=== PATIENT | female | born 1965 | race African-American/Black ===

== ENCOUNTER 2022-11-11 12:56 | Outpatient (AMB) | payer OTHER, SELFPAY ==
--- NOTE | 2022-11-11 13:03 | A.OFFPC_ITS ---
Vital Signs 11/11/22 13:09 Height 5 ft 2 in Weight 139 lb 6 oz BMI 25.5 BP 112/72 Blood Pressure Location Rt brachial Position Sitting Pulse 68 Pulse Source Pulse Oximeter Pulse Oximetry (%) 99 Oxygen Delivery Method Room Air Intake Visit Reasons: npv- requesting phy Allergies No Known Allergies Allergy (Verified 11/11/22 13:09) Medication List - Last Reconciled 11/11/22 by Jeremy Camara MD No Known Home Meds Tobacco use date assessed: 11/11/22 Dental Screening Dental Screen Date: 11/11/22 Did you have a dental visit in the last 12 months?: Yes Did you have a dental problem in the last 6 months where you did not have access to dental care?: No Was dental information given to patient?: No HPI npv- requesting phy HPI Details Patient is a 57-year-old female came in today establish care and initial physical exam. She is taking no medications Due for mammogram patient have breast implants Also is in need of new OBGYN Colonoscopy was 2 years ago patient will provide us with the report. She was told that next colonoscopy will be in 5 years that will be in 2025 Lab order placed to be done fasting Patient have a small ventral hernia which is not painful and is therefore a while. She is complaining of feeling clogged ears on examination patient's ears are filled with cerumen Ears were irrigated with good result. Follow-up 1 year for physical exam or earlier if needed [facility] Social History Housing: House Patient Tobacco Use Status: Never used Tobacco e-Cigarette/Vaping Use: Never Used service: No Current occupational status: unemployed Cognitive needs: No Hearing needs: No Vision needs: No Questionnaire AUDIT C Alcohol Use Questionnaire (AUDIT-C) 1. How often do you have a drink containing alcohol?: Monthly or less 2. How many drinks containing alcohol do you have on a typical day when you are drinking?: 1 or 2 3. How often do you have six or more drinks on one occasion?: Never Total Score: 1 Score Reviewed/Action Taken: Yes Review of Systems Const Denies chills, Denies fever(s) and Denies headache(s) Eyes Denies blurry vision ENT Denies headache(s), Denies nasal discharge, Denies nasal obstruction, Denies odynophagia and Denies sinus pain Card Denies chest pain at rest and Denies chest pain with activity Resp Denies cough and Denies hemoptysis GI Denies diarrhea, Denies odynophagia, Denies vomiting and Denies hematemesis Reports as per HPI Musc Denies abnormal gait Skin/Breast Reports as per HPI Neuro Denies Neuro-related abnormal movements, Denies Abnormal speech present, Denies abnormal gait, Denies headache(s) and Denies Sensory deficit (Neuro) Psych Denies mood swings and Denies paranoia Endo Reports as per HPI Wale/Lymph Reports as per HPI Aller/Immun Reports as per HPI Physical exam (Primary Care) Vital Signs: Last Vital Signs Pulse 68 11/11/22 13:09 BP 112/72 11/11/22 13:09 Pulse Ox 99 11/11/22 13:09 Oxygen Delivery Method Room Air 11/11/22 13:09 BMI result Body Mass Index 25.5 Tobacco/Smoking Status: Tobacco use Status Tobacco use date assessed 11/11/22 11/11/22 13:11 Patient Tobacco Use Status Never used Tobacco 11/11/22 13:11 e-Cigarette/Vaping Use Never Used 11/11/22 13:11 Const General: cooperative, comfortable and no acute distress Orientation/consciousness: patient oriented x3 HENMT Head: Yes normocephalic and Yes atraumatic Eyes General: appearance normal, both eyes and all related structures Pupils: Equal, round and reactive pupils present EOM: EOMs intact bilaterally Neck Neck: Yes supple and No lymphadenopathy Thyroid: Thyroid normal Lymphatic: no lymphadenopathy noted Chest Breast/axilla palpation: normal palpation of the breasts Resp Effort & Inspection: normal respiratory effort and able to speak in complete sentences Auscultation: clear to auscultation bilaterally Cardio Heart sounds: S1 normal heart sound present and S2 normal heart sound present GI Other: Small ventral hernia above the umbilicus slightly on the left side nontender Palpation (GI): Soft to palpation and nontender Auscultation: normal bowel sounds General: Yes no CVA tenderness Back/Spine/Pelvis Back: no CVA tenderness Skin General skin exam: elasticity normal and turgor normal Neuro General: patient oriented x3 and gait normal Cranial nerves: Yes Equal, round and reactive pupils present Speech: No Abnormal speech present Sensory Exam: No Sensory deficit (Neuro) Coordination: tandem gait normal and Romberg test negative Extrem General: Yes normal exam except as noted and No edema Office Procedures Cerumen Removal From which ear canal was the cerumen removed: bilateral Removal: irrigation Notes: patient tolerated procedure well, no complications and ear canal clear [id number] Irrigation/Lavage Assessment and Plan Assessment & Plan (1) Encounter for general adult medical examination with abnormal findings: Code(s): Z00.01 - Encounter for general adult medical examination with abnormal findings (2) Ventral hernia: Code(s): K43.9 - Ventral hernia without obstruction or gangrene (3) Impacted cerumen, bilateral: Code(s): H61.23 - Impacted cerumen, bilateral (4) Difficulty sleeping: Code(s): G47.9 - Sleep disorder, unspecified (5) History of breast implant: Code(s): Z98.82 - Breast implant status (6) Encounter for routine gynecological examination: Code(s): Z01.419 - Encounter for gynecological examination (general) (routine) without abnormal findings Plan Patient is a 57-year-old female came in today establish care and initial physical exam. She is taking no medications Due for mammogram patient have breast implants Also is in need of new OBGYN Colonoscopy was 2 years ago patient will provide us with the report. She was told that next colonoscopy will be in 5 years that will be in 2025 Lab order placed to be done fasting Patient have a small ventral hernia which is not painful and is therefore a while. She is complaining of feeling clogged ears on examination patient's ears are filled with cerumen Ears were irrigated with good result. Most night have difficulty sleeping at night patient says that she keeps thinking about different things Follow-up 1 year for physical exam or earlier if needed Orders: Orders Comprehensive [place]. Panel Fast Today G47.9 - Sleep disorder, unspecified, H61.23 - Impacted cerumen, bilateral, K43.9 - Ventral hernia without obstruction or gangrene, Z00.01 - Encounter for general adult medical examination with abnormal findings, Z98.82 - Breast implant status Lipid Panel Today G47.9 - Sleep disorder, unspecified, H61.23 - Impacted cerumen, bilateral, K43.9 - Ventral hernia without obstruction or gangrene, Z00.01 - Encounter for general adult medical examination with abnormal findings, Z98.82 - Breast implant status TSH reflex Free T4 Today G47.9 - Sleep disorder, unspecified, H61.23 - Impacted cerumen, bilateral, K43.9 - Ventral hernia without obstruction or gangrene, Z00.01 - Encounter for general adult medical examination with abnormal findings, Z98.82 - Breast implant status Complete Blood Count Auto Diff Today G47.9 - Sleep disorder, unspecified, H61.23 - Impacted cerumen, bilateral, K43.9 - Ventral hernia without obstruction or gangrene, Z00.01 - Encounter for general adult medical examination with abnormal findings, Z98.82 - Breast implant status MM tomosynthesis screen imp BI Today Z12.31 - Encounter for screening mammogram for malignant neoplasm of breast Referrals HEALTH CLINICIAN Referral Z01.419 - Encounter for gynecological examination (general) (routine) without abnormal findings Coding Level of Care Code New Pt Prev Care 40-64y(56056) Diagnoses Encounter for general adult medical examination with abnormal findings Z00.01 Ventral hernia K43.9 Impacted cerumen, bilateral H61.23 Difficulty sleeping G47.9 History of breast implant Z98.82 Encounter for routine gynecological examination Z01.419 CPT Codes Office Procedure - CPT: 61510-Dkl Irrigation/Lavage ([id number])
[2022-11-11 13:09] VITALS: BP 112/72; PULSE 68; O2SAT 99; BMI 25.5
== END 2022-11-11 15:05 | disposition home or self-care (01) ==
PROVIDERS: PCP Internal Medicine; Visit Provider Internal Medicine
DX: Z00.01 Encounter for general adult medical examination with abnormal findings (principal); K43.9 Ventral hernia without obstruction or gangrene; H61.23 Impacted cerumen, bilateral; G47.9 Sleep disorder, unspecified; Z98.82 Breast implant status; Z01.419 Encounter for gynecological examination (general) (routine) without abnormal findings
CPT/HCPCS: 69209; 99386

== ENCOUNTER 2022-11-18 07:11 | Outpatient (REF) | payer OTHER, SELFPAY ==
[2022-11-18 11:30] LABS: MANUAL DIFF FLAG NO
[2022-11-18 11:42] LABS: Basophils Percent Auto 1.1 % (0-2); Eosinophils Absolute Auto 0.1 X10*3/uL (0.0-0.4); Eosinophils Percent Auto 3.8 % (0-4); Hematocrit 41.4 % (37.0-47.0); Hemoglobin 12.9 g/dl (12.0-16.0); Imm Gran Abs Auto 0.01 X10*3/uL (0.00-0.03); Imm Gran Pct Auto 0.3 % (0.0-0.4); Lymphocytes Absolute Auto 1.5 X10*3/uL (1.2-4.9); Lymphocytes Percent Auto 40.7 % (20-40); Mean Corpuscular HGB Conc 31.2 g/dl (31.0-35.0); Mean Corpuscular Hemoglobin 27.3 pg (27.0-33.0); Mean Corpuscular Volume 87.5 fL (80.0-98.0); Mean Platelet Volume 10.8 fL (9.4-12.3); Monocytes Absolute Auto 0.3 X10*3/uL (0.1-1.2); Monocytes Percent Auto 9.3 % (2-11); Neutrophils Absolute Auto 1.6 x10*3/uL (2.0-8.3); Neutrophils Percent Auto 44.8 % (45-73); Platelet Count 273 X10*3/uL (160-400); Red Blood Count 4.73 X10*6/uL (4.20-5.50); Red Cell Distribution Width 13.5 % (11.0-16.0); White Blood Count 3.7 X10*3/uL (4.8-10.8)
[2022-11-18 21:58] LABS: Alanine Aminotransferase 14 U/L (0-31); Albumin Level 3.8 g/dL (3.5-5.0); Alkaline Phosphatase 93 U/L (39-117); Anion Gap 13 (12-20); Aspartate Amino Transferase 21 U/L (5-31); Bilirubin Total 0.3 mg/dL (0.0-1.0); Blood Urea Nitrogen 10 mg/dL (9-16); Calcium 9.6 mg/dL (8.4-10.2); Carbon Dioxide 25 mmol/L (22-29); Chloride 107 mmol/L (96-108); Cholesterol 184 mg/dL; Estimated Glomerular Filt Rate > 60; Glucose Fasting 79 mg/dL (60-99); HDL Cholesterol 69 mg/dL; LDL Cholesterol Calculated 105 mg/dl; Potassium 3.8 mmol/L (3.3-5.1); Sodium 141 mmol/L (135-145); Triglycerides 51 mg/dL
[2022-11-18 22:14] LABS: TSH reflex Free T4 2.77 uIU/mL (0.32-4.0)
== END 2022-11-18 07:12 | disposition home or self-care (01) ==
LOC: HO.HMGCLDS 07:11
PROVIDERS: PCP Internal Medicine; Visit Provider Internal Medicine
DX: Z00.01 Encounter for general adult medical examination with abnormal findings (principal); G47.9 Sleep disorder, unspecified; H61.23 Impacted cerumen, bilateral; K43.9 Ventral hernia without obstruction or gangrene; Z98.82 Breast implant status
CPT/HCPCS: 36415; 80053; 80061; 84443; 85025

== ENCOUNTER 2022-12-17 08:28 | Outpatient (REF) | payer OTHER, SELFPAY | END 2022-12-17 08:29 | disposition home or self-care (01) | LOC: HO.MAMMO 08:28 | PROVIDERS: PCP Internal Medicine; Visit Provider Internal Medicine | DX: Z13.89 Encounter for screening for other disorder (principal) ==

== ENCOUNTER 2022-12-24 10:47 | Outpatient (REF) | payer OTHER, SELFPAY ==
[2022-12-24 13:41] LABS: MANUAL DIFF FLAG NO
[2022-12-24 13:53] LABS: Basophils Percent Auto 0.8 % (0-2); Eosinophils Absolute Auto 0.1 X10*3/uL (0.0-0.4); Eosinophils Percent Auto 2.4 % (0-4); Hematocrit 40.7 % (37.0-47.0); Imm Gran Abs Auto 0.01 X10*3/uL (0.00-0.03); Imm Gran Pct Auto 0.2 % (0.0-0.4); Lymphocytes Absolute Auto 1.9 X10*3/uL (1.2-4.9); Lymphocytes Percent Auto 36.9 % (20-40); Mean Corpuscular HGB Conc 31.9 g/dl (31.0-35.0); Mean Corpuscular Hemoglobin 27.9 pg (27.0-33.0); Mean Corpuscular Volume 87.3 fL (80.0-98.0); Mean Platelet Volume 10.4 fL (9.4-12.3); Monocytes Absolute Auto 0.4 X10*3/uL (0.1-1.2); Monocytes Percent Auto 7.5 % (2-11); Neutrophils Absolute Auto 2.7 x10*3/uL (2.0-8.3); Neutrophils Percent Auto 52.2 % (45-73); Platelet Count 285 X10*3/uL (160-400); Red Blood Count 4.66 X10*6/uL (4.20-5.50); White Blood Count 5.1 X10*3/uL (4.8-10.8)
== END 2022-12-24 10:48 | disposition home or self-care (01) ==
LOC: HO.HMGCLDS 10:47
PROVIDERS: PCP Internal Medicine; Visit Provider Internal Medicine
DX: D70.9 Neutropenia, unspecified (principal)
CPT/HCPCS: 36415; 85025

== ENCOUNTER 2023-02-19 08:19 | Outpatient (REF) | payer OTHER, SELFPAY ==
[2023-02-19 15:15] LABS: CT PCR NOT DETECTED (Not Detect.); NG PCR NOT DETECTED (Not Detect.)
[2023-02-24 20:37] LABS: HPV mRNA E6/E7 rflx Not Detected (Not Detected)
== END 2023-02-19 08:20 | disposition home or self-care (01) ==
LOC: HO.LNP 08:19
PROVIDERS: PCP Internal Medicine; Visit Provider Advanced Practice Midwife
DX: Z01.419 Encounter for gynecological examination (general) (routine) without abnormal findings (principal); Z11.51 Encounter for screening for human papillomavirus (HPV); Z20.2 Contact with and (suspected) exposure to infections with a predominantly sexual mode of transmission
CPT/HCPCS: 0353U; 87624; 88142; 99386

== ENCOUNTER 2023-02-19 08:19 | Outpatient (AMB) | payer OTHER, SELFPAY ==
--- NOTE | 2023-02-19 08:23 | A.OFFVIS_ITS ---
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 She is interested in estrogen therapy to prevent any facial hairs. Patient admits she tries to eat a healthy Vegan diet including Calcium and Vitamin D. She stays active with exercise. Currently not sexually active. Denies vaginal itching and irritation. STD screening offered; she accepts. Denies family hx of breast and ovarian cancer. [place] and pt. reports negative history. Last mammogram 2017 per pt. Mammogram scheduled June 21 2023. UTD on colonoscopy. 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 Sexually active: No Sexual orientation: Straight/Heterosexual Gender identity: Female Cognitive needs: No Hearing needs: No Vision needs: No Female Reproductive History Menstrual Menopause type: natural Total pregnancies: 3 Full term: 2 Number of Living Children: 2 Ab spontaneous: 1 Physical Exam Vital Signs: Last Vital Signs BP 108/64 02/19/23 08:25 BMI result Body Mass Index 23.8 Const General: cooperative, healthy appearing, no acute distress, well developed and alert Orientation/consciousness: patient oriented x3 HEENT Head: Yes normal to inspection Eyes General: appearance normal, both eyes and all related structures Neck Neck: Yes normal visual inspection Thyroid: Thyroid normal Chest Other: breast augmentation scarring Chest palpation & inspection: normal inspection of the chest Breast/axilla inspection: normal inspection of the breasts (no puckering, dimpling, peau de orange, retraction, discharge, masses) Breast/axilla palpation: normal palpation of the breasts Resp Effort & Inspection: normal respiratory effort GI Other: abdominoplasty scarring Inspection: Yes normal to inspection Palpation (GI): Soft to palpation (to palpation) Rectal Exam - Female: deferred Other: pt reports uterus is tipped General: Yes bladder normal to inspection External Female Exam: normal external appearance and normal appearance of the urethra Speculum Exam - Vagina: normal appearance of the vagina, normal palpation and vagina atrophic Speculum Exam - Cervix: normal appearance of the cervix and normal palpation Bimanual exam- vagina & uterus: normal palpation, normal palpation and other (anteverted uterus, mass palpable) Bimanual Exam- Adnexa, other: normal adnexae and no masses Skin General skin exam: no rashes or lesions noted Neuro General: patient oriented x3 Cognition (Neuro): normal cognition Extrem General: Yes normal to inspection Psych Attitude: cooperative Thought process: Normal thought process present Assessment & Plan Assessment & Plan (1) Encounter for well woman exam: Code(s): Z01.419 - Encounter for gynecological examination (general) (routine) without abnormal findings Plan: Discussed: Current recommendations for pap smears per ASCCP guidelines. Breast awareness and periodic self breast exams. Encouraged yearly mammograms. Forward mammogram results from June 2023 to office once results are completed. Maintaining a healthy lifestyle including a well balanced diet including Calcium and Vitamin D and routine exercise. Encouraged to use condoms for STD prevention if become sexually active. Discussed with the patient the benefits and the risks of hormonal replacement therapy. I do not advise starting HRT for facial hair growth deterrent. Other options for removal-plucking, waxing, electrolysis, or laser. Contact office with any PMB. All of her questions and concerns were addressed to the best of my ability. (2) Potential exposure to STD: Code(s): Z20.2 - Contact with and (suspected) exposure to infections with a predominantly sexual mode of transmission Plan: GC/CT panel done today. Await results and treat accordingly. (3) Pelvic mass: Code(s): R19.00 - Intra-abdominal and pelvic swelling, mass and lump, unspecified site (4) Food allergic skin reaction: Code(s): L27.2 - Dermatitis due to ingested food Plan: Consult with specialist regarding allergic reaction. Orders: Orders Pap Smear Today Z01.419 - Encounter for gynecological examination (general) (routine) without abnormal findings CT NG by PCR Today Z01.419 - Encounter for gynecological examination (general) (routine) without abnormal findings US pelvic and transvaginal Today R19.00 - Intra-abdominal and pelvic swelling, mass and lump, unspecified site Coding Level of Care Code New Pt Prev Care 40-64y(99704) Diagnoses Encounter for well woman exam Z01.419 Potential exposure to STD Z20.2 Pelvic mass R19.00 Food allergic skin reaction L27.2
[2023-02-19 08:25] VITALS: BP 108/64; BMI 23.8
== END 2023-02-19 09:00 | disposition home or self-care (01) ==
PROVIDERS: PCP Internal Medicine; Visit Provider Advanced Practice Midwife
DX: Z01.419 Encounter for gynecological examination (general) (routine) without abnormal findings (principal); Z20.2 Contact with and (suspected) exposure to infections with a predominantly sexual mode of transmission; R19.00 Intra-abdominal and pelvic swelling, mass and lump, unspecified site; L27.2 Dermatitis due to ingested food
CPT/HCPCS: 99386

== ENCOUNTER 2023-03-17 10:32 | Outpatient (REF) | payer OTHER, SELFPAY ==
--- NOTE | ~2023-03-17 | US_ITS ---
EXAMINATION: US PELVIS CLINICAL INFORMATION: Intra-abdominal pain and swelling. COMPARISON: None available. TECHNIQUE: Ultrasound of the pelvis is performed using both transabdominal and transvaginal transducers along with Doppler. Transvaginal imaging is performed due to inadequate visualization transabdominally. FINDINGS: UTERUS: The uterus is anteverted and measures 7.9 x 2.5 x 4.3 cm. The double wall endometrial thickness is 2 mm. The uterus is smooth in contour and has normal myometrial echogenicity with the exception of a 4 x 2 x 3 mm area of calcification which could be related to a small fibroid. ADNEXA: Both ovaries are visualized. There is normal color flow to the adnexa. There is no ovarian torsion. There is no pelvic ascites or fluid collection. Right ovary measures 2.1 x 1.0 x 0.8 cm for a volume of 0.8 mL. Left ovary measures 2.2 x 2.0 x 1.1 cm for a volume of 2.5 mL. US/US pelvic and transvaginal IMPRESSION: Small uterine fibroid with calcification.
== END 2023-03-17 10:33 | disposition home or self-care (01) ==
LOC: HO.US 10:32
PROVIDERS: PCP Internal Medicine; Visit Provider Advanced Practice Midwife
DX: R19.00 Intra-abdominal and pelvic swelling, mass and lump, unspecified site (principal)
CPT/HCPCS: 76830; 76856

== ENCOUNTER 2023-06-29 07:39 | Outpatient (AMB) | payer OTHER, SELFPAY ==
--- NOTE | 2023-06-29 07:40 | MHC.OFFVIS ---
Intake Intake Visit Reasons: TV ultra sound Intake Note: cell # [phone] Product Assurance Engineer: Product Assurance Engineer Present Allergies No Known Allergies Allergy (Verified 02/19/23 08:26) Is last menstrual period known: Yes HPI HPI Comments History of Present Illness Details [facility] visit 07:50-07:57. Phone call due to Covid 19 Pandemic. I spent 7 minutes speaking with the patient on the phone plus an additional 5 minutes reviewing the chart and 5 minutes updating the medical record for a total of 17 minutes. Patient presents via phone to discuss: US results, history of ?mass on last exam. No postmenopausal bleeding or pelvic pain. FH of fibroids, uncertain if prior scans elsewhare. 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 Sexual orientation: Straight/Heterosexual Gender identity: Female Cognitive needs: No Hearing needs: No Vision needs: No Review of Systems Const All systems reviewed & are unremarkable except as noted in HPI and below Endo Reports no additional complaints Physical Exam Const General: cooperative, healthy appearing and no acute distress Psych Appearance: well kempt Attitude: cooperative Thought process: Normal thought process present Results Reviewed Results Reviewed: [address] [address] Ultrasound Report Signed Patient: Raven Garzon MR#: [id number] : 1965 Acct:[id number] Age/Sex: 58 / F ADM Date: 03/17/23 Loc: HO.US Attending Dr: Stefania Carrillo CNM Ordering Physician: Stefania Carrillo CNM Date of Service: 03/17/23 Procedure(s): US pelvic and transvaginal Accession Number(s): [id number] cc: Jeremy Camara MD; Stefania Carrillo CNM~ EXAMINATION: US PELVIS CLINICAL INFORMATION: Intra-abdominal pain and swelling. COMPARISON: None available. TECHNIQUE: Ultrasound of the pelvis is performed using both transabdominal and transvaginal transducers along with Doppler. Transvaginal imaging is performed due to inadequate visualization transabdominally. FINDINGS: UTERUS: The uterus is anteverted and measures 7.9 x 2.5 x 4.3 cm. The double wall endometrial thickness is 2 mm. The uterus is smooth in contour and has normal myometrial echogenicity with the exception of a 4 x 2 x 3 mm area of calcification which could be related to a small fibroid. ADNEXA: Both ovaries are visualized. There is normal color flow to the adnexa. There is no ovarian torsion. There is no pelvic ascites or fluid collection. Right ovary measures 2.1 x 1.0 x 0.8 cm for a volume of 0.8 mL. Left ovary measures 2.2 x 2.0 x 1.1 cm for a volume of 2.5 mL. US/US pelvic and transvaginal IMPRESSION: Small uterine fibroid with calcification. Dictated By: Al Best MD Signed By: <Electronically signed by Al Best MD in OV> 03/18/23 1748 DD/ 1130 TD/TT: Cv/Cvn Cv Tsc System Operator: SS Assessment & Plan Assessment & Plan (1) Fibroid: Code(s): D21.9 - Benign neoplasm of connective and other soft tissue, unspecified Plan Discussed: Counseled re: Leiomyoma: common pelvic neoplasm. Differential diagnosis-may include leiomyosarcoma which is a rare uterine sarcoma 3-7/100,000, difficult to distinguish from fibroids on ultrasound from uterine sarcoma's. Unlikely any single test will have a highly positive predictive value. Hysterectomy is not recommended for sole purpose of excluding malignant neoplasm. Report any PMB/AUB. Pelvic pressure, bloating, or pain. Expectant management follow up for stability. Referral to MD if indicated for level of care. This note is constructed using voice recognition software. While every effort has been made to ensure accuracy, group home worker errors may have been included. Orders: Orders US pelvic and transvaginal 02/14/24 D21.9 - Benign neoplasm of connective and other soft tissue, unspecified Telehealth Telehealth Location of provider rendering services: practice address Location of patient: address on file Patient Identification confirmed using: Name, : Yes Telehealth method: video Patient verbally consented to treatment: Yes Patient verbally consented to billing insurance company: Yes Patient informed of any privacy concerns related to visit: Yes Coding Level of Care Code Tele Est Pt Level 3 (09814) Diagnoses Fibroid D21.9
== END 2023-06-29 08:26 | disposition home or self-care (01) ==
LOC: HO.HWS 07:39
PROVIDERS: PCP Internal Medicine; Visit Provider Advanced Practice Midwife
DX: D21.9 Benign neoplasm of connective and other soft tissue, unspecified (principal)
CPT/HCPCS: 99213

== ENCOUNTER → 2023-06-29 07:39 | Outpatient (BNVA) | payer OTHER, SELFPAY | PROVIDERS: PCP Internal Medicine; Visit Provider Advanced Practice Midwife ==

== ENCOUNTER 2023-07-29 08:30 | Outpatient (AMB) | payer OTHER, SELFPAY ==
--- NOTE | 2023-07-29 08:40 | A.OFFPC_ITS ---
Vital Signs 07/29/23 08:41 Height 5 ft 2 in Intake Visit Reasons: Blood Work Req~ Allergies No Known Allergies Allergy (Verified 07/29/23 08:40) Medication List - Last Reconciled 07/29/23 by Jeremy Camara MD No Known Home Meds Tobacco use date assessed: 07/29/23 Dental Screening Dental Screen Date: 07/29/23 Did you have a dental visit in the last 12 months?: Yes Did you have a dental problem in the last 6 months where you did not have access to dental care?: No Was dental information given to patient?: Patient has dentist HPI Blood Work Req~ HPI Details Patient is 58-year-old female this is a telemedicine conference Patient is concerned that she has lost weight since seen last, patient says that she we around 130-114 lb She was last seen in the office October of last year when she way around 130 lb Patient says that she just on not have an appetite. There is no abdominal pain, no nausea or vomiting, there is no chest pain shortness of breath, no fever chills I have ordered labs for the patient We will book in house appointment to go over the labs and to further evaluate. 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 How often do you have a drink containing alcohol?: Monthly or less 2. How many drinks containing alcohol do you have on a typical day when you are drinking?: 1 or 2 3. How often do you have six or more drinks on one occasion?: Never Total Score: 1 Score Reviewed/Action Taken: Yes Review of Systems Const Denies chills and Denies fever(s) ENT Denies epistaxis and Denies nasal discharge Card Denies chest pain Resp Denies chest congestion, Denies cough and Denies hemoptysis GI Denies diarrhea and Denies nausea Skin/Breast Denies rash Neuro Reports no additional complaints Psych Reports no additional complaints Endo Reports no additional complaints Physical exam (Primary Care) Tobacco/Smoking Status: Tobacco use Status Tobacco use date assessed 07/29/23 07/29/23 08:41 Patient Tobacco Use Status Never used Tobacco 07/29/23 08:41 e-Cigarette/Vaping Use Never Used 07/29/23 08:41 Telehealth Telehealth Location of provider rendering services: practice address Location of patient: address on file Patient Identification confirmed using: Name, : Yes Telehealth method: voice only Patient verbally consented to treatment: Yes Patient verbally consented to billing insurance company: Yes Patient informed of any privacy concerns related to visit: Yes Minutes spent on Phone/Video with Pt.: 13 Assessment and Plan Assessment & Plan (1) Lack of appetite: Code(s): R63.0 - Anorexia (2) Weight loss: Code(s): R63.4 - Abnormal weight loss Plan Patient is 58-year-old female this is a telemedicine conference Patient is concerned that she has lost weight since seen last, patient says that she we around 130-114 lb She was last seen in the office October of last year when she way around 130 lb Patient says that she just on not have an appetite. There is no abdominal pain, no nausea or vomiting, there is no chest pain shortness of breath, no fever chills I have ordered labs for the patient We will book in house appointment to go over the labs and to further evaluate. Orders: Orders Complete Blood Count Auto Diff Today R63.0 - Anorexia, R63.4 - Abnormal weight loss Comprehensive [place]. Panel Fast Today R63.0 - Anorexia, R63.4 - Abnormal weight loss TSH reflex Free T4 Today R63.0 - Anorexia, R63.4 - Abnormal weight loss Lipid Panel Today R63.0 - Anorexia, R63.4 - Abnormal weight loss Vitamin D 25-OH (D2 and D3) Today R63.0 - Anorexia, R63.4 - Abnormal weight loss Coding Level of Care Code Tele Est Pt Level 3 (78591) Diagnoses Lack of appetite R63.0 Weight loss R63.4
== END 2023-07-29 15:23 | disposition home or self-care (01) ==
LOC: HO.HMGC 08:30
PROVIDERS: PCP Internal Medicine; Visit Provider Internal Medicine
DX: R63.0 Anorexia (principal); R63.4 Abnormal weight loss
CPT/HCPCS: 99213

== ENCOUNTER 2023-07-30 07:03 | Outpatient (REF) | payer OTHER, SELFPAY ==
[2023-07-30 10:49] LABS: MANUAL DIFF FLAG NO
[2023-07-30 10:50] LABS: Basophils Percent Auto 1.1 % (0-2); Eosinophils Absolute Auto 0.1 X10*3/uL (0.0-0.4); Eosinophils Percent Auto 3.7 % (0-4); Hematocrit 42.2 % (37.0-47.0); Hemoglobin 13.8 g/dl (12.0-16.0); Lymphocytes Absolute Auto 1.8 X10*3/uL (1.2-4.9); Lymphocytes Percent Auto 47.8 % (20-40); Mean Corpuscular HGB Conc 32.7 g/dl (31.0-35.0); Mean Corpuscular Hemoglobin 28.7 pg (27.0-33.0); Mean Corpuscular Volume 87.7 fL (80.0-98.0); Mean Platelet Volume 9.6 fL (9.4-12.3); Monocytes Absolute Auto 0.3 X10*3/uL (0.1-1.2); Monocytes Percent Auto 8.2 % (2-11); Neutrophils Absolute Auto 1.5 x10*3/uL (2.0-8.3); Neutrophils Percent Auto 39.2 % (45-73); Platelet Count 256 X10*3/uL (160-400); Red Blood Count 4.81 X10*6/uL (4.20-5.50); Red Cell Distribution Width 12.5 % (11.0-16.0); White Blood Count 3.8 X10*3/uL (4.8-10.8)
[2023-07-30 11:26] LABS: Alanine Aminotransferase 14 U/L (0-31); Albumin Level 3.9 g/dL (3.5-5.0); Alkaline Phosphatase 104 U/L (39-117); Anion Gap 11 (12-20); Aspartate Amino Transferase 23 U/L (5-31); Bilirubin Total 0.5 mg/dL (0.0-1.0); Blood Urea Nitrogen 14 mg/dL (9-16); Calcium 9.4 mg/dL (8.4-10.2); Carbon Dioxide 28 mmol/L (22-29); Chloride 106 mmol/L (96-108); Cholesterol 186 mg/dL (<200); Estimated Glomerular Filt Rate > 60; Glucose Fasting 77 mg/dL (60-99); HDL Cholesterol 78 mg/dL (>40); LDL Cholesterol Calculated 100 mg/dL (<100); Potassium 3.5 mmol/L (3.3-5.1); Sodium 141 mmol/L (135-145); TSH reflex Free T4 2.29 uIU/mL (0.32-4.0); Total Protein 7.1 g/dL (6.5-8.0); Triglycerides 43 mg/dL (<150)
[2023-08-04 12:18] LABS: Vitamin D 25-OH, D2 <4 ng/mL; Vitamin D 25-OH, D3 37 ng/mL; Vitamin D 25-OH, Total 37 ng/mL (30-100)
== END 2023-07-30 07:04 | disposition home or self-care (01) ==
LOC: HO.HMGCLDS 07:03
PROVIDERS: PCP Internal Medicine; Visit Provider Internal Medicine
DX: R63.0 Anorexia (principal); R63.4 Abnormal weight loss
CPT/HCPCS: 36415; 80053; 80061; 82306; 84443; 85025

== ENCOUNTER 2023-08-05 08:34 | Outpatient (AMB) | payer OTHER, SELFPAY ==
--- OUTSIDE RECORDS SUMMARY | 2023-08-05 08:35 | XMS_ITS | Continuity of Care Document ---
Author Organization [facility] Address [address] [place] [phone]- Care Team Providers Care Hat Mender Name Role Phone Clark LOFTON, Darlene Gifford Primary Care Physician [place] [facility] [place] [facility] [address] [place] [id number]- Attending Physician: Deny Levine Admitting Physician: Deny Levine Referring Physician: Deny Levine Medications Multivitamin Daily, 0 Refills, Maintenance, 09/08/16 16:05:32 Start Date: 09/08/16 Status: Ordered Social History Social History Type Response Smoking Status Never smoker entered on: 09/08/16 Sex
--- OUTSIDE RECORDS SUMMARY | 2023-08-05 08:35 | XMS_ITS | Continuity of Care Document ---
Author Organization [facility] Address [address] [place] [id number]- Care Team Providers Care Record Filing Clerk Name Role Phone Darlene Rodas MD Primary Care Physician [id number] Date(s): 10/10/21 - 05/18/23 [facility] [address] [place] [id number]- Discharge Disposition: A-D/C Home Attending Physician: Rancho Mantilla MD Admitting Physician: Rancho Mantilla MD Referring Physician: Oliverio Rodriguez DO Medications Multivitamin Daily, 0 Refills, Maintenance, 09/08/16 16:05:32 Start Date: 09/08/16 Status: Ordered Social History Social History Type Response Smoking Status Never smoker entered on: 09/08/16 Sex Patient Care team information Care Team Personnel Name: Darlene Rodas MD Position: Reference Physician Member Role: PCP Address: Address: [address] [place] [id number] Care Team Related Persons Name: HOLLY LAWTON Address: home [address] [place] [address] Name: BAL ODONNELL Address: home [address] [place] [address]
--- NOTE | 2023-08-05 09:09 | A.OFFPC_ITS ---
Intake Visit Reasons: Discuss Labs ~ [phone] Allergies No Known Allergies Allergy (Verified 08/05/23 09:09) Medication List - Last Reconciled 08/05/23 by Jeremy Camara MD No Known Home Meds Tobacco use date assessed: 08/05/23 Dental Screening Dental Screen Date: 08/05/23 Did you have a dental visit in the last 12 months?: Yes Did you have a dental problem in the last 6 months where you did not have access to dental care?: No Was dental information given to patient?: Patient has dentist HPI Discuss Labs ~ [phone] HPI Details Patient is 58-year-old female this is a telemedicine conference to discuss her labs Patient have a mild neutropenia, she is very concerned about it, she tells me that her previous primary care was checking her labs every 6 months however she will feel much better if she can discuss it with specialist. Her absolute neutrophil count is 1.5, I have explained the findings in detail to patient, at this time I do not see any reason to be too concerned. However I have placed a referral for her to see a Hematology for consultation. 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 1. Little interest or pleasure in doing things: not at all 2. Feeling down, depressed, or hopeless: not at all 3. Trouble falling or staying asleep, or sleeping too much: not at all 4. Feeling tired or having little energy: not at all 5. Poor appetite or overeating: not at all 6. Feeling bad about yourself - or that you are a failure or have let yourself or your family down: not at all 7. Trouble concentrating on things, such as reading the newspaper or watching television: not at all 8. Moving or speaking so slowly that other people could have noticed. Or the opposite - being so fidgety or restless that you have been moving around a lot more than usual: not at all 9. Thoughts that you would be better off or of hurting yourself in some way: not at all Total score: 0 Depression Screening Interpretation: Negative Depression Screening Done: Yes 76995 - PHQ-9 Billing: Yes Source: Developed by Drs. Drew Cerna, Avis Huitron, Wesley Perry and colleagues, with an educational lee from [employer]. Thrive Questionnaire Date Thrive assessed: 08/05/23 I am a: Patient What is your living situation today?: I have a steady place to live Within the past 12 months, did the food you bought not last and you didn't have the money to get more?: Never true Within the past 12 months, did you worry whether your food would run out before you got money to buy more?: Never true Do you have trouble paying for medicines?: No Do you have trouble getting transportation to medical appointments?: No Do you have trouble paying your heating and electricity bill?: No Do you have trouble taking care of your child, family member or friend?: No Do you have trouble with day-to-day activities such as bathing, preparing meals, shopping, managing finances, etc.?: No Are you currently unemployed and looking for a job?: No Are you interested in more education?: No Please select the resources that you would like help with: None Currently or been in a relationship where the following occur: no concerns reported THRIVE Score: 0 AUDIT C Alcohol Use Questionnaire (AUDIT-C) 1. How often do you have a drink containing alcohol?: Monthly or less 2. How many drinks containing alcohol do you have on a typical day when you are drinking?: 1 or 2 3. How often do you have six or more drinks on one occasion?: Never Total Score: 1 Score Reviewed/Action Taken: Yes ZEE-7 AMB Questionnaire ZEE-7 Date ZEE - 7 assessed: 08/05/23 Feeling nervous, anxious, or on edge: 0 = Not at all Not being able to stop or control worryin = Not at all Worrying too much about different things: 0 = Not at all Trouble relaxin = Not at all Being so restless that it is hard to sit still: 0 = Not at all Becoming easily annoyed or irritable: 0 = Not at all Feeling afraid as if something awful might happen: 0 = Not at all Total ZEE-7 score (0-4 normal; 5-9 mild; 10-14 moderate; 15-21 severe): 0 Source: Developed by Drs. Drew Cerna, Avis Huitron, Wesley Perry and colleagues, with an educational lee from [employer]. ZEE-7 Assessment Billing ZEE-7 Assessment Tool: ZEE-7 Assessment 05581 Review of Systems Const Denies chills and Denies fever(s) ENT Denies epistaxis and Denies nasal discharge Card Denies chest pain Resp Denies chest congestion, Denies cough and Denies hemoptysis GI Denies diarrhea and Denies nausea Skin/Breast Denies rash Neuro Reports no additional complaints Psych Reports no additional complaints Endo Reports no additional complaints Physical exam (Primary Care) Tobacco/Smoking Status: Tobacco use Status Tobacco use date assessed 08/05/23 08/05/23 09:10 Patient Tobacco Use Status Never used Tobacco 08/05/23 09:10 e-Cigarette/Vaping Use Never Used 08/05/23 09:10 PHQ-9: PHQ-9 Score PHQ-9: Total score 0 08/05/23 09:11 Depression Screening Interpretation: Negative Thrive Assessment: Date of Thrive Assessment Date Thrive assessed 08/05/23 08/05/23 09:11 Currently or been in a relationship where the following occur: no concerns reported Telehealth Telehealth Location of provider rendering services: practice address Location of patient: address on file Patient Identification confirmed using: Name, : Yes Telehealth method: voice only Patient verbally consented to treatment: Yes Patient verbally consented to billing insurance company: Yes Patient informed of any privacy concerns related to visit: Yes Minutes spent on Phone/Video with Pt.: 13 Assessment and Plan Assessment & Plan (1) Neutropenia: Code(s): D70.9 - Neutropenia, unspecified Qualifiers: Neutropenia type: other Qualified Code(s): D70.8 - Other neutropenia Plan Patient is 58-year-old female this is a telemedicine conference to discuss her labs Patient have a mild neutropenia, she is very concerned about it, she tells me that her previous primary care was checking her labs every 6 months however she will feel much better if she can discuss it with specialist. Her absolute neutrophil count is 1.5, I have explained the findings in detail to patient, at this time I do not see any reason to be too concerned. However I have placed a referral for her to see a Hematology for consultation. Orders: Referrals Hematology & Oncology Referral D70.9 - Neutropenia, unspecified Coding Level of Care Code Tele Est Pt Level 3 (91580) Diagnoses Other neutropenia D70.8 Neutropenia type: other Additional Codes ZEE-7 Assessment Billing - ZEE-7 Assessment Tool: ZEE-7 Assessment 79455 ([id number])
== END 2023-08-05 16:30 | disposition home or self-care (01) ==
LOC: HO.HMGC 08:34
PROVIDERS: PCP Internal Medicine; Visit Provider Internal Medicine
DX: D70.8 Other neutropenia (principal)
CPT/HCPCS: 99213

== ENCOUNTER → 2023-08-30 10:15 | Outpatient (BNV) | payer OTHER, SELFPAY | PROVIDERS: PCP Internal Medicine; Visit Provider Internal Medicine Medical Oncology | DX: D70.9 Neutropenia, unspecified (principal) | CPT/HCPCS: 99204; 99213 ==

== ENCOUNTER 2023-11-29 07:38 | Outpatient (REF) | payer OTHER, SELFPAY ==
[2023-11-29 07:58] LABS: MANUAL DIFF FLAG NO
[2023-11-29 08:02] LABS: Eosinophils Absolute Auto 0.2 X10*3/uL (0.0-0.4); Eosinophils Percent Auto 4.7 % (0-4); Hematocrit 41.9 % (37.0-47.0); Hemoglobin 13.8 g/dl (12.0-16.0); Imm Gran Abs Auto 0.01 X10*3/uL (0.00-0.03); Imm Gran Pct Auto 0.2 % (0.0-0.4); Lymphocytes Absolute Auto 1.6 X10*3/uL (1.2-4.9); Lymphocytes Percent Auto 39.1 % (20-40); Mean Corpuscular HGB Conc 32.9 g/dl (31.0-35.0); Mean Corpuscular Hemoglobin 29.4 pg (27.0-33.0); Mean Corpuscular Volume 89.3 fL (80.0-98.0); Mean Platelet Volume 9.3 fL (9.4-12.3); Monocytes Absolute Auto 0.3 X10*3/uL (0.1-1.2); Monocytes Percent Auto 8.2 % (2-11); Neutrophils Absolute Auto 1.9 x10*3/uL (2.0-8.3); Neutrophils Percent Auto 46.8 % (45-73); Platelet Count 252 X10*3/uL (160-400); Red Blood Count 4.69 X10*6/uL (4.20-5.50); Red Cell Distribution Width 12.5 % (11.0-16.0)
[2023-11-29 08:14] LABS: Alanine Aminotransferase 47 U/L (0-31); Alkaline Phosphatase 105 U/L (39-117); Anion Gap 11 (12-20); Aspartate Amino Transferase 50 U/L (5-31); Bilirubin Total 0.3 mg/dL (0.0-1.0); Blood Urea Nitrogen 11 mg/dL (9-16); Calcium 9.7 mg/dL (8.4-10.2); Carbon Dioxide 27 mmol/L (22-29); Chloride 109 mmol/L (96-108); Estimated Glomerular Filt Rate > 60; Glucose Random 88 mg/dL (60-115); Lactate Dehydrogenase 182 U/L (122-220); Potassium 4.2 mmol/L (3.3-5.1); Sodium 143 mmol/L (135-145); Total Protein 7.2 g/dL (6.5-8.0)
== END 2023-11-29 07:39 | disposition home or self-care (01) ==
LOC: HO.LAB 07:38
PROVIDERS: PCP Internal Medicine; Visit Provider Internal Medicine Medical Oncology
DX: D70.9 Neutropenia, unspecified (principal)
CPT/HCPCS: 36415; 80053; 83615; 85025

== ENCOUNTER 2024-02-07 10:46 | Outpatient (REF) | payer OTHER, SELFPAY ==
--- NOTE | ~2024-02-07 | US_ITS ---
EXAMINATION: US PELVIS CLINICAL INFORMATION: Benign neoplasm of connective and other soft tissue, unspecified. Follow up for stability, calcifications, fibroid. COMPARISON: Pelvic ultrasound 03/17/2023. TECHNIQUE: Ultrasound of the pelvis is performed using both transabdominal and transvaginal transducers along with Doppler. Transvaginal imaging is performed due to inadequate visualization transabdominally. FINDINGS: Uterus: The uterus is anteverted and measures 7.7 x 2.3 x 4.7 cm. There is a 3 mm calcification seen in the uterus, which is without significant change when compared to the prior study. No definite associated mass is seen. The double wall endometrial thickness is 3 mm. Nabothian cysts are present in the cervix. The uterus is smooth in contour and has normal myometrial echogenicity. No visible fibroid. Adnexa: Both ovaries are visualized. There is normal color flow to the adnexa. There is no ovarian torsion. There is no pelvic ascites or fluid collection. Right ovary measures 2.4 x 0.9 x 1.2 cm for a volume of 1.4 mL. Left ovary measures 1.4 x 0.6 x 0.9 cm for a volume of 0.4 mL. US/US pelvic and transvaginal IMPRESSION: No significant abnormality is seen. A 3 mm calcification is seen in the uterus without significant change when compared to the prior study. Electronically signed by: Al Best MD 04/01/2024 10:46 AM MAUREEN
== END 2024-02-07 10:47 | disposition home or self-care (01) ==
LOC: HO.US 10:46
PROVIDERS: PCP Internal Medicine; Visit Provider Advanced Practice Midwife
DX: D21.9 Benign neoplasm of connective and other soft tissue, unspecified (principal)
CPT/HCPCS: 76830; 76856

== ENCOUNTER 2024-02-08 08:06 | Outpatient (REF) | payer OTHER, SELFPAY ==
[2024-02-08 09:58] LABS: MANUAL DIFF FLAG NO
[2024-02-08 10:08] LABS: Basophils Percent Auto 0.7 % (0-2); Eosinophils Absolute Auto 0.2 X10*3/uL (0.0-0.4); Eosinophils Percent Auto 4.2 % (0-4); Hematocrit 41.6 % (37.0-47.0); Hemoglobin 13.8 g/dl (12.0-16.0); Imm Gran Abs Auto 0.01 X10*3/uL (0.00-0.03); Imm Gran Pct Auto 0.2 % (0.0-0.4); Lymphocytes Absolute Auto 1.7 X10*3/uL (1.2-4.9); Lymphocytes Percent Auto 41.4 % (20-40); Mean Corpuscular HGB Conc 33.2 g/dl (31.0-35.0); Mean Corpuscular Hemoglobin 29.4 pg (27.0-33.0); Mean Corpuscular Volume 88.7 fL (80.0-98.0); Mean Platelet Volume 9.6 fL (9.4-12.3); Monocytes Absolute Auto 0.3 X10*3/uL (0.1-1.2); Monocytes Percent Auto 8.5 % (2-11); Neutrophils Absolute Auto 1.8 x10*3/uL (2.0-8.3); Platelet Count 252 X10*3/uL (160-400); Red Blood Count 4.69 X10*6/uL (4.20-5.50); Red Cell Distribution Width 12.9 % (11.0-16.0)
[2024-02-08 10:30] LABS: Alanine Aminotransferase 20 U/L (0-31); Alkaline Phosphatase 115 U/L (39-117); Anion Gap 11 (12-20); Aspartate Amino Transferase 27 U/L (5-31); Bilirubin Total 0.4 mg/dL (0.0-1.0); Blood Urea Nitrogen 14 mg/dL (9-16); Calcium 9.7 mg/dL (8.4-10.2); Carbon Dioxide 26 mmol/L (22-29); Chloride 109 mmol/L (96-108); Cholesterol 200 mg/dL (<200); Estimated Glomerular Filt Rate > 60; Glucose Random 80 mg/dL (60-115); HDL Cholesterol 83 mg/dL (>40); LDL Cholesterol Calculated 110 mg/dL (<100); Sodium 142 mmol/L (135-145); Total Protein 7.4 g/dL (6.5-8.0); Triglycerides 38 mg/dL (<150)
[2024-02-08 10:47] LABS: HBS Num1 1.26 mIU/mL (0-7.99); ~Hepatitis B Surface Antibody NONREACTIVE (Nonreactive)
[2024-02-11 12:29] LABS: TS Negative Control Passed; TS Panel A 0; TS Panel B 1; TS Positive Control Passed; TSpotTB Negative (Negative)
[2024-02-11 12:32] LABS: Tetanus Antitoxiod Antibody 3.14 IU/mL
== END 2024-02-08 08:07 | disposition home or self-care (01) ==
LOC: HO.HMGCLDS 08:06
PROVIDERS: PCP Internal Medicine; Visit Provider Internal Medicine
DX: D70.8 Other neutropenia (principal); R79.89 Other specified abnormal findings of blood chemistry; R63.0 Anorexia; R63.4 Abnormal weight loss; Z28.39 Other underimmunization status
CPT/HCPCS: 36415; 80053; 80061; 85025; 86481; 86706; 86735; 86762; 86765; 86774; 86787

== ENCOUNTER 2024-02-16 12:56 | Outpatient (AMB) | payer OTHER, SELFPAY ==
[2024-02-16 13:58] VITALS: BP 118/68
--- NOTE | 2024-02-16 13:58 | A.OFFPC_ITS ---
Vital Signs 02/16/24 13:58 Height 5 ft 2 in BP 118/68 Blood Pressure Location Rt brachial Position Sitting BP not taken reason Patient Refused Intake Visit Reasons: Annual PE Allergies No Known Allergies Allergy (Verified 02/16/24 14:00) Medication List - Last Reconciled 02/16/24 by Jeremy Camara MD No Known Home Meds Tobacco use date assessed: 02/16/24 Dental Screening Dental Screen Date: 02/16/24 Did you have a dental visit in the last 12 months?: Yes Did you have a dental problem in the last 6 months where you did not have access to dental care?: No Was dental information given to patient?: Patient has dentist HPI Annual PE HPI Details Patient is 58-year-old female came in today for physical examination Patient says that recently her dog who was 12 years old She is feeling very depressed and having difficulty sleeping at night She is requesting assistance for few weeks so she can get over it Mammogram is up-to-date at [facility] Colonoscopy will be in 2025 OBGYN visit was June this year Labs were done February of 2024 reviewed Patient is having excessive cerumen right ear which was irrigated today with good result She also need a Tdap vaccine to complete her vaccinations Patient is aware that lorazepam to be taken only as needed at night No driving with this medication It is habit-forming and controlled medication refill we will require a visit And also not to share it with anyone., medication slows down reflexes no working with machines PFSH Medical History Food allergic skin reaction Surgical History Hx of abdominoplasty Hx of breast augmentation Family History Father Colon cancer Social History Household Members: None Housing: House Alcohol intake: current Alcohol intake frequency: holidays/special occasions only Patient Tobacco Use Status: Never used Tobacco e-Cigarette/Vaping Use: Never Used service: No Current occupational status: employed 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 Sexual orientation: Straight/Heterosexual Gender identity: Female Cognitive needs: No Hearing needs: No Vision needs: No Questionnaire Thrive Questionnaire Date Thrive assessed: 02/09/24 I am a: Patient What is your living situation today?: I have a steady place to live Within the past 12 months, did the food you bought not last and you didn't have the money to get more?: Never true Within the past 12 months, did you worry whether your food would run out before you got money to buy more?: Never true Do you have trouble paying for medicines?: No Do you have trouble getting transportation to medical appointments?: No Do you have trouble paying your heating and electricity bill?: No Do you have trouble taking care of your child, family member or friend?: No Do you have trouble with day-to-day activities such as bathing, preparing meals, shopping, managing finances, etc.?: No Are you currently unemployed and looking for a job?: No Are you interested in more education?: Yes Currently or been in a relationship where the following occur: No concerns reported THRIVE Score: 0 AUDIT C Alcohol Use Questionnaire (AUDIT-C) 1. How often do you have a drink containing alcohol?: Never 3. How often do you have six or more drinks on one occasion?: Never Total Score: 0 Score Reviewed/Action Taken: Yes ZEE-7 AMB Questionnaire ZEE-7 Date ZEE - 7 assessed: 02/16/24 Feeling nervous, anxious, or on edge: 0 = Not at all Not being able to stop or control worryin = Several days Worrying too much about different things: 0 = Not at all Trouble relaxin = More than half the days Being so restless that it is hard to sit still: 2 = More than half the days Becoming easily annoyed or irritable: 0 = Not at all Feeling afraid as if something awful might happen: 1 = Several days Total ZEE-7 score (0-4 normal; 5-9 mild; 10-14 moderate; 15-21 severe): 6 Source: Developed by Drs. Drew Cerna, Avis Huitron, Wesley Perry and colleagues, with an educational lee from [employer] ZEE-7 Assessment Billing ZEE-7 Assessment Tool: ZEE-7 Assessment 71586 Review of Systems Const Denies chills, Denies fever(s) and Denies headache(s) Eyes Denies blurry vision ENT Denies headache(s), Denies nasal discharge, Denies nasal obstruction, Denies odynophagia and Denies sinus pain Card Denies chest pain at rest and Denies chest pain with activity Resp Denies cough and Denies hemoptysis GI Denies diarrhea, Denies odynophagia, Denies vomiting and Denies hematemesis Reports as per HPI Musc Denies abnormal gait Skin/Breast Reports as per HPI Neuro Denies Neuro-related abnormal movements, Denies Abnormal speech present, Denies abnormal gait, Denies headache(s) and Denies Sensory deficit (Neuro) Psych Denies mood swings and Denies paranoia Endo Reports as per HPI Wale/Lymph Reports as per HPI Aller/Immun Reports as per HPI Physical exam (Primary Care) Vital Signs: Last Vital Signs BP 118/68 02/16/24 13:58 Tobacco/Smoking Status: Tobacco use Status Tobacco use date assessed 02/16/24 02/16/24 14:01 Patient Tobacco Use Status Never used Tobacco 02/16/24 14:01 e-Cigarette/Vaping Use Never Used 02/16/24 14:01 Thrive Assessment: Date of Thrive Assessment Date Thrive assessed 02/09/24 02/16/24 14:01 Currently or been in a relationship where the following occur: No concerns reported Const General: cooperative, comfortable and no acute distress Orientation/consciousness: patient oriented x3 HENMT Head: Yes normocephalic and Yes atraumatic Eyes General: appearance normal, both eyes and all related structures Pupils: Equal, round and reactive pupils present EOM: EOMs intact bilaterally Neck Neck: Yes supple and No lymphadenopathy Thyroid: Thyroid normal Lymphatic: no lymphadenopathy noted Resp Effort & Inspection: normal respiratory effort and able to speak in complete sentences Auscultation: clear to auscultation bilaterally Cardio Heart sounds: S1 normal heart sound present and S2 normal heart sound present GI Palpation (GI): Soft to palpation and nontender Auscultation: normal bowel sounds General: Yes no CVA tenderness Back/Spine/Pelvis Back: no CVA tenderness Skin General skin exam: elasticity normal and turgor normal Neuro General: patient oriented x3 and gait normal Cranial nerves: Yes Equal, round and reactive pupils present Speech: No Abnormal speech present Sensory Exam: No Sensory deficit (Neuro) Coordination: tandem gait normal and Romberg test negative Extrem General: Yes normal exam except as noted and No edema Office Procedures Cerumen Removal From which ear canal was the cerumen removed: right Removal: irrigation Notes: patient tolerated procedure well, no complications and ear canal clear [id number] Irrigation/Lavage Immunizations Boostrix Tdap 2.5 Lf unit-8 mcg-5 Lf/0.5 mL intramuscular syringe Performing Provider: Jeremy Camara MD [place] [facility] [place] [facility] Administered by: August Snyder CMA on 02/16/24 14:36 Dose Route Admin Location Dispensed Lot Number Expiration Date [employer] 0.5 mL IM Right Deltoid 0.5 mL [id number] 03/11/26 [id number] [employer] VIS Given Date VIS Provided VIS Publication Date 02/16/24 Single Vaccine 20 Eligibility Eligibility Date Funding Source Not [facility] Eligible 02/16/24 Private Coding Level of Care Code Est Pt Level 4 (34358) Est Pt Prev Care 40-64y(08982) Diagnoses Encounter for general adult medical examination with abnormal findings Z00.01 Grieving F43.21 Other neutropenia D70.8 Neutropenia type: other Impacted cerumen, right ear H61.21 Difficulty sleeping G47.9 CPT Codes Office Procedure - CPT: 95439-Ntr Irrigation/Lavage ([id number]) Additional Codes ZEE-7 Assessment Billing - ZEE-7 Assessment Tool: ZEE-7 Assessment 85329 ([id number]) Assessment & Plan Assessment & Plan (1) Encounter for general adult medical examination with abnormal findings: Code(s): Z00.01 - Encounter for general adult medical examination with abnormal findings Category: Medical (2) Grieving: Code(s): F43.21 - Adjustment disorder with depressed mood Category: Medical (3) Neutropenia: Code(s): D70.9 - Neutropenia, unspecified Category: Medical Qualifiers: Neutropenia type: other Qualified Code(s): D70.8 - Other neutropenia (4) Impacted cerumen, right ear: Code(s): H61.21 - Impacted cerumen, right ear Category: Medical (5) Difficulty sleeping: Code(s): G47.9 - Sleep disorder, unspecified Category: Medical Plan Patient is 58-year-old female came in today for physical examination Patient says that recently her dog who was 12 years old She is feeling very depressed and having difficulty sleeping at night She is requesting assistance for few weeks so she can get over it Mammogram is up-to-date at [facility] Colonoscopy will be in 2025 OBGYN visit was June this year Labs were done February of 2024 reviewed Patient is having excessive cerumen right ear which was irrigated today with good result She also need a Tdap vaccine to complete her vaccinations Patient is aware that lorazepam to be taken only as needed at night No driving with this medication It is habit-forming and controlled medication refill we will require a visit And also not to share it with anyone., medication slows down reflexes no working with machines Orders: Orders TDaP Immunization Today Z23 - Encounter for immunization Medications: New lorazepam 0.5 mg PO BEDTIME PRN 30 tabs 1RF To sleep
== END 2024-02-16 14:46 | disposition home or self-care (01) ==
PROVIDERS: PCP Internal Medicine; Visit Provider Internal Medicine
DX: Z00.00 Encounter for general adult medical examination without abnormal findings (principal); F43.21 Adjustment disorder with depressed mood; D70.8 Other neutropenia; H61.21 Impacted cerumen, right ear; G47.9 Sleep disorder, unspecified

== ENCOUNTER → 2024-02-16 12:56 | Outpatient (BNVA) | payer SELFPAY | PROVIDERS: PCP Internal Medicine; Visit Provider Internal Medicine | DX: Z00.01 Encounter for general adult medical examination with abnormal findings (principal); F43.21 Adjustment disorder with depressed mood; D70.8 Other neutropenia; H61.21 Impacted cerumen, right ear; G47.9 Sleep disorder, unspecified; Z23 Encounter for immunization | CPT/HCPCS: 69209; 90471; 90715; 96127; 99212; 99396 ==

== ENCOUNTER 2024-05-05 12:37 | Outpatient (AMB) | payer OTHER, SELFPAY ==
[2024-05-05 12:40] VITALS: BP 112/70; PULSE 65; O2SAT 100; BMI 24.5
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
--- OUTSIDE RECORDS SUMMARY | 2024-05-05 14:02 | XMS_ITS | Data Portability ---
Author Organization [place] - [facility] - IP Address [address] [place] [address] Care Team Providers Care Welder 2Nd Shift Name Role Phone NILDA LINDA Primary Care Provider Assessment No assessment recorded. Plan of Treatment Reminders Order Date Submit Date Provider Last Modified By Organization Details Last Modified Time Details Appointments COLON [facility]OL 2024 11:00A M Aziz_proc edures Not available Not available Not available Lab None recorded. Referral None recorded. Procedures None recorded. Surgeries None recorded. Imaging None recorded. Medication Orders None recorded. Patient TargetsNo targets recorded. Patient InstructionsNo instructions recorded. Reason for Referral None Reported. Results Created Date Observation Date Name Description Value Unit Range Abnormal Flag Note LastModifiedBy Organization Detail LastModifiedTime Result Notes None recorded. Problems No Known Problems Medical Equipment None Reported. Allergies No known drug allergies Medications Name Sig Start Date Stop Date Status Note LastModified by Organization Details LastModified Time Golytely 236 gram-22.74 gram-6.74 gram-5.86 gram oral solution Take 4000 mL by oral route. 022 active Not Available Not Available Not Avai lable Gavilyte-C 240 gram-22.72 gram-6.72 gram-5.84 gram oral solution TAKE 4000 ML BY ORAL ROUTE. active Not Available Not Available No t Available Vitals None Recorded Social History None recorded. Functional Status None recorded. Mental Status None recorded. Family History Nothing Reported. Medical History No medical history recorded. Gynecological HistoryNo gynecological history recorded. Obstetrics History GPAL:G 0 P 0 0 0 0 Past Encounters Encounter ID Performer Location Encounter Start Date Encounter Closed Date Diagnosis/Indication Diagnosis SNOMED-CT Code Diagnosis ICD10 Code [id number] [facility] [place] [facility] [address] [place] [address] 02/07/2022 15:07:49 02/07/2022 15:10:05 Family history of cancer of colon 940446937 Z80.0 [id number] Brittani marino [facility] Office [address] [facility] [place] [address] 02/13/2022 09:59:09 02/13/2022 10:02:16 Polyp of colon 89507812 K63.5 [id number] Brittani [facility] Office [address] [facility] [place] [address] 07/30/2022 14:00:48 07/30/2022 14:08:09 Family history of cancer of colon 486269272 Z80.0 Health Concerns Section Related Observation LastModified by Organization Detai ls LastModified Time None Recorded Concern Status LastModified by Organization Details LastModified Time None Recorded Advance Directives Directive None Recorded Payers Encounter Date Sequence Insurance Name Policy Number Policy Mittal Covered Member ID Mittal Member ID Guarantor Name 01/14/2022 1 [facility] NET PLAN (MEDICAID HMO) KRISTY Garzon [id number] Raven Garzon 02/12/2022 1 [facility] NET PLAN (MEDICAID HMO) KRISTY Garzon [id number] Raven Garzon 07/29/2022 1 [facility] HE[facility] NET PLAN (MEDICAID HMO) KRISTY Garzon [id number] Raven Garzon OBGyn Episode No OBEpisode recorded.
== END 2024-05-05 13:02 | disposition home or self-care (01) ==
PROVIDERS: PCP Internal Medicine; Visit Provider Internal Medicine
DX: R10.13 Epigastric pain (principal); M62.08 Separation of muscle (nontraumatic), other site

== ENCOUNTER → 2024-05-05 12:37 | Outpatient (BNVA) | payer OTHER, SELFPAY | PROVIDERS: PCP Internal Medicine; Visit Provider Internal Medicine | DX: R10.13 Epigastric pain (principal); M62.08 Separation of muscle (nontraumatic), other site | CPT/HCPCS: 96127; 99212 ==

== ENCOUNTER 2024-05-11 08:25 | Outpatient (AMB) | payer OTHER, SELFPAY ==
--- OUTSIDE RECORDS SUMMARY | 2024-05-11 08:38 | XMS_ITS | Data Portability ---
Author Organization [place] - [facility] - IP Address [address] [place] [address] Care Team Providers Care Manufacturing Teacher Name Role Phone NILDA LINDA Primary Care [...] Diagnosis/Indication Diagnosis SNOMED-CT Code Diagnosis ICD10 Code Diagnosis Note [id number] [facility] [address] [facility] [place] [address] 02/07/2022 15:07:49 02/07/2022 15:10:05 Family history of cancer of colon 575186361 Z80.0 [id number] Brittani [facility] Office [address] [facility] [address] [facility] [place] [address] 02/13/2022 09:59:09 02/13/2022 10:02:16 Polyp of colon [id number] K63.5 [id number] Brittani Jennieanna marino [facility] Office [address] [facility] [place] [address] 07/30/2022 14:00:48 07/30/2022 14:08:09 Family history of cancer of colon 206500851 Z80.0 Health Concerns Section Related Observation LastModified by Organization Detai ls LastModified Time None Recorded Concern Status LastModified by Organization Details LastModified Time None Recorded Advance Directives Directive None Recorded Payers Encounter Date Sequence Insurance Name Policy Number Policy Mittal Covered Member ID Mittal Member ID Guarantor Name 01/14/2022 1 [facility] (MEDICAID HMO) KRISTY Garzon [id number] Raven Garzon 02/12/2022 1 [facility] KRISTY Garzon [id number] Raven Garzon 07/29/2022 1 [facility] HE[facility] NET PLAN (MEDICAID HMO) KRISTY Garzon [id number] Raven Garzon OBGyn Episode No OBEpisode recorded.
--- NOTE | 2024-05-11 09:16 | MHC.PC.OV ---
Intake Visit Reasons: ?hiatal hernia Allergies No Known Allergies Allergy (Verified 05/11/24 09:17) Medication List - Last Reconciled 05/11/24 by Jeremy Camara MD omeprazole 20 mg PO DAILY Tobacco use date assessed: 05/11/24 Dental Screening Dental Screen Date: 05/11/24 Did you have a dental visit in the last 12 months?: Yes Did you have a dental problem in the last 6 months where you did not have access to dental care?: No Was dental information given to patient?: Patient has dentist HPI ?hiatal hernia HPI Details Patient was seen in house few days ago when she presented with signs of GERD She also have small abdominal hernia upper part of abdomen Patient was shown diagram to states the possible cause of her symptoms One of them was hiatal hernia, and she thought she has it She is feeling better with omeprazole I have ordered barium swallow to further investigate 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 Drew Cerna, Avis Huitron, Wesley Perry and colleagues, with an educational lee from [employer]. Review of Systems Const Denies chills and Denies fever(s) ENT Denies epistaxis and Denies nasal discharge Card Denies chest pain Resp Denies chest congestion, Denies cough and Denies hemoptysis GI Denies diarrhea Skin/Breast Denies rash Neuro Reports no additional complaints Psych Reports no additional complaints Endo Reports no additional complaints Physical exam (Primary Care) Tobacco/Smoking Status: Tobacco use Status Tobacco use date assessed 05/11/24 05/11/24 09:17 Patient Tobacco Use Status Never used Tobacco 05/11/24 09:17 e-Cigarette/Vaping Use Never Used 05/11/24 09:17 Thrive Assessment: Date of Thrive Assessment Date Thrive assessed 05/05/24 05/11/24 09:17 Coding Level of Care Code Tele Est Pt Level 3 (12183) Diagnoses Abdominal discomfort, epigastric R10.13 Assessment & Plan Assessment & Plan (1) Abdominal discomfort, epigastric: Code(s): R10.13 - Epigastric pain Category: Medical Plan Patient was seen in house few days ago when she presented with signs of GERD She also have small abdominal hernia upper part of abdomen Patient was shown diagram to states the possible cause of her symptoms One of them was hiatal hernia, and she thought she has it She is feeling better with omeprazole I have ordered barium swallow to further investigate Orders: Orders [place] barium swallow 05/11/24 R10.13 - Epigastric pain
== END 2024-05-11 11:34 | disposition home or self-care (01) ==
LOC: HO.HMCC 08:25
PROVIDERS: PCP Internal Medicine; Visit Provider Internal Medicine
DX: R10.13 Epigastric pain (principal)

== ENCOUNTER 2024-06-06 08:53 | Outpatient (REF) | payer OTHER, SELFPAY ==
--- NOTE | ~2024-06-06 | FL_ITS ---
EXAMINATION: XR FLUOROSCOPY UPPER GI WITH AIR CLINICAL INFORMATION: Dysphagia. Reflux. Epigastric pain. COMPARISON: None TECHNIQUE: Fluoroscopic air contrast upper GI examination was performed utilizing standard techniques with thin and thick barium and effervescent granules. Numerous spot images were obtained. FINDINGS: Lateral cine images of the oropharynx and hypopharynx demonstrate normal swallow mechanism with normal epiglottic inversion and soft palate elevation. No tracheal penetration, glottic or subglottic aspiration identified. No nasopharyngeal reflux present. Hypopharyngeal structures appear normal without evidence of mass or diverticulum. There is mild cricopharyngeal achalasia present. Dual and single contrast images of the esophagus demonstrate a patulous esophagus with a normal contour. There is a granular appearance of the esophageal mucosa, suggestive of esophagitis. No evidence of stricture, mass, or ulcerations identified. Esophageal peristalsis is moderately disorganized. No evidence of hiatus hernia identified. Significant gastroesophageal reflux is seen up to the thoracic inlet. Dual contrast and single contrast images of the stomach demonstrated a normal contour. The gastric rugal folds have a thickened appearance, suggestive of gastritis. There are multiple foci of contrast pooling in the body, fundus, and antrum of the stomach that likely represent small mucosal ulcerations. No masses are present. There is a delay in transit of the barium column, with only a small amount of contrast observed up to the second segment of the duodenum. FLUOROSCOPY TIME: 5 minutes 44 seconds Number of Spot Images: 9 Number of Cine: 15 DOSE AREA PRODUCT: 1882 uGy-m2 (microgray-meter squared) FL/FL barium swallow IMPRESSION: 1. Mild cricopharyngeal achalasia. 2. Patulous esophagus with moderately disorganized peristalsis consistent with moderate esophageal dysmotility. 3. Granular appearance of the esophageal mucosa, suggestive of esophagitis. 4. Severe gastroesophageal reflux. 5. Thickened appearance of the gastric rugal folds. In addition there are multiple foci of contrast pooling throughout the stomach. These findings are suggestive of erosive gastritis. Recommend correlation with EGD. 6. Delay in gastric emptying, with only a small amount contrast observed in the second segment of the duodenum. No obvious mass is present. Recommend correlation with EGD and gastric emptying study to assess for gastroparesis. This procedure was performed by Harris Coronado PA-C, and supervised by Dr. Infante Electronically signed by: Guillermo Infante MD 06/07/2024 04:00 PM MAUREEN
--- OUTSIDE RECORDS SUMMARY | 2024-06-06 09:04 | XMS_ITS | Encounter Summary ---
Author Organization [facility] Address [address] [place] [address] Care Team Providers Care Satellite Project Site Monitor Name Role Phone Darlene Rodas MD Primary Care Provider [phone] Encounter Details Date Type Department Care Team ([facility] Contact Info) Description 06/11/2020 Orders Only [facility] [address] [facility] [address] [place] [address] Brittany Li, RAIN [address] [place] [address] Social History Tobacco Use Types Packs/Day Years Used Date Smoking Tobacco: Never Smokeless Tobacco: Never Alcohol Use Standard Drinks/Week Comments Yes 0 (1 standard drink = 0.6 oz pur e alcohol) social / weekends AUDIT-C Answer Date Recorded Q1: How often do you have a drink containing alc ohol? 2-4 times a month 06/11/2020 Q2: How many drinks containi ng alcohol do you have on a typical day when you are drinking? Not asked 06/11/2020 Q3: How often do you have si x or more drinks on one occasion? 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 No / Unsure 06/11/2020 7:57 AM EST documented as of this encounter Miscellaneous Notes * Result Encounter Note - Brittany Alcocer NP - 06/11/2020 11:05 AM EST Normal pap smear / negative HPV. Repeat in [address] on recall list. [facility] sent to pt. Problem list updated. * Result Encounter Note - Bree Martin - 06/11/2020 11:05 AM EST On recall documented in this encounter Plan of Treatment Not on file documented as of this encounter Procedures * Due to [facility] law, this organization might not be sharing negative HIV tests. Procedure Name Priority Date/Time Associated Diagnosis Comments THINPREP TIS PAP AND HPV RNA, HR E6/E7, TMA Routine 06/11/2020 11:05 AM EST Abnormal cervical Papanicolaou smear, unspecified abnormal pap finding documented in this encounter Results * Due to [facility] law, this organization might not be sharing negative HIV tests. * THINPREP TIS PAP AND HPV RNA, HR E6/E7, TMA (06/11/2020 11:05 AM EST) Clinical information COLPOSCOPY NEGATIVE 06/2019 [facility] Date last menstrual period POSTMENOPAUSAL [facility] Date of previous PAP smear 04/11/2019 ASCUS / HPV [facility] Date of previous biopsy NONE GIVEN [facility] Specimen source (Cvx/Vag) Endocervix [facility] Statement of Adequacy (Cvx/Vag) Satisfactory for evaluation. Endocervical/tomas sformation zone component present. [facility] Cytology, Pap Smear Negative for intraepithelial lesion or malignancy. [employer] Cytology study comment (Cvx/Vag) This Pap test has been evaluated with computer assisted technology. [facility] Sleep Scientist (Cvx/Vag) SXA, CT(ASCP) CT screening location: [facility] [address] [employer] COMMENT SEE NOTE [employer] Comment: EXPLANATORY NOTE: The Pap is a screening test for cervical cancer. It is not a diagnostic test and is subject to false negative and false positive results. It is most reliable when a satisfactory sample, regularly obtained, is submitted with relevant clinical findings and history, and when the Pap result is evaluated along with historic and current clinical information. HPV MRNA E6/E7 Not Detected Not Detected [employer] Comment: Methodology: Oil Dipper-Mediated Amplification This assay detects E6/E7 viral messenger RNA (mRNA) from 14 high-risk HPV types (16,18,31,33,35,39,45,51,52,56,58,59,66,68). The analytical performance characteristics of this assay have been determined by [employer]. The modifications have not been cleared or approved by the FDA. This assay has been validated pursuant to the CLIA regulations and is used for clinical purposes. For additional information, please refer to http://education.[employer]/WFR137y8 (This link if provided for information/ educational purposes only.) ENDOCERVICAL STRUCTURE / Unknown 06/11/2020 11:05 AM EST 06/12/2020 7:26 AM EST Narrative Resulting Agency Comment [id number] Brittany Li TECHNOLOGY EDUCATION INSTRUCTOR PATHOLOGY-INTERFACED Final Resul t [employer] [address] [place] [address] documented in this encounter Visit Diagnoses Diagnosis Abnormal cervical Papanicolaou smear, unspecified abnormal pap finding documented in this encounter Care Teams Satellite Project Site Monitor Relationship Specialty Start Date End Date Darlene Rodas MD [address] [place] [address] PCP - General 07/16/16 03/18/21 documented as of this encounter
--- OUTSIDE RECORDS SUMMARY | 2024-06-06 09:04 | XMS_ITS | Encounter Summary ---
Author Organization [facility] Address [address] [place] [address] Care Team Providers Care Elevator Installer Apprentice Name Role Phone Darlene Rodas MD Primary Care Provider +1- [phone] Encounter Details Date Type Department Care Team ([facility] st Contact Info) Description 03/16/[address] 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 Procedure Name Priority Date/Time Associated Diagnosis Comments SYPHILIS (FTA) ANTIBODY CASCADING REFLEX TO RPR/TITER (*PREFERRED SCREEN*) Routine 03/16/2020 12:08 PM EST False positive syphilis serology VENIPUNCTURE Routine 03/16/2020 12:08 PM EST Vegan diet documented in this encounter Results * Due to [place] state law, this organization might not be sharing negative HIV tests. * SYPHILIS (FTA) ANTIBODY CASCADING REFLEX TO RPR/TITER (*PREFERRED SCREEN*) (03/16/2020 12:08 PM EST) Treponema pallidum Ab NEGATIVE NEGATIVE [facility] Comment: No antibodies to T. pallidum (the agent causing syphilis) were detected in the specimen. This result, however, does not exclude very recent T. pallidum infection; testing of a second specimen, collected 2-4 weeks after this specimen, is recommended if the index of suspicion for recent infection is high. 03/16/2020 12:0 8 PM EST 03/16/2020 9:39 PM EST Narrative Resulting Agency Comment [id number] us Rachael Camarena MD LABORATORY Final Result Performing Organization Address [facility] Co de Phone Number [facility] [address] [place] [address] * PROTEIN, TOTAL, SERUM (03/16/2020 12:08 PM EST) Protein Total (Serum) 6.6 6.1 - 8.1 g/dL [facility] 03/16/2020 12:0 8 PM EST 03/16/2020 9:39 PM EST Narrative Resulting Agency Comment [id number] us Darlene Rodas MD LAB SAME DAY RESULT Final Result Performing Organization Address [facility] Co de Phone Number [facility] [address] [place] [address] documented in this encounter Visit Diagnoses Diagnosis Vegan diet False positive syphilis serology False positive serological test for syphilis documented in this encounter Care Teams Elevator Installer Apprentice Relationship Specialty Start Date End Date Darlene Rodas MD [address] [place] [address] PCP - General 07/16/16 03/18/21 documented as of this encounter
--- OUTSIDE RECORDS SUMMARY | 2024-06-06 09:04 | XMS_ITS | Data Portability ---
Author Organization MD - [facility] - IP Address [address] [place] [address] Care Team Providers Care Office Manager Receptionist Name Role Phone NILDA LINDA Primary Care [...] SNOMED-CT Code Diagnosis ICD10 Code Diagnosis Note [id number] [facility] Office [address] [facility] [place] [address] 02/07/2022 15:07:49 02/07/2022 15:10:05 Family history of cancer of colon [id number] Z80.0 [id number] [facility] Office [address] [facility] [address] [facility] [place] [address] 02/13/2022 09:59:09 02/13/2022 10:02:16 Polyp of colon [id number] K63.5 [id number] Brittani Jennieanna marino [facility] Office [address] [facility] [place] [address] 07/30/2022 14:00:48 07/30/2022 14:08:09 Family history of cancer of colon [id number] Z80.0 Health Concerns Section Related Observation LastModified by Organization Detai ls LastModified Time None Recorded Concern Status LastModified by Organization Details LastModified Time None Recorded Advance Directives Directive None Recorded Payers Encounter Date Sequence Insurance Name Policy Number Policy Mittal Covered Member ID Mittal Member ID Guarantor Name 01/14/2022 1 [facility]MEDICAID HMO) KRISTY Garzon [id number] Raven Garzon 02/12/2022 1 [facility]MEDICAID HMO) KRISTY Garzon [id number] Raven Garzon 07/29/2022 1 [facility] HEALTH [facility] (MEDICAID HMO) KRISTY Garzon [id number] Raven Garzon OBGyn Episode No OBEpisode recorded.
--- OUTSIDE RECORDS SUMMARY | 2024-06-06 09:04 | XMS_ITS | Encounter Summary ---
Author Organization [facility] Address [address] [place] [address] Care Team Providers Care Video Specialist Name Role Phone Darlene Rodas MD Primary Care Provider +1- [phone] Encounter Details Date Type Department Care Team ([facility] st Contact Info) Description 02/29/[address] [facility] [address] [place] [address] Darlene Rodas MD [address] [place] [address] Social History Tobacco Use Types Packs/Day Years [...] Progress Notes * Darlene Rodas MD - 02/29/2020 4:40 PM EDT Send letter/message Your recent lab work was normal, recommend continue current plan. * Faith Celeste - 02/29/2020 4:40 PM EDT Letter sent documented in this encounter Plan of Treatment Not on file documented as of this encounter Procedures * Due to [place] [email or web address] law, this organization might not be sharing negative HIV tests. Procedure Name Priority Date/Time Associated Diagnosis Comments VENIPUNCTURE Routine 02/29/2020 4:40 PM EDT Concern about STD in female without diagnosis CBC INCLUDES DIFFERENTIAL AND PLATELET COUNT Routine 02/29/2020 4:40 PM EDT Screening for endocrine, metabolic and immunity disorder ALANINE AMINOTRANSFERASE (ALT), SERUM Routine 02/29/2020 4:40 PM EDT Screening for endocrine, metabolic and immunity disorder LIPID PANEL WITH REFLEX TO DIRECT LDL Routine 02/29/2020 4:40 PM EDT Screening for endocrine, metabolic and immunity disorder BASIC METABOLIC PANEL WITH (GFR) Routine 02/29/2020 4:40 PM EDT Screening for endocrine, metabolic and immunity disorder documented in this encounter Results * Due to [place] [email or web address] law, this organization might not be sharing negative HIV tests. * CBC INCLUDES DIFFERENTIAL AND PLATELET COUNT (02/29/2020 4:40 PM EDT) WBC 5.1 3.8 - 10.8 Thousand/u L [facility] RBC 4.12 3.80 - 5.10 Million/uL [facility] Hemoglobin 12.2 11.7 - 15.5 g/dL [facility] Hematocrit 36.7 35.0 - 45.0 % [facility] MCV 89.1 80.0 - 100.0 fL [facility] MCH 29.6 27.0 - 33.0 pg [facility] MCHC 33.2 32.0 - 36.0 g/dL [facility] RDW 12.1 11.0 - 15.0 % [facility] PLT 263 140 - 400 Thousand/u L [facility] MPV 10.3 7.5 - 12.5 fL [facility] Neutrophils # 2453 1500 - 7800 cells/uL [facility] Lymphocytes # 2040 850 - 3900 cells/uL [facility] Monocytes # 393 200 - 950 cells/uL [facility] Eosinophils # 173 15 - 500 cells/uL [facility] Basophils # 41 0 - 200 cells/uL [facility] Neutrophils % 48.1 % [facility] Lymphocytes % 40.0 % [facility] Monocytes % 7.7 % [facility] Eosinophils % 3.4 % [facility] Basophils % 0.8 % [facility] 02/29/2020 4:40 PM EDT 03/01/2020 12:03 AM EDT Narrative Resulting Agency Comment [id number] Darlene Rodas MD LAB SAME DAY RESULT Final Result [facility] [address] [place] [address] * BASIC METABOLIC PANEL WITH (GFR) (02/29/2020 4:40 PM EDT) Glucose 92 65 - 99 mg/dL [facility] Comment:Fasting reference in terval Urea Nitrogen Blood (BUN) 19 7 - 25 mg/dL [facility] Creatinine 0.66 0.50 - 1.05 mg/dL [facility] Comment: For patients >49 years of age, the reference limit for Creatinine is approximately 13% higher for people identified as -Indonesian. EGFR 100 > OR = 60 mL/min/1 .73m2 [facility] GFR () 116 > OR = 60 mL/min/1 .73m2 [facility] BUN/Creatinine Ratio NOT APPLICABLE 6 - 22 (calc) [facility] Sodium 140 135 - 146 mmol/L [facility] Potassium 4.3 3.5 - 5.3 mmol/L [facility] Chloride 105 98 - 110 mmol/L [facility] Carbon dioxide 28 20 - 32 mmol/L [facility] Calcium 9.5 8.6 - 10.4 mg/dL [facility] 02/29/2020 4:40 PM EDT 03/01/2020 12:03 AM EDT Narrative [facility] - 03/01/2020 5:17 AM EDT Please note that this estimated GFR does not include an adjustment for the patient's height or weight, and can therefore, be viewed as reliable only for patients with heights between 60 and 72 . More precise quantification using a 24-hour urine sample or height-based algorithm is recommended for patients outside of this range of height and for those individuals with more precise needs for GFR calculation. Resulting Agency Comment [id number] Darlene Rodas MD LABORATORY Final Resu lt Performing Organization Address [facility] Co de Phone Number [facility] [address] [place] [address] * LIPID PANEL WITH REFLEX TO DIRECT LDL (02/29/2020 4:40 PM EDT) Cholesterol 177 <200 mg/dL [facility] HDL Cholesterol 82 > OR = 50 mg/dL [facility] Triglyceride 55 <150 mg/dL [facility] LDL Cholesterol 81 mg/dL (calc) [facility] Comment: Reference range: <100 Desirable range <100 mg/dL for primary prevention; ?? <70 mg/dL for patients with CHD or diabetic patients with > or = 2 CHD risk factors. LDL-C is now calculated using the Vladimir-Trevor calculation, which is a validated novel method providing better accuracy than the Friedewald equation in the estimation of LDL-C. Vladimir SS et al. PUJA. 2013;310(19): 5046-3775 (http://education.CellEra/faq/VJO155) CHOL/HDL Ratio 2.2 <5.0 (calc) [facility] Cholesterol Non-HDL 95 <130 mg/dL (calc) [facility] Comment: For patients with diabetes plus 1 major ASCVD risk factor, treating to a non-HDL-C goal of <100 mg/dL (LDL-C of <70 mg/dL) is considered a therapeutic option. 02/29/2020 4:40 PM EDT 03/01/2020 12:03 AM EDT Narrative Resulting Agency Comment [id number] Darlene Rodas MD LABORATORY Final Resu lt Performing Organization Address [facility]/ZIP Co de Phone Number [facility] [address] [place] [address] * ALANINE AMINOTRANSFERASE (ALT), SERUM (02/29/2020 4:40 PM EDT) ALT (SGPT) 14 6 - 29 U/L [facility] 02/29/2020 4:40 PM EDT 03/01/2020 12:03 AM EDT Narrative Resulting Agency Comment [id number] us Darlene Rodas MD LAB SAME DAY RESULT Final Result Performing Organization Address [facility] Co de Phone Number [facility] [address] [place] [address] * SYPHILIS (FTA) ANTIBODY CASCADING REFLEX TO RPR/TITER (*PREFERRED SCREEN*) (02/29/2020 4:40 PM EDT) Treponema pallidum Ab NEGATIVE NEGATIVE [facility] Comment: No antibodies to T. pallidum (the agent causing syphilis) were detected in the specimen. This result, however, does not exclude very recent T. pallidum infection; testing of a second specimen, collected 2-4 weeks after this specimen, is recommended if the index of suspicion for recent infection is high. 02/29/2020 4:40 PM EDT 03/01/2020 12:03 AM EDT Narrative Resulting Agency Comment [id number] us Rachael Camarena MD LABORATORY Final Result Performing Organization Address [facility] Co de Phone Number [facility] [address] [place] [address] documented in this encounter Visit Diagnoses Diagnosis Concern about STD in female without diagnosis Person with feared complaint in whom no diagnosis was made Screening for endocrine, metabolic and immunity disorder documented in this encounter Care Teams Video Specialist Relationship Specialty Start Date End Date Darlene Rodas MD [address] [place] [address] PCP - General 07/16/16 03/18/21 documented as of this encounter
--- OUTSIDE RECORDS SUMMARY | 2024-06-06 09:05 | XMS_ITS | Encounter Summary ---
Author Organization [facility] Address [address] [place] [address] Care Team Providers Care Trash Hauler Name Role Phone Darlene Rodas MD Primary Care Provider +1- [phone] Encounter Details Date Type Department Care Team ([facility] st Contact Info) Description 03/18/2018 Orders Only [facility] [address] [place] [address] Opal Stevens NP Social History Tobacco Use Types Packs/Day Years Used Date Smoking Tobacco: Never Alcohol Use Standard Drinks/Week Comments Yes 4 (1 standard drink = 0.6 oz pur e alcohol) Comments No Sex and Gender Information Value Date Recorded Sex Assigned at Not on file Legal Sex Female 11:33 AM EDT Gender Identity Not on file Sexual Orientation Not on file 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 Results communicated to patient via telephone note associated withadditional lab work of same date. documented in this encounter Plan of Treatment Not on file documented as of this encounter Procedures * Due to [place] state law, this organization might not be sharing negative HIV tests. Procedure Name Priority Date/Time Associated Diagnosis Comments ALANINE AMINOTRANSFERASE (ALT), SERUM Routine 03/18/2018 9:22 AM EST Healthy adult on routine physical examination ASPARTATE AMINOTRANSFERASE (AST), SERUM Routine 03/18/2018 9:22 AM EST Healthy adult on routine physical examination FSH Routine 03/18/2018 9:22 AM EST LIPID PANEL WITH REFLEX TO DIRECT LDL Routine 03/18/2018 9:22 AM EST Healthy adult on routine physical examination BASIC METABOLIC PANEL WITH (GFR) Routine 03/18/2018 9:22 AM EST Healthy adult on routine physical examination documented in this encounter Results * Due to [place] state law, this organization might not be sharing negative HIV tests. * (ABNORMAL) FSH (03/18/2018 9:22 AM EST) FSH 136.1(H) mIU/mL [facility] Comment: ?Reference Range ? Follicular Phase ? 2.5-10.2 ? Mid-cycle Peak ? 3.1-17.7 ? Luteal Phase ? 1.5- 9.1 ? Postmenopausal ? 23.0-116.3 ? 03/18/2018 9:22 AM EST 03/18/2018 5:02 PM EST us Opal Stevens DIRECTOR OF EVENT SALES LAB SAME DAY RESULT Final Result [facility] [address] [place] [address] * ASPARTATE AMINOTRANSFERASE (AST), SERUM (03/18/2018 9:22 AM EST) AST (SGOT) 20 10 - 35 U/L [facility] 03/18/2018 9:22 AM EST 03/18/2018 5:02 PM EST Narrative Resulting Agency Comment [id number] us Opal Stevens NP LAB SAME DAY RESULT Final Result Performing Organization Address [facility] Co de Phone Number [facility] [address] [place] [address] * ALANINE AMINOTRANSFERASE (ALT), SERUM (03/18/2018 9:22 AM EST) ALT (SGPT) 12 6 - 29 U/L [facility] 03/18/2018 9:22 AM EST 03/18/2018 5:02 PM EST Narrative Resulting Agency Comment [id number] Opal Stevens DIRECTOR OF EVENT SALES LAB SAME DAY RESULT Final Result Performing Organization Address [facility] de Phone Number [facility] [address] [place] [address] * LIPID PANEL WITH REFLEX TO DIRECT LDL (03/18/2018 9:22 AM EST) Cholesterol 187 <200 mg/dL [facility] HDL Cholesterol 89 >50 mg/dL [facility] Triglyceride 30 <150 mg/dL [facility] LDL Cholesterol 89 mg/dL (calc) [facility] Comment: Reference range: [...] LDL-C. Vladimir SS et al. PUJA. 2013;310(19): 6721-5305 (http://education.TimZon.com/faq/ANB184) CHOL/HDL Ratio 2.1 <5.0 (calc) [facility] Cholesterol Non-HDL 98 <130 mg/dL (calc) [facility] Comment: For patients with diabetes plus 1 major ASCVD risk factor, treating to a non-HDL-C goal of <100 mg/dL (LDL-C of <70 mg/dL) is considered a therapeutic option. 03/18/2018 9:22 AM EST 03/18/2018 5:02 PM EST Narrative Resulting Agency Comment [id number] us Opal Stevens DIRECTOR OF EVENT SALES LABORATORY Final Result Performing Organization Address City/[facility]/ZIP Co de Phone Number [facility] [address] [place] [address] * BASIC METABOLIC PANEL WITH (GFR) (03/18/2018 9:22 AM EST) Glucose 75 65 - 99 mg/dL [facility] Comment:Fasting reference in terval Urea Nitrogen Blood (BUN) 12 7 - 25 mg/dL [facility] Creatinine 0.63 0.50 - 1.05 mg/dL [facility] Comment: For patients >49 years of age, the reference limit for Creatinine is approximately 13% higher for people identified as -South African. GFR 102 > OR = 60 mL/min/1 .73m2 [facility] GFR () 119 > OR = 60 mL/min/1 .73m2 [facility] BUN/Creatinine Ratio NOT APPLICABLE 6 - 22 (calc) [facility] Sodium 145 135 - 146 mmol/L [facility] Potassium 4.4 3.5 - 5.3 mmol/L [facility] Chloride 107 98 - 110 mmol/L [facility] Carbon dioxide 31 20 - 32 mmol/L [facility] Calcium 9.6 8.6 - 10.4 mg/dL [facility] 03/18/2018 9:22 AM EST 03/18/2018 5:02 PM EST Narrative [facility] - 03/18/2018 6:32 PM EST Please note that this estimated GFR does [...] needs for GFR calculation. Resulting Agency Comment [id number] Opal Stevens DIRECTOR OF EVENT SALES LABORATORY Final Result Performing Organization Address [facility] Co de Phone Number [facility] [address] [place] [address] documented in this encounter Visit Diagnoses Diagnosis Healthy adult on routine physical examination Routine general medical examination at a health care facility documented in this encounter Care Teams Trash Hauler Relationship Specialty Start Date End Date Darlene Rodas MD [address] [place] [address] PCP - General 07/16/16 03/18/21 documented as of this encounter
--- OUTSIDE RECORDS SUMMARY | 2024-06-06 09:05 | XMS_ITS | Clinical Summary ---
Author Organization [facility] [employer] Address [address] [place] [address] Care Team Providers Care Operations Research Director Name Role Phone No, Pcp SOLUTION COORDINATOR Primary Care Provider Unavailabl e Allergies No known active allergies Medications No known medications Social History Tobacco Use Types Packs/Day Years Used Date Smoking Tobacco: Never Assessed Comments Unknown Sex and Gender Information Value Date Recorded Sex Assigned at Not on file Legal Sex Female 9:40 AM EST Gender Identity Not on file Sexual Orientation Not on file Last Filed Vital Signs Vital Sign Reading Time Taken Comments Blood Pressure - - Pulse 76 11/21/2020 10:56 AM EDT Temperature 37 ??C (98.6 ??F) 11/21/2020 10:56 AM EDT Respiratory Rate - - Oxygen Saturation 99% 11/21/2020 10:56 AM EDT Inhaled Oxygen Concentration - - Weight - - Height - - Body Mass Index - - Plan of Treatment Health Maintenance Due Date Last Done Comments Colorectal Cancer: COLONOSCO PY Screening every 10 yrs (or Modifier) 1965 Depression: Screening Annual ly using PHQ-2/9 in Adults 18 yrs or above (or HM Modifier)([facility]) 1983 Hepatitis C Virus Infection in Adolescents and Adults: Screening (or Modifier) ([facility]) 1983 SDOH Screening Reminder: Annually for all adults ([facility]) 1983 Tobacco Smoking Cessation: i n Adults excluding Women: Behavioral and Pharmacotherapy Interventions ([facility]) 1983 Cervical Cancer Screenin-65 yrs of age (or Modifier) 1986 Cervical Cancer Screening: P ap every 3 yrs pts age 21-65 1986 Cervical Cancer: Pap Screeni ng with Modifier timing ([facility]) 1986 Cervical Cancer: hrHPV alone or with cotesting Pap for Pts 30-65yrs screening every 5yrs ([facility]) 1986 Colorectal Cancer Screening 45 -75 Yrs (or HM Modifier) 2010 Colorectal Cancer: FLEXIBLE SIGMOIDOSCOPY Screening every 5 yrs 2010 Colorectal Cancer: Fecal Immunochemical Test (FIT) Annually [facility] 2010 Colorectal Cancer: High-sensitivity gFOBT Screening Annually [facility] 2010 Colorectal Cancer: Stool Cologuard Screening every 3 yrs 2010 Colorectal Cancer:CT Colonography Screening every 5 yrs 2010 Lipid Screening: Every 5 yrs for Women aged 45+ (or HM Modifier) ([facility]) 2011 Breast Cancer: Screening Annually age 50-74 yrs (or HM Modifier)([facility]) 2015 Flu Vaccination: Yearly for ages 18mos through 64 years (or Modifier)([facility]) 12/02/2023 01/10/2020 COVID-19 Vaccine Screening: Initial Series and Booster Status ([facility]) ( season) 2024 02/06/2021, 08/02/2020, 07/12/2020 DTaP/Tdap/Td Vaccines ([facility]) (2 - Td or Tdap) 02/06/2024 02/05/2014 Zoster/Shingles Vaccine Seri es Screening: Adults aged 18+ yrs (or HM Modifiers)([facility]) Completed 03/18/2020, 01/10/2020 Pneumococcal Vaccination Screening: Pts 0-19 & 19-64 yrs of age ([facility]) Aged Out No longer eligible based on patient's age to complete this topic [employer] Not on file [place] [address] [place] [address] PLAN [facility] PLAN Care Teams Operations Research Director Relationship Specialty Start Date End Date No, Pcp, SOLUTION COORDINATOR N/A Do not use PCP - General Family Medicine 03/24/20
--- OUTSIDE RECORDS SUMMARY | 2024-06-06 09:05 | XMS_ITS | Encounter Summary ---
Author Organization [facility] Address [address] [place] [address] Care Team Providers Care Center Medical Director Name Role Phone Darlene Rodas MD Primary Care Provider +1- [phone] Encounter Details Date Type Department Care Team ([facility] st Contact Info) Description 2018 Orders Only [place] [address] [place] [address] Opal Stevens NP Social History [...] on file documented as of this encounter Plan of Treatment Not on file documented as of this encounter Results * Due to [place] state law, this organization might not be sharing negative HIV tests. * ASPARTATE AMINOTRANSFERASE (AST), SERUM (03/18/2018 9:22 AM EST) AST (SGOT) 20 10 - 35 U/L [facility] 03/18/2018 9:22 AM EST 03/18/2018 5:02 PM EST Narrative Resulting Agency Comment [id number] Opal Stevens NP LAB SAME DAY RESULT Final Result [facility] [address] [place] [address] * ALANINE AMINOTRANSFERASE (ALT), SERUM (03/18/2018 9:22 AM EST) ALT (SGPT) 12 6 - 29 U/L [facility] 03/18/2018 9:22 AM EST 03/18/2018 5:02 PM EST Narrative Resulting Agency Comment [id number] Opal Stevens BLUEPRINT ENGINEER LAB SAME DAY RESULT Final Result Performing Organization Address [facility] de Phone Number [facility] [address] [place] [address] * LIPID PANEL WITH REFLEX TO DIRECT [...] LDL-C. Vladimir SS et al. PUJA. 2013;310(19): 5047-7100 (http://education.CallsFreeCalls.F[employer] Steward/faq/NGK478) CHOL/HDL Ratio 2.1 <5.0 (calc) [facility] Cholesterol Non-HDL 98 <130 mg/dL (calc) [facility] Comment: For patients with diabetes plus 1 major ASCVD risk factor, treating to a non-HDL-C goal of <100 mg/dL (LDL-C of <70 mg/dL) is considered a therapeutic option. 03/18/2018 9:2 2 AM EST 03/18/2018 5:02 PM EST Narrative Resulting Agency Comment [id number] Opal Stevens BLUEPRINT ENGINEER LABORATORY Final Result Performing Organization Address [facility] Co de Phone Number [facility] [address] [place] [address] * BASIC METABOLIC PANEL WITH (GFR) (03/18/2018 9:22 AM EST) Glucose 75 65 - 99 mg/dL [facility] Comment:Fasting reference in terval Urea Nitrogen Blood (BUN) 12 7 - 25 mg/dL [facility] Creatinine 0.63 0.50 - 1.05 mg/dL [facility] Comment: For patients >49 years of age, the reference limit for Creatinine is approximately 13% higher for people identified as -[place]. GFR 102 > OR = 60 mL/min/1 [...] needs for GFR calculation. Resulting Agency Comment [id number] Opal Stevens NP LABORATORY Final Result Performing Organization Address City/State/[facility] Co de Phone Number [facility] [address] [place] [address] documented in this encounter Visit Diagnoses Diagnosis Healthy adult on routine physical examination Routine general medical examination at a health care facility Healthy adult on routine physical examination Routine general medical examination at a health care facility documented in this encounter Care Teams Center Medical Director Relationship Specialty Start Date End Date Darlene Rodas MD [address] [place] [address] PCP - General 07/16/16 03/18/21 documented as of this encounter
--- OUTSIDE RECORDS SUMMARY | 2024-06-06 09:05 | XMS_ITS | Encounter Summary ---
Author Organization [facility] Address [address] [place] [address] Care Team Providers Care Customer Service Engineer Name Role Phone Darlene Rodas MD Primary Care Provider [phone]- [phone] Encounter Details Date Type Department Care Team ([facility] st Contact Info) Description 04/11/2019 Orders [address] [facility] [address] [place] [phone] Darlene Rodas MD [address] [place] [address] Social History Tobacco Use Types Packs/Day Years [...] Progress Notes * Darlene Rodas MD - 04/11/2019 8:39 AM EST Please notify pt that her pap shows atypical cells of undetermined significance, a very mild abnormality that if HPV testing is negative would repeat the pap in one year. However she was pos for HPV,this means that the HPV is present and she needs to have a test called a colposcopy, a [facility], a bx of the cervix to make sure there are no other / higher grade abnorm ality of the cells. There fore recommend model and dye person consult for colposcopy, if agreeable please send referral, for model and dye person (ASCUS HPV pos) Her lab work was all normal. documented in this encounter Plan of Treatment Not on file documented as of this encounter Procedures * Due to [place] law, this organization might not be sharing negative HIV tests. Procedure Name Priority Date/Time Associated Diagnosis Comments THINPREP TIS PAP AND HPV RNA, HR E6/E7, TMA Routine 04/11/2019 12:15 PM EST Screening for malignant neoplasm of cervix CBC INCLUDES DIFFERENTIAL AND PLATELET COUNT Routine 04/11/2019 8:39 AM EST Screening for metabolic disorder VENIPUNCTURE Routine 04/11/2019 8:39 AM EST Screening for metabolic disorder HEPATIC FUNCTION PANEL (ALT,AST,ALK PH,BILI'S,TP,ALB) Routine 04/11/2019 8:39 AM EST Screening for metabolic disorder LIPID PANEL WITH REFLEX TO DIRECT LDL Routine 04/11/2019 8:39 AM EST Screening for metabolic disorder BASIC METABOLIC PANEL WITH (GFR) Routine 04/11/2019 8:39 AM EST Screening for metabolic disorder documented in this encounter Results * Due to [place] law, this organization might not be sharing negative HIV tests. * (ABNORMAL) THINPREP TIS PAP AND HPV RNA, HR E6/E7, TMA (04/11/2019 12:15 PM EST) Clinical information Postmenopausal [facility] Date last menstrual period NA [facility] Date of previous PAP smear NONE GIVEN [facility] Date of previous biopsy NONE GIVEN [facility] Specimen source (Cvx/Vag) Endocervix [facility] Statement of Adequacy (Cvx/Vag) Satisfactory for evaluation. Endocervical/tra nsformation zone component present. [facility] General categories (Cvx/Vag) EPITHELIAL CELL ABNORMALITY(A) [facility] Cytology, Pap Smear Atypical Squamous Cells of Undetermined Significance (ASC-US)(A) [facility] Microorganism identified (Cvx/Vag) Shift in vaginal danica suggestive of bacterial vaginosis. [facility] Cytology study comment (Cvx/Vag) This Pap test has been evaluated with computer assisted technology. [facility] Conveyor Man (Cvx/Vag) CXP, CT(ASCP) CT screening location: [place] [address] [facility] Pathologist (Cvx/Vag) Guera Whitfield M.D., Board Certified in Anatomic and Clinical Pathology (electronic signature) Consulting Pathologist [facility] [phone] [facility] COMMENT SEE NOTE [facility] Comment: EXPLANATORY NOTE: The Pap is a screening test for cervical cancer. It is not a diagnostic test and is subject to false negative and false positive results. It is most reliable when a satisfactory sample, regularly obtained, is submitted with relevant clinical findings and history, and when the Pap result is evaluated along with historic and current clinical information. HPV MRNA E6/E7 Detected(A) Not Detected [facility] Comment: This test was performed using the APTIMA HPV Assay ([employer] This assay detects E6/E7 viral messenger RNA (mRNA) from 14 high-risk HPV types (16,18,31,33,35,39,45,51,52,56,58,59,66,68). The analytical performance characteristics of this assay have been determined by [employer]. The modifications have not been cleared or approved by the FDA. This assay has been validated pursuant to the CLIA regulations and is used for clinical purposes. ENDOCERVICAL STRUCTURE / Unknown 04/11/2019 12:15 PM EST 04/11/2019 11:36 PM EST Narrative Resulting Agency Comment [id number] Darlene Rodas MD PATHOLOGY-INTERFACED Final Result [facility] [address] [place] [address] * CBC INCLUDES DIFFERENTIAL AND PLATELET COUNT (04/11/2019 8:39 AM EST) WBC 4.6 3.8 - 10.8 Thousand/u L [facility] RBC 4.49 3.80 - 5.10 Million/uL [facility] Hemoglobin 13.5 11.7 - 15.5 g/dL [facility] Hematocrit 40.2 35.0 - 45.0 % [facility] MCV 89.5 80.0 - 100.0 fL [facility] MCH 30.1 27.0 - 33.0 pg [facility] MCHC 33.6 32.0 - 36.0 g/dL [facility] RDW 12.5 11.0 - 15.0 % [facility] PLT 310 140 - 400 Thousand/u L [facility] MPV 10.3 7.5 - 12.5 fL [facility] Neutrophils # 2203 1500 - 7800 cells/uL [facility] Lymphocytes # 1776 850 - 3900 cells/uL [facility] Monocytes # 368 200 - 950 cells/uL [facility] Eosinophils # 212 15 - 500 cells/uL [facility] Basophils # 41 0 - 200 cells/uL [facility] Neutrophils % 47.9 % [facility] Lymphocytes % 38.6 % [facility] Monocytes % 8.0 % [facility] Eosinophils % 4.6 % [facility] Basophils % 0.9 % [facility] 04/11/2019 8:39 AM EST 04/11/2019 9:59 PM EST Narrative Resulting Agency Comment [id number] Darlene Rodas MD LAB SAME DAY RESULT Final Result Performing Organization Address City/State/[facility] Co de Phone Number [facility] [address] [place] [address] * LIPID PANEL WITH REFLEX TO DIRECT LDL (04/11/2019 8:39 AM EST) Cholesterol 172 <200 mg/dL [facility] HDL Cholesterol 77 >50 mg/dL [facility] Triglyceride 49 <150 mg/dL [facility] LDL Cholesterol 81 mg/dL (calc) [facility] Comment: Reference range: <100 Desirable range <100 mg/dL for primary prevention; ?? <70 mg/dL for patients with CHD or diabetic patients with > or = 2 CHD risk factors. LDL-C is now calculated using the Adal calculation, which is a validated novel method providing better accuracy than the Friedewald equation in the estimation of LDL-C. Vladimir SS et al. PUJA. 2013;310(19): 5657-9687 (http://education.[employer]/faq/CSC810) CHOL/HDL Ratio 2.2 <5.0 (calc) [facility] Cholesterol Non-HDL 95 <130 mg/dL (calc) [facility] Comment: For patients with diabetes plus 1 major ASCVD risk factor, treating to a non-HDL-C goal of <100 mg/dL (LDL-C of <70 mg/dL) is considered a therapeutic option. 04/11/2019 8:39 AM EST 04/11/2019 9:59 PM EST Narrative Resulting Agency Comment [id number] Darlene Rodas MD LABORATORY Final Resu lt [facility] [address] [place] [address] * BASIC METABOLIC PANEL WITH (GFR) (04/11/2019 8:39 AM EST) Glucose 76 65 - 99 mg/dL [facility] Comment:Fasting reference in terval Urea Nitrogen Blood (BUN) 14 7 - 25 mg/dL [facility] Creatinine 0.65 0.50 - 1.05 mg/dL [facility] Comment: For patients >49 years of age, the reference limit for Creatinine is approximately 13% higher for people identified as -[place]izean. EGFR 101 > OR = 60 mL/min/1 .73m2 [facility] GFR () 117 > OR = 60 mL/min/1 .73m2 [facility] BUN/Creatinine Ratio NOT APPLICABLE 6 - 22 (calc) [facility] Sodium 140 135 - 146 mmol/L [facility] Potassium 4.4 3.5 - 5.3 mmol/L [facility] Chloride 104 98 - 110 mmol/L [facility] Carbon dioxide 29 20 - 32 mmol/L [facility] Calcium 9.7 8.6 - 10.4 mg/dL [facility] 04/11/2019 8:39 AM EST 04/11/2019 9:59 PM EST Narrative [facility] - 04/12/2019 5:25 AM EST Please note that this estimated GFR [...] needs for GFR calculation. Resulting Agency Comment [id number] Darlene Rodas MD LABORATORY Final Resu lt Performing Organization Address [facility] de Phone Number [facility] [address] [place] [address] * HEPATIC FUNCTION PANEL (ALT,AST,ALK PH,BILI'S,TP,ALB) (04/11/2019 8:39 AM EST) Protein Total (Serum) 7.0 6.1 - 8.1 g/dL [facility] Albumin 4.1 3.6 - 5.1 g/dL [facility] Globulin 2.9 1.9 - 3.7 g/dL (calc) [facility] Albumin/Globulin 1.4 1.0 - 2.5 (calc) [facility] Bilirubin Total 0.5 0.2 - 1.2 mg/dL [facility] Bilirubin Direct 0.1 < OR = 0.2 mg/dL [facility] Bilirubin Indirect 0.4 0.2 - 1.2 mg/dL (calc) [facility] Alkaline phosphatase 95 33 - 130 U/L [facility] AST (SGOT) 16 10 - 35 U/L [facility] ALT (SGPT) 8 6 - 29 U/L [facility] 04/11/2019 8:39 AM EST 04/11/2019 9:59 PM EST Narrative Resulting Agency Comment [id number] Darlene Rodas MD LABORATORY Final Resu lt Performing Organization Address [facility] de Phone Number [facility] [address] [place] [address] * TSH, 3RD GENERATION (04/11/2019 8:39 AM EST) TSH 3.81 mIU/L [facility] Comment: ?Reference Range ?> or = 20 Years ??0.40-4.50 ? Ranges ?First trimester ?0.26-2.66 ?Second trimester ?? 0.55-2.73 ?Third trimester ?0.43-2.91 04/11/2019 8:39 AM EST 04/11/2019 9:59 PM EST Narrative Resulting Agency Comment [id number] Darlene Rodas MD LABORATORY Final Resu lt [facility] [address] [place] [address] documented in this encounter Visit Diagnoses Diagnosis Screening for metabolic disorder Screening for malignant neoplasm of cervix Screening for malignant neoplasm of the cervix documented in this encounter Care Teams Customer Service Engineer Relationship Specialty Start Date End Date Darlene Rodas MD [address] [place] [address] PCP - General 07/16/16 03/18/21 documented as of this encounter
--- OUTSIDE RECORDS SUMMARY | 2024-06-06 09:05 | XMS_ITS | Encounter Summary ---
Author Organization [facility] Address [address] [place] [address] Care Team Providers Care Chainstitch Felled Seam Operator Name Role Phone Darlene Rodas MD Primary Care Provider +1- [phone] Encounter Details Date Type Department Care Team (Late st Contact Info) Description 2018 Orders Only [facility] [address] [place] [phone] Darlene Rodas MD [address] [place] [address] Social History Tobacco Use Types Packs/Day Years [...] on file documented as of this encounter Visit Diagnoses Not on filedocumented in this encounter Care Teams Chainstitch Felled Seam Operator Relationship Specialty Start Date End Date Darlene Rodas MD [address] [place] [address] PCP - General 07/16/16 03/18/21 documented as of this encounter
--- OUTSIDE RECORDS SUMMARY | 2024-06-06 09:05 | XMS_ITS | Encounter Summary ---
Author Organization [facility] Address [address] [place] [address] Care Team Providers Care Vice President & General Manager [employer] Name Role Phone Darlene Rodas MD Primary Care Provider +1- [phone] Encounter Details Date Type Department Care Team ([facility] st Contact Info) Description 03/22/[address] Orders [address] [facility] [address] [place] [phone] Opal Stevens NP Social History Tobacco Use Types Packs/Day Years Used Date Smoking Tobacco: Never Smokeless Tobacco: Never Alcohol Use Standard Drinks/Week Comments No 0 (1 standard drink = 0.6 oz [...] Notes * Opal Stevens NP - 04/01/2018 2:24 PM EST Add this to the result note below: Rest of her lab work was unremarkable. * Opal Stevens NP - 04/01/2018 2:22 PM EST Nurse, please call the patient to discuss her recent lab results. She is positive for both herpes 1 and herpes 2. Please review nature of herpes infection (that was discussed at her visit). There are no treatment recommendations as long as she is asymptomatic. Encourage her to call the office with onset of cold sores or other oral/vaginal lesions. documented in this encounter Plan of Treatment Not on file documented as of this encounter Procedures * Due to [facility] law, this organization might not be sharing negative HIV tests. Procedure Name Priority Date/Time Associated Diagnosis Comments HSV 1 AND 2 IGG HERPESELECT SPECIFIC ANTIBODY Routine 03/22/2018 5:00 PM EST Screen for STD (sexually transmitted disease) documented in this encounter Results * Due to [facility] law, this organization might not be sharing negative HIV tests. * (ABNORMAL) HSV 1 AND 2 IGG HERPESELECT SPECIFIC ANTIBODY (03/22/2018 5:00 PM EST) Herpes Simplex Virus 1 IgG 54.40(H) index [facility] Herpes simplex virus 2 Ab.IgG 7.09(H) index [facility] Comment: ?Index ?Interpretation ?----- ?<0.90 ?Negative ?0.90-1.09 ?Equivocal ?>1.09 ?Positive This assay utilizes recombinant type-specific antigens to differentiate HSV-1 from HSV-2 infections. A positive result cannot distinguish between recent and past infection. If recent HSV infection is suspected but the results are negative or equivocal, the assay should be repeated in 4-6 weeks. The performance characteristics of the assay have not been established for pediatric populations, immunocompromised patients, or screening. 03/22/2018 5:00 PM EST 03/22/2018 10:43 PM EST Narrative Resulting Agency Comment [id number] Opal Stevens NP LABORATORY Final Result [facility] [address] [place] [address] documented in this encounter Visit Diagnoses Diagnosis Screen for STD (sexually transmitted disease) Screening examination for venereal disease documented in this encounter Care Teams Vice President & General Manager [employer] Relationship Specialty Start Date End Date Darlene Rodas MD [address] [place] [address] PCP - General 07/16/16 03/18/21 documented as of this encounter
--- OUTSIDE RECORDS SUMMARY | 2024-06-06 09:05 | XMS_ITS | Continuity of Care Document ---
Author Organization [facility] Address [address] [place] [address] Care Team Providers Care Cable Maker Name Role Phone Unavailable Primary Care Provider Unavailabl e Encounters Date Type Department Care Team Description 06/30/2023 Minor Procedure/Test [facility] [address] [place] [address] [facility], Unknown Provider 03/23/2023 Minor Procedure/Test [facility] [address] [place] [address] [facility], Unknown Provider 12/10/2022 Telephone [facility] [address] [facility] [address] [place] [address] Brittany Li NP Appointment 03/18/[address] [facility] [address] [place] [address] Darlene Rodas MD Other (Pcp; ins info/) 03/03/[address] [facility] [address] [place] [address] Darlene Rodas MD Imm/Inj 10/29/[address] [facility] [address] [place] [address] Tre Rosario DPM 10/29/2020 8:30 AM EDT Radiology [facility] X-Ray [address] [place] [address] 10/29/[address] [facility] [address] [place] [address] Tre Rosario DPM 10/29/2020 8:50 AM EDT Consult (Initial) [facility] [address] [place] [phone] Tre Rosario, DPM Onychomycosis (Primary Dx); Acquired hallux valgus of left foot; Bilateral foot pain; Acquired hallux valgus of right foot 10/22/2020 Telephone All of [address] [address] Uzma France, [facility] 10/22/2020 Telephone All of [address] [address] Uzma France, [facility] 09/03/[address] [facility] [address] [place] [address] Darlene Rodas MD Cyst 06/12/[address] [facility] [address] [place] [address] Darlene Rodas MD Patient Questions 06/11/2020 Orders Only [facility] [address] [facility] 150 [place] [address] Brittany Li NP 06/11/2020 Travel 06/11/2020 8:00 AM EST Office Visit [facility] [address] [address] [facility] [address] [place] [address] Brittany Li NP Encounter for gynecological examination (general) (routine) without abnormal findings (Primary Dx); Abnormal cervical Papanicolaou smear, unspecified abnormal pap finding; Menopause present; Pap smear for cervical cancer screening; History of uterine fibroid; Cystocele, midline 06/03/[address] [facility] [address] [place] [address] Darlene Rodas MD Letter/form Request 05/28/[address] Family [facility] [address] [place] [place] [phone] Darlene Rodas MD Labs/orders (mmg) 05/27/2020 4:30 PM EST Radiology [facility] Ultrasound [address] [place] [id number] Leg edema 05/27/2020 6:30 PM EST Radiology [facility] [address] [place] [address] Leg edema 05/27/2020 5:45 PM EST Office Visit [facility] [address] [address] Taiwo Noe PA Leg edema (Primary Dx) 05/27/2020 Travel 05/27/[address] [facility] [address] [place] [address] Darlene Rodas MD Knee Pain 05/23/2020 Orders Only NON FC SA [address] [address] Darlene Rodas MD 04/24/2020 Travel 04/17/2020 Travel 04/17/2020 8:15 AM EST CPE - Comprehensive Physical Exam [facility] [facility] [address] [place] [address] Darlene Rodas MD Well adult exam (Primary Dx); ASCUS with positive high risk HPV cervical; S/P colonoscopy; Gastroesophageal reflux disease, unspecified whether esophagitis present 03/20/[address] [facility] [address] [place] [place] [address] Darlene Rodas MD Results 03/16/[address] Family [facility] [address] [place] [address] Darlene Rodas MD [address] [facility] [address] [place] [place] [phone] Darlene Rodas MD Imm/Inj 02/29/2020 Orders Only [address] [facility] [facility] [address] [place] [address] Darlene Rodas MD 02/28/[address] [facility] [address] [place] [address] Darlene Rodas MD Labs/orders 11/29/[address] [facility] Practice [address] [place] [address] Darlene Rodas MD Labs/orders 06/30/2019 Letter/Form [facility] [address] [facility] [address] [place] [address] Stefania Mclaughlin LSAT INSTRUCTOR 06/30/2019 8:15 AM EST Minor Procedure/Test [facility] [address] [facility] [address] [place] [address] Stefania Mclaughlin, LSAT INSTRUCTOR ASCUS with positive high risk HPV cervical (Primary Dx); Abnormal cervical Papanicolaou smear, unspecified abnormal pap finding 05/29/[address] [address] Vanessa Angel PA Follow Up 05/22/[address] [facility] [address] [place] [address] Darlene Rodas MD Labs/orders (mmg) 05/19/2019 Orders Only NON FC [facility] [address] [place] [address] Darlene Rodas MD 04/20/[address] [facility] Practice [address] [place] [address] Darlene Rodas MD Results 04/19/2019 11:00 AM EST Consult (Initial) [facility] [address] [place] [address] Vanessa Angel PA Pruritus (Primary Dx); Dyschromia 04/11/2019 Telephone [facility] [address] [place] [address] Darlene Rodas MD Records 04/11/2019 Orders Only [address] [facility] [address] [place] [address] Darlene Rodas MD 04/11/2019 7:45 AM EST CPE - Comprehensive Physical Exam [facility] [address] [place] [address] Darlene Rodas MD Well adult exam (Primary Dx); Screening for metabolic disorder; Screening for malignant neoplasm of cervix; Screening for eye condition; Need for vaccination 02/20/2019 Letter/Form [facility] [address] [place] [address] Darlene Rodas MD 10/28/2018 Telephone [facility] [address] [place] [address] Darlene Rodas MD Labs/orders 07/06/[address] [facility] [address] [place] [address] Darlene Rodas MD E-prescribing Refill Request 05/11/2018 Telephone [facility] [address] [place] [address] Darlene Rodas MD Patient Questions 04/20/[address] [facility] [address] [place] [address] Opal Stevens NP E-prescribing Refill Request 04/18/2018 Orders Only NON FC SA [address] [address] Darlene Rodas MD 04/04/2018 Telephone [facility] [address] [place] [address] Darlene Rodas MD Results 03/23/[address] [facility] [address] [place] [address] Darlene Rodas MD Labs/orders 03/23/2018 Telephone FC MISCELLANEOUS [phone] Mychart, Provider Generic MyChart Verification 03/22/2018 Orders Only [facility] [address] [place] [address] Opal Stevens NP 03/22/2018 3:15 PM EST CPE - Comprehensive Physical Exam [facility] [address] [place] [address] Opal Stevens NP Routine history and physical examination of adult (Primary Dx); Healthcare maintenance; Anxiety; Gastroesophageal reflux disease, esophagitis presence not specified; Insomnia, unspecified type; Screening for breast cancer; Screen for STD (sexually transmitted disease); Need for vaccination 03/21/2018 7:30 AM EST Office Visit [facility] Optometry [address] [place] [phone] Maricruz Russo OD Encounter for ophthalmic examination and evaluation (Primary Dx); Disorder of refraction 03/18/2018 Orders Only [facility] [address] [place] [facility] [place] [phone] Opal Stevens NP 03/14/2018 Telephone [facility] [facility] [address] [place] [address] Darlene Rodas MD Labs/orders 2018 Orders Only [facility] [address] [place] [facility] [place] [address] Darlene Rodas MD 2018 Orders Only [facility] [address] [place] [phone] Opal Stevens NP 02/20/2018 Letter/Form [facility] [address] [facility] [place] [phone] Darlene Rodas MD 02/20/2017 Letter/Form [facility] [address] [place] [address] Darlene Rodas MD 01/18/2017 1:00 PM EDT [facility] [address] [place] [address] Sprain of right ankle, unspecified ligament, initial encounter 01/18/2017 12:30 PM EDT [facility] [address] [place] [phone] Sissy Ricks PA Sprain of right ankle, unspecified ligament, initial encounter (Primary Dx); Neck sprain, initial encounter 01/14/2017 Telephone [facility] [address] [place] [address] Darlene Rodas MD Ankle pain 11/19/2016 Telephone [facility] [address] [place] [address] Darlene Rodas MD Results 11/17/2016 Orders Only [facility] [address] [place] [address] Linette Mcguire NP 11/10/2016 Letter/Form [facility] [address] [place] [address] Linette Mcguire NP 11/05/2016 Letter/Form [facility] [address] [place] [address] Linette Mcguire NP 10/06/2016 Orders Only [facility] [address] [place] [address] Darlene Rodas MD 10/06/2016 9:45 AM EDT Office Visit [facility] [address] [place] [address] Linette Mcguire NP Encounter to establish care with new doctor (Primary Dx); Insomnia, unspecified type; Gastroesophageal reflux disease, esophagitis presence not specified; Anxiety; Hot flashes; Health care maintenance; Need for hepatitis C screening test 08/19/2016 Telephone [facility] [address] [place] [address] Darlene Rodas MD Erroneous encounter-disregard 08/19/2016 Telephone [facility] [address] [place] [address] 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, AUTOMATIC SEAMER Constipation 08/12/2016 [facility] Medical Records [address] [place] [address] Darlene Rodas MD 08/10/2016 Orders Only [facility] [address] [place] [address] Darlene Rodas MD 08/06/2016 Telephone [facility] [address] [place] [address] Darlene Rodas MD Referral Request (Chiro / K Jovanni) 07/27/2016 Orders Only [facility] [address] [place] [address] Darlene Rodas MD 07/27/2016 Telephone [facility] [address] [place] [address] Darlene Rodas MD Referral Request (chiro) 06/09/2016 Telephone [facility] Otolaryngology [address] [facility] [address] [place] [address] Vicky Waters MD Cancellation 01/02/2016 Minor Procedure/Test FAM PRAC UNSPECIFIED Azeb Ling MD 12/16/2015 Office Visit FAM PRAC UNSPECIFIED Azeb Ling MD 12/16/2015 Minor Procedure/Test CARDI UNSPECIFIED Daniel Ybarra MD 09/05/2015 Minor Procedure/Test GASTRO UNSPECIFIED Gavin Cruz MD 10/31/2014 Minor Procedure/Test FAM PRAC UNSPECIFIED Azeb Ling MD 10/11/2014 Office Visit FAM PRAC UNSPECIFIED Nicole Marks NP 09/27/2014 3:00 PM EDT Office Visit [facility] Otolarynogology/Plas tics [address] [address] Jimenez Morales MD Facial rhytids (Primary Dx) 08/31/2014 10:00 AM EDT Office Visit [facility] Otolarynogology/Plas tics [address] [address] Jimenez Morales MD Facial rhytids (Primary Dx) 06/14/2014 Telephone [facility] Otolarynogology/Plas tics [address] [address] Jimenez Morales MD Patient Questions 06/13/2014 Telephone [facility] Otolarynogology/Plas tics [address] [address] Jimenez Morales MD Patient Questions 02/22/2014 2:45 PM EDT Office Visit [facility] Otolarynogology/Plas tics [address] [address] Jimenez Morales MD Facial rhytids (Primary Dx) 02/15/2014 4:00 PM EDT Office Visit [facility] Otolarynogology/Plas tics [address] [address] Jimenez Morales MD Facial rhytids (Primary Dx) 12/28/2013 3:30 PM EDT Consult (Initial) [facility] Otolarynogology/Plas tics [address] [address] Jimenez Morales MD Facial rhytids (Primary Dx) 02/27/2013 Minor Procedure/Test FLIGHT CONTROL SPECIALIST UNSPECIFIED Popeye Rodriguez Allergies No known active allergies Medications Multiple Vitamins-Minera ls (MULTIVITAMIN ADULT) Chew Tab None Entered A ctive Active Problems Problem Noted Date Diagnosed Date Cystocele, midline 06/11/2020 Overview (06/11/2020): 06/11/20 to the introitus with valsalva. Bothersome when sitting on the toilet. No urinary sxms. No need to splint. We discussed options including observation, kegels, PFPT, pessary, surgery. For now she wants to monitor. Pap smear for cervical cancer screening 07/03/19 20 Overview (06/14/2020): 06/12/19 ASCUS HPV detected plan: colpo 06/30/19 colpo negative plan: repeat pap in 12 months. Placed on recall list. 06/11/20 pap normal/negative. Repeat in 12 months. S/P colonoscopy 06/25/2019 Overview (04/17/2020): 04/17/20 colonoscopy 09/05/15 normal / follow up 10 years Screening for breast cancer 05/28/2018 Overview (05/28/2018): 03/22/18: Last record available to me in [facility] for mammogram is 2014. Per patient report she had mammogram done in 2016 through outside MAINTENANCE PAINTER APPRENTICE provider, Dr. Gary in [place]. Her CPE 2017 note, patient signed MERLINE to obtain this information. We will try again. At minimum, I recommend follow-up screening next year regardless of prior records. GERD (gastroesophageal reflux disease) 7 Overview (04/17/2020): By history per previous PCP notes. Also history of H pylori infection per previous providers notes, H pylori antibody on 10/15/2014 positive. Patient was treated with omeprazole, amoxicillin, clarithromycin for 14 days. H pylori antibody test on 11/14/2014 negative 10/06/2016: reports no sxs currently and takes no antacids currently 04/17/20: No complaints today. Not taking PPI, H2 andrew, or condoms. Insomnia 10/06/2016 Overview (04/17/2020): 10/06/2016: reports ongoing. Has hot flashes. Also wakes prematurely. Takes benadryl periodically-helps but doesn't keep her asleep 03/22/18: Patient continues to have difficulty with sleeping. She is not taking trazodone. Continues to weight with hot flashes. Recommended black cohosh. 04/11/19 Taking trazodone with good result, continue 04/17/20 doing well, no med History of exercise stress test 10/06/2016 Overview (10/06/2016): At [facility] on 01/02/2016. No evidence of ischemia noted History of uterine fibroid 10/06/2016 Overview (06/11/2020): Head ultrasound transabdominal and transvaginal on 02/27/2013 which showed left- sided fibroid measuring 1.7 3X2.42X 2.16 cm. Ovaries unremarkable 06/11/20 no current sxms. Menopause present 10/06/2016 Overview (06/11/2020): 10/06/2016:Has been told that FSH in menopause range by previous obgyn No menses in 8 months Hot flashes previously discussed tx options including paxil. 06/11/20 resolved. No PMB. Continue to monitor for any PMB. Resolved Problems Problem Noted Date Diagnosed Date Resolved Date Healthcare maintenance 05/28/201804/17 Overview (05/28/2018): Immunization History Administered Date(s) Administered ? ? Influenza,injectable,quad,Prsrv Fr 04/04/2018 ? ? Tdap 02/05/2014 HCP: Reviewed and updated as appropriate. LMP: Pap/HPV: Per patient report last Pap done by outside MAINTENANCE PAINTER APPRENTICE 2016. We do not have these records. Mammography: Again, patient reports mammograms through outside MAINTENANCE PAINTER APPRENTICE in 2017. Colonoscopy: Per patient report colonoscopy done through [facility], 2017, no polyps. 10-year repeat. Need records from [place]. DEXA: N/A Exercise: None Screen for STD (sexually transmitted disease) 05/28/19 19 06/11/2020 Overview (05/28/2018): 03/22/18: Patient requesting STD testing today. She is very concerned about the thought of having herpes. Tried to reassure her about the etiology and prevalence, and treatment of this disease. Anxiety 10/06/2016 04/11/2019 Overview (05/28/2018): Her previous PCP records. [place] it was situational regarding conflict with coworker. Has taken sertraline titrated up to 200 mg daily and lorazepam 0.5 mg up to 3 times daily as needed 10/06/2016: reports sxs much better since left job in 04/2016. Takes no medication currently : Towards the end of visit patient mentions 2-week time limitations on depression screening. When questioned further she admits to thinking about different ways someone can kill themselves, just not within the last 2 weeks. She denies any specific plans or means. She denies current SI/HI, but says she has had thoughts in the past. She is not currently taking any medications for anxiety/depression or seeing a counselor. She contracts with this provider to call this office and/or her sister, or 911 if she is ever concerned about hurting herself or hurting others. Contact information for Dr. Pinto provided to patient today; she was encouraged to call him to make an appointment for follow-up. Patient agrees to 1 month follow- up with me to further discuss mood. Immunizations Name Administration Dates Next Due COVID-19, mRNA (Pfizer Pre F all 2022) Monovalent, 30 mcg/0.3 ml 02/06/2021,08/02/2020,07/12/2020 Covid-19, mRNA (Pfizer Comir rosaura) Seasonal, 30 mcg/0.3 mL (12+) 01/11/2024,01/26/2023 Covid-19, mRNA (Pfizer Pre F all 2022) Bivalent, 30 mcg/0.3 ml ruth-sucrose (12+) dose 03/12/2022 Covid-19, mRNA (Pfizer Pre F all 2022) Monovalent, 30 mcg/0.3 ml ruth-sucrose (12+) 09/09/2021 IPV 04/23/2010 Influenza,MDCK,trivalent,PF (Flucelvax) 01/11/2024 Influenza,injectable,MDCK, P rsrv Fr,Quad 01/29/2022,01/10/2020 Influenza,injectable,quad,Prsrv Fr 01/26,02/06/2021,04/11/2019, 8 MMR 04/23/2010 Tdap 02/16/2024,02/05/2014 Zoster (Shingrix) 03/18/2020,01/10/2020 Family History Medical History Relation Name Comments Glaucoma Father Cancer (?Type) Maternal grandmother liver and stomach cancer Hypertension Paternal grandfather Cancer - Breast Paternal grandmother Diabetes Paternal grandmother Glaucoma Paternal grandmother Hypertension Paternal grandmother Other Sister 1 twin Relation Name Status Comments Daughter Alive Father Alive Maternal grandfather Maternal grandmother Mother Alive Paternal grandfather Paternal grandmother Sister 1 Alive Sister 2 Alive Son Alive Social History Smoking Status as of 06/06/2024 Tobacco Use Types Packs/Day Years Used Date Smoking Tobacco: Never Assessed AUDIT-C Answer Date Recorded Q1: How often [...] Answer Date Recorded PHQ-2 Score 0 04/17/2020 Intimate Partner Violence Answer Date R ecorded Fear of Current or Ex-Partner Not on file Emotionally Abused Not on file 12/10/2022 Physically Abused Not on file 12/10/2022 Sexually Abused Not on file 12/10/2022 Feel Safe at Home Not on file 12/10/2022 Sex and Gender Information Value Date Recorded Sex Assigned at Not on file Legal Sex Female 11:33 AM EDT Gender Identity Not on file Sexual Orientation Not on file Last Filed Vital Signs Vital Sign Reading Time Taken Comments Blood Pressure 110/72 06/11/2020 8:04 AM EST Pulse 96 05/27/2020 6:02 PM EST Temperature 36.1 ??C (96.9 ??F) 05/27/2020 6:02 PM ES T Respiratory Rate - - Oxygen Saturation 98% 05/27/2020 6:02 PM EST Inhaled Oxygen Concentration - - Weight 61.2 kg (135 lb) 06/11/2020 8:04 AM EST Height 157.5 cm (5' 2 ) 06/11/2020 8:04 AM EST Body Mass Index 24.69 06/11/2020 8:04 AM EST Plan of Treatment Not on file Procedures * Due to [place] state law, this organization might not be sharing negative HIV tests. Procedure Name Priority Date/Time Associated Diagnosis Comments FRANCK BILATERAL IMPLANT SCREENING DIGITAL MAMMOGRAM WITH FUAD 07/05/2023 11:01 AM EST FUNGAL STAIN, JAMIE Routine 10/29/2020 2:3 9 PM EDT Onychomycosis XRAY FEET COMPLETE MIN 3 VWS - BILAT (DX: FOOT PAIN *NO INJURY*) Routine 10/29/2020 8:42 AM EDT THINPREP TIS PAP AND HPV RNA, HR E6/E7, TMA Routine 06/11/2020 11:05 AM EST Abnormal cervical Papanicolaou smear, unspecified abnormal pap finding US VENOUS DUPLEX SCAN EXTREMITY VEINS UNILAT/LIMITED STUDY (LEG) RIGHT STAT (All results called to provider) 05/27/2020 6:57 PM EST Leg edema XRAY KNEE FOR ORTHO - RIGHT STAT (All results called to provider) 05/27/2020 6:20 PM EST Leg edema DIGITAL BREAST FUAD SCREENING Routine 05/23/2020 2:14 PM EST SYPHILIS (FTA) ANTIBODY CASCADING REFLEX TO RPR/TITER (*PREFERRED SCREEN*) Routine 03/16/2020 12:08 PM EST False positive syphilis serology VENIPUNCTURE Routine 03/16/2020 12:08 PM EST Vegan diet CBC INCLUDES DIFFERENTIAL AND PLATELET COUNT Routine [...] Screening for endocrine, metabolic and immunity disorder VENIPUNCTURE Routine 02/29/2020 4:40 PM EDT Concern about STD in female without diagnosis COLPOSCOPY, CERVIX W/UPPER ADJACENT VAGINA; W/BIOPSY(S), CERVIX & ENDOCERVICAL CURETTAGE Routine 06/30/2019 1:31 PM EST ASCUS with positive high risk HPV cervical TEST, URINE - STATION Routine 06/30/2019 9:27 AM EST Abnormal cervical Papanicolaou smear, unspecified abnormal pap finding TISSUE PATHOLOGY Routine 06/30/2019 8:15 AM EST BREAST IMPLANT SCREEN DIGITAL MAMMOGRAPHY WITH CAD Routine 05/19/2019 8:06 AM EST THINPREP TIS PAP AND HPV RNA, HR [...] 8:39 AM EST Screening for metabolic disorder BREAST IMPLANT SCREEN DIGITAL MAMMOGRAPHY WITH CAD Routine 04/18/2018 12:12 PM EST HSV 1 AND 2 IGG HERPESELECT SPECIFIC ANTIBODY Routine 03/22/2018 5:00 PM EST Screen for STD (sexually transmitted disease) FSH Routine 03/18/2018 9:22 AM EST ASPARTATE AMINOTRANSFERASE (AST), SERUM Routine 03/18/2018 9:22 AM EST Healthy adult on routine physical examination ALANINE AMINOTRANSFERASE (ALT), SERUM Routine 03/18/2018 9:22 AM EST Healthy adult on routine physical examination LIPID PANEL WITH REFLEX TO DIRECT LDL Routine 03/18/2018 9:22 AM EST Healthy adult on routine physical examination BASIC METABOLIC PANEL WITH (GFR) Routine 03/18/2018 9:22 AM EST Healthy adult on routine physical examination XRAY ANKLE COMPLETE MIN 3 VWS - RIGHT STAT (All results called to provider) 01/18/2017 1:01 PM EDT Sprain of right ankle, unspecified ligament, initial encounter HEPATITIS C AB WITH REFLEX TO RNA PCR, SERUM Routine 11/17/2016 8:05 AM EDT Need for hepatitis C screening test CBC INCLUDES DIFFERENTIAL AND PLATELET COUNT Routine 11/17/2016 8:05 AM EDT Encounter to establish care with new doctor Health care maintenance ALANINE AMINOTRANSFERASE (ALT), SERUM Routine 11/17/2016 8:05 AM EDT Encounter to establish care with new doctor Health care maintenance LIPID PANEL WITH REFLEX TO DIRECT LDL Routine 11/17/2016 8:05 AM EDT Encounter to establish care with new doctor Health care maintenance BASIC METABOLIC PANEL WITH (GFR) Routine 11/17/2016 8:05 AM EDT Encounter to establish care with new doctor Health care maintenance CARDIOVASCULAR STRESS TEST W/TREADMILL, BICYCLE, AND/OR PHARMACOLOGICAL STRESS; W/ SUPERV/INTERP 01/02/2016 EKG 12/16/2015 COLONOSCOPY 09/05/2015 MAMMOGRAPHY-BILATERAL 10/31/2014 US PELVIS COMPL 02/27/2013 Results * Due to [place] state law, this organization might not be sharing negative HIV tests. * FRANCK BILATERAL IMPLANT SCREENING DIGITAL MAMMOGRAM WITH FUAD (07/05/2023 11:01 AM EST) Anatomical Region Laterality Modality Other 07/05/2023 11:0 1 AM EST Narrative 07/05/2023 11:01 AM EST EXAMINATION FRANCK Bilateral Implant Screening Digital Mammogram With Fuad. INDICATION Screening. CC and MLO views were obtained. R2 CAD was used in the interpretation of this study. COMPARISON Priors in PACS. Bilateral Breast Findings: The breasts are heterogeneously dense, which may obscure small masses. There are stable bilateral retropectoral breast implants. ??No suspicious masses, areas of unexplained architectural distortion, or suspicious clusters calcifications are seen within either breast. IMPRESSION No mammographic evidence of malignancy. BI-RADS ??ATLAS category (overall): 2 - Benign MANAGEMENT Recommend annual screening mammography. The patient was entered into a reminder system with a target date for their next mammogram. DENSE BREAST RECOMMENDATIONS: The patient has dense breast tissue shown on mammography. Per [employer] [place] [employer] Appropriateness Criteria ??for Breast Cancer Screening (https://acsearch.acr.org/docs/42787/Narrative/) patient may benefit from tomosynthesis on future mammography and supplemental imaging with automated breast ultrasound (ABUS) or breast MRI depending on risk factors. Automated Breast Ultrasound (ABUS) is now available at both [facility] and in the Department of Mammography at [facility]. To schedule a patient, you can either enter an ABUS order into [facility] HowGood EMR (type in ABUS), call [facility] Central Scheduling at [phone], or call [facility] Central Scheduling at [phone]. To fax an external order: [facility] [phone] and [facility] [phone]. If this radiology report contains a blank impression section, it is an incomplete radiology report. ??Please contact the interpreting radiologist or applicable radiology division as soon as possible to obtain the completed interpretation. 5' 2 125 Procedure Note [facility], Unknown Provider - 07/05/2023 EXAMINATION FRANCK Bilateral Implant Screening Digital Mammogram With Fuad. INDICATION Screening. CC and MLO views were obtained. R2 CAD was used in the interpretation ofthis study. COMPARISON Priors in PACS. Bilateral Breast Findings: The breasts are heterogeneously dense, which may obscure small masses. There are stable bilateral retropectoral breast implants. No suspiciousmasses, areas of unexplained architectural distortion, or suspiciousclusters calcifications are seen within either breast. IMPRESSION No mammographic evidence of malignancy. BI-RADS ATLAS category (overall): 2 - Benign MANAGEMENT Recommend annual screening mammography. The patient was entered into a reminder system with a target date fortheir next mammogram. DENSE BREAST RECOMMENDATIONS: The patient has dense breast tissue shown on mammography. Per [employer] Appropriateness Criteria for Breast Cancer Screening(https://acsearch.acr.org/docs/97103/Narrative/) patient may benefit fromtomosynthesis on future mammography and supplemental imaging with automated breast ultrasound(ABUS) or breast MRI depending on risk factors. Automated Breast Ultrasound (ABUS) is now available at both [facility] and [facility]. To schedule a patient, you caneither enter an ABUS order into [facility] HowGood EMR (type in ABUS), call [facility] Central Scheduling [phone], or call [facility] Central Scheduling [phone]. To fax an external order: [facility] [phone] and[facility] [phone]. If this radiology report contains a blank impression section, it is anincomplete radiology report. Please contact the interpreting radiologistor applicable radiology division as soon as possible to obtain thecompleted interpretation. 5' 2 125 us Unknown Provider [facility] Final Resu lt * FUNGAL STAIN, JAMIE (10/29/2020 2:39 PM EDT) Fungus identified SEE NOTE [facility] Comment: ??FUNGAL STAIN ??Micro Number: ?[id number] ??Test Status: ? Final ??Specimen Source: ?? LEFT 2ND TOENAIL ??Specimen Quality: ??Adequate ??Smear: ? No fungal elements seen. 10/29/2020 2:39 PM EDT 10/29/2020 9:27 PM EDT Narrative Resulting Agency Comment [id number] Tre Rosario DPM LABORATORY Final Result [facility] [address] [id number] * XRAY FEET COMPLETE MIN 3 VWS - BILAT (DX: FOOT PAIN *NO INJURY*M25.579/ 719.47) FC (10/29/2020 8:42AM EDT) Anatomical Region Laterality Modality LOWER EXTREMITY Radiographic Breonna ging 10/30/2020 9:51 AM EDT Narrative 10/30/2020 9:51 AM EDT CONTRAST: Weightbearing 3 views of the left foot. Comparison: None. Findings: LEFT: Normal alignment. ??No fracture. ??No suspicious bony lesions. ??Nominal bunion formation. ??Joint spaces are preserved. ??Calcaneal pitch angle 9 degrees. ??5? of Meary's angle depression. RIGHT: Mild bunion formation. ??Negative for fracture or dislocation. ??No suspicious bony lesions. ??Joint spaces are preserved. ??Calcaneal pitch angle 12 degrees. ?? 8? of Meary's angle depression. IMPRESSION: Left pes planus with minor bunion formation. Mild right first metatarsal-phalangeal bunion formation with low-grade pes planus. Procedure Note Nadine Lees MD - 10/30/2020 CONTRAST: Weightbearing 3 views of the left foot. Comparison: None. Findings: LEFT: Normal alignment. No fracture. No suspicious bony lesions. Nominalbunion formation. Joint spaces are preserved. Calcaneal pitch angle 9 degrees.5? of Meary's angle depression. RIGHT: Mild bunion formation. Negative for fracture or dislocation. Nosuspicious bony lesions. Joint spaces are preserved. Calcaneal pitch angle 12degrees. 8? of Meary's angle depression. IMPRESSION: Left pes planus with minor bunion formation. Mild right first metatarsal-phalangeal bunion formation with low-gradepes planus. Tre Rosario DPM IMG XRAY NO CONTRAST ORDERAB LES Final Result * THINPREP TIS PAP AND HPV RNA, HR E6/E7, TMA (06/11/2020 11:05 AM EST) Only the most recent of2 resultswithin the time period is included. Clinical information COLPOSCOPY NEGATIVE 06/2019 [facility] Date last menstrual period POSTMENOPAUSAL [facility] Date of previous PAP smear 04/11/2019 ASCUS / HPV [facility] Date of previous biopsy NONE GIVEN [facility] Specimen source (Cvx/Vag) Endocervix [facility] Statement of Adequacy (Cvx/Vag) Satisfactory for evaluation. Endocervical/tomas sformation zone component present. [facility] Cytology, Pap Smear Negative for intraepithelial lesion or malignancy. [facility] Cytology study comment (Cvx/Vag) This Pap test has been evaluated with computer assisted technology. [facility] Union Representative (Cvx/Vag) SXA, CT(ASCP) CT screening location: [address] [address] [facility] COMMENT SEE NOTE [facility] Comment: EXPLANATORY NOTE: The Pap is [...] HPV MRNA E6/E7 Not Detected Not Detected [facility] Comment: Methodology: Foundation Coordinator-Mediated Amplification This assay detects E6/E7 viral messenger RNA (mRNA) from 14 high-risk HPV types (16,18,31,33,35,39,45,51,52,56,58,59,66,68). The analytical performance characteristics of this assay have been determined by [employer]. The modifications have not been cleared or approved by the FDA. This assay has been validated pursuant to the CLIA regulations and is used for clinical purposes. For additional information, please refer to http://education.[employer]/OJY010q8 (This link if provided for information/ educational purposes only.) ENDOCERVICAL STRUCTURE / Unknown 06/11/2020 11:05 AM EST 06/12/2020 7:26 AM EST Narrative Resulting Agency Comment [id number] us Brittany Li LSAT INSTRUCTOR PATHOLOGY-INTERFACED Final Resul t [facility] [address] [place] [address] * US VENOUS DUPLEX SCAN EXTREMITY VEINS UNILAT/LIMITED STUDY RIGHT FC (05/27/2020 6:57 PM EST) 05/27/2020 7:18 PM EST Narrative [facility] - 05/27/2020 7:18 PM EST Right lower extremity venous duplex ultrasound. Comparison: None. Technique: Real time sonographic imaging, including color-flow imaging and spectral analysis, was performed by the mammal keeper. Multiple retail sales representative static images were saved for review. Findings: The deep venous system is fully compressible from common femoral through the proximal leg veins. ?? There is spontaneous and phasic flow, and augmentation. Color Doppler and spectral tracings are unremarkable. A tiny Cordoba's cyst measuring 13 x 8 x 4 mm is noted. Impression: 1. Right lower extremity venous duplex ultrasound negative for DVT. 2. ??Tiny Cordoba's cyst. Procedure Note Jeremy Donaldson MD - 05/27/2020 Right lower extremity venous duplex ultrasound. Comparison: None. Technique: Real time sonographic imaging, including color-flow imaging and spectral analysis, was performed by the mammal keeper. Multiplerepresentative static images were saved for review. Findings: The deep venous system is fully compressible from common femoral throughthe proximal leg veins. There is spontaneous and phasic flow, and augmentation. Color Doppler and spectral tracings are unremarkable. A tiny Cordoba's cyst measuring 13 x 8 x 4 mm is noted. Impression: 1. Right lower extremity venous duplex ultrasound negative for DVT. 2. Tiny Cordoba's cyst. WAYLNO Villaseñor IMG US ORDERABLES Final Res ult [facility] * XRAY KNEE FOR ORTHO - RIGHT FC (05/27/2020 6:20 PM EST) Anatomical Region Laterality Modality LOWER EXTREMITY Radiographic Breonna ging 05/27/2020 6:36 PM EST Narrative 05/27/2020 6:36 PM EST AP standing bilateral knees, 2 views right knee Comparison: None Findings: No fractures or dislocations. ??A moderate to large right knee joint effusion is present.. No significant arthritic change. No radiopaque foreign body. Impression: 1. ??Moderate to large right knee joint effusion. ??Otherwise, unremarkable right knee 2. Normal AP left knee Procedure Note Jeremy Donaldson MD - 05/27/2020 AP standing bilateral knees, 2 views right knee Comparison: None Findings: No fractures or dislocations. A moderate to large right knee jointeffusion is present.. No significant arthritic change. No radiopaque foreign body. Impression: 1. Moderate to large right knee joint effusion. Otherwise, unremarkableright knee 2. Normal AP left knee us WAYLON Villaseñor IMRaya XRAY NO CONTRAST ORDERA BLES Final Result * DIGITAL BREAST FUAD SCREENING (05/23/2020 2:14 PM EST) [facility] RADIOLOGY REPORT [facility] Department of Radiology [address] [place] [address], [id number] Name: JARRETT GARZON : 65 Date of Service: 05/23/20 1520 Acct Number: [id number] Order Number: ??[id number] ?Location: [facility] Report Number: [id number] ?Service: REG REF/ Requesting Physician: Darlene Rodas MD ([facility]) Category: MAMMOGRAPHY Exam: DIGITAL BREAST FUAD SCREENING ?? Signs/Symptoms: SCREENING Report Status: Signed STUDY: Bilateral screening mammogram with CAD and tomosynthesis. TECHNIQUE: ??Bilateral craniocaudal and mediolateral oblique views obtained. [employer] Version 1.3 computer aided detection system and tomosynthesis utilized. Implant displaced views are also obtained. Patient has bilateral subpectoral silicone implants placed in 2012. COMPARISON: .07/09/2016, 04/14/2018 and 05/18/2019 .. ?? FAMILY HISTORY: None Reported BREAST COMPOSITION: Heterogeneously dense which could obscure small masses. RIGHT BREAST: No mass, architectural distortion or abnormal grouping of microcalcification s. No evidence of silicone extravasation. LEFT BREAST: No mass, architectural distortion or abnormal grouping of microcalcification s. No evidence of silicone extravasation. IMPRESSION: Stable mammogram. Routine annual screening recommended. REPORT SUMMARY: BR- 2 - Benign Finding FU- 1Y - Normal screening interval D- C - Breast are heterogeneously dense, may obscure small lesions. Patient was entered into a reminder system for annual screening mammogram notification. Date/Time of Dictation: 05/23/20 1526 Breaker Layer (if applicable): Approved By Attending Radiologist: Raven Miller MD 05/23/20 1526 [facility] Department of Radiology [address] [place] [address], [address] ? [phone] ? [facility] RAD Anatomical Region Laterality Modality Other 05/23/2020 2:14 PM EST Narrative 05/23/2020 3:26 PM EST Reason for Study/History: Department of Radiology TEST(S) PROCESSED BY [facility] XRAY Darlene Rodas MD [facility] Final Resu lt * SYPHILIS (FTA) ANTIBODY CASCADING REFLEX TO RPR/TITER (*PREFERRED SCREEN*) (03/16/2020 12:08 PM EST) Only the most recent of2 resultswithin the time period is included. Treponema pallidum Ab NEGATIVE NEGATIVE [facility] [...] 9:39 PM EST Narrative Resulting Agency Comment [id number] Rachael Camarena MD LABORATORY Final Result [facility] [address] [place] [address] * PROTEIN, TOTAL, SERUM (03/16/2020 12:08 PM EST) Protein Total (Serum) 6.6 6.1 - 8.1 g/dL [facility] 03/16/2020 12:0 8 PM EST 03/16/2020 9:39 PM EST Narrative Resulting Agency Comment [id number] Darlene Rodas MD LAB SAME DAY RESULT Final Result Performing Organization Address City/[facility]/ZIP Co de Phone Number [facility] [address] [place] [address] * CBC INCLUDES DIFFERENTIAL AND PLATELET COUNT (02/29/2020 4:40 PM EDT) Only the most recent of3 resultswithin the time period is included. WBC 5.1 3.8 - 10.8 Thousand/u L [...] 12:03 AM EDT Narrative Resulting Agency Comment [id number] Darlene Rodas MD LAB SAME DAY RESULT Final Result Performing Organization Address [facility] Co de Phone Number [facility] [address] [place] [address] * ALANINE AMINOTRANSFERASE (ALT), SERUM (02/29/2020 4:40 PM EDT) Only the most recent of3 resultswithin the time period is included. ALT (SGPT) 14 6 - 29 U/L [facility] 02/29/2020 4:40 PM EDT 03/01/2020 12:03 AM EDT Narrative Resulting Agency Comment [id number] Darlene Rodas MD LAB SAME DAY RESULT Final Result Performing Organization Address City/[facility] Co de Phone Number [facility] [address] [place] [address] * LIPID PANEL WITH REFLEX TO DIRECT LDL (02/29/2020 4:40 PM EDT) Only the most recent of4 resultswithin the time period is included. Cholesterol 177 <200 mg/dL [facility] HDL [...] of LDL-C. Vladimir SS et al. PUJA. 2013;310(23): 6699-4131 (http://education.[employer]/faq/ICP776) CHOL/HDL Ratio 2.2 <5.0 (calc) [facility] Cholesterol Non-HDL 95 <130 mg/dL (calc) [facility] Comment: For patients with diabetes plus 1 major ASCVD risk factor, treating to a non-HDL-C goal of <100 mg/dL (LDL-C of <70 mg/dL) is considered a therapeutic option. 02/29/2020 4:40 PM EDT 03/01/2020 12:03 AM EDT Narrative Resulting Agency Comment [id number] Darlene Rodas MD LABORATORY Final Resu lt [facility] [address] [place] [address] * BASIC METABOLIC PANEL WITH (GFR) (02/29/2020 4:40 PM EDT) Only the most recent of4 resultswithin the time period is included. Glucose 92 65 - 99 mg/dL [facility] Comment:Fasting reference in terval Urea Nitrogen Blood (BUN) 19 7 - 25 mg/dL [facility] Creatinine 0.66 0.50 - 1.05 mg/dL [facility] Comment: For patients >49 years of age, the reference limit for Creatinine is approximately 13% higher for people identified as -[place]. EGFR 100 > OR = 60 mL/min/1 [...] needs for GFR calculation. Resulting Agency Comment [id number] Darlene Rodas MD LABORATORY Final Resu lt [facility] [address] [place] [address] * TEST, URINE - STATION (06/30/2019 9:27 AM EST) HCG, Qualitative, Urine neg Neg Urine specimen (specimen) 06/30/2019 9:27 AM EST Stefania Mclaughlin ST[facility] Final Result * TISSUE PATHOLOGY (06/30/2019 8:15 AM EST) COLLECTION DATE 06/30/2019 8:15 AM [facility] SPECIMEN SOURCE . A . Endocervix [facility] DIAGNOSIS . A . Fragments of unremarkable endocervical epithelium. [facility] SPECIMEN SOURCE . B . 1 o'clock [facility] DIAGNOSIS . B . Transformation zone mucosa, negative for dysplasia. [facility] Pathologist Jair Brumfield M.D., Board Certified in Anatomic and Clinical Pathology (electronic signature) Consulting Pathologist [facility] Pathology [phone] [facility] GROSS DESCRIPTION . A . SEE NOTE [facility] Comment: The container is labeled with patient's name and source ECC . ? Received in formalin is an endocervical brush with adherent mucoid material. The material measures 0.5 x 0.2 x 0.1 cm in aggregate. Specimen is submitted entirely in cassette A1. ??The specimen may not survive processing. ??Gross exam(s) performed at: ??[facility] ??[address] [facility] [id number] ??Reflesher: AILYN AGUILAR MD GROSS DESCRIPTION . B . SEE NOTE [facility] Comment: The container is labeled with patient's name and source one . ? Specimen is received in formalin and consists of one fragment of light grossman tissue ??measuring 0.4 x 0.3 x 0.1 cm. ?? Specimen is filtered and submitted entirely in cassette B1. ELV/ 06/30/2019 Note: Due to fixation formalin shrinkage, the measurements in the gross description may be less than those taken at the time of surgery. 06/30/2019 8:15 AM EST 06/30/2019 10:34 PM EST Stefania Mclaughlin NP PATHOLOGY-INTERFACED Final R esult Performing Organization Address City/State/[facility] Co de Phone Number [facility] [address] [place] [address] * BREAST IMPLANT SCREEN DIGITAL MAMMOGRAPHY WITH CAD (05/19/2019 8:06 AM EST) Only the most recent of2 resultswithin the time period is included. RADIOLOGY REPORT [facility] Department of Radiology [address] [place] [address], [phone] Name: JARRETT GARZON : 65 Date of Service: 05/18/19 1801 Acct Number: [id number] Order Number: ??[id number] ?Location: [facility] Report Number: [id number] ?Service: REG REF/ Requesting Physician: Darlene Rodas MD ([facility]) Category: MAMMOGRAPHY Exam: IMPLANT SCREEN DIGITAL W CAD ?? Signs/Symptoms: SCREENING Report Status: ---Signed--- STUDY: Bilateral implant screening mammogram with CAD. TECHNIQUE: ??Bilateral craniocaudal and mediolateral oblique views obtained. [employer] Version 1.3 computer aided detection system utilized. Implant displaced views were also obtained. COMPARISON: 07/09/2016 and 04/14/2018 ?? FAMILY HISTORY: There is no family history of breast cancer. Patient status post implants in 2012. BREAST COMPOSITION: Heterogeneously dense which could correspond to masses. RIGHT BREAST: Retropectoral silicone implant. Implant is intact. No mass, architectural distortion or abnormal microcalcification s. LEFT BREAST: No mass, architectural distortion or groupings of microcalcification s. Intact implants. IMPRESSION: Stable mammogram. Intact implants. REPORT SUMMARY: BR- 2 - Benign Finding FU- 1Y - Normal screening interval D- C - Breast are heterogeneously dense, may obscure small lesions Patient was entered into a reminder system for annual screening mammogram notification. Date/Time of Dictation: 05/19/19 0911 Breaker Layer (if applicable): Approved By Attending Radiologist: Raven Miller MD 05/19/19 0911 [facility] Department of Radiology [address] [place] [address], [address] ? [phone] ? [facility] RAD Anatomical Region Laterality Modality Other 05/19/2019 8:06 AM EST Narrative 05/19/2019 9:14 AM EST Reason for Study/History: Department of Radiology TEST(S) PROCESSED BY [facility] XRAY us Darlene Rodas MD [facility]ING[facility] Final Resu lt * TSH, 3RD GENERATION (04/11/2019 8:39 AM EST) TSH 3.81 mIU/L [facility] Comment: ?Reference Range ?> or = 20 Years ??0.40-4.50 ? Ranges ?First trimester ?0.26-2.66 ?Second trimester ?? 0.55-2.73 ?Third trimester ?0.43-2.91 04/11/2019 8:39 AM EST 04/11/2019 9:59 PM EST Narrative Resulting Agency Comment [id number] Darlene Rodas MD LABORATORY Final Resu lt Performing Organization Address [facility] de Phone Number [facility] [address] [place] [address] * HEPATIC FUNCTION PANEL (ALT,AST,ALK PH,BILI'S,TP,ALB) (04/11/2019 [...] 9:59 PM EST Narrative Resulting Agency Comment [id number] Darlene Rodas MD LABORATORY Final Resu lt Performing Organization Address [facility] de Phone Number [facility] [address] [place] [address] * (ABNORMAL) HSV 1 AND 2 IGG [...] 10:43 PM EST Narrative Resulting Agency Comment [id number] Opal Stevens NP LABORATORY Final Result Performing Organization Address City/State/[facility] Co de Phone Number [facility] [address] [place] [address] * ASPARTATE AMINOTRANSFERASE (AST), SERUM (03/18/2018 9:22 AM EST) AST (SGOT) 20 10 - 35 U/L [facility] 03/18/2018 9:22 AM EST 03/18/2018 5:02 PM EST Narrative Resulting Agency Comment [id number] Opal Miles LSAT INSTRUCTOR LAB SAME DAY RESULT Final Result Performing Organization Address [facility] de Phone Number [facility] [address] [place] [address] * (ABNORMAL) FSH (03/18/2018 9:22 AM EST) FSH 136.1(H) mIU/mL [facility] Comment: ?Reference Range ? Follicular Phase ? 2.5-10.2 ? Mid-cycle Peak ? 3.1-17.7 ? Luteal Phase ? 1.5- 9.1 ? Postmenopausal ? 23.0-116.3 ? 03/18/2018 9:22 AM EST 03/18/2018 5:02 PM EST Opal Stevens LSAT INSTRUCTOR LAB SAME DAY RESULT Final Result Performing Organization Address [facility] Phone Number [facility] [address] [place] [address] * XRAY ANKLE COMPLETE MIN 3 VWS - RIGHT FC (01/18/2017 1:01 PM EDT) Anatomical Region Laterality Modality LOWER EXTREMITY Radiographic Breonna ging 01/18/2017 1:13 PM EDT Narrative 01/18/2017 1:13 PM EDT 3 views right ankle Comparison: None Findings: No fractures or dislocations. No joint effusion. No significant arthritic change. No radiopaque foreign body. Impression: 1. Normal right ankle Procedure Note Jeremy Donaldson MD - 01/18/2017 3 views right ankle Comparison: None Findings: No fractures or dislocations. No joint effusion. No significant arthritic change. No radiopaque foreign body. Impression: 1. Normal right ankle Sissy Alfredoert PA IMG XRAY NO CONTRAST ORDERABLES Final Result * HEPATITIS C AB WITH REFLEX TO RNA PCR, SERUM (11/17/2016 8:05 AM EDT) Hepatitis C virus Ab NON-REACTI VE NON-REACT IRENE [facility] Hepatitis C virus Ab Signal/Cutoff 0.02 <1.00 [facility] 11/17/2016 8:05 AM EDT 11/17/2016 8:04 PM EDT Narrative Resulting Agency Comment [id number] Linette Mcguire NP LABORATORY Final Result Performing Organization Address City/State/[facility] Co de Phone Number [facility] [address] [place] [address] * CARDIOVASCULAR STRESS TEST W/TREADMILL, BICYCLE, AND/OR PHARMACOLOGICAL STRESS; W/ SUPERV/INTERP (01/02/2016) Azbe Ling MD CARDIOVASCULAR-WITH INBSKT RTG F inal Result * EKG (12/16/2015) Daniel Ybarra MD CARDIOVASCULAR-NO INBASKET RTG Final Result * COLONOSCOPY (09/05/2015) Gavin Cruz MD PROCEDURES Final Result * MAMMOGRAPHY-BILATERAL (10/31/2014) 10/31/2014 Azeb Ling MD GENERAL IMAGING- OTHER Final Res ult * US PELVIS COMPL (02/27/2013) 02/27/2013 Popeye Rodriguez GENERAL IMAGING- OTHER Final Re sult Visit Diagnoses Diagnosis Start Date Facial rhytids Other specified hypertrophic and atrophic condition of skin 12/28/2013 Facial rhytids Other specified hypertrophic and atrophic condition of skin 02/15/2014 Facial rhytids Other specified hypertrophic and atrophic condition of skin 02/22/2014 Facial rhytids Other specified hypertrophic and atrophic condition of skin 08/31/2014 Facial rhytids Other specified hypertrophic and atrophic condition of skin 09/27/2014 Neck pain Cervicalgia 07/27/2016 Back pain, unspecified back location, unspecified back pain laterality, unspecified chronicity 07/27/2016 Neck pain Cervicalgia 08/10/2016 Back pain, unspecified back location, unspecified back pain laterality, unspecified chronicity 08/10/2016 Encounter to establish care with new doctor Other reasons for seeking consultation 10/06/2016 Insomnia, unspecified type 10/06/2016 Gastroesophageal reflux disease, esophagitis presence not specified 10/06/2016 Anxiety Anxiety state, unspecified 10/06/2016 Hot flashes Symptomatic menopausal or female climacteric states 10/06/2016 Health care maintenance Unspecified general medical examination 10/06/2016 Need for hepatitis C screening test Special screening examination for other specified viral diseases 10/06/2016 Encounter to establish care with new doctor Other reasons for seeking consultation 11/17/2016 Health care maintenance Unspecified general medical examination 11/17/2016 Need for hepatitis C screening test Special screening examination for other specified viral diseases 11/17/2016 Sprain of right ankle, unspecified ligament, initial encounter 01/18/2017 Sprain of right ankle, unspecified ligament, initial encounter 01/18/2017 Neck sprain, initial encounter 01/18/2017 Healthy adult on routine physical examination Routine general medical examination at a health care facility 2018 Healthy adult on routine physical examination Routine general medical examination at a health care facility 03/18/2018 Encounter for ophthalmic examination and evaluation Examination of eyes and vision 03/21/2018 Disorder of refraction Unspecified disorder of refraction and accommodation 03/21/2018 Screen for STD (sexually transmitted disease) Screening examination for venereal disease 03/22/2018 Routine history and physical examination of adult Routine general medical examination at a health care facility 03/22/2018 Healthcare maintenance Routine general medical examination at a health care facility 03/22/2018 Anxiety Anxiety state, unspecified 03/22/2018 Gastroesophageal reflux disease, esophagitis presence not specified 03/22/2018 Insomnia, unspecified type 03/22/2018 Screen for STD (sexually transmitted disease) Screening examination for venereal disease 03/22/2018 Need for vaccination Need for prophylactic vaccination and inoculation against unspecified single disease 03/22/2018 Screening for metabolic disorder 04/11/2019 Screening for malignant neoplasm of cervix Screening for malignant neoplasm of the cervix 04/11/2019 Screening for metabolic disorder 04/11/2019 Screening for malignant neoplasm of cervix Screening for malignant neoplasm of the cervix 04/11/2019 Screening for eye condition Screening for other eye conditions 04/11/2019 Need for vaccination Need for prophylactic vaccination and inoculation against unspecified single disease 04/11/2019 Well adult exam Routine general medical examination at a health care facility 04/11/2019 Pruritus Unspecified pruritic disorder 04/19/2019 Dyschromia 04/19/2019 ASCUS with positive high risk human papillomavirus of vagina 04/20/2019 Abnormal cervical Papanicolaou smear, unspecified abnormal pap finding 06/30/2019 ASCUS with positive high risk HPV cervical 06/30/2019 Screening for endocrine, metabolic and immunity disorder 11/29/2019 Concern about STD in female without diagnosis Person with feared complaint in whom no diagnosis was made 02/28/2020 False positive syphilis serology False positive serological test for syphilis 02/28/2020 Vegan diet 02/28/2020 Concern about STD in female without diagnosis Person with feared complaint in whom no diagnosis was made 02/29/2020 Screening for endocrine, metabolic and immunity disorder 02/29/2020 Vegan diet 03/16/2020 False positive syphilis serology False positive serological test for syphilis 03/16/2020 ASCUS with positive high risk HPV cervical 04/17/2020 Well adult exam Routine general medical examination at a health care facility 04/17/2020 S/P colonoscopy Other postprocedural status 04/17/2020 Gastroesophageal reflux disease, unspecified whether esophagitis present 04/17/2020 Leg edema Edema 05/27/2020 Leg edema Edema 05/27/2020 Leg edema Edema 05/27/2020 Abnormal cervical Papanicolaou smear, unspecified abnormal pap finding 06/11/2020 Abnormal cervical Papanicolaou smear, unspecified abnormal pap finding 06/11/2020 Encounter for gynecological examination (general) (routine) without abnormal findings 06/11/2020 Menopause present Asymptomatic postmenopausal status (age-related) (natural) 06/11/2020 Pap smear for cervical cancer screening Screening for malignant neoplasm of the cervix 06/11/2020 History of uterine fibroid Personal history of other genital system and obstetric disorders 06/11/2020 Cystocele, midline 06/11/2020 Onychomycosis Dermatophytosis of nail 10/29/2020 Onychomycosis Dermatophytosis of nail 10/29/2020 Acquired hallux valgus of left foot Hallux valgus (acquired) 10/29/2020 Bilateral foot pain Pain in limb 10/29/2020 Acquired hallux valgus of right foot Hallux valgus (acquired) 10/29/2020
--- OUTSIDE RECORDS SUMMARY | 2024-06-06 09:05 | XMS_ITS | Encounter Summary ---
Author Organization [facility] Address [address] [place] [address] Care Team Providers Care Systems Security Consultant Name Role Phone Darlene Rodas MD Primary Care Provider [phone]- [phone] Encounter Details Date Type Department Care Team ([facility] st Contact Info) Description 11/17/2016 Orders Only [facility] [address] [place] [address] Linette Mcguire, RAIN Social History Tobacco Use Types Packs/Day Years [...] as of this encounter Progress Notes * Faith Celeste - 11/18/2016 3:17 PM EDT Letter sent * Delio Adams - 11/18/2016 1:40 PM EDT Labs all perfect and unremarkable. Hepatitis C screening negative. documented in this encounter Plan of Treatment Not on file documented as of this encounter Procedures * Due to [place] state law, this organization might not be sharing negative HIV tests. Procedure Name Priority Date/Time Associated Diagnosis Comments HEPATITIS C AB WITH REFLEX TO RNA [...] care with new doctor Health care maintenance documented in this encounter Results * Due to [place] state law, this organization might not be sharing negative HIV tests. * HEPATITIS C AB WITH REFLEX TO RNA PCR, SERUM (11/17/2016 8:05 AM EDT) Hepatitis C virus Ab NON-REACTI VE NON-REACT IRENE [facility] Hepatitis C virus Ab Signal/Cutoff 0.02 <1.00 [facility] 11/17/2016 8:05 AM EDT 11/17/2016 8:04 PM EDT Narrative Resulting Agency Comment [id number] Linette Mcguire NP LABORATORY Final Result Performing Organization Address City/State/[facility] Co de Phone Number [facility] [address] [place] [address] * CBC INCLUDES DIFFERENTIAL AND PLATELET COUNT (11/17/2016 8:05 AM EDT) WBC 4.2 3.8 - 10.8 Thousand/u L [facility] RBC 4.36 3.80 - 5.10 Million/uL [facility] Hemoglobin 13.2 11.7 - 15.5 g/dL [facility] Hematocrit 40.0 35.0 - 45.0 % [facility] MCV 91.7 80.0 - 100.0 fL [facility] MCH 30.2 27.0 - 33.0 pg [facility] MCHC 33.0 32.0 - 36.0 g/dL [facility] RDW 13.2 11.0 - 15.0 % [facility] PLT 211 140 - 400 Thousand/u L [facility] MPV 8.5 7.5 - 12.5 fL [facility] Neutrophils # 1903 1500 - 7800 cells/uL [facility] Lymphocytes # 1789 850 - 3900 cells/uL [facility] Monocytes # 294 200 - 950 cells/uL [facility] Eosinophils # 160 15 - 500 cells/uL [facility] Basophils # 55 0 - 200 cells/uL [facility] Neutrophils % 45.3 % [facility] Lymphocytes % 42.6 % [facility] Monocytes % 7.0 % [facility] Eosinophils % 3.8 % [facility] Basophils % 1.3 % [facility] 11/17/2016 8:05 AM EDT 11/17/2016 8:04 PM EDT Narrative Resulting Agency Comment [id number] Linette Mcguire NP LAB SAME DAY RESULT Final Re sult Performing Organization Address [facility] de Phone Number [facility] [address] [place] [address] * ALANINE AMINOTRANSFERASE (ALT), SERUM (11/17/2016 8:05 AM EDT) ALT (SGPT) 12 6 - 29 U/L [facility] 11/17/2016 8:05 AM EDT 11/17/2016 8:04 PM EDT Narrative Resulting Agency Comment [id number] Linette Mcguire BALLET PROFESSOR LAB SAME DAY RESULT Final Re sult Performing Organization Address [facility] de Phone Number [facility] [address] [place] [address] * LIPID PANEL WITH REFLEX TO DIRECT LDL (11/17/2016 8:05 AM EDT) Cholesterol 193 125 - 200 mg/dL [facility] HDL Cholesterol 87 > OR = 46 mg/dL [facility] Triglyceride 35 <150 mg/dL [facility] LDL Cholesterol 99 <130 mg/dL (calc) [facility] Comment: Desirable range <100 mg/dL for patients with CHD or diabetes and <70 mg/dL for diabetic patients with known heart disease. CHOL/HDL Ratio 2.2 < OR = 5.0 (calc) [facility] Cholesterol Non-HDL 106 mg/dL (calc) [facility] Comment: Target for non-HDL cholesterol is 30 mg/dL higher than LDL cholesterol target. 11/17/2016 8:05 AM EDT 11/17/2016 8:04 PM EDT Narrative Resulting Agency Comment [id number] Linette Mcguire NP LABORATORY Final Result [facility] [address] [place] [address] * BASIC METABOLIC PANEL WITH (GFR) (11/17/2016 8:05 AM EDT) Pathologist [facility] Glucose 81 65 - 99 mg/dL [facility] Comment:Fasting reference in terval Urea Nitrogen Blood (BUN) 14 7 - 25 mg/dL [facility] Creatinine 0.76 0.50 - 1.05 mg/dL [facility] Comment: For patients >49 years of age, the reference limit for Creatinine is approximately 13% higher for people identified as -Filipino. GFR 91 > OR = 60 mL/min/1 .73m2 [facility] GFR () 105 > OR = 60 mL/min/1 .73m2 [facility] BUN/Creatinine Ratio NOT APPLICABLE 6 - 22 (calc) [facility] Sodium 141 135 - 146 mmol/L [facility] Potassium 4.4 3.5 - 5.3 mmol/L [facility] Chloride 106 98 - 110 mmol/L [facility] Carbon dioxide 26 20 - 31 mmol/L [facility] Calcium 9.7 8.6 - 10.4 mg/dL [facility] 11/17/2016 8:05 AM EDT 11/17/2016 8:04 PM EDT Narrative [facility] - 11/17/2016 10:22 PM EDT Please note that this estimated GFR [...] needs for GFR calculation. Resulting Agency Comment [id number] us Linette Mcguire NP LABORATORY Final Result [facility] [address] [place] [address] documented in this encounter Visit Diagnoses Diagnosis Encounter to establish care with new doctor Other reasons for seeking consultation Health care maintenance Unspecified general medical examination Need for hepatitis C screening test Special screening examination for other specified viral diseases documented in this encounter Care Teams Systems Security Consultant Relationship Specialty Start Date End Date Darlene Rodas MD [address] [place] [address] PCP - General 07/16/16 03/18/21 documented as of this encounter
--- OUTSIDE RECORDS SUMMARY | 2024-06-06 09:05 | XMS_ITS | Encounter Summary ---
Author Organization [facility] Address [address] [place] [address] Care Team Providers Care Power Generation Equipment Repairer Name Role Phone Darlene Rodas MD Primary Care Provider [phone]- [phone] Encounter Details Date Type Department Care Team (Late st Contact Info) Description 10/06/2016 Orders Only [facility] [address] [place] [id number] Darlene Rodas MD [address] [place] [address] Social History Tobacco Use Types Packs/Day Years [...] on filedocumented in this encounter Care Teams Power Generation Equipment Repairer Relationship Specialty Start Date End Date Darlene Rodas MD [address] [place] [address] PCP - General 07/16/16 03/18/21 documented as of this encounter
--- OUTSIDE RECORDS SUMMARY | 2024-06-06 09:05 | XMS_ITS | Encounter Summary ---
Author Organization [facility] Address [address] [place] [address] Care Team Providers Care Administrative Staff Supervisor Name Role Phone Darlene Rodas MD Primary Care Provider +1- [phone] Encounter Details Date Type Department Care Team ([facility] st Contact Info) Description 10/29/2020 Orders Only [facility] [address] [place] [id number] Tre Rosario DPYocasta [address] [place] [address] Social History Tobacco Use Types Packs/Day Years [...] on file documented as of this encounter Miscellaneous Notes * Result Encounter Note - Tre Rosario DPM - 10/29/2020 2:39 PM EDT Please communicate to the patient that her pathology test of the left second toenail was negative for fungus. There is no medical treatment for a thickened discolored toenail of the nonfungal origin other than the use of a course emery board to maintain the thinness of the nail plate. * Result Encounter Note - Mimi Barnes - 10/29/2020 2:39 PM EDT Pt notified documented in this encounter Plan of Treatment Not on file documented as of this encounter Procedures * Due to [place] law, this organization might not be sharing negative HIV tests. Procedure Name Priority Date/Time Associated Diagnosis Comments FUNGAL STAIN, JAMIE Routine 10/29/2020 2:3 9 PM EDT Onychomycosis documented in this encounter Results * Due to [place] law, this organization might not be sharing negative HIV tests. * FUNGAL STAIN, JAMIE (10/29/2020 2:39 PM EDT) Fungus identified SEE NOTE [facility] Comment: ??FUNGAL STAIN ??Micro Number: ?[id number] ??Test Status: ? Final ??Specimen Source: ?? LEFT 2ND TOENAIL ??Specimen Quality: ??Adequate ??Smear: ? No fungal elements seen. 10/29/2020 2:39 PM EDT 10/29/2020 9:27 PM EDT Narrative Resulting Agency Comment [id number] Tre Rosario DPM LABORATORY Final Result Performing Organization Address City/State/[facility] Co de Phone Number [facility] [address] [place] [address] documented in this encounter Visit Diagnoses Diagnosis Onychomycosis Dermatophytosis of nail documented in this encounter Care Teams Administrative Staff Supervisor Relationship Specialty Start Date End Date Darlene Rodas MD [address] [place] [address] PCP - General 07/16/16 03/18/21 documented as of this encounter
== END 2024-06-06 08:54 | disposition home or self-care (01) ==
LOC: HO.XRAY 08:53
PROVIDERS: PCP Internal Medicine; Visit Provider Internal Medicine
DX: R10.13 Epigastric pain (principal)
CPT/HCPCS: 74220

== ENCOUNTER → 2024-06-06 08:55 | Outpatient (BNV) | payer OTHER, SELFPAY | PROVIDERS: PCP Internal Medicine; Visit Provider Physician Assistant Surgical | DX: R10.13 Epigastric pain (principal); R13.10 Dysphagia, unspecified | CPT/HCPCS: 74246 ==

== ENCOUNTER 2024-06-15 07:52 | Outpatient (AMB) | payer OTHER, SELFPAY ==
--- OUTSIDE RECORDS SUMMARY | 2024-06-15 07:53 | XMS_ITS | Encounter Summary ---
Author Organization [facility] Address [address] [place] [address] Care Team Providers Care Industrial Ecology Technician Name Role Phone Darlene Rodas MD Primary Care Provider [phone]- [phone] Encounter Details Date Type Department Care Team ([facility] Contact Info) Description 06/11/2020 Orders Only [facility] [address] [facility] [address] [place] [address] Brittany Li, RAIN [address] [place] [address] Social History Tobacco Use Types Packs/Day Years [...] [address] on recall list. Handipoints sent to pt. Problem list updated. * Result Encounter Note - Bree Martin - 06/11/2020 11:05 AM EST On recall documented in this encounter Plan of Treatment Not on file documented as of this encounter Procedures * Due to [facility] law, this organization might not be sharing negative HIV tests. Procedure Name Priority Date/Time Associated Diagnosis Comments THINPREP TIS PAP AND HPV RNA, HR E6/E7, TMA Routine 06/11/2020 11:05 AM EST Abnormal cervical Papanicolaou smear, unspecified abnormal pap finding documented in this encounter Results * Due to [facility] law, this organization might not be sharing [...] for evaluation. Endocervical/tomas sformation zone component present. [facility] Cytology, Pap Smear Negative for intraepithelial lesion or malignancy. [facility] Cytology study comment (Cvx/Vag) This Pap test has been evaluated with computer assisted technology. [facility] Cop (Cvx/Vag) SXA, CT(ASCP) CT screening location: [facility] [address] [facility] COMMENT SEE NOTE [facility] Comment: EXPLANATORY NOTE: The Pap is a [...] HPV MRNA E6/E7 Not Detected Not Detected [facility] Comment: Methodology: Director Software Development-Mediated Amplification This assay detects E6/E7 viral messenger RNA (mRNA) from 14 high-risk HPV types (16,18,31,33,35,39,45,51,52,56,58,59,66,68). The analytical performance characteristics of this assay have been determined by [employer]. The modifications have not been cleared or approved by the FDA. This assay has been validated pursuant to the CLIA regulations and is used for clinical purposes. For additional information, please refer to http://education.Blink.com/OEI287x7 (This link if provided for information/ educational purposes only.) ENDOCERVICAL STRUCTURE / Unknown 06/11/2020 11:05 AM EST 06/12/2020 7:26 AM EST Narrative Resulting Agency Comment [id number] us Brittany Li MERCHANDIS[employer] RETAIL REPRESENTATIVE PATHOLOGY-INTERFACED Final Resul t [facility] [address] [place] [address] documented in this encounter Visit Diagnoses Diagnosis Abnormal cervical Papanicolaou smear, unspecified abnormal pap finding documented in this encounter Care Teams Industrial Ecology Technician Relationship Specialty Start Date End Date Darlene Rodas MD [address] [place] [address] PCP - General 07/16/16 03/18/21 documented as of this encounter
--- OUTSIDE RECORDS SUMMARY | 2024-06-15 07:54 | XMS_ITS | Encounter Summary ---
Author Organization [facility] Address [address] [place] [address] Care Team Providers Care Manager Advanced Name Role Phone Darlene Rodas MD Primary Care Provider +1- [phone] Encounter Details Date Type Department Care Team ([facility] st Contact Info) Description 03/16/[address] [facility] [address] [facility] [address] [place] [phone] Darlene Rodas MD [address] [place] [address] Social History Tobacco Use Types Packs/Day Years [...] of this encounter Procedures * Due to [place] state law, this organization might not be sharing negative HIV tests. Procedure Name Priority Date/Time Associated Diagnosis Comments SYPHILIS (FTA) ANTIBODY CASCADING REFLEX TO RPR/TITER (*PREFERRED SCREEN*) Routine 03/16/2020 12:08 PM EST False positive syphilis serology VENIPUNCTURE Routine 03/16/2020 12:08 PM EST Vegan diet documented in this encounter Results * Due to [place] state law, this organization might not be [...] 9:39 PM EST Narrative Resulting Agency Comment [id number] us Rachael Camarena MD LABORATORY Final Result Performing Organization Address [facility] Co de Phone Number [facility] [address] [place] [address] * PROTEIN, TOTAL, SERUM (03/16/2020 12:08 PM EST) Protein Total (Serum) 6.6 6.1 - 8.1 g/dL [facility] 03/16/2020 12:0 8 PM EST 03/16/2020 9:39 PM EST Narrative Resulting Agency Comment [id number] us Darlene Rodas MD LAB SAME DAY RESULT Final Result Performing Organization Address [facility] Co de Phone Number [facility] [address] [place] [address] documented in this encounter Visit Diagnoses Diagnosis Vegan diet False positive syphilis serology False positive serological test for syphilis documented in this encounter Care Teams Manager Advanced Relationship Specialty Start Date End Date Darlene Rodas MD [address] [place] [address] PCP - General 07/16/16 03/18/21 documented as of this encounter
--- OUTSIDE RECORDS SUMMARY | 2024-06-15 07:54 | XMS_ITS | Encounter Summary ---
Author Organization [facility] Address [address] [place] [address] Care Team Providers Care Concrete Stone Fabricator Name Role Phone Darlene Rodas MD Primary Care Provider +1- [phone] Encounter Details Date Type Department Care Team ([facility] st Contact Info) Description 03/22/[address] Orders [address] [facility] [facility] [address] [place] [phone] Opal Stevens NP Social History Tobacco Use [...] of this encounter Procedures * Due to [facility] law, this organization might not be sharing negative HIV tests. Procedure Name Priority Date/Time Associated Diagnosis Comments HSV 1 AND 2 IGG HERPESELECT SPECIFIC ANTIBODY Routine 03/22/2018 5:00 PM EST Screen for STD (sexually transmitted disease) documented in this encounter Results * Due to [facility] law, this organization might not be [...] 10:43 PM EST Narrative Resulting Agency Comment [id number] Opal Stevens NP LABORATORY Final Result [facility] [address] [place] [address] documented in this encounter Visit Diagnoses Diagnosis Screen for STD (sexually transmitted disease) Screening examination for venereal disease documented in this encounter Care Teams Concrete Stone Fabricator Relationship Specialty Start Date End Date Darlene Rodas MD [address] [place] [address] PCP - General 07/16/16 03/18/21 documented as of this encounter
--- OUTSIDE RECORDS SUMMARY | 2024-06-15 07:54 | XMS_ITS | Encounter Summary ---
Author Organization [facility] Address [address] [place] [address] Care Team Providers Care Manufacturing Lab Technician Name Role Phone Darlene Rodas MD Primary Care Provider [phone] Encounter Details Date Type Department Care Team (Late st Contact Info) Description 2018 Orders Only [facility] [address] [place] [address] Darlene Rodas MD [address] [place] [address] Social History Tobacco Use Types Packs/Day Years [...] on filedocumented in this encounter Care Teams Manufacturing Lab Technician Relationship Specialty Start Date End Date Darlene Rodas MD [address] [place] [address] PCP - General 07/16/16 03/18/21 documented as of this encounter
--- OUTSIDE RECORDS SUMMARY | 2024-06-15 07:54 | XMS_ITS | Data Portability ---
Author Organization [place] [facility] - IP Address [address] [place] [address] Care Team Providers Care Surveillance Specialist Name Role Phone NILDA LINDA Primary Care Provider [phone] Assessment No assessment recorded. Plan of Treatment [...] SNOMED-CT Code Diagnosis ICD10 Code Diagnosis Note [id number] [facility] [address] [facility] [place] [address] 02/07/2022 15:07:49 02/07/2022 15:10:05 Family history of cancer of colon [id number] Z80.0 [id number] [facility] [address] [facility] [address] [facility] [address] 02/13/2022 09:59:09 02/13/2022 10:02:16 Polyp of colon [id number] K63.5 [id number] Brittani Jennieanna marino [facility] Office [address] [facility] [place] [address] 07/30/2022 14:00:48 07/30/2022 14:08:09 Family history of cancer of colon [id number] Z80.0 Health Concerns Section Related Observation LastModified by Organization Detai ls LastModified Time None Recorded Concern Status LastModified by Organization Details LastModified Time None Recorded Advance Directives Directive None Recorded Payers Encounter Date Sequence Insurance Name Policy Number Policy Mittal Covered Member ID Mittal Member ID Guarantor Name 01/14/2022 1 [facility] (MEDICAID HMO) KRISTY Garzon [id number] Raven Garzon 02/12/2022 1 [facility] KRISTY Garzon [id number] Raven Garzon 07/29/2022 1 [facility] HE[facility] NET PLAN (MEDICAID HMO) KRISTY Garzon [id number] Raven Garzon OBGyn Episode No OBEpisode recorded.
--- OUTSIDE RECORDS SUMMARY | 2024-06-15 07:54 | XMS_ITS | Continuity of Care Document ---
Author Organization [facility] Address [address] [place] [address] Care Team Providers Care Quantitative Strategy Analyst Name Role Phone Unavailable Primary Care Provider Unavailabl e Encounters Date Type Department Care Team Description 06/30/2023 Minor Procedure/Test [facility] [address] [place] [address] [facility], Unknown Provider 03/23/2023 Minor Procedure/Test [facility] [address] [place] [address] [facility], Unknown Provider 12/10/2022 Telephone [facility] RAILROAD CAR CLEANER [address] [facility] [address] [place] [address] Brittany Li NP Appointment 03/18/[address] [facility] [address] [place] [address] Darlene Rodas MD Other (Pcp; ins info/) 03/03/[address] [facility] [address] [place] [address] Darlene Rodas MD Imm/Inj 10/29/[address] [facility] [address] [place] [address] Tre Rosario DPM 10/29/2020 8:30 AM EDT Radiology [facility] X-Ray [address] [place] [address] 10/29/[address] [facility] [address] [place] [address] Tre Rosario DPM 10/29/2020 8:50 AM EDT Consult (Initial) [facility] [address] [place] [phone] Tre Rosario, DPM Onychomycosis (Primary Dx); Acquired hallux valgus of left foot; Bilateral foot pain; Acquired hallux valgus of right foot 10/22/2020 Telephone All of [address] [address] Uzma [place], [facility] 10/22/2020 Telephone All of [address] [address] U[facility]ma [place], [facility] 09/03/[address] [facility] [address] [place] [address] Darlene Rodas MD Cyst 06/12/[address] [facility] [address] [place] [address] Darlene Rodas MD Patient Questions 06/11/2020 Orders Only [facility] [employer]ILRO[employer] CAR CLE[employer]ER [address] [facility] [address] [place] [address] Brittany Li NP 06/11/2020 Travel 06/11/2020 8:00 AM EST Office Visit [facility] RAILROAD CAR CLE[employer]ER [address] [facility] [address] [place] [address] Brittany Li NP Encounter for gynecological examination (general) (routine) without abnormal findings (Primary Dx); Abnormal cervical Papanicolaou smear, unspecified abnormal pap finding; Menopause present; Pap smear for cervical cancer screening; History of uterine fibroid; Cystocele, midline 06/03/[address] [facility] [address] [place] [address] Darlene Rodas MD Letter/form Request 05/28/[address] Family [facility] [address] [place] [place] [phone] Darlene Rodas MD Labs/orders (mmg) 05/27/2020 4:30 PM EST Radiology [facility] Ultrasound [address] [place] [address] Leg edema 05/27/2020 6:30 PM EST Radiology [facility] [address] [place] [address] Leg edema 05/27/2020 5:45 PM EST Office Visit [facility] [address] [address] Taiwo Noe PA Leg edema (Primary Dx) 05/27/2020 Travel 05/27/[address] [facility] [address] [place] [address] Darlene Rodas MD Knee Pain 05/23/2020 Orders Only NON FC SA [address] [address] Darlene Rodas MD 04/24/2020 Travel 04/17/2020 Travel 04/17/2020 8:15 AM EST CPE - Comprehensive Physical Exam [address] [facility] [facility] [address] [place] [address] Darlene Rodas MD Well adult exam (Primary Dx); ASCUS with positive high risk HPV cervical; S/P colonoscopy; Gastroesophageal reflux disease, unspecified whether esophagitis present 03/20/[address] [facility] [address] [place] [address] Darlene Rodas MD Results 03/16/2020 Orders Only [address] Family [facility] [address] [place] [address] Darlene Rodas MD [address] [facility] [address] [place] [place] [address] Darlene Rodas MD Imm/Inj 02/29/2020 Orders Only [address] [facility] [address] [place] [address] Darlene Rodas MD 02/28/[address] [facility] [address] [place] [address] Darlene Rodas MD Labs/orders 11/29/[address] [facility] [address] [place] [address] Darlene Rodas MD Labs/orders 06/30/2019 Letter/Form [facility] RAILROAD CAR CLE[employer]ER [address] [facility] [address] [place] [address] Stefania Mclaughlin DATA COMPILER 06/30/2019 8:15 AM EST Minor Procedure/Test [facility] RAILROAD CAR CLE[employer]ER [address] [facility] [address] [place] [address] Stefania Mclaughlin, DATA COMPILER ASCUS with positive high risk HPV cervical (Primary Dx); Abnormal cervical Papanicolaou smear, unspecified abnormal pap finding 05/29/[address] [address] Vanessa Angel PA Follow Up 05/22/[address] [facility] [address] [place] [address] Darlene Rodas MD Labs/orders (mmg) 05/19/2019 Orders Only NON FC [facility] [address] [place] [address] Darlene Rodas MD 04/20/[address] [facility] [address] [place] [address] Darlene Rodas MD Results 04/19/2019 11:00 AM EST Consult (Initial) [facility] [address] [place] [address] Vanessa Angel PA Pruritus (Primary Dx); Dyschromia 04/11/2019 Telephone [facility] [address] [place] [address] Darlene Rodas MD Records 04/11/2019 Orders Only [address] [facility] [address] [place] [address] Darlene Rodas MD 04/11/2019 7:45 AM EST CPE - Comprehensive Physical Exam [facility] [address] [place] [address] Darlene Rodas MD Well adult exam (Primary Dx); Screening for metabolic disorder; Screening for malignant neoplasm of cervix; Screening for eye condition; Need for vaccination 02/20/2019 Letter/Form [facility] [address] [facility] [address] [place] [address] Darlene Rodas MD 10/28/2018 Telephone [facility] [address] [place] [address] Darlene Rodas MD Labs/orders 07/06/[address] [facility] [address] [place] [address] Darlene Rodas MD E-prescribing Refill Request 05/11/2018 Telephone [address] [facility] [facility] [address] [place] [address] Darlene Rodas MD Patient Questions 04/20/[address] [facility] [address] [place] [address] Opal Stevens NP E-prescribing Refill Request 04/18/2018 Orders Only NON FC SA [address] [address] Darlene Rodas MD 04/04/2018 Telephone [address] [facility] [address] [place] [address] Darlene Rodas MD Results 03/23/[address] [facility] [address] [place] [address] Darlene Rodas MD Labs/orders 03/23/2018 Telephone FC MISCELLANEOUS [phone] Mychart, Provider Generic MyChart Verification 03/22/2018 Orders Only [facility] [address] [place] [address] Opal Stevens NP 03/22/2018 3:15 PM EST CPE - Comprehensive Physical Exam [facility] [facility] [address] [place] [address] Opal Stevens NP Routine history and physical examination of adult (Primary Dx); Healthcare maintenance; Anxiety; Gastroesophageal reflux disease, esophagitis presence not specified; Insomnia, unspecified type; Screening for breast cancer; Screen for STD (sexually transmitted disease); Need for vaccination 03/21/2018 7:30 AM EST Office Visit [facility] Optometry [address] [place] [phone] Maricruz Russo OD Encounter for ophthalmic examination and evaluation (Primary Dx); Disorder of refraction 03/18/2018 Orders Only [facility] [address] [place] [facility] [place] [phone] Opal Stevens NP 03/14/2018 Telephone [facility] [address] [place] [address] Darlene Rodas MD Labs/orders 2018 Orders Only [facility] [address] [place] [facility] [place] [address] Darlene Rodas MD 2018 Orders Only [facility] [address] [facility] [place] [phone] Opal Stevens NP 02/20/2018 Letter/Form [facility] [address] [place] [facility] [place] [phone] Darlene Rodas MD 02/20/2017 Letter/Form [facility] [address] [place] [address] Darlene Rodas MD 01/18/2017 1:00 PM EDT [facility] [address] [place] [address] Sprain of right ankle, unspecified ligament, initial encounter 01/18/2017 12:30 PM EDT [facility] [address] [place] [address] Sissy Ricks PA Sprain of right ankle, unspecified ligament, initial encounter (Primary Dx); Neck sprain, initial encounter 01/14/2017 Telephone [facility] [address] [place] [address] Darlene Rodas MD Ankle pain 11/19/2016 Telephone [facility] [address] [place] [address] Darlene Rodas MD Results 11/17/2016 Orders Only [facility] [address] [place] [address] Linette Mcguire NP 11/10/2016 Letter/Form [facility] [address] [place] [address] Linette Mcguire NP 11/05/2016 Letter/Form [facility] [address] [place] [address] Linette Mcguire NP 10/06/2016 Orders Only [facility] [address] [place] [address] Darlene Rodas MD 10/06/2016 9:45 AM EDT Office Visit [facility] [address] [place] [address] Linette Mcguire NP Encounter to establish care with new doctor (Primary Dx); Insomnia, unspecified type; Gastroesophageal reflux disease, esophagitis presence not specified; Anxiety; Hot flashes; Health care maintenance; Need for hepatitis C screening test 08/19/2016 Telephone [facility] [address] [place] [address] Darlene Rodas MD Erroneous encounter-disregard 08/19/2016 Telephone [facility] [address] [place] [address] 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, ONLINE MARKETING MANAGER Constipation 08/12/2016 [facility] [address] [place] [address] Darlene Rodas MD 08/10/2016 Orders Only [facility] [address] [place] [address] Darlene Rodas MD 08/06/2016 Telephone [facility] [address] [place] [address] Darlene Rodas MD Referral Request (Chiro / K Jovanni) 07/27/2016 Orders Only [facility] [address] [place] [address] Darlene Rodas MD 07/27/2016 Telephone [facility] [address] [place] [address] Darlene Rodas MD Referral Request (chiro) 06/09/2016 Telephone [facility] Otolaryngology [address] [facility] [address] [place] [address] Vicky Waters MD Cancellation 01/02/2016 Minor Procedure/Test FAM PRAC UNSPECIFIED Azeb Ling MD 12/16/2015 Office Visit FAM PRAC UNSPECIFIED Azeb Ling MD 12/16/2015 Minor Procedure/Test CARDI UNSPECIFIED Daniel Ybarra MD 09/05/2015 Minor Procedure/Test GASTRO UNSPECIFIED Gavin Cruz MD 10/31/2014 Minor Procedure/Test FAM PRAC UNSPECIFIED Azeb Ling MD 10/11/2014 Office Visit FAM PRAC UNSPECIFIED Nicole Marks NP 09/27/2014 3:00 PM EDT Office Visit [facility] Otolarynogology/Plas tics [address] [address] Jimenez Morales MD Facial rhytids (Primary Dx) 08/31/2014 10:00 AM EDT Office Visit [facility] Otolarynogology/Plas tics [address] [address] Jimenez Morales MD Facial rhytids (Primary Dx) 06/14/2014 Telephone [facility] Otolarynogology/Plas tics [address] [address] Jimenez Morales MD Patient Questions 06/13/2014 Telephone [facility] Otolarynogology/Plas tics [address] [address] Jimenez Morales MD Patient Questions 02/22/2014 2:45 PM EDT Office Visit [facility] Otolarynogology/Plas tics [address] [address] Jimenez Morales MD Facial rhytids (Primary Dx) 02/15/2014 4:00 PM EDT Office Visit [facility] Otolarynogology/Plas tics [address] [address] Jimenez Morales MD Facial rhytids (Primary Dx) 12/28/2013 3:30 PM EDT Consult (Initial) [facility] Otolarynogology/Plas tics [address] [address] Jimenez Morales MD Facial rhytids (Primary Dx) 02/27/2013 Minor Procedure/Test CALL WORKER PERSON UNSPECIFIED Popeye Rodriguez Allergies No known active [...] 03/22/18: Last record available to me in [facility] for mammogram is 2014. Per patient report she had mammogram done in 2016 through outside OIL WELL GUN PERFORATOR OPERATOR provider, Dr. Gary in [place]. Her CPE 2017 note, patient signed MERLINE [...] exercise stress test 10/06/2016 Overview (10/06/2016): At [facility] on 01/02/2016. No evidence of ischemia [...] patient report last Pap done by outside OIL WELL GUN PERFORATOR OPERATOR 2016. We do not have these records. Mammography: Again, patient reports mammograms through outside OIL WELL GUN PERFORATOR OPERATOR in 2017. Colonoscopy: Per patient report colonoscopy done through [facility], 2017, no polyps. 10-year repeat. Need records from [place]. DEXA: N/A Exercise: None Screen for STD (sexually transmitted disease) 05/28/19 19 06/11/2020 Overview (05/28/2018): 03/22/18: Patient requesting STD testing today. She is very concerned about the thought of having herpes. Tried to reassure her about the etiology and prevalence, and treatment of this disease. Anxiety 10/06/2016 04/11/2019 Overview (05/28/2018): Her previous PCP records. [facility] it was situational regarding conflict with coworker. [...] Alive Social History Smoking Status as of 06/15/2024 Tobacco Use Types Packs/Day Years Used Date [...] Not on file Procedures * Due to [place] state law, this organization might not be [...] PELVIS COMPL 02/27/2013 Results * Due to [place] state law, this organization might not be [...] dense breast tissue shown on mammography. Per [employer] Appropriateness Criteria ??for Breast Cancer Screening (https://acsearch.acr.org/docs/77766/Narrative/) patient may benefit from tomosynthesis on future mammography and supplemental imaging with automated breast ultrasound (ABUS) or breast MRI depending on risk factors. Automated Breast Ultrasound (ABUS) is now available at both [facility] and in the Department of Mammography at [facility]. To schedule a patient, you can either enter an ABUS order into [facility] [employer] EMR (type in ABUS), call [place] Central Scheduling at [phone], or call [facility] Central Scheduling at [phone]. To fax an external order: [place] [phone] and [facility] [phone]. If this radiology report contains a blank impression section, it is an incomplete radiology report. ??Please contact the interpreting radiologist or applicable radiology division as soon as possible to obtain the completed interpretation. 5' 2 125 Procedure Note [facility], Unknown Provider - 07/05/2023 EXAMINATION FRANCK Bilateral [...] of Radiology Appropriateness Criteria for Breast Cancer Screening(https://acsearch.acr.org/docs/85558/Narrative/) patient may benefit fromtomosynthesis on future mammography and supplemental imaging with automated breast ultrasound(ABUS) or breast MRI depending on risk factors. Automated Breast Ultrasound (ABUS) is now available at both [facility] and [facility]. To schedule a patient, you caneither enter an ABUS order into [facility] [employer] EMR (type in ABUS), call [place] [facility] Scheduling [phone], or call [facility] Central Scheduling [phone]. To fax an external order: [place] [phone] and[facility] [phone]. If this radiology report contains a blank impression section, it is anincomplete radiology report. Please contact the interpreting radiologistor applicable radiology division as soon as possible to obtain thecompleted interpretation. 5' 2 125 us Unknown Provider [facility] Final Resu lt * FUNGAL STAIN, JAMIE (10/29/2020 2:39 PM EDT) Fungus identified SEE NOTE [facility] Comment: ??FUNGAL STAIN ??Micro Number: ?[id number] ??Test Status: ? Final ??Specimen Source: ?? LEFT 2ND TOENAIL ??Specimen Quality: ??Adequate ??Smear: ? No fungal elements seen. 10/29/2020 2:39 PM EDT 10/29/2020 9:27 PM EDT Narrative Resulting Agency Comment [id number] Tre Rosario DPM LABORATORY Final Result [facility] [address] [place] [id number] * XRAY FEET COMPLETE MIN 3 VWS [...] DIAGNOSTICS Date of previous biopsy NONE GIVEN [facility] Specimen source (Cvx/Vag) Endocervix [facility] Statement of Adequacy (Cvx/Vag) Satisfactory for evaluation. Endocervical/tomas sformation zone component present. [facility] Cytology, Pap Smear Negative for intraepithelial lesion or malignancy. [facility] Cytology study comment (Cvx/Vag) This Pap test has been evaluated with computer assisted technology. [facility] Summer Sessions Director (Cvx/Vag) SXA, CT(ASCP) CT screening location: [address] [address] [facility] COMMENT SEE NOTE [facility] Comment: EXPLANATORY NOTE: The Pap is [...] HPV MRNA E6/E7 Not Detected Not Detected [facility] Comment: Methodology: Senior Security Architect-Mediated Amplification This assay detects E6/E7 viral messenger RNA (mRNA) from 14 high-risk HPV types (16,18,31,33,35,39,45,51,52,56,58,59,66,68). The analytical performance characteristics of this assay have been determined by [employer]. The modifications have not been cleared or approved by the FDA. This assay has been validated pursuant to the CLIA regulations and is used for clinical purposes. For additional information, please refer to http://education.Cardize/HFP546a0 (This link if provided for information/ educational purposes only.) ENDOCERVICAL STRUCTURE / Unknown 06/11/2020 11:05 AM EST 06/12/2020 7:26 AM EST Narrative Resulting Agency Comment [id number] us Brittany Li DATA COMPILER PATHOLOGY-INTERFACED Final Resul t [facility] [address] [place] [address] * US VENOUS DUPLEX SCAN EXTREMITY VEINS UNILAT/LIMITED STUDY RIGHT FC (05/27/2020 6:57 PM EST) 05/27/2020 7:18 PM EST Narrative [facility] RADIOLOGY SYSTEM - 05/27/2020 7:18 PM EST Right lower extremity venous duplex ultrasound. Comparison: None. Technique: Real time sonographic imaging, including color-flow imaging and spectral analysis, was performed by the lead recoverer. Multiple customer support representative static images were saved for review. [...] and spectral analysis, was performed by the lead recoverer. Multiplerepresentative static images were saved for review. [...] negative for DVT. 2. Tiny Cordoba's cyst. WAYLON Villaseñor IMG US ORDERABLES Final Res ult [facility] RADIOLOGY SYSTEM * XRAY KNEE FOR ORTHO - RIGHT FC (05/27/2020 6:20 PM EST) Anatomical Region Laterality Modality LOWER EXTREMITY Radiographic Beronna ging 05/27/2020 6:36 PM EST Narrative 05/27/2020 [...] BREAST FUAD SCREENING (05/23/2020 2:14 PM EST) [facility] RADIOLOGY REPORT [facility] Department of Radiology [address] [place] [address], [address] Name: JARRETT GARZON : 65 Date of Service: 05/23/20 1520 Acct Number: [id number] Order Number: ??[id number] ?Location: [facility] Report Number: [id number] ?Service: REG REF/ Requesting Physician: Darlene Rodas MD ([facility]) Category: MAMMOGRAPHY Exam: DIGITAL BREAST FUAD SCREENING ?? Signs/Symptoms: SCREENING Report Status: Signed STUDY: Bilateral screening mammogram with CAD and tomosynthesis. TECHNIQUE: ??Bilateral craniocaudal and mediolateral oblique views obtained. [employer] Version 1.3 computer aided detection system and [...] mammogram notification. Date/Time of Dictation: 05/23/20 1526 Therapeutic Recreation Leader (if applicable): Approved By Attending Radiologist: Raven Miller MD 05/23/20 1526 [facility] Department of Radiology [address] [place] [address], [address] ? [phone] ? [facility] Anatomical Region Laterality Modality Other 05/23/2020 2:14 PM EST Narrative 05/23/2020 3:26 PM EST Reason for Study/History: Department of Radiology TEST(S) PROCESSED BY [facility] XRAY Darlene Rodas MD IMAGING[facility] Final Resu lt * SYPHILIS (FTA) ANTIBODY [...] 9:39 PM EST Narrative Resulting Agency Comment [id number] Rachael Camarena MD LABORATORY Final Result [facility] [address] [place] [address] * PROTEIN, TOTAL, SERUM (03/16/2020 12:08 PM EST) Protein Total (Serum) 6.6 6.1 - 8.1 g/dL [facility] 03/16/2020 12:0 8 PM EST 03/16/2020 9:39 PM EST Narrative Resulting Agency Comment [id number] Darlene Rodas MD LAB SAME DAY RESULT Final Result Performing Organization Address City/[facility]/ZIP Co de Phone Number [facility] [address] [place] [address] * CBC INCLUDES DIFFERENTIAL AND PLATELET COUNT [...] 12:03 AM EDT Narrative Resulting Agency Comment [id number] Darlene Rodas MD LAB SAME DAY RESULT Final Result Performing Organization Address [facility] Co de Phone Number [facility] [address] [place] [address] * ALANINE AMINOTRANSFERASE (ALT), SERUM (02/29/2020 4:40 PM EDT) Only the most recent of3 resultswithin the time period is included. ALT (SGPT) 14 6 - 29 U/L [facility] 02/29/2020 4:40 PM EDT 03/01/2020 12:03 AM EDT Narrative Resulting Agency Comment [id number] Darlene Rodas MD LAB SAME DAY RESULT Final Result Performing Organization Address City/[facility] Co de Phone Number [facility] [address] [place] [address] * LIPID PANEL WITH REFLEX TO DIRECT [...] of LDL-C. Vladimir SS et al. PUJA. 2013;310(13): 0256-5246 (http://education.[employer]/faq/AAQ364) CHOL/HDL Ratio 2.2 <5.0 (calc) [facility] Cholesterol Non-HDL 95 <130 mg/dL (calc) [facility] Comment: For patients with diabetes plus 1 major ASCVD risk factor, treating to a non-HDL-C goal of <100 mg/dL (LDL-C of <70 mg/dL) is considered a therapeutic option. 02/29/2020 4:40 PM EDT 03/01/2020 12:03 AM EDT Narrative Resulting Agency Comment [id number] Darlene Rodas MD LABORATORY Final Resu lt [facility] [address] [place] [address] * BASIC METABOLIC PANEL WITH (GFR) (02/29/2020 [...] approximately 13% higher for people identified as -Scottish. EGFR 100 > OR = 60 mL/min/1 [...] needs for GFR calculation. Resulting Agency Comment [id number] Darlene Rodas MD LABORATORY Final Resu lt [facility] [address] [place] [address] * TEST, URINE - STATION (06/30/2019 9:27 [...] and Clinical Pathology (electronic signature) Consulting Pathologist [facility] Pathology [phone] [facility] GROSS DESCRIPTION . A . SEE NOTE [facility] Comment: The container is labeled with patient's name and source ECC . ? Received in formalin is an endocervical brush with adherent mucoid material. The material measures 0.5 x 0.2 x 0.1 cm in aggregate. Specimen is submitted entirely in cassette A1. ??The specimen may not survive processing. ??Gross exam(s) performed at: ??[facility] ??[address] [facility] [facility] [id number] ??Tensioning Machine Operator: AILYN AGUILAR MD GROSS DESCRIPTION . B . SEE NOTE RxAnte Comment: The container is labeled with patient's [...] PATHOLOGY-INTERFACED Final R esult Performing Organization Address City/State/[facility] Co de Phone Number [facility] [address] [place] [address] * BREAST IMPLANT SCREEN DIGITAL MAMMOGRAPHY WITH CAD (05/19/2019 8:06 AM EST) Only the most recent of2 resultswithin the time period is included. RADIOLOGY REPORT [facility] Department of Radiology [address] [place] [address], [id number] Name: JARRETT GARZON : 65 Date of Service: 05/18/19 1801 Acct Number: [id number] Order Number: ??[id number] ?Location: [facility] Report Number: [id number] ?Service: REG REF/ Requesting Physician: Darlene Rodas MD ([facility]) Category: MAMMOGRAPHY Exam: IMPLANT SCREEN DIGITAL W CAD ?? Signs/Symptoms: SCREENING Report Status: ---Signed--- STUDY: Bilateral implant screening mammogram with CAD. TECHNIQUE: ??Bilateral craniocaudal and mediolateral oblique views obtained. Merchant[employer]le Version 1.3 computer aided detection system utilized. [...] mammogram notification. Date/Time of Dictation: 05/19/19 0911 Therapeutic Recreation Leader (if applicable): Approved By Attending Radiologist: Raven Miller MD 05/19/19 0911 [facility] Department of Radiology [address] [place] [address], [id number] ? [phone] ? [facility] RAD Anatomical Region Laterality Modality Other 05/19/2019 8:06 AM EST Narrative 05/19/2019 9:14 AM EST Reason for Study/History: Department of Radiology TEST(S) PROCESSED BY [facility] XRAY us Darlene Rodas MD IMAGING-[facility] Final Resu lt * TSH, 3RD GENERATION (04/11/2019 8:39 AM EST) TSH 3.81 mIU/L [facility] Comment: ?Reference Range ?> or = 20 Years ??0.40-4.50 ? Ranges ?First trimester ?0.26-2.66 ?Second trimester ?? 0.55-2.73 ?Third trimester ?0.43-2.91 04/11/2019 8:39 AM EST 04/11/2019 9:59 PM EST Narrative Resulting Agency Comment [id number] Darlene Rodas MD LABORATORY Final Resu lt Performing Organization Address [facility] de Phone Number [facility] [address] [place] [address] * HEPATIC FUNCTION PANEL (ALT,AST,ALK PH,BILI'S,TP,ALB) (04/11/2019 [...] 9:59 PM EST Narrative Resulting Agency Comment [id number] Darlene Rodas MD LABORATORY Final Resu lt Performing Organization Address [facility] de Phone Number [facility] [address] [place] [address] * (ABNORMAL) HSV 1 AND 2 IGG [...] 10:43 PM EST Narrative Resulting Agency Comment [id number] Opal Stevens NP LABORATORY Final Result Performing Organization Address City/State/[facility] Co de Phone Number [facility] [address] [place] [address] * ASPARTATE AMINOTRANSFERASE (AST), SERUM (03/18/2018 9:22 AM EST) AST (SGOT) 20 10 - 35 U/L [facility] 03/18/2018 9:22 AM EST 03/18/2018 5:02 PM EST Narrative Resulting Agency Comment [id number] Opal Miles DATA COMPILER LAB SAME DAY RESULT Final Result Performing Organization Address [facility] de Phone Number [facility] [address] [place] [address] * (ABNORMAL) FSH (03/18/2018 9:22 AM EST) FSH 136.1(H) mIU/mL [facility] Comment: ?Reference Range ? Follicular Phase ? 2.5-10.2 ? Mid-cycle Peak ? 3.1-17.7 ? Luteal Phase ? 1.5- 9.1 ? Postmenopausal ? 23.0-116.3 ? 03/18/2018 9:22 AM EST 03/18/2018 5:02 PM EST Opal Stevens DATA COMPILER LAB SAME DAY RESULT Final Result Performing Organization Address [facility] Phone Number [facility] [address] [place] [address] * XRAY ANKLE COMPLETE MIN 3 VWS [...] 8:04 PM EDT Narrative Resulting Agency Comment [id number] Linette Mcguire NP LABORATORY Final Result Performing Organization Address City/State/[facility] Co de Phone Number [facility] [address] [place] [address] * CARDIOVASCULAR STRESS TEST W/TREADMILL, BICYCLE, AND/OR PHARMACOLOGICAL STRESS; W/ SUPERV/INTERP (01/02/2016) Azeb Ling MD CARDIOVASCULAR-WITH INBSKT RTG F inal [...]
--- OUTSIDE RECORDS SUMMARY | 2024-06-15 07:54 | XMS_ITS | Encounter Summary ---
Author Organization [facility] Address [address] [place] [address] Care Team Providers Care Bread Stacker Name Role Phone Darlene Rodas MD Primary Care Provider +1- [phone] Encounter Details Date Type Department Care Team ([facility] st Contact Info) Description 2018 Orders Only [facility] [address] [place] [address] Opal Stevens NP Social History [...] of this encounter Results * Due to [place] state law, this organization might not be sharing negative HIV tests. * ASPARTATE AMINOTRANSFERASE (AST), SERUM (03/18/2018 9:22 AM EST) AST (SGOT) 20 10 - 35 U/L [facility] 03/18/2018 9:22 AM EST 03/18/2018 5:02 PM EST Narrative Resulting Agency Comment [id number] Opal Stevens NP LAB SAME DAY RESULT Final Result [facility] [address] [place] [address] * ALANINE AMINOTRANSFERASE (ALT), SERUM (03/18/2018 9:22 AM EST) ALT (SGPT) 12 6 - 29 U/L [facility] 03/18/2018 9:22 AM EST 03/18/2018 5:02 PM EST Narrative Resulting Agency Comment [id number] Opal Stevens MECHANICAL INTERN LAB SAME DAY RESULT Final Result Performing Organization Address [facility] de Phone Number [facility] [address] [place] [address] * LIPID PANEL WITH REFLEX TO DIRECT [...] LDL-C. Vladimir SS et al. PUJA. 2013;310(19): 1972-2369 (http://education.[employer].Expensify/faq/JOZ327) CHOL/HDL Ratio 2.1 <5.0 (calc) [facility] Cholesterol Non-HDL 98 <130 mg/dL (calc) [facility] Comment: For patients with diabetes plus 1 major ASCVD risk factor, treating to a non-HDL-C goal of <100 mg/dL (LDL-C of <70 mg/dL) is considered a therapeutic option. 03/18/2018 9:2 2 AM EST 03/18/2018 5:02 PM EST Narrative Resulting Agency Comment [id number] us Opal Stevens MECHANICAL INTERN LABORATORY Final Result Performing Organization Address [facility] Co de Phone Number [facility] [address] [place] [address] * BASIC METABOLIC PANEL WITH (GFR) (03/18/2018 9:22 AM EST) Glucose 75 65 - 99 mg/dL [facility] Comment:Fasting reference in terval Urea Nitrogen Blood (BUN) 12 7 - 25 mg/dL [facility] Creatinine 0.63 0.50 - 1.05 mg/dL [facility] Comment: For patients >49 years of age, the reference limit for Creatinine is approximately 13% higher for people identified as -Djiboutian. GFR 102 > OR = 60 mL/min/1 [...] needs for GFR calculation. Resulting Agency Comment [id number] Opal Stevens NP LABORATORY Final Result Performing Organization Address City/State/[facility] Co de Phone Number [facility] [address] [place] [address] documented in this encounter Visit Diagnoses Diagnosis Healthy adult on routine physical examination Routine general medical examination at a health care facility Healthy adult on routine physical examination Routine general medical examination at a health care facility documented in this encounter Care Teams Bread Stacker Relationship Specialty Start Date End Date Darlene Rodas MD [address] [place] [address] PCP - General 07/16/16 03/18/21 documented as of this encounter
--- OUTSIDE RECORDS SUMMARY | 2024-06-15 07:54 | XMS_ITS | Encounter Summary ---
Author Organization [facility] Address [address] [place] [address] Care Team Providers Care Religion Teacher Name Role Phone Darlene Rodas MD Primary Care Provider +1- [phone] Encounter Details Date Type Department Care Team (Late st Contact Info) Description 10/06/2016 Orders Only [facility] [address] [place] [id number] Darlene Rodas MD [address] [place] [address] Social History Tobacco Use Types Packs/Day Years [...] on filedocumented in this encounter Care Teams Religion Teacher Relationship Specialty Start Date End Date Darlene Rodas MD [address] [place] [address] PCP - General 07/16/16 03/18/21 documented as of this encounter
--- OUTSIDE RECORDS SUMMARY | 2024-06-15 07:54 | XMS_ITS | Encounter Summary ---
Author Organization [facility] Address [address] [place] [address] Care Team Providers Care Shell Core And Molding Supervisor Name Role Phone Darlene Rodas MD Primary Care Provider +1- [phone] Encounter Details Date Type Department Care Team ([facility] st Contact Info) Description 11/17/2016 Orders Only [facility] [address] [place] [address] Linette Mcguire, RAIN Social History [...] of this encounter Procedures * Due to [place] state law, this organization might not be [...] in this encounter Results * Due to [place] state law, this organization might not be sharing negative HIV tests. * HEPATITIS C AB WITH REFLEX TO RNA PCR, SERUM (11/17/2016 8:05 AM EDT) Hepatitis C virus Ab NON-REACTI VE NON-REACT IRENE [facility] Hepatitis C virus Ab Signal/Cutoff 0.02 <1.00 [facility] 11/17/2016 8:05 AM EDT 11/17/2016 8:04 PM EDT Narrative Resulting Agency Comment [id number] Linette Mcguire NP LABORATORY Final Result Performing Organization Address City/State/[facility] Co de Phone Number [facility] [address] [place] [address] * CBC INCLUDES DIFFERENTIAL AND PLATELET COUNT [...] 8:04 PM EDT Narrative Resulting Agency Comment [id number] Linette Mcguire NP LAB SAME DAY RESULT Final Re sult Performing Organization Address [facility] de Phone Number [facility] [address] [place] [address] * ALANINE AMINOTRANSFERASE (ALT), SERUM (11/17/2016 8:05 AM EDT) ALT (SGPT) 12 6 - 29 U/L [facility] 11/17/2016 8:05 AM EDT 11/17/2016 8:04 PM EDT Narrative Resulting Agency Comment [id number] Linette Mcguire APPROVER LAB SAME DAY RESULT Final Re sult Performing Organization Address [facility] de Phone Number [facility] [address] [place] [address] * LIPID PANEL WITH REFLEX TO DIRECT [...] 8:04 PM EDT Narrative Resulting Agency Comment [id number] Linette Mcguire NP LABORATORY Final Result [facility] [address] [place] [address] * BASIC METABOLIC PANEL WITH (GFR) (11/17/2016 8:05 AM EDT) Pathologist [facility] Glucose 81 65 - 99 mg/dL [facility] Comment:Fasting reference in terval Urea Nitrogen Blood (BUN) 14 7 - 25 mg/dL [facility] Creatinine 0.76 0.50 - 1.05 mg/dL [facility] Comment: For patients >49 years of age, the reference limit for Creatinine is approximately 13% higher for people identified as -Mauritanian. GFR 91 > OR = 60 mL/min/1 [...] needs for GFR calculation. Resulting Agency Comment [id number] us Linette Mcguire NP LABORATORY Final Result [facility] [address] [place] [address] documented in this encounter Visit Diagnoses Diagnosis Encounter to establish care with new doctor Other reasons for seeking consultation Health care maintenance Unspecified general medical examination Need for hepatitis C screening test Special screening examination for other specified viral diseases documented in this encounter Care Teams Shell Core And Molding Supervisor Relationship Specialty Start Date End Date Darlene Rodas MD [address] [place] [address] PCP - General 07/16/16 03/18/21 documented as of this encounter
--- OUTSIDE RECORDS SUMMARY | 2024-06-15 07:54 | XMS_ITS | Clinical Summary ---
Author Organization [facility] [employer] Address [address] [place] [address] Care Team Providers Care Commercial Real Estate Paralegal Name Role Phone No, Pcp ROD HANGER Primary Care Provider Unavailabl e Allergies No [...] Colorectal Cancer: Fecal Immunochemical Test (FIT) Annually [facility] 2010 Colorectal Cancer: High-sensitivity gFOBT Screening Annually [...] Vaccine Screening: Initial Series and Booster Status ([facility]) (2023- season) 2024 02/06/2021, 08/02/2020, 07/12/2020 DTaP/Tdap/Td Vaccines ([facility]) (2 - Td or Tdap) 02/06/2024 02/05/2014 Zoster/Shingles Vaccine Seri es Screening: Adults aged 18+ yrs (or HM Modifiers)([facility]) Completed 03/18/2020, 01/10/2020 Pneumococcal Vaccination Screening: Pts 0-19 & 19-64 yrs of age ([facility]) Aged Out No longer eligible based on patient's age to complete this topic Medical Devices Not on file Insurance PLAN [facility] PLAN Care Teams Commercial Real Estate Paralegal Relationship Specialty Start Date End Date No, Pcp, ROD HANGER N/A Do not use PCP - General Family Medicine 03/24/20
--- OUTSIDE RECORDS SUMMARY | 2024-06-15 07:54 | XMS_ITS | Encounter Summary ---
Author Organization [facility] Address [address] [place] [address] Care Team Providers Care Chemical Librarian Name Role Phone Darlene Rodas MD Primary Care Provider +1- [phone] Encounter Details Date Type Department Care Team ([facility] st Contact Info) Description 04/11/[address] Orders [address] [facility] [address] [place] [id number] Darlene Rodas MD [address] [place] [address] Social History Tobacco Use Types Packs/Day Years [...] a colposcopy, a [facility], a bx of the cervix to make sure there are no other / higher grade abnorm ality of the cells. There fore recommend director dental services consult for colposcopy, if agreeable please send referral, for director dental services (ASCUS HPV pos) Her lab work was all normal. documented in this encounter Plan of Treatment Not on file documented as of this encounter Procedures * Due to [employer] law, this organization might not be sharing [...] in this encounter Results * Due to [employer] law, this organization might not be sharing [...] evaluated with computer assisted technology. [facility] Admissions Rn (Cvx/Vag) CXP, CT(ASCP) CT screening location: [place] [address] [facility] Pathologist (Cvx/Vag) Guera Whitfield M.D., Board Certified in Anatomic and Clinical Pathology (electronic signature) Consulting Pathologist [facility] Pathology [phone] [facility] COMMENT SEE NOTE [facility] [...] was performed using the APTIMA HPV Assay ([employer] This assay detects E6/E7 viral messenger RNA (mRNA) from 14 high-risk HPV types (16,18,31,33,35,39,45,51,52,56,58,59,66,68). The analytical performance characteristics of this assay have been determined by [employer]. The modifications have not been cleared or approved by the FDA. This assay has been validated pursuant to the CLIA regulations and is used for clinical purposes. ENDOCERVICAL STRUCTURE / Unknown 04/11/2019 12:15 PM EST 04/11/2019 11:36 PM EST Narrative Resulting Agency Comment [id number] Darlene Rodas MD PATHOLOGY-INTERFACED Final Result [facility] [address] [place] [address] * CBC INCLUDES DIFFERENTIAL AND PLATELET COUNT [...] 9:59 PM EST Narrative Resulting Agency Comment [id number] Darlene Rodas MD LAB SAME DAY RESULT Final Result Performing Organization Address City/State/[facility] Co de Phone Number [facility] [address] [place] [address] * LIPID PANEL WITH REFLEX TO DIRECT LDL (04/11/2019 8:39 AM EST) Cholesterol 172 <200 mg/dL [facility] HDL Cholesterol 77 >50 mg/dL [facility] Triglyceride 49 <150 mg/dL [facility] [...] LDL-C. Vladimir SS et al. PUJA. 2013;310(19): 5125-6749 (http://education.newMentor.PlayLab/faq/RIA027) CHOL/HDL Ratio 2.2 <5.0 (calc) [facility] Cholesterol Non-HDL 95 <130 mg/dL (calc) [facility] Comment: For patients with diabetes plus 1 major ASCVD risk factor, treating to a non-HDL-C goal of <100 mg/dL (LDL-C of <70 mg/dL) is considered a therapeutic option. 04/11/2019 8:39 AM EST 04/11/2019 9:59 PM EST Narrative Resulting Agency Comment [id number] us Darlene Rodas MD LABORATORY Final Resu lt [facility] [address] [place] [address] * BASIC METABOLIC PANEL WITH (GFR) (04/11/2019 8:39 AM EST) Glucose 76 65 - 99 mg/dL [facility] Comment:Fasting reference in terval Urea Nitrogen Blood (BUN) 14 7 - 25 mg/dL [facility] Creatinine 0.65 0.50 - 1.05 mg/dL [facility] Comment: For patients >49 years of age, the reference limit for Creatinine is approximately 13% higher for people identified as -Mauritanian. EGFR 101 > OR = 60 mL/min/1 [...] needs for GFR calculation. Resulting Agency Comment [id number] Darlene Rodas MD LABORATORY Final Resu lt Performing Organization Address [facility] de Phone Number [facility] [address] [place] [address] * HEPATIC FUNCTION PANEL (ALT,AST,ALK PH,BILI'S,TP,ALB) (04/11/2019 [...] 9:59 PM EST Narrative Resulting Agency Comment [id number] Darlene Rodas MD LABORATORY Final Resu lt Performing Organization Address [facility] de Phone Number [facility] [address] [place] [address] * TSH, 3RD GENERATION (04/11/2019 8:39 AM EST) TSH 3.81 mIU/L [facility] Comment: ?Reference Range ?> or = 20 Years ??0.40-4.50 ? Ranges ?First trimester ?0.26-2.66 ?Second trimester ?? 0.55-2.73 ?Third trimester ?0.43-2.91 04/11/2019 8:39 AM EST 04/11/2019 9:59 PM EST Narrative Resulting Agency Comment [id number] Darlene Rodas MD LABORATORY Final Resu lt [facility] [address] [place] [address] documented in this encounter Visit Diagnoses Diagnosis Screening for metabolic disorder Screening for malignant neoplasm of cervix Screening for malignant neoplasm of the cervix documented in this encounter Care Teams Chemical Librarian Relationship Specialty Start Date End Date Darlene Rodas MD [address] [place] [address] PCP - General 07/16/16 03/18/21 documented as of this encounter
--- OUTSIDE RECORDS SUMMARY | 2024-06-15 07:54 | XMS_ITS | Encounter Summary ---
Author Organization [facility] Address [address] [place] [address] Care Team Providers Care Store Gift Wrap Associate Name Role Phone Darlene Rodas MD Primary Care Provider +1- [phone] Encounter Details Date Type Department Care Team ([facility] st Contact Info) Description 02/29/[address] [facility] [address] [place] [address] Darlene Rodas MD [address] [place] [address] Social History Tobacco Use Types Packs/Day Years [...] of this encounter Procedures * Due to [place] [employer] law, this organization might not be sharing [...] in this encounter Results * Due to [place] [employer] law, this organization might not be sharing [...] 12:03 AM EDT Narrative Resulting Agency Comment [id number] Darlene Rodas MD LAB SAME DAY RESULT Final Result [facility] [address] [place] [address] * BASIC METABOLIC PANEL WITH (GFR) (02/29/2020 4:40 PM EDT) Glucose 92 65 - 99 mg/dL [facility] Comment:Fasting reference in terval Urea Nitrogen Blood (BUN) 19 7 - 25 mg/dL [facility] Creatinine 0.66 0.50 - 1.05 mg/dL [facility] Comment: For patients >49 years of age, the reference limit for Creatinine is approximately 13% higher for people identified as -Stateless. EGFR 100 > OR = 60 mL/min/1 [...] needs for GFR calculation. Resulting Agency Comment [id number] Darlene Rodas MD LABORATORY Final Resu lt Performing Organization Address [facility] Co de Phone Number [facility] [address] [place] [address] * LIPID PANEL WITH REFLEX TO DIRECT [...] LDL-C. Vladimir SS et al. PUJA. 2013;310(19): 8493-4509 (http://education.Freta.lá/faq/PIL366) CHOL/HDL Ratio 2.2 <5.0 (calc) [facility] Cholesterol Non-HDL 95 <130 mg/dL (calc) [facility] Comment: For patients with diabetes plus 1 major ASCVD risk factor, treating to a non-HDL-C goal of <100 mg/dL (LDL-C of <70 mg/dL) is considered a therapeutic option. 02/29/2020 4:40 PM EDT 03/01/2020 12:03 AM EDT Narrative Resulting Agency Comment [id number] Darlene Rodas MD LABORATORY Final Resu lt Performing Organization Address [facility]/ZIP Co de Phone Number [facility] [address] [place] [address] * ALANINE AMINOTRANSFERASE (ALT), SERUM (02/29/2020 4:40 PM EDT) ALT (SGPT) 14 6 - 29 U/L [facility] 02/29/2020 4:40 PM EDT 03/01/2020 12:03 AM EDT Narrative Resulting Agency Comment [id number] Darlene Rodas MD LAB SAME DAY RESULT Final Result Performing Organization Address [facility] Co de Phone Number [facility] [address] [place] [address] * SYPHILIS (FTA) ANTIBODY CASCADING REFLEX TO [...] 12:03 AM EDT Narrative Resulting Agency Comment [id number] us Rachael Camarena MD LABORATORY Final Result Performing Organization Address [facility] Co de Phone Number [facility] [address] [place] [address] documented in this encounter Visit Diagnoses Diagnosis Concern about STD in female without diagnosis Person with feared complaint in whom no diagnosis was made Screening for endocrine, metabolic and immunity disorder documented in this encounter Care Teams Store Gift Wrap Associate Relationship Specialty Start Date End Date Darlene Rodas MD [address] [place] [address] PCP - General 07/16/16 03/18/21 documented as of this encounter
--- OUTSIDE RECORDS SUMMARY | 2024-06-15 07:54 | XMS_ITS | Encounter Summary ---
Author Organization [facility] Address [address] [place] [address] Care Team Providers Care Lap Regulator Name Role Phone Darlene Rodas MD Primary Care Provider [phone]- [phone] Encounter Details Date Type Department Care Team ([facility] st Contact Info) Description 03/18/2018 Orders Only [facility] [address] [place] [address] Opal Stevens NP Social History [...] of this encounter Procedures * Due to [place] state law, this organization might not be [...] in this encounter Results * Due to [place] state law, this organization might not be sharing negative HIV tests. * (ABNORMAL) FSH (03/18/2018 9:22 AM EST) FSH 136.1(H) mIU/mL [facility] Comment: ?Reference Range ? Follicular Phase ? 2.5-10.2 ? Mid-cycle Peak ? 3.1-17.7 ? Luteal Phase ? 1.5- 9.1 ? Postmenopausal ? 23.0-116.3 ? 03/18/2018 9:22 AM EST 03/18/2018 5:02 PM EST us Opal Stevens [facility] SAME DAY RESULT Final Result [facility] [address] [place] [address] * ASPARTATE AMINOTRANSFERASE (AST), SERUM (03/18/2018 9:22 AM EST) AST (SGOT) 20 10 - 35 U/L [facility] 03/18/2018 9:22 AM EST 03/18/2018 5:02 PM EST Narrative Resulting Agency Comment [id number] Opal Stevens NP LAB SAME DAY RESULT Final Result Performing Organization Address [facility] Co de Phone Number [facility] [address] [place] [address] * ALANINE AMINOTRANSFERASE (ALT), SERUM (03/18/2018 9:22 AM EST) ALT (SGPT) 12 6 - 29 U/L [facility] 03/18/2018 9:22 AM EST 03/18/2018 5:02 PM EST Narrative Resulting Agency Comment [id number] Opal Stevens [facility] SAME DAY RESULT Final Result Performing Organization Address [facility] de Phone Number [facility] [address] [place] [address] * LIPID PANEL WITH REFLEX TO DIRECT [...] LDL-C. Vladimir SS et al. PUJA. 2013;310(19): 6635-3267 (http://education.[place].com/faq/YIN665) CHOL/HDL Ratio 2.1 <5.0 (calc) [facility] Cholesterol Non-HDL 98 <130 mg/dL (calc) [facility] Comment: For patients with diabetes plus 1 major ASCVD risk factor, treating to a non-HDL-C goal of <100 mg/dL (LDL-C of <70 mg/dL) is considered a therapeutic option. 03/18/2018 9:22 AM EST 03/18/2018 5:02 PM EST Narrative Resulting Agency Comment [id number] Opal Stevens [facility] Final Result Performing Organization Address City/[facility]/ZIP Co de Phone Number [facility] [address] [place] [address] * BASIC METABOLIC PANEL WITH (GFR) (03/18/2018 9:22 AM EST) Glucose 75 65 - 99 mg/dL [facility] Comment:Fasting reference in terval Urea Nitrogen Blood (BUN) 12 7 - 25 mg/dL [facility] Creatinine 0.63 0.50 - 1.05 mg/dL [facility] Comment: For patients >49 years of age, the reference limit for Creatinine is approximately 13% higher for people identified as -[place]oc[place]. GFR 102 > OR = 60 mL/min/1 [...] needs for GFR calculation. Resulting Agency Comment [id number] Opal Stevens [facility] Final Result Performing Organization Address [facility] Co de Phone Number [facility] [address] [place] [address] documented in this encounter Visit Diagnoses Diagnosis Healthy adult on routine physical examination Routine general medical examination at a health care facility documented in this encounter Care Teams Lap Regulator Relationship Specialty Start Date End Date Darlene Rodas MD [address] [place] [id number] PCP - General 07/16/16 03/18/21 documented as of this encounter
--- OUTSIDE RECORDS SUMMARY | 2024-06-15 07:54 | XMS_ITS | Encounter Summary ---
Author Organization [facility] Address [address] [place] [address] Care Team Providers Care Division Head Name Role Phone Darlene Rodas MD Primary Care Provider +1- [phone] Encounter Details Date Type Department Care Team ([facility] st Contact Info) Description 10/29/2020 Orders Only [facility] [address] [place] [phone] Tre Rosario DPYocasta [address] [place] [address] Social History Tobacco Use Types Packs/Day Years [...] of this encounter Procedures * Due to [place] law, this organization might not be sharing negative HIV tests. Procedure Name Priority Date/Time Associated Diagnosis Comments FUNGAL STAIN, JAMIE Routine 10/29/2020 2:3 9 PM EDT Onychomycosis documented in this encounter Results * Due to [place] [employer] law, this organization might not be sharing negative HIV tests. * FUNGAL STAIN, JAMIE (10/29/2020 2:39 PM EDT) Fungus identified SEE NOTE [facility] Comment: ??FUNGAL STAIN ??Micro Number: ?[id number] ??Test Status: ? Final ??Specimen Source: ?? LEFT 2ND TOENAIL ??Specimen Quality: ??Adequate ??Smear: ? No fungal elements seen. 10/29/2020 2:39 PM EDT 10/29/2020 9:27 PM EDT Narrative Resulting Agency Comment [id number] Tre Rosario DPM [facility] Final Result Performing Organization Address City/State/[facility] Co de Phone Number [facility] [address] [place] [address] documented in this encounter Visit Diagnoses Diagnosis Onychomycosis Dermatophytosis of nail documented in this encounter Care Teams Division Head Relationship Specialty Start Date End Date Darlene Rodas MD [address] [place] [id number] PCP - General 07/16/16 03/18/21 documented as of this encounter
--- NOTE | 2024-06-15 08:44 | MHC.PC.OV ---
Intake Visit Reasons: Discuss Results Allergies No Known Allergies Allergy (Verified 06/15/24 08:45) Medication List - Last Reconciled 06/15/24 by Jeremy Camara MD omeprazole 20 mg PO DAILY Tobacco use date assessed: 06/15/24 Dental Screening Dental Screen Date: 06/15/24 Did you have a dental visit in the last 12 months?: Yes Did you have a dental problem in the last 6 months where you did not have access to dental care?: No Was dental information given to patient?: Patient has dentist HPI Discuss Results HPI Details Patients barium swollow report came back as following 1. Mild cricopharyngeal achalasia. 2. Patulous esophagus with moderately disorganized peristalsis consistent with moderate esophageal dysmotility. 3. Granular appearance of the esophageal mucosa, suggestive of esophagitis. 4. Severe gastroesophageal reflux. 5. Thickened appearance of the gastric rugal folds. In addition there are multiple foci of contrast pooling throughout the stomach. These findings are suggestive of erosive gastritis. Recommend correlation with EGD. 6. Delay in gastric emptying, with only a small amount contrast observed in the second segment of the duodenum. No obvious mass is present. Recommend correlation with EGD and gastric emptying study to assess for gastroparesis. 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 How often do you have a drink containing alcohol?: Never 3. How often do you have six or more drinks on one occasion?: Never Total Score: 0 Score Reviewed/Action Taken: Yes ZEE-7 AMB Questionnaire ZEE-7 Date ZEE - 7 assessed: 05/05/24 Source: Developed by Drs. Drew Cerna, Avis Huitron, Wesley Perry and colleagues, with an educational lee from [employer]. Review of Systems Const Denies chills and Denies fever(s) ENT Denies epistaxis and Denies nasal discharge Card Denies chest pain Resp Denies chest congestion, Denies cough and Denies hemoptysis GI Denies diarrhea Skin/Breast Denies rash Neuro Reports no additional complaints Psych Reports no additional complaints Endo Reports no additional complaints Physical exam (Primary Care) Tobacco/Smoking Status: Tobacco use Status Tobacco use date assessed 06/15/24 06/15/24 08:45 Patient Tobacco Use Status Never used Tobacco 06/15/24 08:45 e-Cigarette/Vaping Use Never Used 06/15/24 08:45 Thrive Assessment: Date of Thrive Assessment Date Thrive assessed 05/05/24 06/15/24 08:45 Telehealth Telehealth Telehealth Platform: [facility] Location of provider rendering services: practice address Location of patient: address on file Patient Identification confirmed using: Name, : Yes Telehealth method: video (attempted) Patient verbally consented to treatment: Yes Patient verbally consented to billing insurance company: Yes Patient informed of any privacy concerns related to visit: Yes Minutes spent on Phone/Video with Pt.: 14 Coding Level of Care Code Tele Est Pt Level 3 (29044) Diagnoses Achalasia K22.0 Esophageal dysmotility K22.4 Chronic esophagitis K20.90 Gastroesophageal reflux disease with esophagitis without hemorrhage K21.00 Esophagitis presence: with esophagitis Esophagitis bleeding: without hemorrhage Erosive gastritis K29.60 Assessment & Plan Assessment & Plan (1) Achalasia: Code(s): K22.0 - Achalasia of cardia Category: Medical (2) Esophageal dysmotility: Code(s): K22.4 - Dyskinesia of esophagus Category: Medical (3) Chronic esophagitis: Code(s): K20.90 - Esophagitis, unspecified without bleeding Category: Medical (4) Acid reflux disease: Code(s): K21.9 - Gastro-esophageal reflux disease without esophagitis Category: Medical Qualifiers: Esophagitis presence: with esophagitis Esophagitis bleeding: without hemorrhage Qualified Code(s): K21.00 - Gastro-esophageal reflux disease with esophagitis, without bleeding (5) Erosive gastritis: Code(s): K29.60 - Other gastritis without bleeding Category: Medical Plan Patients barium swollow report came back as following 1. Mild cricopharyngeal achalasia. 2. Patulous esophagus with moderately disorganized peristalsis consistent with moderate esophageal dysmotility. 3. Granular appearance of the esophageal mucosa, suggestive of esophagitis. 4. Severe gastroesophageal reflux. 5. Thickened appearance of the gastric rugal folds. In addition there are multiple foci of contrast pooling throughout the stomach. These findings are suggestive of erosive gastritis. Recommend correlation with EGD. 6. Delay in gastric emptying, with only a small amount contrast observed in the second segment of the duodenum. No obvious mass is present. Recommend correlation with EGD and gastric emptying study to assess for gastroparesis. report explained to patient ref to gastro placed to be seen nabil increase PPI to bid mean while, sent Orders: Referrals Gastroenterology Referral K20.90 - Esophagitis, unspecified without bleeding, K21.9 - Gastro-esophageal reflux disease without esophagitis, K22.0 - Achalasia of cardia, K22.4 - Dyskinesia of esophagus, K29.60 - Other gastritis without bleeding Medications: Changed From omeprazole 20 mg PO DAILY 90 caps 0RF Abdominal discomfort To omeprazole 20 mg PO BID 180 caps 0RF Abdominal discomfort
== END 2024-06-15 09:48 | disposition home or self-care (01) ==
LOC: HO.HMCC 07:52
PROVIDERS: PCP Internal Medicine; Visit Provider Internal Medicine
DX: K22.4 Dyskinesia of esophagus (principal); K21.00 Gastro-esophageal reflux disease with esophagitis, without bleeding; K29.60 Other gastritis without bleeding

== ENCOUNTER 2024-07-07 08:39 | Outpatient (AMB) | payer OTHER, SELFPAY ==
[2024-07-07 08:43] VITALS: BP 110/70; PULSE 73; RESP 18; TEMP 36.6; O2SAT 94
--- NOTE | 2024-07-07 08:43 | A.OFFPC_ITS ---
Vital Signs 07/07/24 08:43 Height 5 ft 2 in BMI Reason not done Patient refused/unable BP 110/70 Blood Pressure Location Rt brachial Position Sitting Respiration 18 Pulse 73 Pulse Source Pulse Oximeter Temp 98 F Temp Source Oral Pulse Oximetry (%) 94 Oxygen Delivery Method Room Air Intake Visit Reasons: 2 months follow up Allergies No Known Allergies Allergy (Verified 07/07/24 08:48) Medication List - Last Reconciled 07/07/24 by Jeremy Camara MD omeprazole 20 mg PO BID Tobacco use date assessed: 07/07/24 Dental Screening Dental Screen Date: 07/07/24 Did you have a dental visit in the last 12 months?: Yes Did you have a dental problem in the last 6 months where you did not have access to dental care?: No Was dental information given to patient?: Patient has dentist HPI 2 months follow up HPI Details - The patient is a 59-year-old female pr esenting with a gastric ulcer and related gastrointestinal consultations. - Recently had an endoscopy revealing a medium-sized hiatal hernia and gastric ulcer, with a biopsy confirming non-cancerous status. - Recurrent sharp abdominal pain and gas trointestinal discomfort - History of binge eating and purging wa s identified as a potential contributor to the gastrointestinal irritation. When patient went through her divorce few months ago but not anymore - Laboratory work indicated a slight poornima kopenia with normal anemic levels, warranting repeat testing. - Discussion ensued regarding Helicobact er pylori testing following endoscopic biopsy. - Vaccination status for Hepatitis A and B was reviewed in light of recent and upcoming international travel. To [place] Problem List - Medium-sized hiatal hernia - Gastric ulcer, non-cancerous - History of eating disorder: binge eati ng and purging - Potential Helicobacter pylori infectio n (under investigation) - History of incomplete Hepatitis B vacc ination - Slight leukopenia - Prior travel and future travel plans r equiring potential vaccinations Patient Instructions - Continue taking omeprazole as discusse d, confirming the proper dose with material man, if needed. Have them send me the reports - Refrain from excessive consumption of acidic foods like pineapple if it exacerbates symptoms. - Schedule a repeat blood test for white blood cell counts. - Consider receiving any recommended vac cinations in preparation for upcoming international travel. - Abstain from binge-purge behavior and discuss any ongoing issues or symptoms with healthcare providers. Review of Systems. - General: No fever no chills - Neurological: No headaches no dizziness - Ear nose throat: No sore throat no hearing difficulty no ear pain - Cardiovascular: No syncope, no chest pain, no palpitations - Gastrointestinal: No nausea vomiting or diarrhea - Endocrine: No polyuria polydipsia no heat intolerance - Genitourinary: No dysuria , no blood in urine Physical Exam General: No acute distress HEENT: No acute findings Neck: Supple Respiratory system: Able to talk in full sentences, no audible wheeze cardiovascular: S1-S2 regular in rate and rhythm Gastrointestinal: Pain present epigastric mild with pressure, no guarding no rebound bowel sounds positive Extremities: No new findings LITHOGRAPHIC ARTIST: Alert awake oriented x3 motor sensory intact Skin: Normal turgor 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 Sexual orientation: Straight/Heterosexual Gender identity: Female Cognitive needs: No Hearing needs: No Vision needs: No Questionnaire Thrive Questionnaire Date Thrive assessed: 07/07/24 I am a: Patient What is your living situation today?: I have a steady place to live Within the past 12 months, did the food you bought not last and you didn't have the money to get more?: Sometimes True Within the past 12 months, did you worry whether your food would run out before you got money to buy more?: Sometimes True Do you have trouble paying for medicines?: No Do you have trouble getting transportation to medical appointments?: No Do you have trouble paying your heating and electricity bill?: No Do you have trouble taking care of your child, family member or friend?: No Do you have trouble with day-to-day activities such as bathing, preparing meals, shopping, managing finances, etc.?: No Are you currently unemployed and looking for a job?: No Are you interested in more education?: No Please select the resources that you would like help with: Food Currently or been in a relationship where the following occur: No concerns reported THRIVE Score: 2 AUDIT C Alcohol Use Questionnaire (AUDIT-C) 1. How often do you have a drink containing alcohol?: Never 3. How often do you have six or more drinks on one occasion?: Never Total Score: 0 Score Reviewed/Action Taken: Yes ZEE-7 AMB Questionnaire ZEE-7 Date ZEE - 7 assessed: 05/05/24 Source: Developed by Drs. Drew Cerna, Avis Huitron, Wesley Perry and colleagues, with an educational lee from [employer]. Physical exam (Primary Care) Vital Signs: Last Vital Signs Temp 98 F 07/07/24 08:43 Pulse 73 07/07/24 08:43 Resp 18 07/07/24 08:43 BP 110/70 07/07/24 08:43 Pulse Ox 94 07/07/24 08:43 Oxygen Delivery Method Room Air 07/07/24 08:43 Tobacco/Smoking Status: Tobacco use Status Tobacco use date assessed 07/07/24 07/07/24 08:48 Patient Tobacco Use Status Never used Tobacco 07/07/24 08:48 e-Cigarette/Vaping Use Never Used 07/07/24 08:48 Thrive Assessment: Date of Thrive Assessment Date Thrive assessed 07/07/24 07/07/24 08:48 Currently or been in a relationship where the following occur: No concerns reported Coding Level of Care Code Est Pt Level 4 (10140) Diagnoses Erosive gastritis K29.60 Gastroesophageal reflux disease with esophagitis without hemorrhage K21.00 Esophagitis bleeding: without hemorrhage Esophagitis presence: with esophagitis Esophageal dysmotility K22.4 Other neutropenia D70.8 Neutropenia type: other Assessment & Plan Assessment & Plan (1) Erosive gastritis: Code(s): K29.60 - Other gastritis without bleeding Category: Medical (2) Acid reflux disease: Code(s): K21.9 - Gastro-esophageal reflux disease without esophagitis Category: Medical Qualifiers: Esophagitis bleeding: without hemorrhage Esophagitis presence: with esophagitis Qualified Code(s): K21.00 - Gastro-esophageal reflux disease with esophagitis, without bleeding (3) Esophageal dysmotility: Code(s): K22.4 - Dyskinesia of esophagus Category: Medical (4) Neutropenia: Code(s): D70.9 - Neutropenia, unspecified Category: Medical Qualifiers: Neutropenia type: other Qualified Code(s): D70.8 - Other neutropenia Plan - The patient is a 59-year-old female presenting with a gastric ulcer and related gastrointestinal consultations. - Recently had an endoscopy revealing a medium-sized hiatal hernia and gastric ulcer, with a biopsy confirming non-cancerous status. - Recurrent sharp abdominal pain and gastrointestinal discomfort - History of binge eating and purging was identified as a potential contributor to the gastrointestinal irritation. When patient went through her divorce few months ago but not anymore - Laboratory work indicated a slight leukopenia with normal anemic levels, warranting repeat testing. - Discussion ensued regarding Helicobacter pylori testing following endoscopic biopsy. - Vaccination status for Hepatitis A and B was reviewed in light of recent and upcoming international travel. To [place] Problem List - Medium-sized hiatal hernia - Gastric ulcer, non-cancerous - History of eating disorder: binge eating and purging - Potential Helicobacter pylori infection (under investigation) - History of incomplete Hepatitis B vaccination - Slight leukopenia - Prior travel and future travel plans requiring potential vaccinations Patient Instructions - Continue taking omeprazole as discussed, confirming the proper dose with material man, if needed. Have them send me the reports - Refrain from excessive consumption of acidic foods like pineapple if it exacerbates symptoms. - Schedule a repeat blood test for white blood cell counts. - Consider receiving any recommended vaccinations in preparation for upcoming international travel. - Abstain from binge-purge behavior and discuss any ongoing issues or symptoms with healthcare providers. Orders: Orders Complete Blood Count Auto Diff Today D70.8 - Other neutropenia, K21.00 - Gastro-esophageal reflux disease with esophagitis, without bleeding, K22.4 - Dyskinesia of esophagus, K29.60 - Other gastritis without bleeding Comprehensive [place]. Panel Fast Today D70.8 - Other neutropenia, K21.00 - Gastro-esophageal reflux disease with esophagitis, without bleeding, K22.4 - Dyskinesia of esophagus, K29.60 - Other gastritis without bleeding Lipid Panel Today D70.8 - Other neutropenia, K21.00 - Gastro-esophageal reflux disease with esophagitis, without bleeding, K22.4 - Dyskinesia of esophagus, K29.60 - Other gastritis without bleeding Vitamin D 25-OH (D2 and D3) Today D70.8 - Other neutropenia, K21.00 - Gastro- esophageal reflux disease with esophagitis, without bleeding, K22.4 - Dyskinesia of esophagus, K29.60 - Other gastritis without bleeding Vitamin B12 Today D70.8 - Other neutropenia, K21.00 - Gastro-esophageal reflux disease with esophagitis, without bleeding, K22.4 - Dyskinesia of esophagus, K29 .60 - Other gastritis without bleeding TSH reflex Free T4 Today D70.8 - Other neutropenia, K21.00 - Gastro-esophageal reflux disease with esophagitis, without bleeding, K22.4 - Dyskinesia of esophagus, K29.60 - Other gastritis without bleeding
--- OUTSIDE RECORDS SUMMARY | 2024-07-07 09:11 | XMS_ITS | Continuity of Care Document ---
Author Organization [facility] Address [address] [place] [address] Care Team Providers Care Lead Care Manager Name Role Phone Unavailable Primary Care Provider Unavailabl e Encounters Date Type Department Care Team Description 07/03/2024 Orders Only [facility] [address] [place] [address] Tammie Ramos MD 06/30/2023 Minor Procedure/Test [facility] [address] [place] [address] [facility], Unknown Provider 03/23/2023 Minor Procedure/Test [facility] [address] [place] [address] [facility], Unknown Provider 12/10/2022 Telephone [facility] HASHER MACHINE OPERATOR [address] [facility] [address] [place] [address] Brittany Li, RAIN Appointment 03/18/[address] [facility] [address] [place] [address] Darlene Rodas MD Other (Pcp; ins info/) 03/03/[address] [facility] [address] [place] [address] Darlene Rodas MD Imm/Inj 10/29/[address] [facility] [facility] [address] [place] [address] Tre Rosario DPM 10/29/2020 8:30 AM EDT Radiology [facility] [address] [place] [address] 10/29/2020 [facility] [address] [place] [address] Tre Rosario DPM 10/29/2020 8:50 AM EDT Consult (Initial) [facility] [address] [place] [address] Tre Rosario, GOLD Onychomycosis (Primary Dx); Acquired hallux valgus of left foot; Bilateral foot pain; Acquired hallux valgus of right foot 10/22/2020 Telephone All of [address] [address] [facility] [place], [facility] 10/22/2020 Telephone All of [address] [address] [facility] [place] [facility] 09/03/[address] [facility] [address] [place] [address] Darlene Rodas MD Cyst 06/12/[address] [facility] [address] [place] [address] Darlene Rodas MD Patient Questions 06/11/2020 Orders Only [facility] HASHER MACHINE OPERATOR [address] [facility] [address] [place] [address] Brittany Li NP 06/11/2020 Travel 06/11/2020 8:00 AM EST Office Visit [facility] HASHER MACHINE OPERATOR [address] [facility] [address] [place] [address] Brittany Li NP Encounter for gynecological examination (general) (routine) without abnormal findings (Primary Dx); Abnormal cervical Papanicolaou smear, unspecified abnormal pap finding; Menopause present; Pap smear for cervical cancer screening; History of uterine fibroid; Cystocele, midline 06/03/[address] [facility] [address] [place] [address] Darlene Rodas MD Letter/form Request 05/28/[address] [facility] [address] [place] [address] Darlene Rodas MD Labs/orders (mmg) 05/27/2020 4:30 PM EST Radiology [facility] Ultrasound [address] [place] [address] Leg edema 05/27/2020 6:30 PM EST Radiology [facility] Xray [address] [place] [address] Leg edema 05/27/2020 5:45 PM EST Office Visit [facility] [address] [address] Taiwo Noe PA Leg edema (Primary Dx) 05/27/2020 Travel 05/27/[address] [facility] [address] [place] [address] Darlene Rodas MD Knee Pain 05/23/2020 Orders Only NON FC SA [address] [address] Darlene Rodas MD 04/24/2020 Travel 04/17/2020 Travel 04/17/2020 8:15 AM EST CPE - Comprehensive Physical Exam [facility] [address] [place] [address] Darlene Rodas MD Well adult exam (Primary Dx); ASCUS with positive high risk HPV cervical; S/P colonoscopy; Gastroesophageal reflux disease, unspecified whether esophagitis present 03/20/[address] [facility] [address] [place] [address] Darlene Rodas MD Results 03/16/2020 Orders Only [address] [facility] [facility] [address] [place] [address] Darlene Rodas MD [address] [facility] [address] [place] [address] Darlene Rodas MD Imm/Inj 02/29/2020 Orders Only [address] [facility] [address] [place] [address] Darlene Rodas MD 02/28/[address] [facility] [address] [place] [address] Darlene Rodas MD Labs/orders 11/29/[address] [facility] [address] [place] [address] Darlene Rodas MD Labs/orders 06/30/2019 Letter/Form [facility] HASHER MACHINE OPERATOR [address] [facility] [address] [place] [address] Stefania Mclaughlin NP 06/30/2019 8:15 AM EST Minor Procedure/Test [facility] HASHER MACHINE OPERATOR [address] [facility] [address] [place] [address] Stefania Mclaughlin, RAIN ASCUS with positive high risk HPV cervical (Primary Dx); Abnormal cervical Papanicolaou smear, unspecified abnormal pap finding 05/29/2019 Telephone [facility] [address] [place] [address] Vanessa Angel PA Follow Up 05/22/[address] [facility] [address] [place] [address] Darlene Rodas MD Labs/orders (mmg) 05/19/2019 Orders Only NON FC SA [facility] [address] [place] [address] Darlene Rodas MD 04/20/[address] [facility] [address] [place] [address] Darlene Rodas MD Results 04/19/2019 11:00 AM EST Consult (Initial) [facility] [address] [place] [address] Vanessa Angel PA Pruritus (Primary Dx); Dyschromia 04/11/[address] [facility] [address] [place] [address] Darlene Rodas MD Records 04/11/2019 Orders Only [facility] [address] [address] [place] [address] Darlene Rodas MD 04/11/2019 7:45 AM EST CPE - Comprehensive Physical Exam [facility] [address] [facility] [address] [place] [address] Darlene Rodas MD Well adult exam (Primary Dx); Screening for metabolic disorder; Screening for malignant neoplasm of cervix; Screening for eye condition; Need for vaccination 02/20/2019 Letter/Form [facility] [address] [address] [place] [address] Darlene Rodas MD 10/28/[address] [facility] [address] [place] [address] Darlene Rodas MD Labs/orders 07/06/[address] [facility] [address] [place] [address] Darlene Rodas MD E-prescribing Refill Request 05/11/[address] [facility] [address] [place] [address] Darlene Rodas MD Patient Questions 04/20/[address] [facility] [address] [place] [address] Opal Stevens NP E-prescribing Refill Request 04/18/2018 Orders Only NON FC SA [facility] [address] [place] [address] Darlene Rodas MD 04/04/[address] [facility] [address] [place] [address] Darlene Rodas MD Results 03/23/2018 Telephone [facility] [address] [place] [address] Darlene Rodas MD Labs/orders 03/23/2018 Telephone FC MISCELLANEOUS [phone] Mychart, Provider Generic MyChart Verification 03/22/2018 Orders Only [facility] [address] [facility] [address] [place] [address] Opal Stevens NP 03/22/2018 3:15 PM EST CPE - Comprehensive Physical Exam [facility] [address] [place] [address] Opal Stevens NP Routine history and physical examination of adult (Primary Dx); Healthcare maintenance; Anxiety; Gastroesophageal reflux disease, esophagitis presence not specified; Insomnia, unspecified type; Screening for breast cancer; Screen for STD (sexually transmitted disease); Need for vaccination 03/21/2018 7:30 AM EST Office Visit [facility] Optometry [address] [place] [address] Maricruz Russo OD Encounter for ophthalmic examination and evaluation (Primary Dx); Disorder of refraction 03/18/2018 Orders Only [facility] [address] [place] [address] Opal Stevens NP 03/14/2018 Telephone [facility] [facility] [address] [place] [address] Darlene Rodas MD Labs/orders 2018 Orders Only [facility] [address] [place] [address] Darlene Rodas MD 2018 Orders Only [facility] [address] [place] [address] Oapl Stevens NP 02/20/2018 Letter/Form [facility] [address] [place] [address] Darlene Rodas MD 02/20/2017 Letter/Form [facility] [address] [place] [address] Darlene Rodas MD 01/18/2017 1:00 PM EDT Radiology [facility] Xray [address] [place] [address] Sprain of right ankle, unspecified ligament, initial encounter 01/18/2017 12:30 PM EDT [facility] [address] [place] [address] Sissy Ricks, PA Sprain of right ankle, unspecified ligament, initial encounter (Primary Dx); Neck sprain, initial encounter 01/14/2017 Telephone [facility] [address] [place] [address] Darlene Rodas MD Ankle pain 11/19/2016 Telephone [facility] [address] [place] [address] Darlene Rodas MD Results 11/17/2016 Orders Only [facility] [address] [place] [address] Linette Mcguire NP 11/10/2016 Letter/Form [facility] [address] [place] [address] Linette Mcguire NP 11/05/2016 Letter/Form [facility] [address] [place] [address] Linette Mcguire NP 10/06/2016 Orders Only [facility] [address] [place] [address] Darlene Rodas MD 10/06/2016 9:45 AM EDT Office Visit [facility] [address] [place] [address] Linette Mcguire NP Encounter to establish care with new doctor (Primary Dx); Insomnia, unspecified type; Gastroesophageal reflux disease, esophagitis presence not specified; Anxiety; Hot flashes; Health care maintenance; Need for hepatitis C screening test 08/19/2016 Telephone [facility] [address] [place] [address] Darlene Rodas MD Erroneous encounter-disregard 08/19/2016 Telephone [facility] [address] [place] [address] 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, DIVE SUPERVISOR Constipation 08/12/2016 [facility] Medical Records [address] [place] [address] Darlene Rodas MD 08/10/2016 Orders Only [facility] [address] [place] [address] Darlene Rodas MD 08/06/2016 Telephone [facility] [address] [place] [address] Darlene Rodas MD Referral Request (Chiro / Lonnie Baig) 07/27/2016 Orders Only [facility] [address] [place] [address] Darlene Rodas MD 07/27/2016 Telephone [facility] [address] [place] [address] Darlene Rodas MD Referral Request (chiro) 06/09/2016 [facility] Otolaryngology [address] [place] [address] Vicky Waters MD Cancellation 01/02/2016 Minor Procedure/Test FAM PRAC UNSPECIFIED Azeb Ling MD 12/16/2015 Office Visit [facility] UNSPECIFIED Azeb Ling MD 12/16/2015 Minor Procedure/Test CARDI UNSPECIFIED Daniel Ybarra MD 09/05/2015 Minor Procedure/Test GASTRO UNSPECIFIED Stagias, Gavin Duarte MD 10/31/2014 Minor Procedure/Test FAM PRAC UNSPECAzeb Montes MD 10/11/2014 Office Visit [facility] PR[facility] UNSPECIFIED Nicole Marks NP 09/27/2014 3:00 PM EDT Office Visit [facility] Otolarynogology/Plas tics [address] [place] [address] Jimenez Morales MD Facial rhytids (Primary Dx) 08/31/2014 10:00 AM EDT Office Visit [facility] Otolarynogology/Plas tics [address] [facility] [address] [place] [address] Jimenez Morales MD Facial rhytids (Primary Dx) 06/14/2014 Telephone [facility] Otolarynogology/Plas tics [address] [place] [address] Jimenez Morales MD Patient Questions 06/13/2014 Telephone [facility] Otolarynogology/Plas tics [address] [facility] [address] [place] [address] Jimenez Morales MD Patient Questions 02/22/2014 2:45 PM EDT Office Visit [facility] Otolarynogology/Plas tics [address] [facility] [address] [place] [address] Jimenez Morales MD Facial rhytids (Primary Dx) 02/15/2014 4:00 PM EDT Office Visit [facility] Otolarynogology/Plas tics [address] [facility] [address] [place] [address] Jimenez Morales MD Facial rhytids (Primary Dx) 12/28/2013 3:30 PM EDT Consult (Initial) [facility] Otolarynogology/Plas tics [address] [facility] [address] [place] [address] Jimenez Morales MD Facial rhytids (Primary Dx) 02/27/2013 Minor Procedure/Test WARHEAD MAINTENANCE SPECIALIST UNSPECIFIED Popeye Rodriguez Allergies No known [...] 03/22/18: Last record available to me in [facility] for mammogram is 2014. Per patient report she had mammogram done in 2016 through outside SLUBBER OPERATOR provider, Dr. Gary in [place]. Her CPE 2017 note, patient signed MERLINE [...] exercise stress test 10/06/2016 Overview (10/06/2016): At [facility] on 01/02/2016. No evidence of ischemia [...] patient report last Pap done by outside SLUBBER OPERATOR 2017. We do not have these records. Mammography: Again, patient reports mammograms through outside SLUBBER OPERATOR in 2017. Colonoscopy: Per patient report colonoscopy done through [facility], 2017, no polyps. 10-year repeat. Need records from [facility]. DEXA: N/A Exercise: None Screen for STD (sexually transmitted disease) 05/28/19 19 06/11/2020 Overview (05/28/2018): 03/22/18: Patient requesting STD testing today. She is very concerned about the thought of having herpes. Tried to reassure her about the etiology and prevalence, and treatment of this disease. Anxiety 10/06/2016 04/11/2019 Overview (05/28/2018): Her previous PCP records. [facility] it was situational regarding conflict with coworker. [...] Alive Social History Smoking Status as of 07/07/2024 Tobacco Use Types Packs/Day Years Used Date [...] Not on file Procedures * Due to [place] state law, this organization might not be sharing negative HIV tests. Procedure Name Priority Date/Time Associated Diagnosis Comments TISSUE EXAM - [place] ONLY Routine 07/03/2024 2:36 PM EST FRANCK BILATERAL IMPLANT SCREENING DIGITAL MAMMOGRAM WITH [...] PELVIS COMPL 02/27/2013 Results * Due to [place] state law, this organization might not be sharing negative HIV tests. * TISSUE EXAM - LEV TURCIOS (07/03/2024 2:36 PM EST) TISSUE EXAM RESULT SEE DETAILS [facility] Comment: ?FINAL DIAGNOSIS ?A. ??Esophagus, distal, biopsy: ?- Cardiofundic-type mucosa with mild chronic inactive ?inflammation; no intestinal metaplasia seen. ?- No squamous epithelium seen. ?B. ??Stomach, biopsy: Antral-type mucosa with chronic, focally ?active/erosive inflammation; no Helicobacter organisms seen. ? Srinivasa Gonzales M.D. ? Electronic Signature: 07/05/2024 ? 16:53 ? Clinical History ? Suspected GERD ? Microscopic Description ? A. ??Sections have cardiofundic-type mucosa with mild chronic ? inactive inflammation. No intestinal metaplasia is seen, ? supported by AB/PAS stains. No squamous epithelium is seen. ? B. ??Sections have antral-type mucosa with mild chronic, focally ? active, inflammation and erosion. No intestinal metaplasia is ? seen, supported by AB/PAS stains. No Helicobacter organisms are ? seen, supported by H. pylori immunostain. ? Macroscopic Description ? A. ??Received in formalin are multiple grossman 1-5 mm soft tissue ? fragments, totally submitted in cassette A1. ? B. ??Received in formalin are 3 grossman 1-3 mm soft tissue fragments, ? totally submitted in cassette B1. ? Excision to formalin time: immediate; total time in formalin: ? 24 hours. (KR) ? Unless otherwise stated, all tissue is formalin-fixed and ? paraffin-embedded. ? Special stains ordered and performed: AB/PAS stains on A and B; ? immunostain for H. pylori on B ? Technical performance of special and immunostains performed at [facility] ?? [facility], [place] [address], ([id number], CLIA ? #[id number]). ? Grossing and technical work performed at [facility] ([facility], [address] [place] [address], ?? [place] [address]; ; [id number]; CLIA #[id number] ? All professional pathology services performed at [facility] ? [facility] ([address] [place] [address]; ; CLIA ?? #[id number]) ? Note: Some or all of the tests utilized in this case may be laboratory developed tests (LDT's) and may use class I analyte specific reagents (ASR). These tests were developed for clinical purposes and their ? performance characteristics determined by [facility] Laboratories on tissue fixed in 10% neutral buffered formalin. Other fixatives have not been validated, and therefore results on ? tissue with such fixation should be interpreted with caution and in ?? the clinical context. [facility] Laboratories are qualified under the CLIA ?? 1988 documents to provide high-complexity clinical laboratory testing. All controls are reviewed and deemed appropriate. ? 07/03/2024 2:36 PM EST Narrative [facility] - 07/05/2024 12:00 AM EST Pre-op diagnosis: CHRONIC ACID REFLUX Tammie Ramos MD PATHOLOGY Final Result [facility] [employer] [address] [place] [address] * FRANCK BILATERAL IMPLANT SCREENING DIGITAL MAMMOGRAM [...] dense breast tissue shown on mammography. Per [employer] Appropriateness Criteria ??for Breast Cancer Screening (https://acsearch.acr.org/docs/73081/Narrative/) patient may benefit from tomosynthesis on future mammography and supplemental imaging with automated breast ultrasound (ABUS) or breast MRI depending on risk factors. Automated Breast Ultrasound (ABUS) is now available at both [facility] and in the Department of Mammography at [facility]. To schedule a patient, you can either enter an ABUS order into [facility] Screenz EMR (type in ABUS), call [facility] Scheduling at [phone], or call [facility] Central Scheduling at [phone]. To fax an external order: [facility] [phone] and [facility] [phone]. If this radiology report contains a blank impression section, it is an incomplete radiology report. ??Please contact the interpreting radiologist or applicable radiology division as soon as possible to obtain the completed interpretation. 5' 2 125 Procedure Note [facility], Unknown Provider - 07/05/2023 EXAMINATION FRANCK Bilateral [...] of Radiology Appropriateness Criteria for Breast Cancer Screening(https://acsearch.acr.org/docs/97750/Narrative/) patient may benefit fromtomosynthesis on future mammography and supplemental imaging with automated breast ultrasound(ABUS) or breast MRI depending on risk factors. Automated Breast Ultrasound (ABUS) is now available at both [facility] and [facility]. To schedule a patient, you caneither enter an ABUS order into [facility] EMR (type in ABUS), call [facility] Sched[facility] [phone], or call [facility] Central Scheduling [phone]. To fax an external order: [facility] [phone] and[facility] [phone]. If this radiology report contains a blank impression section, it is anincomplete radiology report. Please contact the interpreting radiologistor applicable radiology division as soon as possible to obtain thecompleted interpretation. 5' 2 125 Unknown Provider [facility] Final Resu lt * FUNGAL STAIN, JAMIE (10/29/2020 2:39 PM EDT) Fungus identified SEE NOTE [facility] Comment: ??FUNGAL STAIN ??Micro Number: ?[id number] ??Test Status: ? Final ??Specimen Source: ?? LEFT 2ND TOENAIL ??Specimen Quality: ??Adequate ??Smear: ? No fungal elements seen. 10/29/2020 2:39 PM EDT 10/29/2020 9:27 PM EDT Narrative Resulting Agency Comment [id number] us Tre Rosario DPM LABORATORY Final Result [facility] [address] [place] [address] * XRAY FEET COMPLETE MIN 3 VWS [...] Smear Negative for intraepithelial lesion or malignancy. [facility] Cytology study comment (Cvx/Vag) This Pap test has been evaluated with computer assisted technology. [facility] Truck Driver Rubbish Collector (Cvx/Vag) SXA, CT(ASCP) CT screening location: [place] [address] [facility] COMMENT SEE NOTE [facility] Comment: EXPLANATORY NOTE: The Pap is [...] HPV MRNA E6/E7 Not Detected Not Detected 5 CUPS and some sugar Comment: Methodology: Cryolite Recovery Operator-Mediated Amplification This assay detects E6/E7 viral messenger RNA (mRNA) from 14 high-risk HPV types (16,18,31,33,35,39,45,51,52,56,58,59,66,68). The analytical performance characteristics of this assay have been determined by [facility]. The modifications have not been cleared or approved by the FDA. This assay has been validated pursuant to the CLIA regulations and is used for clinical purposes. For additional information, please refer to http://education.Scifiniti/NEK217f0 (This link if provided for information/ educational purposes only.) ENDOCERVICAL STRUCTURE / Unknown 06/11/2020 11:05 AM EST 06/12/2020 7:26 AM EST Narrative Resulting Agency Comment [id number] us Brittany Li NP PATHOLOGY-INTERFACED Final Resul t 5 CUPS and some sugar [address] [place] [address] * US VENOUS DUPLEX SCAN EXTREMITY VEINS UNILAT/LIMITED STUDY RIGHT FC (05/27/2020 6:57 PM EST) 05/27/2020 7:18 PM EST Narrative [facility] - 05/27/2020 7:18 PM EST Right lower extremity venous duplex ultrasound. Comparison: None. Technique: Real time sonographic imaging, including color-flow imaging and spectral analysis, was performed by the art instructor. Multiple fulfillment representative static images were saved for review. [...] and spectral analysis, was performed by the art instructor. Multiplerepresentative static images were saved for review. [...] negative for DVT. 2. Tiny Cordoba's cyst. us WAYLON Villaseñor IMG US ORDERABLES Final Res ult [facility] * XRAY KNEE FOR ORTHO [...] Normal AP left knee us WAYLON Villaseñor IMG XRAY NO CONTRAST ORDERA BLES Final Result * DIGITAL BREAST FUAD SCREENING (05/23/2020 2:14 PM EST) RADIOLOGY REPORT [facility] Department of Radiology [address] [place] [address], [facility] [phone] Name: JARRETT GARZON : 65 Date of Service: 05/23/20 1520 Acct Number: [id number] Order Number: ??[id number] ?Location: [facility] Report Number: [id number] ?Service: REG REF/ Requesting Physician: Darlene Rodas MD ([facility]) Category: MAMMOGRAPHY Exam: DIGITAL BREAST FUAD SCREENING ?? Signs/Symptoms: SCREENING Report Status: Signed STUDY: Bilateral screening mammogram with CAD and tomosynthesis. TECHNIQUE: ??Bilateral craniocaudal and mediolateral oblique views obtained. Opez Version 1.3 computer aided detection system and [...] mammogram notification. Date/Time of Dictation: 05/23/20 1526 Insurance Plan Specialist (if applicable): Approved By Attending Radiologist: Raven Miller MD 05/23/20 1526 [facility] Department of Radiology [address] [place] [address], [address] ? [phone] ? [facility] Anatomical Region Laterality Modality Other 05/23/2020 2:14 PM EST Narrative 05/23/2020 3:26 PM EST Reason for Study/History: Department of Radiology TEST(S) PROCESSED BY [facility] XRAY us Darlene Rodas MD IMAGING-[facility] Final Resu lt * SYPHILIS (FTA) ANTIBODY [...] 9:39 PM EST Narrative Resulting Agency Comment [id number] us Rachael Camarena MD LABORATORY Final Result [facility] [address] [place] [address] * PROTEIN, TOTAL, SERUM (03/16/2020 12:08 PM EST) Pathologist [facility] Protein Total (Serum) 6.6 6.1 - 8.1 g/dL [facility] 03/16/2020 12:0 8 PM EST 03/16/2020 9:39 PM EST Narrative Resulting Agency Comment [id number] Darlene Rodas MD LAB SAME DAY RESULT Final Result Performing Organization Address [facility] de Phone Number [facility] [address] [place] [address] * CBC INCLUDES DIFFERENTIAL AND PLATELET COUNT (02/29/2020 4:40 PM EDT) Only the most recent of3 resultswithin the time period is included. [facility] WBC 5.1 3.8 - 10.8 Thousand/u L [...] 12:03 AM EDT Narrative Resulting Agency Comment [id number] us Darlene Rodas MD LAB SAME DAY RESULT Final Result Performing Organization Address City/[facility]/ZIP Co de Phone Number [facility] [address] [place] [address] * ALANINE AMINOTRANSFERASE (ALT), SERUM (02/29/2020 4:40 PM EDT) Only the most recent of3 resultswithin the time period is included. ALT (SGPT) 14 6 - 29 U/L [facility] 02/29/2020 4:40 PM EDT 03/01/2020 12:03 AM EDT Narrative Resulting Agency Comment [id number] Darlene Rodas MD LAB SAME DAY RESULT Final Result Performing Organization Address [facility] de Phone Number [facility] [address] [place] [address] * LIPID PANEL WITH REFLEX TO DIRECT [...] equation in the estimation of LDL-C. Vladimir BLACKMON et al. PUJA. 2013;310(19): 6032-2770 (http://education.arcbazar.com.[facility]/faq/ILL560) CHOL/HDL Ratio 2.2 <5.0 (calc) [facility] Cholesterol Non-HDL 95 <130 mg/dL (calc) [facility] Comment: For patients with diabetes plus 1 major ASCVD risk factor, treating to a non-HDL-C goal of <100 mg/dL (LDL-C of <70 mg/dL) is considered a therapeutic option. 02/29/2020 4:40 PM EDT 03/01/2020 12:03 AM EDT Narrative Resulting Agency Comment [id number] Darlene Rodas MD LABORATORY Final Resu lt Performing Organization Address City/[facility]/ZIP Co de Phone Number [facility] [address] [place] [address] * BASIC METABOLIC PANEL WITH (GFR) (02/29/2020 4:40 PM EDT) Only the most recent of4 resultswithin the time period is included. [facility] Glucose 92 65 - 99 mg/dL [facility] Comment:Fasting reference in terval Urea Nitrogen Blood (BUN) 19 7 - 25 mg/dL [facility] Creatinine 0.66 0.50 - 1.05 mg/dL [facility] Comment: For patients >49 years of age, the reference limit for Creatinine is approximately 13% higher for people identified as -Senegalese. EGFR 100 > OR = 60 mL/min/1 [...] needs for GFR calculation. Resulting Agency Comment [id number] Darlene Rodas MD LABORATORY Final Resu lt Performing Organization Address City/[facility]/ZIP Co de Phone Number [facility] [address] [place] [address] * TEST, URINE - STATION (06/30/2019 9:27 AM EST) HCG, Qualitative, Urine neg Neg Urine specimen (specimen) 06/30/2019 9:27 AM EST Stefania Mclaughlin NP [facility] Final Result * TISSUE PATHOLOGY [...] and Clinical Pathology (electronic signature) Consulting Pathologist [facility] Pathology [phone] [facility] GROSS DESCRIPTION . A . SEE NOTE 5 CUPS and some sugar Comment: The container is labeled with patient's name and source ECC . ? Received in formalin is an endocervical brush with adherent mucoid material. The material measures 0.5 x 0.2 x 0.1 cm in aggregate. Specimen is submitted entirely in cassette A1. ??The specimen may not survive processing. ??Gross exam(s) performed at: ??5 CUPS and some sugar [facility] ??[address] [place] [phone] ??Restaurant Associate: AILYN AGUILAR MD GROSS DESCRIPTION . B . SEE NOTE 5 CUPS and some sugar Comment: The container is labeled with patient's name and source one . ? Specimen is received in formalin and consists of one fragment of light grossman tissue ??measuring 0.4 x 0.3 x 0.1 cm. ?? Specimen is filtered and submitted entirely in cassette B1. ELV/SH 06/30/2019 Note: Due to fixation formalin shrinkage, the measurements in the gross description may be less than those taken at the time of surgery. 06/30/2019 8:15 AM EST 06/30/2019 10:34 PM EST Stefania Mclaughlin NP PATHOLOGY-INTERFACED Final R esult [facility] [address] [place] [address] * BREAST IMPLANT SCREEN DIGITAL MAMMOGRAPHY WITH CAD (05/19/2019 8:06 AM EST) Only the most recent of2 resultswithin the time period is included. RADIOLOGY REPORT [facility] Department of Radiology [address] [place] [address], [address] Name: JARRETT GARZON : 65 Date of Service: 05/18/19 180 Acct Number: [id number] Order Number: ??[id number] ?Location: [facility] Report Number: [id number] ?Service: REG REF/ Requesting Physician: Darlene Rodas MD ([facility]) Category: MAMMOGRAPHY Exam: IMPLANT SCREEN DIGITAL W CAD ?? Signs/Symptoms: SCREENING Report Status: ---Signed--- STUDY: Bilateral implant screening mammogram with CAD. TECHNIQUE: ??Bilateral craniocaudal and mediolateral oblique views obtained. Opez Version 1.3 computer aided detection system utilized. [...] screening mammogram notification. Date/Time of Dictation: 05/19/19 09 Insurance Plan Specialist (if applicable): Approved By Attending Radiologist: Raven Miller MD 05/19/19 0911 [facility] Department of Radiology [address] [place] [address], [address] ? [phone] ? [facility] Anatomical Region Laterality Modality Other 05/19/2019 8:06 AM EST Narrative 05/19/2019 9:14 AM EST Reason for Study/History: Department of Radiology TEST(S) PROCESSED BY [facility] XRAY Darlene Rodas MD [facility]ING[facility] Final Resu lt * TSH, 3RD GENERATION (04/11/2019 8:39 AM EST) Pathologist [facility] TSH 3.81 mIU/L [facility] Comment: ?Reference Range ?> or = 20 Years ??0.40-4.50 ? Ranges ?First trimester ?0.26-2.66 ?Second trimester ?? 0.55-2.73 ?Third trimester ?0.43-2.91 04/11/2019 8:39 AM EST 04/11/2019 9:59 PM EST Narrative Resulting Agency Comment [id number] Darlene Rodas MD LABORATORY Final Resu lt Performing Organization Address City/State/[facility] de Phone Number [facility] [address] [place] [address] * HEPATIC FUNCTION PANEL (ALT,AST,ALK PH,BILI'S,TP,ALB) (04/11/2019 [...] 9:59 PM EST Narrative Resulting Agency Comment [id number] us Darlene Rodas MD LABORATORY Final Resu lt [facility] [address] [place] [address] * (ABNORMAL) HSV 1 AND 2 IGG [...] 10:43 PM EST Narrative Resulting Agency Comment [id number] us Opal Stevens NP LABORATORY Final Result Performing Organization Address [facility] Phone Number [facility] [address] [place] [address] * ASPARTATE AMINOTRANSFERASE (AST), SERUM (03/18/2018 9:22 AM EST) AST (SGOT) 20 10 - 35 U/L [facility] 03/18/2018 9:22 AM EST 03/18/2018 5:02 PM EST Narrative Resulting Agency Comment [id number] us Opal Stevens NP LAB SAME DAY RESULT Final Result Performing Organization Address [facility] Phone Number [facility] [address] [place] [address] * (ABNORMAL) FSH (03/18/2018 9:22 AM EST) FSH 136.1(H) mIU/mL [facility] Comment: ?Reference Range ? Follicular Phase ? 2.5-10.2 ? Mid-cycle Peak ? 3.1-17.7 ? Luteal Phase ? 1.5- 9.1 ? Postmenopausal ? 23.0-116.3 ? 03/18/2018 9:22 AM EST 03/18/2018 5:02 PM EST us Opal Stevens [facility] [employer] [employer] LAB SAME DAY RESULT Final Result [facility] [address] [place] [address] * XRAY ANKLE COMPLETE MIN 3 VWS [...] body. Impression: 1. Normal right ankle Sissy Ricks PA IMG XRAY NO CONTRAST ORDERABLES Final Result * HEPATITIS C AB WITH REFLEX TO RNA PCR, SERUM (11/17/2016 8:05 AM EDT) Hepatitis C virus Ab NON-REACTI VE NON-REACT IRENE 5 CUPS and some sugar Hepatitis C virus Ab Signal/Cutoff 0.02 <1.00 [facility] 11/17/2016 8:05 AM EDT 11/17/2016 8:04 PM EDT Narrative Resulting Agency Comment [id number] Linette Mcguire NP LABORATORY Final Result [facility] [address] [place] [address] * CARDIOVASCULAR STRESS TEST W/TREADMILL, BICYCLE, AND/OR [...]
--- OUTSIDE RECORDS SUMMARY | 2024-07-07 09:11 | XMS_ITS | Data Portability ---
Author Organization [place] - [facility] - IP Address [address] [place] [address] Care Team Providers Care Proofing Machine Operator Name Role Phone PENELOPE AL Primary Care Provider Assessment No assessment recorded. Plan of Treatment Reminders Order Date Submit Date Provider Last Modified By Organization Details Last Modified Time Details Appointments Telehealt h 15 min 2024 04:15P M MOLINA LUCERO MD Not available Not available Not available [facility] 2024 09:30A M Rachel_proc edures Not available Not available Not available Telehealt h20 2024 02:00P M WAYLON DE PAZ Not available Not available Not available Lab [...] Note LastModified by Organization Details LastModified Time lorazepam 0.5 mg tablet TAKE 1 TABLET (0.5 MG) BY MOUTH BEDTIME NEEDED FOR TO SLEEP active Not Available Not Available No t Available omeprazole 20 mg capsule,fernanda yed release TAKE 1 CAPSULE BY MOUTH 2 TIMES A DAY FOR ABDOMINAL DISCOMFORT active Not Available Not Available N ot Available Golytely 236 gram-22.74 gram-6.74 gram-5.86 gram oral solution Take 4000 mL by oral route. 2021 active Not Available Not Available Not Avai [...] SNOMED-CT Code Diagnosis ICD10 Code Diagnosis Note [id number] Fadumo Milligan [facility] Office [address] [place] [address] 02/07/2022 15:07:49 02/07/2022 15:10:05 Family history of cancer of colon [id number] Z80.0 [id number] [facility] Office [address] [facility] [address] [place] [address] 02/13/2022 09:59:09 02/13/2022 10:02:16 Polyp of colon [id number] K63.5 [id number] [facility] Office [address] [place] [address] 07/30/2022 14:00:48 07/30/2022 14:08:09 Family history of cancer of colon [id number] Z80.0 Health Concerns Section Related Observation LastModified by Organization Detai ls LastModified Time None Recorded Concern Status LastModified by Organization Details LastModified Time None Recorded Advance Directives Directive None Recorded Payers Encounter Date Sequence Insurance Name Policy Number Policy Mittal Covered Member ID Mittal Member ID Guarantor Name 01/14/2022 1 [facility] NET PLAN (MEDICAID HMO) KRISTY Garzon [id number] Raven Garzon 02/12/2022 1 [facility] PLAN (MEDICAID HMO) KRISTY Garzon [id number] Raven Garzon 07/29/2022 1 [facility] NET PLAN (MEDICAID HMO) KRISTY Garzon [id number] Raven Garzon OBGyn Episode No OBEpisode recorded.
--- OUTSIDE RECORDS SUMMARY | 2024-07-07 09:11 | XMS_ITS | Encounter Summary ---
Author Organization [facility] Address [address] [place] [address] Care Team Providers Care Mine Car Mechanic Name Role Phone Darlene Rodas MD Primary Care Provider [phone]- [phone] Encounter Details Date Type Department Care Team (Late st Contact Info) Description 03/16/[address] [facility] [address] [place] [phone] Darlene Rodas MD [address] [place] [address] Social History Tobacco Use Types Packs/Day Years [...] of this encounter Procedures * Due to [place] state law, this organization might not be sharing negative HIV tests. Procedure Name Priority Date/Time Associated Diagnosis Comments SYPHILIS (FTA) ANTIBODY CASCADING REFLEX TO RPR/TITER (*PREFERRED SCREEN*) Routine 03/16/2020 12:08 PM EST False positive syphilis serology VENIPUNCTURE Routine 03/16/2020 12:08 PM EST Vegan diet documented in this encounter Results * Due to [place] state law, this organization might not be [...] 9:39 PM EST Narrative Resulting Agency Comment [id number] us Rachael Camarena MD LABORATORY Final Result Performing Organization Address [facility] [address]/[facility] Co de Phone Number [facility] [address] [place] [address] * PROTEIN, TOTAL, SERUM (03/16/2020 12:08 PM EST) Protein Total (Serum) 6.6 6.1 - 8.1 g/dL [facility] 03/16/2020 12:0 8 PM EST 03/16/2020 9:39 PM EST Narrative Resulting Agency Comment [id number] us Darlene Rodas MD LAB SAME DAY RESULT Final Result Performing Organization Address [facility] [address]/[facility] Co de Phone Number [facility] [address] [place] [address] documented in this encounter Visit Diagnoses Diagnosis Vegan diet False positive syphilis serology False positive serological test for syphilis documented in this encounter Care Teams Mine Car Mechanic Relationship Specialty Start Date End Date Darlene Rodas MD [address] [place] [address] [place] [address] PCP - General 07/16/16 03/18/21 documented as of this encounter
--- OUTSIDE RECORDS SUMMARY | 2024-07-07 09:11 | XMS_ITS | Encounter Summary ---
Author Organization [facility] Address [address] [place] [address] Care Team Providers Care Building Energy Retrofit Technician Name Role Phone Oliverio Rodriguez DO Primary Care Provider [phone] Reason for Visit * Auth/Cert (Routine) Specialty Diagnoses / Procedures Referred By Contac t Referred To Contact Diagnoses Gastric reflux CHRONIC ACID REFLUX Procedures [place] EGD TRANSORAL BIOPSY SINGLE/MULTIPLE UPPER ENDOSCOPY WITH POSSIBLE BIOPSY AND/OR POLYPECTOMY AND POSSIBLE MODERATE SEDATION Referral ID Status Reason Start Date Expiration Date Visits Re quested Visits Authorized [id number] 99 [phone] Encounter Details Date Type Department Care Team (Latest Contact Info) Description 07/03/2024 1:55 PM EST - 07/03/2024 3:27 PM EST Hospital Encounter [facility] OR [address] [place] [address] Tammie Ramos MD [address] [place] [address] Gastric reflux Discharge Disposition: Home or Self Care () Social History Tobacco Use Types Packs/Day Years Used Date Smoking Tobacco: Never Smokeless Tobacco: Never Tobacco Cessation:Counseling Given: Not Answered Comments:: Alcohol Use Standard Drinks/Week Comments Never 0 (1 standard drink = 0.6 oz pur e alcohol) Comments No Sex and Gender Information Value Date Recorded Sex Assigned at Female 06/28/2024 1:19 PM EST Legal Sex Female 2:44 AM EDT Gender Identity Female 06/28/2024 1:19 PM EST Sexual Orientation Straight 06/28/2024 1: 19 PM EST documented as of this encounter Last Filed Vital Signs Vital Sign Reading Time Taken Comments Blood Pressure 108/73 07/03/2024 3:00 PM EST Pulse 79 07/03/2024 3:00 PM EST Temperature 37.2 ??C (99 ??F) 07/03/2024 2:08 PM EST Respiratory Rate 16 07/03/2024 3:00 PM EST Oxygen Saturation 100% 07/03/2024 3:00 PM EST Inhaled Oxygen Concentration - - Weight 59 kg (130 lb) 07/03/2024 2:08 PM EST Height 157.5 cm (5' 2 ) 07/03/2024 2:08 PM EST Body Mass Index 23.78 07/03/2024 2:08 PM EST documented in this encounter Discharge Instructions * Discharge Instructions* Gavi Henning RN - 07/03/2024 3:07 PM EST Please follow all discharge instructions as written. For questions or concerns call Dr. Ramos. For emergencies please call 911 or go to nearest ER. * Attachments The following attachments cannot be sent through Care Everywhere. * Art's Esophagus Discharge Instructions (Citizen [place]) * Hiatal hernia ??? Discharge instructions ([place]) * Peptic ulcers ([place]izen [place]) documented in this encounter Medications at Time of Discharge Medication Sig Dispense Quantity Refills Last Filled Start D ate End Date multivitamin (MULTIPLE VITAMINS) tablet documented as of this encounter H&P Notes * Tammie Ramos MD - 07/03/2024 2:15 PM EST HISTORY AND PHYSICAL Subjective Chief Complaint: GERD History of Present Illness: The following portions of the patient's history were reviewed, found to be unchanged or updated as appropriate: Family history, past medical history, social history, past surgical history and problemlist. Current Outpatient Medications: Click to expand medication list[1] Allergies: No Known Allergies Review of Systems: As per history of present illness. Objective Physical Exam: Blood pressure 128/60, pulse 80, temperature 37.2 ??C (99 ??F), temperature source Temporal, resp. rate 18, height 1.575 m (5' 2 ), weight 59 kg (130 lb), SpO2 98%. General Appearance: Alert,in no acute distress. Oriented to person, place and time. Chest: Clear to ausculation bilaterally, no wheeze, rales or rhonchi Heart: Regular rate and rhythm Abdomen: Soft, non-tender, non-distended Other exam findings pertinent to surgical condition: Assessment & Plan EGD Signature: Tammie Ramos MD Electronic Signature [1] diphenhydrAMINE (SOMINEX) tablet 25 mg, multivitamin (MULTIPLE VITAMINS) tablet, TRAZODONE HCL (TRAZODONE ORAL), documented in this encounter Procedure Notes * Tammie Ramos MD - 07/03/2024 12:49 PM ESTAssociated Order(s): UPPER GI ENDOSCOPY [facility] Patient Name: Raven Garzon Procedure Date: 07/03/2024 12:49 PM Date of : 1965 Admit Type: Outpatient Age: 59 Room: GI PROCEDURE Gender: Female Note Status: Finalized Attending MD: Tammie Ramos MD Procedure: Upper GI endoscopy Indications: Suspected gastro-esophageal reflux disease Comorbidities Providers: Tammie Ramos MD Referring MD: Oliveroi Rodriguez (Referring MD) Requesting Provider: Medicines: Monitored Anesthesia Care Complications: No immediate complications. Estimated Blood Loss: Estimated blood loss: none. Procedure: After obtaining informed consent, the endoscope was passed under direct vision. Throughout the procedure, the patient's blood pressure, pulse, and oxygen saturations were monitored continuously. The Endoscope was introduced through the mouth, and advanced to the second part of duodenum. The upper GI endoscopy was accomplished without difficulty. The patient tolerated the procedure well. Findings: A medium-sized hiatal hernia was present. The esophagus and gastroesophageal junction were examined with white light and narrow band imaging (NBI). There were esophageal mucosal changes suspicious for short-segment Art's esophagus. These changes involved the mucosa extending to the Z-line. [place]iac-colored mucosa was present. The maximum longitudinal extent of these esophageal mucosal changes was 3 cm in length. Biopsies were taken with a cold forceps for histology. One non-bleeding cratered gastric ulcer with no stigmata of bleeding was found in the gastric antrum. The lesion was 6 mm in largest dimension. Biopsies were taken with a cold forceps for histology. The examined duodenum was normal. Impression: - Medium-sized hiatal hernia. - Esophageal mucosal changes suspicious for short-segment Art's esophagus. Biopsied. - Non-bleeding gastric ulcer with no stigmata of bleeding. Biopsied. - Normal examined duodenum. Recommendation: - Await pathology results. - Use Prilosec (omeprazole) 40 mg PO daily. - Repeat upper endoscopy in 8 weeks to check healing. - Return to GI office in 4 weeks. Tammie Ramos MD 07/03/2024 2:45:49 PM Number of Addenda: 0 Note Initiated On: 07/03/2024 12:49 PM documented in this encounter Plan of Treatment Upcoming Encounters Date Type Department Care Team (Late st Contact Info) Description 08/01/2024 7:20 AM EDT Appointment [facility] Mammography Department [address] [place] [address] documented as of this encounter Procedures * Due to [facility] law, this organization might not be sharing negative HIV tests. Procedure Name Priority Date/Time Associated Diagnosis Comments TISSUE EXAM - [place] ONLY Routine 07/03/2024 2:36 PM EST Gastric reflux [place] EGD TRANSORAL BIOPSY SINGLE/MULTIPLE 07/03/2024 2:27 PM EST Gastric reflux UPPER GI ENDOSCOPY 07/03/2024 documented in this encounter Results * Due to [facility] law, this organization might not be sharing negative HIV tests. * Tissue Exam - [place] only (07/03/2024 2:36 PM EST) Tissue Exam Result SEE DETAILS 07/05/2024 12:00 AM EST [facility] Comment: ?FINAL DIAGNOSIS ?A. ??Esophagus, distal, biopsy: [...] performance of special and immunostains performed at [facility] ?? [facility], [place] [address], ([id number], CLIA ? #[id number]). ? Grossing and technical work performed at [facility] Network ([facility], [address] [facility], ?? [place] [address]; ; [id number]; CLIA #[id number] ? All professional pathology services performed at [facility] ? [place] ([address] [facility], [place] [address]; ; CLIA ?? #[id number]) ? Note: Some or all of the tests utilized in this case may be laboratory developed tests (LDT's) and may use class I analyte specific reagents (ASR). These tests were developed for clinical purposes and their ? performance characteristics determined by [facility] Laboratories on tissue fixed in 10% neutral buffered formalin. Other fixatives have not been validated, and therefore results on ? tissue with such fixation should be interpreted with caution and in ?? the clinical context. [facility] Laboratories are qualified under the CLIA ?? 1988 documents to provide high-complexity clinical laboratory testing. All controls are reviewed and deemed appropriate. ? Tissue Esophageal structure / Unknown Non-Blood Collection / Unknown 07/03/2024 2:36 PM EST 07/04/2024 10:13 AM EST Comment:Pre-op diagnosis: CHRONIC ACID REFLUX Tissue specimen (specimen) Specimen from stomach / Unknown 07/03/2024 2:39 PM EST Comment:Pre-op diagnosis: CHRONIC ACID REFLUX us Tammie Ramos MD LAB PATH/CYTO ([place]) Final Result Performing Organization Address City/State/[facility] Co de Phone Number [facility] [address] [place] [address], * UPPER GI ENDOSCOPY (07/03/2024) Narrative Procedure Note Tammie Ramos MD - 07/03/2024 12:49 PM EST [facility] Patient Name: Raven Garzon Procedure Date: 07/03/2024 12:49 PM Date of : 1965 Admit Type: Outpatient Age: 59 Room: GI PROCEDURE Gender: Female Note Status: Finalized Attending MD: Tammie Ramos MD Procedure: Upper GI endoscopy Indications: Suspected gastro-esophageal reflux disease Comorbidities Providers: Tammie Ramos MD Referring MD: Oliverio Rodriguez (Referring MD) Requesting Provider: Medicines: Monitored Anesthesia Care Complications: No immediate complications. Estimated Blood Loss: Estimated blood loss: none. Procedure: After obtaining informed consent, the endoscope was passed under direct vision. Throughout theprocedure, the patient's blood pressure, pulse, and oxygen saturations were monitored continuously. TheEndoscope was introduced through the mouth, and advanced tothe second part of duodenum. The upper GI endoscopy was accomplished without difficulty. The patienttolerated the procedure well. Findings: A medium-sized hiatal hernia was present. The esophagus and gastroesophageal junction were examined with white light and narrow band imaging (NBI). There were esophageal mucosal changes suspicious for short-segment Art's esophagus. Thesechanges involved the mucosa extending to the Z-line. Pontiac-colored mucosawas present. The maximum longitudinal extent of these esophageal mucosal changes was 3 cm in length. Biopsies were taken with a cold forcepsfor histology. One non-bleeding cratered gastric ulcer with no stigmata of bleedingwas found in the gastric antrum. The lesion was 6 mm in largestdimension. Biopsies were taken with a cold forceps for histology. The examined duodenum was normal. Impression: - Medium-sized hiatal hernia. - Esophageal mucosal changes suspicious for short-segment Art's esophagus. Biopsied. - Non-bleeding gastric ulcer with no stigmata of bleeding. Biopsied. - Normal examined duodenum. Recommendation: - Await pathology results. - Use Prilosec (omeprazole) 40 mg PO daily. - Repeat upper endoscopy in 8 weeks to checkhealing. - Return to GI office in 4 weeks. Tammie Ramos MD 07/03/2024 2:45:49 PM Number of Addenda: 0 Note Initiated On: 07/03/2024 12:49 PM Tammie Ramos MD PROVATION PROCEDURES Final Resul t documented in this encounter Visit Diagnoses Diagnosis Gastric reflux Esophageal reflux documented in this encounter Care Teams Building Energy Retrofit Technician Relationship Specialty Start Date End Date Michael OliverioDO stevan PCP - General Family Medicine 08/11/21 07/03/24 documented as of this encounter
--- OUTSIDE RECORDS SUMMARY | 2024-07-07 09:11 | XMS_ITS | Clinical Summary ---
Author Organization [facility] Address [address] [place] [address] Care Team Providers Care Applications Development Consultant Name Role Phone Jeremy Camara Primary Care Provider [phone] Allergies No known active allergies Medications multivitamin (MULTIPLE VITAMINS) tablet Act solange diphenhydrAMINE (SOMINEX) tablet 25 mg 5 Discontinue d(Stop Taking at Discharge) TRAZODONE HCL (TRAZODONE ORAL) 07/04/19 2 5 Discontinue d(Stop Taking at Discharge) Active Problems Problem Noted Date Diagnosed Date Age-related facial wrinkles 11/09/2016 Encounters Date Type Department Care Team Description 07/03/2024 2:30 PM EST Anesthesia Event [facility] OR [address] [place] [id number] Stephen Joya MD 07/03/2024 2:10 PM EST - 07/03/2024 2:36 PM EST Surgery [facility] OR [address] [place] [address] Tammie Ramos MD UPPER ENDOSCOPY WITH POSSIBLE BIOPSY AND/OR POLYPECTOMY AND POSSIBLE MODERATE SEDATION [96484 (CPT??)] 07/03/2024 1:55 PM EST - 07/03/2024 3:27 PM EST Hospital Encounter [facility] OR [address] [place] [address] Tammie Ramos MD Gastric reflux Discharge Disposition: Home or Self Care () from Last 3 Months Social History Tobacco Use Types Packs/Day Years [...] Orientation Straight 06/28/2024 1: 19 PM EST Last Filed Vital Signs Vital Sign Reading [...] Mass Index 23.78 07/03/2024 2:08 PM EST Plan of Treatment Upcoming Encounters Date Type Department Care Team (Late st Contact Info) Description 08/01/2024 7:20 AM EDT Appointment [facility] Mammography Department [address] [place] [address] Health Maintenance Due Date Last Done Comments Cologuard 1965 FOBT / Fit Test 1965 HIV Screening 1965 Hepatitis C Screening 1965 Sigmoidoscopy 1965 Hepatitis B Vaccines (1 of 3 - 19+ 3-dose series) 1984 Pneumococcal Vaccine: 50+ Ye ars (1 of 1 - PCV) 2015 Pap Smear 06/11/2023 06/11/2020 Alcohol/Substance Use Screening 05/03/2024 Depression Screening and Follow-Up 05/03/2024 Social Drivers of Health Ирина ual Screening 05/03/2024 Cervical Cancer Screening 06/11/2025 HPV and Pap Smear 06/11/2025 06/11/2020 Mammogram 06/30/2025 06/30/2023, 06/03, 06/13/2021, Additional history exists Colon Cancer Screening 01/27/2032 Colonoscopy 01/27/2032 01/26/2022 DTaP,Tdap,and Td Vaccines (4 - Td or Tdap) 02/15/2034 02/16/2024, 02/05/2014, 04/23/2010 RSV Vaccine (60+ years old a nd patients) (1 - 1-dose 75+ series) 2040 Zoster Vaccines Completed 03/18/2020, 01/10/2020 COVID-19 Vaccine Completed 01/11/2024, , 03/12/2022, Additional history exists Influenza Vaccine Completed 01/11/2024, , 01/29/2022, Additional history exists Procedures * Due to [place] [employer] law, this organization might not be sharing negative HIV tests. Procedure Name Priority Date/Time Associated Diagnosis Comments TISSUE EXAM - [place] ONLY Routine 07/03/2024 2:36 PM EST Gastric reflux [place] EGD TRANSORAL BIOPSY SINGLE/MULTIPLE 07/03/2024 2:27 PM EST Gastric reflux PATHOLOGY - SCANNED 07/03/2024 UPPER GI ENDOSCOPY 07/03/2024 FRANCK BILATERAL IMPLANT SCREENING DIGITAL MAMMOGRAM WITH FUAD Routine 06/30/2023 1:33 PM EST Screening mammogram for breast cancer from Last 3 Months or Most Recently Relevant to Health Maintenance Results * Due to [place] [employer] law, this organization might not be sharing negative HIV tests. * Tissue Exam - [place] only (07/03/2024 2:36 PM EST) Tissue Exam Result SEE DETAILS 07/05/2024 12:00 AM EST [facility] Comment: ?FINAL DIAGNOSIS ?A. ??Esophagus, distal, biopsy: [...] performance of special and immunostains performed at [facility] ?? [facility], [place] [address], ([id number], CLIA ? #[id number]). ? Grossing and technical work performed at [facility] [place] ?? Network ([facility], [address] [place] [address], ?? [place] [address]; ; [id number]; CLIA #[id number] ? All professional pathology services performed at [facility] ? [place] ([address] [place] [address]; ; CLIA ?? #[id number]) ? Note: Some or all of the tests utilized in this case may be laboratory developed tests (LDT's) and may use class I analyte specific reagents (ASR). These tests were developed for clinical purposes and their ? performance characteristics determined by [facility] ?? Network Laboratories on tissue fixed in 10% neutral buffered formalin. Other fixatives have not been validated, and therefore results on ? tissue with such fixation should be interpreted with caution and in ?? the clinical context. [facility] Laboratories are qualified under the CLIA ?? [...] REFLUX us Tammie Ramos MD LAB PATH/CYTO ([place]) Final Result [facility] [address] [place] [address], [place] * PATHOLOGY - SCANNED (07/03/2024) us Onbase Scan Jacek SCANNED PROCEDURES Final Resu lt * UPPER GI ENDOSCOPY (07/03/2024) Narrative Procedure Note Tammie Ramos MD - 07/03/2024 12:49 PM EST [facility] Patient Name: Raven Garzon Procedure Date: [...] involved the mucosa extending to the Z-line. [place]-colored mucosawas present. The maximum longitudinal extent of [...] 0 Note Initiated On: 07/03/2024 12:49 PM us Tammie Ramos MD PROVATION PROCEDURES Final Resul t * FRANCK Bilateral Implant Screening Digital Mammogram With Fuad (06/30/2023 1:33 PM EST) Anatomical Region Laterality Modality Breast Bilateral Mammography Narrative 07/05/2023 11:04 AM EST EXAMINATION FRANCK Bilateral Implant Screening [...] breast. IMPRESSION No mammographic evidence of malignancy. BI-RADS?? ATLAS category (overall): 2 - Benign MANAGEMENT Recommend annual screening mammography. The patient was entered into a reminder system with a target date for their next mammogram. DENSE BREAST RECOMMENDATIONS: The patient has dense breast tissue shown on mammography. Per [place] [employer] Appropriateness Criteria?? for Breast Cancer Screening (https://acsearch.acr.org/docs/93105/Narrative/) patient may benefit from tomosynthesis on future mammography and supplemental imaging with automated breast ultrasound (ABUS) or breast MRI depending on risk factors. Automated Breast Ultrasound (ABUS) is now available at both [facility] and in the Department of Mammography at [facility]. To schedule a patient, you can either enter an ABUS order into [facility] [employer] EMR (type in ABUS), call [facility] Central Scheduling at [phone], or call [facility] Central Scheduling at [phone]. To fax an external order: [facility] [phone] and [facility] [phone]. If this radiology report contains a blank impression section, it is an incomplete radiology report. ??Please contact the interpreting radiologist or applicable radiology division as soon as possible to obtain the completed interpretation. Jeremy Camara [employer] BI PROCEDURES Final Result from Last 3 Months or Most Recently Relevant to Health Maintenance Insurance [facility] MEDICAID Advance Directives Documents on File Type Date Recorded Patient Limnology Teacher Expl anation Health Care Proxy 08/21/2021 Health Care Proxy 08/21/2021 Health Care Proxy 08/21/2021 Health Care Proxy 08/21/2021 Health Care Proxy 08/21/2021 Health Care Proxy 08/21/2021 Care Teams Applications Development Consultant Relationship Specialty Start Date End Date Jeremy Camara [address] [place] [address] PCP - General Internal Medicine 07/04/24
--- OUTSIDE RECORDS SUMMARY | 2024-07-07 09:11 | XMS_ITS | Encounter Summary ---
Author Organization [facility] Address [address] [place] [address] Care Team Providers Care Snack Foods Mixer Operator Name Role Phone Oliverio Rodriguez DO Primary Care Provider [phone] Reason for Visit * Auth/Cert (Routine) Specialty Diagnoses / Procedures Referred By Contac t Referred To Contact Diagnoses Gastric reflux CHRONIC ACID REFLUX Procedures [place] EGD TRANSORAL BIOPSY SINGLE/MULTIPLE UPPER ENDOSCOPY WITH POSSIBLE BIOPSY AND/OR POLYPECTOMY AND POSSIBLE MODERATE SEDATION Referral ID Status Reason Start Date Expiration Date Visits Re quested Visits Authorized [id number] 99 [phone] Encounter Details Date Type Department Care Team (Late st Contact Info) Description 07/03/2024 2:10 PM EST - 07/03/2024 2:36 PM EST [facility] OR [address] [place] [address] Tammie Ramos MD [address] [place] [address] UPPER ENDOSCOPY WITH POSSIBLE BIOPSY AND/OR POLYPECTOMY AND POSSIBLE MODERATE SEDATION [07983 (CPT??)] Social History Tobacco Use Types Packs/Day Years [...] Sign Reading Time Taken Comments Blood Pressure 128/60 07/03/2024 2:08 PM EST Pulse 80 07/03/2024 2:08 PM EST Temperature 37.2 ??C (99 ??F) 07/03/2024 2:08 PM EST Respiratory Rate 18 07/03/2024 2:08 PM EST Oxygen Saturation 98% 07/03/2024 2:08 PM EST Inhaled Oxygen Concentration - - [...] Care Everywhere. * Art's Esophagus Discharge Instructions (Russian) * Hiatal hernia ??? Discharge instructions (Russian) * Peptic ulcers (Russian) documented in this encounter Medications at Time [...] 12:49 PM ESTAssociated Order(s): UPPER GI ENDOSCOPY [facility] Patient Name: Raven Garzon Procedure Date: [...] involved the mucosa extending to the Z-line. Polo-colored mucosa was present. The maximum longitudinal extent [...] Info) Description 08/01/2024 7:20 AM EDT Appointment [facility] Mammography Department [address] [place] [address] documented as of this encounter Procedures * Due to [place] [employer] law, this organization might not be sharing negative HIV tests. Procedure Name Priority Date/Time Associated Diagnosis Comments TISSUE EXAM - [place] ONLY Routine 07/03/2024 2:36 PM EST Gastric reflux [place] EGD TRANSORAL BIOPSY SINGLE/MULTIPLE 07/03/2024 2:27 PM EST Gastric reflux UPPER GI ENDOSCOPY 07/03/2024 documented in this encounter Results * Due to [place] [employer] law, this organization might not be sharing negative HIV tests. * Tissue Exam - [place] only (07/03/2024 2:36 PM EST) Tissue Exam Result SEE DETAILS 07/05/2024 12:00 AM EST [facility] Comment: ?FINAL DIAGNOSIS [...] performance of special and immunostains performed at [facility] ?? [place] [address], ([id number], CLIA ? #[id number]). ? Grossing and technical work performed at [facility] ?? Network ([facility], [address] [place] [address], ?? [place] [address]; ; [id number]; CLIA #[id number] ? All professional pathology services performed at [facility] ? [place] ([address] [place] [address]; ; CLIA ?? #[id number]) ? Note: Some or all of the tests utilized in this case may be laboratory developed tests (LDT's) and may use class I analyte specific reagents (ASR). These tests were developed for clinical purposes and their ? performance characteristics determined by [facility] ?? Network Laboratories on tissue fixed in 10% neutral buffered formalin. Other fixatives have not been validated, and therefore results on ? tissue with such fixation should be interpreted with caution and in ?? the clinical context. [facility] Laboratories are qualified under the CLIA ?? [...] REFLUX us Tammie Ramos MD LAB PATH/CYTO ([facility] Final Result [facility] [address] [place] [address], * UPPER GI ENDOSCOPY (07/03/2024) Narrative Procedure Note Tammie Ramos MD - 07/03/2024 12:49 PM EST [facility] Patient Name: Raven Garzon Procedure Date: [...] involved the mucosa extending to the Z-line. Polo-colored mucosawas present. The maximum longitudinal extent of [...] Visit Diagnoses Diagnosis Gastric reflux Esophageal reflux Gastric reflux Esophageal reflux documented in this encounter Care Teams Snack Foods Mixer Operator Relationship Specialty Start Date End Date MichaelLaotyaOliverio PCP - General Family Medicine 08/11/21 07/03/24 documented as of this encounter
--- OUTSIDE RECORDS SUMMARY | 2024-07-07 09:11 | XMS_ITS | Encounter Summary ---
Author Organization [facility] Address [address] [place] [address] Care Team Providers Care Autocad Detailer Name Role Phone Darlene Rodas MD Primary Care Provider [phone] Encounter Details Date Type Department Care Team (Late st Contact Info) Description 02/29/[address] Orders [address] [facility] [address] [place] [phone] Darlene Rodas MD [address] [place] [address] Social History Tobacco Use Types Packs/Day Years [...] of this encounter Procedures * Due to [place] [employer] law, this organization might not be sharing [...] in this encounter Results * Due to [place] [address] [employer] law, this organization might not be sharing [...] 12:03 AM EDT Narrative Resulting Agency Comment [id number] Darlene Rodas MD LAB SAME DAY RESULT Final Result [facility] [address] [place] [address] * BASIC METABOLIC PANEL WITH (GFR) (02/29/2020 4:40 PM EDT) Glucose 92 65 - 99 mg/dL [facility] Comment:Fasting reference in terval Urea Nitrogen Blood (BUN) 19 7 - 25 mg/dL [facility] Creatinine 0.66 0.50 - 1.05 mg/dL [facility] Comment: For patients >49 years of age, the reference limit for Creatinine is approximately 13% higher for people identified as -Bangladeshi. EGFR 100 > OR = 60 mL/min/1 [...] needs for GFR calculation. Resulting Agency Comment [id number] Darlene Rodas MD LABORATORY Final Resu lt Performing Organization Address [facility] de Phone Number [facility] [address] [place] [address] * LIPID PANEL WITH REFLEX TO DIRECT [...] LDL-C. Vladimir BLACKMON et al. PUJA. 2013;310(19): 5554-3245 (http://education.nGame/faq/MTQ341) CHOL/HDL Ratio 2.2 <5.0 (calc) [facility] Cholesterol Non-HDL 95 <130 mg/dL (calc) [facility] Comment: For patients with diabetes plus 1 major ASCVD risk factor, treating to a non-HDL-C goal of <100 mg/dL (LDL-C of <70 mg/dL) is considered a therapeutic option. 02/29/2020 4:40 PM EDT 03/01/2020 12:03 AM EDT Narrative Resulting Agency Comment [id number] Darlene Rodas MD LABORATORY Final Resu lt Performing Organization Address [facility] Co de Phone Number [facility] [address] [place] [address] * ALANINE AMINOTRANSFERASE (ALT), SERUM (02/29/2020 4:40 PM EDT) ALT (SGPT) 14 6 - 29 U/L [facility] 02/29/2020 4:40 PM EDT 03/01/2020 12:03 AM EDT Narrative Resulting Agency Comment [id number] us Darlene Rodas MD LAB SAME DAY RESULT Final Result Performing Organization Address [facility] Co de Phone Number [facility] [address] [place] [address] * SYPHILIS (FTA) ANTIBODY CASCADING REFLEX TO [...] 12:03 AM EDT Narrative Resulting Agency Comment [id number] us Rachael Camarena MD LABORATORY Final Result Performing Organization Address [facility] de Phone Number [facility] [address] [place] [address] documented in this encounter Visit Diagnoses Diagnosis Concern about STD in female without diagnosis Person with feared complaint in whom no diagnosis was made Screening for endocrine, metabolic and immunity disorder documented in this encounter Care Teams Autocad Detailer Relationship Specialty Start Date End Date Darlene Rodas MD [address] [place] [address] PCP - General 07/16/16 03/18/21 documented as of this encounter
--- OUTSIDE RECORDS SUMMARY | 2024-07-07 09:11 | XMS_ITS | Encounter Summary ---
Author Organization [facility] Address [address] [place] [address] Care Team Providers Care Rn Employee Health Name Role Phone Darlene Rodas MD Primary Care Provider [phone] Encounter Details Date Type Department Care Team ([facility] Contact Info) Description 06/11/2020 Orders Only [facility] [address] [facility] [address] [place] [address] Brittany Li, RAIN [address] [place] [address] Social History Tobacco Use Types Packs/Day Years [...] [address] on recall list. [employer] sent to pt. Problem list updated. * Result Encounter Note - Bree Martin - 06/11/2020 11:05 AM EST On recall documented in this encounter Plan of Treatment Not on file documented as of this encounter Procedures * Due to [place] [employer] law, this organization might not be sharing negative HIV tests. Procedure Name Priority Date/Time Associated Diagnosis Comments THINPREP TIS PAP AND HPV RNA, HR E6/E7, TMA Routine 06/11/2020 11:05 AM EST Abnormal cervical Papanicolaou smear, unspecified abnormal pap finding documented in this encounter Results * Due to [place] [employer] law, this organization might not be sharing [...] Smear Negative for intraepithelial lesion or malignancy. [facility] Cytology study comment (Cvx/Vag) This Pap test has been evaluated with computer assisted technology. [facility] Date Pitter (Cvx/Vag) SXA, CT(ASCP) CT screening location: [place] [address] [facility] COMMENT SEE NOTE [facility] Comment: EXPLANATORY NOTE: The Pap is a [...] HPV MRNA E6/E7 Not Detected Not Detected [facility] Comment: Methodology: Contracting Officer-Mediated Amplification This assay detects E6/E7 viral messenger RNA (mRNA) from 14 high-risk HPV types (16,18,31,33,35,39,45,51,52,56,58,59,66,68). The analytical performance characteristics of this assay have been determined by [employer]. The modifications have not been cleared or approved by the FDA. This assay has been validated pursuant to the CLIA regulations and is used for clinical purposes. For additional information, please refer to http://education.M[employer]/ZSZ466j4 (This link if provided for information/ educational purposes only.) ENDOCERVICAL STRUCTURE / Unknown 06/11/2020 11:05 AM EST 06/12/2020 7:26 AM EST Narrative Resulting Agency Comment [id number] us Brittany Li PARTS ROOM ASSOCIATE PATHOLOGY-INTERFACED Final Resul t [facility] [address] [place] [address] documented in this encounter Visit Diagnoses Diagnosis Abnormal cervical Papanicolaou smear, unspecified abnormal pap finding documented in this encounter Care Teams Rn Employee Health Relationship Specialty Start Date End Date Darlene Rodas MD [address] [place] [address] PCP - General 07/16/16 03/18/21 documented as of this encounter
--- OUTSIDE RECORDS SUMMARY | 2024-07-07 09:11 | XMS_ITS | Referral Summary ---
Author Organization [facility] Address [address] [place] [address] Care Team Providers Care Exhibit Display Representative Name Role Phone Jeremy Camara Primary Care Provider [phone] Encounters Date Type Department Care Team Description 07/03/2024 2:10 PM EST - 07/03/2024 2:36 PM EST Surgery [facility] OR [address] [place] [address] Tammie Ramos MD UPPER ENDOSCOPY WITH POSSIBLE BIOPSY AND/OR POLYPECTOMY AND POSSIBLE MODERATE SEDATION [73923 (CPT??)] 07/03/2024 2:30 PM EST Anesthesia Event [facility] OR [address] [place] [address] Stephen Joya MD 07/03/2024 1:55 PM EST - 07/03/2024 3:27 PM EST Hospital Encounter [facility] OR [address] [place] [address] Tammie Ramos MD Gastric reflux Discharge Disposition: Home or Self Care (01) from Last 3 Months Allergies No known active allergies Medications multivitamin (MULTIPLE VITAMINS) tablet Act solange diphenhydrAMINE (SOMINEX) tablet 25 mg 5 Discontinue d(Stop Taking at Discharge) TRAZODONE HCL (TRAZODONE ORAL) 07/04/19 2 5 Discontinue d(Stop Taking at Discharge) Active Problems Problem Noted Date Diagnosed Date Age-related facial wrinkles 11/09/2016 Social History Tobacco Use Types Packs/Day Years [...] Info) Description 08/01/2024 7:20 AM EDT Appointment [facility] Mammography Department [address] [place] [address] Procedures * Due to [place] [employer] law, this organization might not be sharing negative HIV tests. Procedure Name Priority Date/Time Associated Diagnosis Comments TISSUE EXAM - [facility] Routine 07/03/2024 2:36 PM EST Gastric reflux IL EGD TRANSORAL BIOPSY SINGLE/MULTIPLE 07/03/2024 2:27 PM EST Gastric reflux PATHOLOGY - SCANNED 07/03/2024 UPPER GI ENDOSCOPY 07/03/2024 FRANCK BILATERAL IMPLANT SCREENING DIGITAL MAMMOGRAM WITH FUAD Routine 06/30/2023 1:33 PM EST Screening mammogram for breast cancer from Last 3 Months or Most Recently Relevant to Health Maintenance Results * Due to [place] state law, this organization might not be sharing negative HIV tests. * Tissue Exam - [facility] only (07/03/2024 2:36 PM EST) Tissue Exam Result SEE DETAILS 07/05/2024 12:00 AM EST [facility] Comment: ?FINAL DIAGNOSIS ?A. ??Esophagus, distal, biopsy: [...] performance of special and immunostains performed at [facility] ?? [facility], [place] [address], ([id number], CLIA ? #[id number]). ? Grossing and technical work performed at [facility] ?? Network ([facility], [address] [place] [address], ?? [place] [address]; ; [id number]; CLIA #[id number] ? All professional pathology services performed at [facility] ? [facility] ([address] [place] [address]; ; CLIA ?? #[id number]) ? Note: Some or all of the tests utilized in this case may be laboratory developed tests (LDT's) and may use class I analyte specific reagents (ASR). These tests were developed for clinical purposes and their ? performance characteristics determined by [facility] ?? [facility] Laboratories on tissue fixed in 10% neutral buffered formalin. Other fixatives have not been validated, and therefore results on ? tissue with such fixation should be interpreted with caution and in ?? the clinical context. [facility] Laboratories are qualified under the CLIA [...] REFLUX us Tammie Ramos MD LAB PATH/CYTO ([place]) Final Result [facility] [address] [place] [address], [place] * PATHOLOGY - SCANNED (07/03/2024) us Onbase Scan Jacek SCANNED PROCEDURES Final Resu lt * UPPER GI ENDOSCOPY (07/03/2024) Narrative Procedure Note Tammie Ramos MD - 07/03/2024 12:49 PM EST [facility] Patient Name: Raven Garzon Procedure Date: [...] involved the mucosa extending to the Z-line. Paterson-colored mucosawas present. The maximum longitudinal extent of [...] dense breast tissue shown on mammography. Per [employer] Appropriateness Criteria?? for Breast Cancer Screening (https://acsearch.acr.org/docs/39323/Narrative/) patient may benefit from tomosynthesis on future mammography and supplemental imaging with automated breast ultrasound (ABUS) or breast MRI depending on risk factors. Automated Breast Ultrasound (ABUS) is now available at both [facility] and in the Department of Mammography at [facility]. To schedule a patient, you can either enter an ABUS order into [facility] EMR (type in ABUS), call [facility] Central Scheduling at [phone], or call [facility] Central Scheduling at [phone]. To fax an external order: [facility] [phone] and [facility] [phone]. If this radiology report contains a blank impression section, it is an incomplete radiology report. ??Please contact the interpreting radiologist or applicable radiology division as soon as possible to obtain the completed interpretation. Jeremy Camara IMG BI PROCEDURES Final Result from Last 3 Months or Most Recently Relevant to Health Maintenance Insurance [employer] Advance Directives Documents on File Type Date Recorded Patient Audiology Assistant Expl anation Health Care Proxy 08/21/2021 Health Care Proxy 08/21/2021 Health Care Proxy 08/21/2021 Health Care Proxy 08/21/2021 Health Care Proxy 08/21/2021 Health Care Proxy 08/21/2021 Care Teams Exhibit Display Representative Relationship Specialty Start Date End Date Jeremy Camara [address] [place] [address] PCP - General Internal Medicine 07/04/24
--- OUTSIDE RECORDS SUMMARY | 2024-07-07 09:11 | XMS_ITS | Encounter Summary ---
Author Organization [facility] Address [address] [place] [address] Care Team Providers Care Mixing Technician Name Role Phone Oliverio Rodriguez DO Primary Care Provider Reason for Visit * Auth/Cert (Routine) Specialty Diagnoses / Procedures Referred By Lakshmi t Referred To Contact Diagnoses Gastric reflux CHRONIC ACID REFLUX Procedures IA EGD TRANSORAL BIOPSY SINGLE/MULTIPLE UPPER ENDOSCOPY WITH POSSIBLE BIOPSY AND/OR POLYPECTOMY AND POSSIBLE MODERATE SEDATION Referral ID Status Reason Start Date Expiration Date Visits Re quested Visits Authorized [id number] 99 99 Encounter Details Date Type Department Care Team (Late st Contact Info) Description 07/03/2024 2:30 PM EST Anesthesia Event [facility] OR [address] [place] [address] Stephen Joya MD [address] [place] [address] Anesthesia Record Procedure Summary Procedure Name Responsible Anesthesiologist Anesthesia Start Time Anesthesia Stop Time UPPER ENDOSCOPY WITH POSSIBLE BIOPSY AND/OR POLYPECTOMY AND POSSIBLE MODERATE SEDATION Stephen Joya MD 07/03/24 1430 07/03/24 1449 Events Date Time Event Comment 07/03/2024 1411 1430 In Room 1430 An Start 1430 An Start Data 1434 An Induction The patient was reevaluated immediately before induction of anesthesia. 1434 Anesthesia Ready 1436 Proc Start 1440 Proc Fin 1442 an stop data 1443 Out of Room 1449 Handoff to RN I completed my handoff to the receiving nurse during which we: 1. Identified the patient 2. Identified the responsible provider 3. Reviewed the pertinent medical history 4. Discussed the surgical course 5. Reviewed intra-op anesthesia management and issues during anesthesia 6. Set expectations for post-procedure period 7. Allowed opportunity for questions and acknowledgement of understanding. 1449 An Stop Meds Name Total lidocaine PF (XYLOCAINE) injection 2% (2 0 mg/mL) 4 mL propofol (DIPRIVAN) bolus 200 mg * Agents No agents on file. * Blood No blood administrations on file. Lines, Drains, and Airways Type Details Placement Removal Peripheral IV Placement Date: 07/03/24; Placement Time: 1421; Catheter Size: 22 G; Orientation: Anterior, Proximal, Right; Location: Forearm; Inserted by: kelsey conteh rn; Insertion Attempts: 1; Patient Tolerance: Tolerated well; Removal Date: 07/03/24; Removal Time: 151807/03/241421 by Gavi Conteh RN 07/03/241518 by Gavi Conteh RN documented in this encounter Social History Tobacco Use Types Packs/Day Years Used Date Smoking Tobacco: Never Smokeless Tobacco: Never Comments:: Alcohol Use Standard Drinks/Week Comments Never [...] Sign Reading Time Taken Comments Blood Pressure 150/75 07/03/2024 2:41 PM EST Pulse 86 07/03/2024 2:41 PM EST Temperature - - Respiratory Rate 18 07/03/2024 2:41 PM EST Oxygen Saturation 100% 07/03/2024 2:41 PM EST Inhaled Oxygen Concentration - - Weight - - Height - - Body Mass Index - - documented in this encounter OR Notes * Anesthesia Postprocedure Evaluation - Stephen Joya MD - 07/03/2024 4:39 PM EST Anesthesia Post-procedure Evaluation Patient: Raven Garzon : 1965 Date of Procedure: 07/03/2024 Procedure Summary Date: 07/03/24 Room / Location: GI PROCEDURE / GI OR Anesthesia Start: 1430 Anesthesia Stop: 1449 Procedure: UPPER ENDOSCOPY WITH POSSIBLE BIOPSY AND/OR POLYPECTOMY AND POSSIBLE MODERATE SEDATION Diagnosis: Gastric reflux (CHRONIC ACID REFLUX) Surgeons: Tammie Raoms MD Responsible Provider: Stephen Joya MD Anesthesia Type: general ASA Status: 2 Anesthesia Type: general Last vitals Vitals Value Taken Time BP 108/73 07/03/24 1500 Temp 07/03/24 1639 Pulse 79 07/03/24 1500 Resp 16 07/03/24 1500 SpO2 100 % 07/03/24 1500 Anesthesia Post Evaluation Patient location during evaluation: PACU Patient participation: complete - patient participated Level of consciousness: awake Pain management: adequate Anesthetic complications: no Nausea and Vomiting: no Cardiovascular status: acceptable Respiratory status: acceptable Hydration status: acceptable No notable events documented. Stephen Joya MD Date: 07/03/2024 Time: 4:39 PM * Anesthesia Preprocedure Evaluation - Stephen Joya MD - 06/30/2024 11:44 AM EST Images from the original note were not included. Anesthesia Pre-procedure Evaluation Patient: Raven Garzon : 1965 Date of Procedure: 07/03/2024 Preoperative Diagnosis: Pre-op Diagnosis * Gastric reflux [K21.9] UPPER ENDOSCOPY WITH POSSIBLE BIOPSY AND/OR POLYPECTOMY AND POSSIBLE MODERATE SEDATION: 65338 (CPT??) Surgeon(s): Tammie Ramos MD Past Medical / Past Surgical: No past medical history on file. Past Surgical History: Procedure Laterality Date BREAST AUGMENTATION Bilateral 12/02/2012 Social / Family Histories: Social History Tobacco Use Smoking status: Never Smokeless tobacco: Not on file Tobacco comments: : Substance Use Topics Alcohol use: Not on file Social History Substance and Sexual Activity Drug Use Not on file No family history on file. OB History 2 Para 2 Term 2 AB Living SAB IAB Ectopic Multiple Live Births Prior to Admission medications Medication Sig Start Date End Date Taking? Authorizing Provider diphenhydrAMINE (SOMINEX) tablet 25 mg Unknown ProviderMD multivitamin (MULTIPLE VITAMINS) tablet Unknown ProviderMD TRAZODONE HCL (TRAZODONE ORAL) Unknown Provider, Allergies: Patient has no allergy information on record. Vitals / Weight: There were no vitals taken for this visit. Recent Labs: Latest Ref Rng & Units 11/07/2021 8:34 AM CBC WBC 4.8 - 10.8 X1000 4.5 Hgb 11.7 - 15.5 g/dl 14.0 Hct 35.7 - 45.8 % 42.5 MCV 81.0 - 99.0 fl 89.7 Plts 140 - 440 X1000 238 Latest Ref Rng & Units 10/02/2021 8:52 AM Basic Metabolic Panel Sodium 136 - 145 mMOL/L 140 Potassium 3.5 - 5.1 mMOL/L 3.7 Chloride 98.0 - 109.0 mMOL/L 103 Carbon Dioxide 23 - 32 mMOL/L 26 Glucose 60 - 99 mg/dL 69 Creatinine 0.50 - 1.12 mg/dL 0.76 Calcium 8.4 - 10.4 mg/dL 9.9 EGFR 60- eGFR 88 Recent EKG: Patient's Hospital Problems: Patient Active Problem List Diagnosis Age-related facial wrinkles Anesthesia Evaluation Patient summary reviewed. Anesthesia History: No history of anesthetic complications Pulmonary - negative ROS Cardiovascular - negative ROS Neuro/Psych - negative ROS GI/Hepatic/Renal (+) GERD Endo/Other - negative ROS Infectious Disease Physical Exam Airway Mallampati: II TM distance: >3 FB Neck ROM: full Mouth Opening: good Cardiovascular Dental (+) lower dentures Pulmonary Abdominal Anesthesia Plan ASA 2 Anesthesia Type: general Pre-Anesthesia Review by Attending Anesthesiologist: Stephen Joya MD Date: 07/03/2024 Time: 2:09 PM I have interviewed and examined the patient and conducted a pre-anesthesia evaluation that includedreview of the complete medical history, notation of a relevant patient problem list and review of all pertinent preoperative studies, laboratory testing and specialty consultations. An assessment of anesthetic risk including ASA classification and an anesthetic plan have been documented. Original Author: Stephen Joya MD documented in this encounter Plan of Treatment Upcoming Encounters Date Type Department Care Team (Late st Contact Info) Description 08/01/2024 7:20 AM EDT Appointment [facility] Mammography Department [address] [place] [address] documented as of this encounter Visit Diagnoses Not on filedocumented in this encounter Administered Medications Inactive Administered Medications - up to 3 most recent administrations Medication Order MAR Action Action Date Dose Rate Site lidocaine (XYLOCAINE) 2% (20 mg/mL) injection intradermal, As needed, Starting on Wed07/03/24 at 1434, Until Wed07/03/24 at 1449, Anesthesia Intra-op Given 07/03/2024 2:34 PM EST 4 mL propofoL (DIPRIVAN) injection intravenous, As needed, Starting on Wed07/03/24 at 1434, Until Wed07/03/24 at 1449, Anesthesia Intra-op Given 07/03/2024 2:38 PM EST 40 mg Given 07/03/2024 2:37 PM EST 40 mg Given 07/03/2024 2:36 PM EST 40 mg documented in this encounter Care Teams Mixing Technician Relationship Specialty Start Date End Date Oliverio Rodriguez DO PCP - General Family Medicine 08/11/21 07/03/24 documented as of this encounter
--- OUTSIDE RECORDS SUMMARY | 2024-07-07 09:12 | XMS_ITS | Clinical Summary ---
Author Organization [facility] Address [address] [place] [address] Care Team Providers Care Director Of Curriculum Name Role Phone No, Pcp PELLET PRESS OPERATOR Primary Care Provider Unavailabl e Allergies No [...] Colorectal Cancer: Fecal Immunochemical Test (FIT) Annually [facility] 2010 Colorectal Cancer: High-sensitivity gFOBT Screening Annually [...] Vaccine Screening: Initial Series and Booster Status ([facility]) (2023- season) 2024 02/06/2021, 08/02/2020, 07/12/2020 DTaP/Tdap/Td Vaccines ([facility]) (2 - Td or Tdap) 02/06/2024 02/05/2014 Zoster/Shingles Vaccine Seri es Screening: Adults aged 18+ yrs (or HM Modifiers)([facility]) Completed 03/18/2020, 01/10/2020 Pneumococcal Vaccination Screening: Pts 0-19 & 19-64 yrs of age ([facility]) Aged Out No longer eligible based on patient's age to complete this topic Medical Devices Not on file Insurance [employer] Care Teams Director Of Curriculum Relationship Specialty Start Date End Date No, Pcp, PELLET PRESS OPERATOR N/A Do not use PCP - General Family Medicine 03/24/20
--- OUTSIDE RECORDS SUMMARY | 2024-07-07 09:12 | XMS_ITS | Encounter Summary ---
Author Organization [facility] Address [address] [place] [address] Care Team Providers Care Roofer Assistant Name Role Phone Unavailable Primary Care Provider Unavailabl e Encounter Details Date Type Department Care Team ([facility] st Contact Info) Description 07/03/2024 Orders Only [facility] [address] [place] [address] Tammie Ramos MD [address] [place] [address] Social History Tobacco Use Types Packs/Day Years [...] Safe at Home Not on file 12/10/2022 Comments No Sex and Gender Information Value [...] of this encounter Procedures * Due to [facility] law, this organization might not be sharing negative HIV tests. Procedure Name Priority Date/Time Associated Diagnosis Comments TISSUE EXAM - [place] ONLY Routine 07/03/2024 2:36 PM EST documented in this encounter Results * Due to [facility] law, this organization might not be sharing negative HIV tests. * TISSUE EXAM - [place] ONLY (07/03/2024 2:36 PM EST) TISSUE EXAM RESULT SEE DETAILS [facility] Comment: ?FINAL DIAGNOSIS ?A. ??Esophagus, distal, biopsy: [...] performance of special and immunostains performed at [facility] ?? [facility], [place] [address], ([id number], CLIA ? #[id number]). ? Grossing and technical work performed at [facility] ?? Network ([facility], [address] [facility], ?? [place] [address]; ; -[id number]; CLIA #[id number] ? All professional pathology services performed at [facility] ? [place] ([address] [place] [address]; ; CLIA ?? #[id number]) ? Note: Some or all of the tests utilized in this case may be laboratory developed tests (LDT's) and may use class I analyte specific reagents (ASR). These tests were developed for clinical purposes and their ? performance characteristics determined by [facility] ?? Network Laboratories on tissue fixed in 10% neutral buffered formalin. Other fixatives have not been validated, and therefore results on ? tissue with such fixation should be interpreted with caution and in ?? the clinical context. [facility] Laboratories are qualified under the CLIA ?? 1988 documents to provide high-complexity clinical laboratory testing. All controls are reviewed and deemed appropriate. ? 07/03/2024 2:36 PM EST Narrative [facility] - 07/05/2024 12:00 AM EST Pre-op diagnosis: CHRONIC ACID REFLUX Tammie Ramos MD PATHOLOGY Final Result [facility] [employer] [address] [place] [address] documented in this encounter Visit Diagnoses Not on filedocumented in this encounter
--- OUTSIDE RECORDS SUMMARY | 2024-07-07 09:12 | XMS_ITS | Encounter Summary ---
Author Organization [facility] Address [address] [place] [address] Care Team Providers Care Staff Air Tactical Officer Name Role Phone Darlene Rodas MD Primary Care Provider +1- [phone] Encounter Details Date Type Department Care Team (Late st Contact Info) Description 11/17/2016 Orders Only [facility] [address] [place] [phone] Linette Mcguire NP Social History Tobacco Use Types Packs/Day [...] of this encounter Procedures * Due to [place] state law, this organization might not be [...] in this encounter Results * Due to [place] state law, this organization might not be sharing negative HIV tests. * HEPATITIS C AB WITH REFLEX TO RNA PCR, SERUM (11/17/2016 8:05 AM EDT) Hepatitis C virus Ab NON-REACTI VE NON-REACT IRENE [facility] Hepatitis C virus Ab Signal/Cutoff 0.02 <1.00 [facility] 11/17/2016 8:05 AM EDT 11/17/2016 8:04 PM EDT Narrative Resulting Agency Comment [id number] Linette Mcguire NP LABORATORY Final Result Performing Organization Address City/State/[facility] Co de Phone Number [facility] [address] [place] [address] * CBC INCLUDES DIFFERENTIAL AND PLATELET COUNT [...] 8:04 PM EDT Narrative Resulting Agency Comment [id number] Linette Mcguire NP LAB SAME DAY RESULT Final Re sult Performing Organization Address [facility] Co de Phone Number [facility] [address] [place] [address] * ALANINE AMINOTRANSFERASE (ALT), SERUM (11/17/2016 8:05 AM EDT) ALT (SGPT) 12 6 - 29 U/L [facility] 11/17/2016 8:05 AM EDT 11/17/2016 8:04 PM EDT Narrative Resulting Agency Comment [id number] Linette Mcguire CHIP BIN CONVEYOR TENDER LAB SAME DAY RESULT Final Re sult Performing Organization Address [facility] Co de Phone Number [facility] [address] [place] [address] * LIPID PANEL WITH REFLEX TO DIRECT [...] 8:04 PM EDT Narrative Resulting Agency Comment [id number] Linette Mcguire NP LABORATORY Final Result [facility] [address] [place] [address] * BASIC METABOLIC PANEL WITH (GFR) (11/17/2016 8:05 AM EDT) Pathologist [facility] Glucose 81 65 - 99 mg/dL [facility] Comment:Fasting reference in terval Urea Nitrogen Blood (BUN) 14 7 - 25 mg/dL [facility] Creatinine 0.76 0.50 - 1.05 mg/dL [facility] Comment: For patients >49 years of age, the reference limit for Creatinine is approximately 13% higher for people identified as -Stateless. GFR 91 > OR = 60 mL/min/1 [...] needs for GFR calculation. Resulting Agency Comment [id number] us Linette Eineberg CHIP BIN CONVEYOR TENDER LABORATORY Final Result [facility] [address] [place] [address] documented in this encounter Visit Diagnoses Diagnosis Encounter to establish care with new doctor Other reasons for seeking consultation Health care maintenance Unspecified general medical examination Need for hepatitis C screening test Special screening examination for other specified viral diseases documented in this encounter Care Teams Staff Air Tactical Officer Relationship Specialty Start Date End Date Darlene Rodas MD [address] [place] [address] PCP - General 07/16/16 03/18/21 documented as of this encounter
--- OUTSIDE RECORDS SUMMARY | 2024-07-07 09:12 | XMS_ITS | Encounter Summary ---
Author Organization [facility] Address [address] [place] [address] Care Team Providers Care Greensman Name Role Phone Darlene Roads MD Primary Care Provider +1- [phone] Encounter Details Date Type Department Care Team (Late st Contact Info) Description 04/11/[address] [facility] [address] [place] [phone] Darlene Rodas MD [address] [place] [address] Social History Tobacco Use Types Packs/Day Years [...] test called a colposcopy, a test done bygynecologist in the office, a bx of the cervix to make sure there are no other / higher grade abnorm ality of the cells. There fore recommend obstetrician/gynecologist consult for colposcopy, if agreeable please send referral, for obstetrician/gynecologist (ASCUS HPV pos) Her lab work was all normal. documented in this encounter Plan of Treatment Not on file documented as of this encounter Procedures * Due to [employer] law, this organization might not be sharing [...] in this encounter Results * Due to [employer] law, this organization might not be sharing [...] in vaginal danica suggestive of bacterial vaginosis. [facility] Cytology study comment (Cvx/Vag) This Pap test has been evaluated with computer assisted technology. [facility] Electronics Teacher (Cvx/Vag) CXP, CT(ASCP) CT screening location: [place] [address] [facility] Pathologist (Cvx/Vag) Guera Whitfield M.D., Board Certified in Anatomic and Clinical Pathology (electronic signature) Consulting Pathologist [facility] Pathology [phone] [facility] COMMENT SEE NOTE [facility] [...] was performed using the APTIMA HPV Assay ([employer] This assay detects E6/E7 viral messenger RNA (mRNA) from 14 high-risk HPV types (16,18,31,33,35,39,45,51,52,56,58,59,66,68). The analytical performance characteristics of this assay have been determined by [employer]. The modifications have not been cleared or approved by the FDA. This assay has been validated pursuant to the CLIA regulations and is used for clinical purposes. ENDOCERVICAL STRUCTURE / Unknown 04/11/2019 12:15 PM EST 04/11/2019 11:36 PM EST Narrative Resulting Agency Comment [id number] Darlene Rodas MD PATHOLOGY-INTERFACED Final Result [facility] [address] [place] [address] * CBC INCLUDES DIFFERENTIAL AND PLATELET COUNT [...] 9:59 PM EST Narrative Resulting Agency Comment [id number] Darlene Rodas MD LAB SAME DAY RESULT Final Result Performing Organization Address City/State/[facility] Co de Phone Number [facility] [address] [place] [address] * LIPID PANEL WITH REFLEX TO DIRECT LDL (04/11/2019 8:39 AM EST) Cholesterol 172 <200 mg/dL [facility] HDL Cholesterol 77 >50 mg/dL [facility] Triglyceride 49 <150 mg/dL [facility] [...] LDL-C. Vladimir BLACKMON et al. PUJA. 2013;310(19): 4297-9433 (http://education.Sazze.Drone.io/faq/QHW247) CHOL/HDL Ratio 2.2 <5.0 (calc) [facility] Cholesterol Non-HDL 95 <130 mg/dL (calc) [facility] Comment: For patients with diabetes plus 1 major ASCVD risk factor, treating to a non-HDL-C goal of <100 mg/dL (LDL-C of <70 mg/dL) is considered a therapeutic option. 04/11/2019 8:39 AM EST 04/11/2019 9:59 PM EST Narrative Resulting Agency Comment [id number] Darlene Rodas MD LABORATORY Final Resu lt [facility] [address] [place] [address] * BASIC METABOLIC PANEL WITH (GFR) (04/11/2019 8:39 AM EST) Glucose 76 65 - 99 mg/dL [facility] Comment:Fasting reference in terval Urea Nitrogen Blood (BUN) 14 7 - 25 mg/dL [facility] Creatinine 0.65 0.50 - 1.05 mg/dL [facility] Comment: For patients >49 years of age, the reference limit for Creatinine is approximately 13% higher for people identified as -Russian. EGFR 101 > OR = 60 mL/min/1 [...] needs for GFR calculation. Resulting Agency Comment [id number] Darlene Rodas MD LABORATORY Final Resu lt Performing Organization Address [facility] de Phone Number [facility] [address] [place] [address] * HEPATIC FUNCTION PANEL (ALT,AST,ALK PH,BILI'S,TP,ALB) (04/11/2019 [...] 9:59 PM EST Narrative Resulting Agency Comment [id number] Darlene Rodas MD LABORATORY Final Resu lt Performing Organization Address [facility] de Phone Number [facility] [address] [place] [address] * TSH, 3RD GENERATION (04/11/2019 8:39 AM EST) TSH 3.81 mIU/L [facility] Comment: ?Reference Range ?> or = 20 Years ??0.40-4.50 ? Ranges ?First trimester ?0.26-2.66 ?Second trimester ?? 0.55-2.73 ?Third trimester ?0.43-2.91 04/11/2019 8:39 AM EST 04/11/2019 9:59 PM EST Narrative Resulting Agency Comment [id number] Darlene Rodas MD LABORATORY Final Resu lt Performing Organization Address City/State/[facility] Co de Phone Number [facility] [address] [place] [address] documented in this encounter Visit Diagnoses Diagnosis Screening for metabolic disorder Screening for malignant neoplasm of cervix Screening for malignant neoplasm of the cervix documented in this encounter Care Teams Greensman Relationship Specialty Start Date End Date Darlene Rodas MD [address] [place] [address] PCP - General 07/16/16 03/18/21 documented as of this encounter
--- OUTSIDE RECORDS SUMMARY | 2024-07-07 09:12 | XMS_ITS | Encounter Summary ---
Author Organization [facility] Address [address] [place] [address] Care Team Providers Care Coil Repair Technician Name Role Phone Darlene Rodas MD Primary Care Provider +1- [phone] Encounter Details Date Type Department Care Team (Late st Contact Info) Description 03/18/2018 Orders Only [facility] [address] [place] [address] Opal Stevens NP Social History [...] of this encounter Procedures * Due to [place] state law, this organization might not [...] in this encounter Results * Due to [place] state law, this organization might not be sharing negative HIV tests. * (ABNORMAL) FSH (03/18/2018 9:22 AM EST) FSH 136.1(H) mIU/mL [facility] Comment: ?Reference Range ? Follicular Phase ? 2.5-10.2 ? Mid-cycle Peak ? 3.1-17.7 ? Luteal Phase ? 1.5- 9.1 ? Postmenopausal ? 23.0-116.3 ? 03/18/2018 9:22 AM EST 03/18/2018 5:02 PM EST us Opal Stevens STUDY SPECIALIST LAB SAME DAY RESULT Final Result [facility] [address] [place] [address] * ASPARTATE AMINOTRANSFERASE (AST), SERUM (03/18/2018 9:22 AM EST) AST (SGOT) 20 10 - 35 U/L [facility] 03/18/2018 9:22 AM EST 03/18/2018 5:02 PM EST Narrative Resulting Agency Comment [id number] Opal Stevens STUDY SPECIALIST LAB SAME DAY RESULT Final Result Performing Organization Address City/[facility]/ZIP Co de Phone Number [facility] [address] [place] [address] * ALANINE AMINOTRANSFERASE (ALT), SERUM (03/18/2018 9:22 AM EST) ALT (SGPT) 12 6 - 29 U/L [facility] 03/18/2018 9:22 AM EST 03/18/2018 5:02 PM EST Narrative Resulting Agency Comment [id number] Opal Stevens STUDY SPECIALIST LAB SAME DAY RESULT Final Result Performing Organization Address [facility] de Phone Number [facility] [address] [place] [phone] * LIPID PANEL WITH REFLEX TO DIRECT [...] LDL-C. Vladimir BLACKMON et al. PUJA. 2013;310(19): 5971-5247 (http://education.ArtSetters.GadgetATM/faq/KXU244) CHOL/HDL Ratio 2.1 <5.0 (calc) [facility] Cholesterol Non-HDL 98 <130 mg/dL (calc) [facility] Comment: For patients with diabetes plus 1 major ASCVD risk factor, treating to a non-HDL-C goal of <100 mg/dL (LDL-C of <70 mg/dL) is considered a therapeutic option. 03/18/2018 9:22 AM EST 03/18/2018 5:02 PM EST Narrative Resulting Agency Comment [id number] us Opal Stevens STUDY SPECIALIST LABORATORY Final Result Performing Organization Address City/[facility]/ZIP Co de Phone Number [facility] [address] [place] [address] * BASIC METABOLIC PANEL WITH (GFR) (03/18/2018 9:22 AM EST) Glucose 75 65 - 99 mg/dL [facility] Comment:Fasting reference in terval Urea Nitrogen Blood (BUN) 12 7 - 25 mg/dL [facility] Creatinine 0.63 0.50 - 1.05 mg/dL [facility] Comment: For patients >49 years of age, the reference limit for Creatinine is approximately 13% higher for people identified as -Turkmen. GFR 102 > OR = 60 mL/min/1 [...] needs for GFR calculation. Resulting Agency Comment [id number] Opal Stevens STUDY SPECIALIST LABORATORY Final Result Performing Organization Address [facility] Co de Phone Number [facility] [address] [place] [address] documented in this encounter Visit Diagnoses Diagnosis Healthy adult on routine physical examination Routine general medical examination at a health care facility documented in this encounter Care Teams Coil Repair Technician Relationship Specialty Start Date End Date Darlene Rodas MD [address] [place] [address] PCP - General 07/16/16 03/18/21 documented as of this encounter
--- OUTSIDE RECORDS SUMMARY | 2024-07-07 09:12 | XMS_ITS | Encounter Summary ---
Author Organization [facility] Address [address] [place] [address] Care Team Providers Care Air Export Coordinator Name Role Phone Darlene Rodas MD Primary Care Provider +1- [phone] Encounter Details Date Type Department Care Team (Late st Contact Info) Description 03/22/[address] [facility] [address] [place] [phone] Opal Stevens NP Social History Tobacco Use [...] this encounter Procedures * Due to [place] [employer] law, this organization might not be sharing negative HIV tests. Procedure Name Priority Date/Time Associated Diagnosis Comments HSV 1 AND 2 IGG HERPESELECT SPECIFIC ANTIBODY Routine 03/22/2018 5:00 PM EST Screen for STD (sexually transmitted disease) documented in this encounter Results * Due to [place] [employer] law, this organization might not be sharing [...] 10:43 PM EST Narrative Resulting Agency Comment [id number] Opal Stevens NP LABORATORY Final Result [facility] [address] [place] [address] documented in this encounter Visit Diagnoses Diagnosis Screen for STD (sexually transmitted disease) Screening examination for venereal disease documented in this encounter Care Teams Air Export Coordinator Relationship Specialty Start Date End Date Darlene Rodas MD [address] [place] [address] PCP - General 07/16/16 03/18/21 documented as of this encounter
--- OUTSIDE RECORDS SUMMARY | 2024-07-07 09:12 | XMS_ITS | Encounter Summary ---
Author Organization [facility] Address [address] [place] [address] Care Team Providers Care Gravity Meter Operator Name Role Phone Darlene Rodas MD Primary Care Provider +1- [phone] Encounter Details Date Type Department Care Team ([facility] st Contact Info) Description 10/29/2020 Orders Only [facility]. Pod[facility]ry [address] [place] [phone] Tre Rosario, DPYocasta [address] [place] [address] Social History Tobacco Use Types Packs/Day Years [...] of this encounter Procedures * Due to [place] [employer] law, this organization might not be sharing negative HIV tests. Procedure Name Priority Date/Time Associated Diagnosis Comments FUNGAL STAIN, JAMIE Routine 10/29/2020 2:3 9 PM EDT Onychomycosis documented in this encounter Results * Due to [place] [employer] law, this organization might not be sharing negative HIV tests. * FUNGAL STAIN, JAMIE (10/29/2020 2:39 PM EDT) Fungus identified SEE NOTE [facility] Comment: ??FUNGAL STAIN ??Micro Number: ?[id number] ??Test Status: ? Final ??Specimen Source: ?? LEFT 2ND TOENAIL ??Specimen Quality: ??Adequate ??Smear: ? No fungal elements seen. 10/29/2020 2:39 PM EDT 10/29/2020 9:27 PM EDT Narrative Resulting Agency Comment [id number] us Tre Rosario DPM LABORATORY Final Result Performing Organization Address City/State/[facility] Co de Phone Number [facility] [address] [place] [address] documented in this encounter Visit Diagnoses Diagnosis Onychomycosis Dermatophytosis of nail documented in this encounter Care Teams Gravity Meter Operator Relationship Specialty Start Date End Date Darlene Rodas MD [address] [place] [address] [place] [address] PCP - General 07/16/16 03/18/21 documented as of this encounter
--- OUTSIDE RECORDS SUMMARY | 2024-07-07 09:12 | XMS_ITS | Encounter Summary ---
Author Organization [facility] Address [address] [place] [address] Care Team Providers Care Service Crew Supervisor Name Role Phone Darlene Rodas MD Primary Care Provider +1- [phone] Encounter Details Date Type Department Care Team (Late st Contact Info) Description 2018 Orders Only [facility] [address] [place] [address] Opal Stevens NP Social History [...] of this encounter Results * Due to [place] state law, this organization might not be sharing negative HIV tests. * ASPARTATE AMINOTRANSFERASE (AST), SERUM (03/18/2018 9:22 AM EST) AST (SGOT) 20 10 - 35 U/L [facility] 03/18/2018 9:22 AM EST 03/18/2018 5:02 PM EST Narrative Resulting Agency Comment [id number] Opal Stevens NP LAB SAME DAY RESULT Final Result [facility] [address] [place] [address] * ALANINE AMINOTRANSFERASE (ALT), SERUM (03/18/2018 9:22 AM EST) ALT (SGPT) 12 6 - 29 U/L [facility] 03/18/2018 9:22 AM EST 03/18/2018 5:02 PM EST Narrative Resulting Agency Comment [id number] Opal Stevens DEVELOPMENT MANAGER LAB SAME DAY RESULT Final Result Performing Organization Address [facility] de Phone Number [facility] [address] [place] [address] * LIPID PANEL WITH REFLEX TO DIRECT [...] of LDL-C. Vladimir SS et al. PUJA. 2013;310(78): 4144-3911 (http://education.2359 Media/faq/DAU904) CHOL/HDL Ratio 2.1 <5.0 (calc) [facility] Cholesterol Non-HDL 98 <130 mg/dL (calc) [facility] Comment: For patients with diabetes plus 1 major ASCVD risk factor, treating to a non-HDL-C goal of <100 mg/dL (LDL-C of <70 mg/dL) is considered a therapeutic option. 03/18/2018 9:22 AM EST 03/18/2018 5:02 PM EST Narrative Resulting Agency Comment [id number] Opal Stevens DEVELOPMENT MANAGER LABORATORY Final Result Performing Organization Address [facility] de Phone Number [facility] [address] [place] [address] * BASIC METABOLIC PANEL WITH (GFR) (03/18/2018 9:22 AM EST) Glucose 75 65 - 99 mg/dL [facility] Comment:Fasting reference in terval Urea Nitrogen Blood (BUN) 12 7 - 25 mg/dL [facility] Creatinine 0.63 0.50 - 1.05 mg/dL [facility] Comment: For patients >49 years of age, the reference limit for Creatinine is approximately 13% higher for people identified as -Qatari. GFR 102 > OR = 60 mL/min/1 [...] needs for GFR calculation. Resulting Agency Comment [id number] Opal Stevens NP LABORATORY Final Result Performing Organization Address City/State/[facility] Co de Phone Number [facility] [address] [place] [address] documented in this encounter Visit Diagnoses Diagnosis Healthy adult on routine physical examination Routine general medical examination at a health care facility Healthy adult on routine physical examination Routine general medical examination at a health care facility documented in this encounter Care Teams Service Crew Supervisor Relationship Specialty Start Date End Date Darlene Rodas MD [address] [place] [address] PCP - General 07/16/16 03/18/21 documented as of this encounter
--- OUTSIDE RECORDS SUMMARY | 2024-07-07 09:12 | XMS_ITS | Encounter Summary ---
Author Organization [facility] Address [address] [place] [address] Care Team Providers Care Circulation Manager Name Role Phone Darlene Rodas MD Primary Care Provider +1- [phone] Encounter Details Date Type Department Care Team (Late st Contact Info) Description 2018 Orders Only [facility] [address] [place] [phone] Darlene Rodas MD [address] [place] [address] Social History Tobacco Use Types Packs/Day Years [...] on filedocumented in this encounter Care Teams Circulation Manager Relationship Specialty Start Date End Date Darlene Rodas MD [address] [place], [place] [phone] PCP - General 07/16/16 03/18/21 documented as of this encounter
--- OUTSIDE RECORDS SUMMARY | 2024-07-07 09:12 | XMS_ITS | Encounter Summary ---
Author Organization [facility] Address [address] [place] [address] Care Team Providers Care General Freight Agent Name Role Phone Darlene Rodas MD Primary Care Provider +1- [phone] Encounter Details Date Type Department Care Team (Late st Contact Info) Description 10/06/2016 Orders Only [facility] [address] [place] [phone] Darlene Rodas MD [address] [place] [phone] Social History Tobacco Use Types Packs/Day Years [...] on filedocumented in this encounter Care Teams General Freight Agent Relationship Specialty Start Date End Date Darlene Rodas MD [address] [place], [place] [phone] PCP - General 07/16/16 03/18/21 documented as of this encounter
== END 2024-07-07 10:01 | disposition home or self-care (01) ==
PROVIDERS: PCP Internal Medicine; Visit Provider Internal Medicine
DX: K29.60 Other gastritis without bleeding (principal); K21.00 Gastro-esophageal reflux disease with esophagitis, without bleeding; K22.4 Dyskinesia of esophagus; D70.8 Other neutropenia

== ENCOUNTER 2024-07-07 08:39 | Outpatient (REF) | payer OTHER, SELFPAY ==
--- OUTSIDE RECORDS SUMMARY | 2024-07-07 09:48 | XMS_ITS | Encounter Summary ---
Author Organization [facility] Address [address] [place] [address] Care Team Providers Care Basic Sciences Dean Name Role Phone Darlene Rodas MD Primary Care Provider [phone] Encounter Details Date Type Department Care Team (Late st Contact Info) Description 2018 Orders Only [facility] [address] [place] [address] Opal Stevens NP Social History [...] of this encounter Results * Due to [place] state law, this organization might not be sharing negative HIV tests. * ASPARTATE AMINOTRANSFERASE (AST), SERUM (03/18/2018 9:22 AM EST) AST (SGOT) 20 10 - 35 U/L [facility] 03/18/2018 9:22 AM EST 03/18/2018 5:02 PM EST Narrative Resulting Agency Comment [id number] Opal Stevens NP LAB SAME DAY RESULT Final Result [facility] [address] [place] [address] * ALANINE AMINOTRANSFERASE (ALT), SERUM (03/18/2018 9:22 AM EST) ALT (SGPT) 12 6 - 29 U/L [facility] 03/18/2018 9:22 AM EST 03/18/2018 5:02 PM EST Narrative Resulting Agency Comment [id number] Opal Stevens LATIN TEACHER LAB SAME DAY RESULT Final Result Performing Organization Address [facility] de Phone Number [facility] [address] [place] [address] * LIPID PANEL WITH REFLEX TO DIRECT [...] of LDL-C. Vladimir SS et al. PUJA. 2013;310(58): 5328-0114 (http://education.[employer] Data/faq/MJJ951) CHOL/HDL Ratio 2.1 <5.0 (calc) [facility] Cholesterol Non-HDL 98 <130 mg/dL (calc) [facility] Comment: For patients with diabetes plus 1 major ASCVD risk factor, treating to a non-HDL-C goal of <100 mg/dL (LDL-C of <70 mg/dL) is considered a therapeutic option. 03/18/2018 9:22 AM EST 03/18/2018 5:02 PM EST Narrative Resulting Agency Comment [id number] Opal Stevens LATIN TEACHER LABORATORY Final Result Performing Organization Address [facility] de Phone Number [facility] [address] [place] [address] * BASIC METABOLIC PANEL WITH (GFR) (03/18/2018 9:22 AM EST) Glucose 75 65 - 99 mg/dL [facility] Comment:Fasting reference in terval Urea Nitrogen Blood (BUN) 12 7 - 25 mg/dL [facility] Creatinine 0.63 0.50 - 1.05 mg/dL [facility] Comment: For patients >49 years of age, the reference limit for Creatinine is approximately 13% higher for people identified as -Slov[place]. GFR 102 > OR = 60 mL/min/1 [...] needs for GFR calculation. Resulting Agency Comment [id number] Opal Stevens NP LABORATORY Final Result Performing Organization Address City/State/[facility] Co de Phone Number [facility] [address] [place] [address] documented in this encounter Visit Diagnoses Diagnosis Healthy adult on routine physical examination Routine general medical examination at a health care facility Healthy adult on routine physical examination Routine general medical examination at a health care facility documented in this encounter Care Teams Basic Sciences Dean Relationship Specialty Start Date End Date Darlene Rodas MD [address] [place] [id number] PCP - General 07/16/16 03/18/21 documented as of this encounter
--- OUTSIDE RECORDS SUMMARY | 2024-07-07 09:48 | XMS_ITS | Continuity of Care Document ---
Author Organization [facility] Address [address] [place] [address] Care Team Providers Care Foot Gatherer Name Role Phone Unavailable Primary Care Provider Unavailabl e Encounters Date Type Department Care Team Description 07/03/2024 Orders Only [facility] [address] [place] [address] Tammie Ramos MD 06/30/2023 Minor Procedure/Test [facility] [address] [place] [address] [facility], Unknown Provider 03/23/2023 Minor Procedure/Test [facility] [address] [place] [address] [facility], Unknown Provider 12/10/[address] [facility] DIGITAL WATCH ASSEMBLER [address] [facility] [address] [place] [address] Brittany Li, RAIN Appointment 03/18/[address] [facility] [address] [place] [address] Darlene Rodas MD Other (Pcp; ins info/) 03/03/[address] [facility] [address] [place] [address] Darlene Rodas MD Imm/Inj 10/29/[address] [facility] [facility] [address] [place] [address] Tre Rosario DPM 10/29/2020 8:30 AM EDT Radiology [facility] X-Ray [address] [place] [address] 10/29/2020 Orders Only [facility] [address] [place] [address] Tre Rosario DPM 10/29/2020 8:50 AM EDT Consult (Initial) [facility] [address] [place] [address] Tre Rosario, GOLD Onychomycosis (Primary Dx); Acquired hallux valgus of left foot; Bilateral foot pain; Acquired hallux valgus of right foot 10/22/2020 Telephone All of [address] [address] Uzma [place], [email or web address] A[facility] Program 10/22/2020 Telephone All of [address] [address] [place]zma [place] [email or web address] [facility] [facility] 09/03/[address] [facility] [address] [place] [address] Darlene Rodas MD Cyst 06/12/[address] [facility] [address] [place] [address] Darlene Rodas MD Patient Questions 06/11/[address] [facility] DIGITAL WATCH ASSEMBLER [address] [facility] [address] [place] [address] Brittany Li NP 06/11/2020 Travel 06/11/2020 8:00 AM EST Office Visit [facility] DIGITAL WATCH ASSEMBLER [address] [facility] [address] [place] [address] Brittany Li NP Encounter for gynecological examination (general) (routine) without abnormal findings (Primary Dx); Abnormal cervical Papanicolaou smear, unspecified abnormal pap finding; Menopause present; Pap smear for cervical cancer screening; History of uterine fibroid; Cystocele, midline 06/03/[address] [facility] [address] [place] [address] Darlene Rodas MD Letter/form Request 05/28/[address] [facility] [address] [place] [address] Darlene Rodas MD Labs/orders (mmg) 05/27/2020 4:30 PM EST Radiology [facility] Ultrasound [address] [place] [address] Leg edema 05/27/2020 6:30 PM EST Radiology [facility] Xray [address] [place] [address] Leg edema 05/27/2020 5:45 PM EST Office Visit [facility] [address] [address] Taiwo Noe PA Leg edema (Primary Dx) 05/27/2020 Travel 05/27/[address] [facility] [address] [place] [address] Darlene Rodas MD Knee Pain 05/23/2020 Orders Only NON FC SA [address] [address] Darlene oRdas MD 04/24/2020 Travel 04/17/2020 Travel 04/17/2020 8:15 AM EST CPE - Comprehensive Physical Exam [facility] [address] [facility] [address] [place] [address] Darlene Rodas MD Well adult exam (Primary Dx); ASCUS with positive high risk HPV cervical; S/P colonoscopy; Gastroesophageal reflux disease, unspecified whether esophagitis present 03/20/[address] [facility] [address] [place] [address] Darlene Rodas MD Results 03/16/2020 Orders Only [address] [facility] [address] [place] [address] Darlene Rodas MD [address] [facility] [address] [place] [address] Darlene Rodas MD Imm/Inj 02/29/2020 Orders Only [address] [facility] [address] [place] [address] Darlene Rodas MD 02/28/[address] [facility] [address] [place] [address] Darlene Rodas MD Labs/orders 11/29/[address] [facility] [address] [place] [address] Darlene Rodas MD Labs/orders 06/30/2019 Letter/Form [facility] DIGITAL WATCH ASSEMBLER [address] [facility] [address] [place] [address] Stefania Mclaughlin NP 06/30/2019 8:15 AM EST Minor Procedure/Test [facility] DIGITAL WATCH ASSEMBLER [address] [facility] [address] [place] [address] Stefania Mclaughlin, RAIN ASCUS with positive high risk HPV cervical (Primary Dx); Abnormal cervical Papanicolaou smear, unspecified abnormal pap finding 05/29/2019 Telephone [facility] Dermatology [address] [place] [address] Vanessa Angel PA Follow Up 05/22/[address] [facility] [address] [place] [address] Darlene Rodas MD Labs/orders (mmg) 05/19/2019 Orders Only NON FC [facility] [address] [place] [address] Darlene Rodas MD 04/20/[address] [facility] [address] [place] [address] Darlene Rodas MD Results 04/19/2019 11:00 AM EST Consult (Initial) [facility] Dermatology [address] [place] [address] Vanessa Angel PA Pruritus (Primary Dx); Dyschromia 04/11/[address] [facility] [address] [place] [address] Darlene Rodas MD Records 04/11/2019 Orders Only [facility] [address] [address] [place] [address] Darlene Rodas MD 04/11/2019 7:45 AM EST CPE - Comprehensive Physical Exam [facility] [address] [facility] [address] [place] [address] Darlene Rodas MD Well adult exam (Primary Dx); Screening for metabolic disorder; Screening for malignant neoplasm of cervix; Screening for eye condition; Need for vaccination 02/20/2019 Letter/Form [facility] [address] [address] [place] [address] Darlene Rodas MD 10/28/[address] [facility] [address] [place] [address] Darlene Rodas MD Labs/orders 07/06/[address] [facility] [address] [place] [address] Darlene Rodas MD E-prescribing Refill Request 05/11/[address] [facility] [address] [place] [address] Darlene Rodas MD Patient Questions 04/20/[address] [facility] [address] [place] [address] Opal Stevens NP E-prescribing Refill Request 04/18/2018 Orders Only NON FC SA [facility] [address] [place] [address] Darlene Rodas MD 04/04/[address] [facility] [address] [place] [address] Darlene Rodas MD Results 03/23/2018 Telephone [facility] [address] [facility] [address] [place] [address] Darlene Rodas MD Labs/orders 03/23/2018 Telephone FC MISCELLANEOUS [phone] Mychart, Provider Generic MyChart Verification 03/22/2018 Orders Only [facility] [address] [address] [place] [address] Oapl Stevens NP 03/22/2018 3:15 PM EST CPE - Comprehensive Physical Exam [facility] [address] [facility] [address] [place] [address] Opal Stevens NP Routine history and physical examination of adult (Primary Dx); Healthcare maintenance; Anxiety; Gastroesophageal reflux disease, esophagitis presence not specified; Insomnia, unspecified type; Screening for breast cancer; Screen for STD (sexually transmitted disease); Need for vaccination 03/21/2018 7:30 AM EST Office Visit [facility]. Optometry [address] [place] [address] Maricruz Russo OD Encounter for ophthalmic examination and evaluation (Primary Dx); Disorder of refraction 03/18/2018 Orders Only [facility] [address] [place] [address] Opal Stevens NP 03/14/2018 Telephone [facility] [address] [place] [address] Darlene Rodas MD Labs/orders 2018 Orders Only [facility] [address] [place] [address] Darlene Rodas MD 2018 Orders Only [facility] [address] [place] [address] Opal Stevens NP 02/20/2018 Letter/Form [facility] [address] [place] [address] Darlene Rodas MD 02/20/2017 Letter/Form [facility] [address] [place] [address] Darlene Rodas MD 01/18/2017 1:00 PM EDT Radiology [facility] Xray [address] [place] [address] Sprain of right ankle, unspecified ligament, initial encounter 01/18/2017 12:30 PM EDT [facility] [address] [place] [address] Sissy Ricks, PA Sprain of right ankle, unspecified ligament, initial encounter (Primary Dx); Neck sprain, initial encounter 01/14/2017 Telephone [facility] [address] [place] [address] Darlene Rodas MD Ankle pain 11/19/2016 Telephone [facility] [address] [place] [address] Darlene Rodas MD Results 11/17/2016 Orders Only [facility] [address] [place] [address] Linette Mcguire NP 11/10/2016 Letter/Form [facility] [address] [place] [address] Linette cMguire NP 11/05/2016 Letter/Form [facility] [address] [place] [address] Linette Mcguire NP 10/06/2016 Orders Only [facility] [address] [place] [address] Darlene Rodas MD 10/06/2016 9:45 AM EDT Office Visit [facility] [address] [place] [address] Linette Mcguire NP Encounter to establish care with new doctor (Primary Dx); Insomnia, unspecified type; Gastroesophageal reflux disease, esophagitis presence not specified; Anxiety; Hot flashes; Health care maintenance; Need for hepatitis C screening test 08/19/2016 Telephone [facility] [address] [place] [address] Darlene Rodas MD Erroneous encounter-disregard 08/19/2016 Telephone [facility] [address] [place] [address] 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, 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 Constipation 08/12/2016 [facility] Medical Records [address] [place] [address] Darlene Rodas MD 08/10/2016 Orders Only [facility] [address] [place] [address] Darlene Rodas MD 08/06/2016 Telephone [facility] [address] [place] [address] Darlene Rodas MD Referral Request (Chiro / Lonnie Baig) 07/27/2016 Orders Only [facility] [address] [place] [address] Darlene Rodas MD 07/27/2016 Telephone [facility] [address] [place] [address] Darlene Rodas MD Referral Request (chiro) 06/09/2016 [facility] Otol[facility] [address] [place] [address] Vicky Waters MD Cancellation 01/02/2016 Minor Procedure/Test FAM PRAC UNSPECIFIED Azeb Ling MD 12/16/2015 Office Visit [facility] UNSPECIFIED Azeb Ling MD 12/16/2015 Minor Procedure/Test CARDI UNSPECIFIED Daniel Ybarra MD 09/05/2015 Minor Procedure/Test GASTRO UNSPECIFIED Stagias, Gavin Duarte MD 10/31/2014 Minor Procedure/Test FAM PRAC UNSPECAzeb Montes MD 10/11/2014 Office Visit [facility] PR[facility] UNSPECIFIED Nicole Marks NP 09/27/2014 3:00 PM EDT Office Visit [facility] Otolarynogology/Plas tics [address] [place] [address] Jimenez Morales MD Facial rhytids (Primary Dx) 08/31/2014 10:00 AM EDT Office Visit [facility] Otolarynogology/Plas tics [address] [facility] [address] [place] [address] Jimenez Morales MD Facial rhytids (Primary Dx) 06/14/[address] [facility] Otolarynogology/Plas tics [address] [place] [address] Jimenez Morales MD Patient Questions 06/13/[address] [facility] Otolarynogology/Plas tics [address] [facility] [address] [place] [address] Jimenez Morales MD Patient Questions 02/22/2014 2:45 PM EDT Office Visit [facility] Otolarynogology/Plas tics [address] [facility] [address] [place] [address] Jimenez Morales MD Facial rhytids (Primary Dx) 02/15/2014 4:00 PM EDT Office Visit [facility] Otolarynogology/Plas tics [address] [facility] [address] [place] [address] Jimenez Morales MD Facial rhytids (Primary Dx) 12/28/2013 3:30 PM EDT Consult (Initial) [facility] Otolarynogology/Plas tics [address] [facility] [address] [place] [address] Jimenez Morales MD Facial rhytids (Primary Dx) 02/27/2013 Minor Procedure/Test GAMBLING DEALER UNSPECIFIED Popeye Rodriguez Allergies No known active [...] 03/22/18: Last record available to me in [facility] for mammogram is 2014. Per patient report she had mammogram done in 2016 through outside MANAGER EP[facility] provider, Dr. Gary in [place]. Her CPE 2017 note, patient signed MERLINE [...] exercise stress test 10/06/2016 Overview (10/06/2016): At [facility] on 01/02/2016. No evidence of ischemia [...] patient report last Pap done by outside MANAGER EPIC 2017. We do not have these records. Mammography: Again, patient reports mammograms through outside MANAGER EPIC in 2017. Colonoscopy: Per patient report colonoscopy done through [facility], 2017, no polyps. 10-year repeat. Need records from [place]. DEXA: N/A Exercise: None Screen for STD (sexually transmitted disease) 05/28/19 19 06/11/2020 Overview (05/28/2018): 03/22/18: Patient requesting STD testing today. She is very concerned about the thought of having herpes. Tried to reassure her about the etiology and prevalence, and treatment of this disease. Anxiety 10/06/2016 04/11/2019 Overview (05/28/2018): Her previous PCP records. [place] it was situational regarding conflict with coworker. [...] Not on file Procedures * Due to [place] state [...] PELVIS COMPL 02/27/2013 Results * Due to [place] state law, this organization might not be sharing negative HIV tests. * TISSUE EXAM - LEV TURCIOS (07/03/2024 2:36 PM EST) TISSUE EXAM RESULT SEE DETAILS [facility] Comment: ?FINAL DIAGNOSIS ?A. ??Esophagus, distal, [...] special and immunostains performed at [facility] ?? [facility], [place] [address], ([id number], CLIA ? #[id number]). ? Grossing and technical work performed at [facility] Network ([facility], [address] [place] [address], ?? [place] [address]; ; [id number]; CLIA #[id number] ? All professional pathology services performed at [facility] ? [place] ([address] [place] [address]; ; CLIA ?? #[id number]) ? Note: Some or all of the [...] in ?? the clinical context. [facility] Laboratories are qualified under the CLIA ?? 1988 documents to provide high-complexity clinical laboratory testing. All controls are reviewed and deemed appropriate. ? 07/03/2024 2:36 PM EST Narrative [facility] - 07/05/2024 12:00 AM EST Pre-op diagnosis: CHRONIC ACID REFLUX Tammie Ramos MD PATHOLOGY Final Result [facility] [employer] [address] [place] [address] * FRANCK BILATERAL IMPLANT SCREENING DIGITAL MAMMOGRAM [...] dense breast tissue shown on mammography. Per [employer] Appropriateness Criteria ??for Breast Cancer Screening (https://acsearch.acr.org/docs/47032/Narrative/) patient may benefit from tomosynthesis on future mammography and supplemental imaging with automated breast ultrasound (ABUS) or breast MRI depending on risk factors. Automated Breast Ultrasound (ABUS) is now available at both [facility] and in the Department of Mammography at [facility]. To schedule a patient, you can either enter an ABUS order into [facility] EMR (type in ABUS), call [facility] Central Scheduling at [phone], or call [facility] Central Scheduling at [phone]. To fax an external order: [facility] [phone] and [facility] [phone]. If this radiology report contains a blank impression section, it is an incomplete radiology report. ??Please contact the interpreting radiologist or applicable radiology division as soon as possible to obtain the completed interpretation. 5' 2 125 Procedure Note [facility], Unknown Provider - 07/05/2023 EXAMINATION FRANCK [...] of Radiology Appropriateness Criteria for Breast Cancer Screening(https://acsearch.acr.org/docs/85102/Narrative/) patient may benefit fromtomosynthesis on future mammography and supplemental imaging with automated breast ultrasound(ABUS) or breast MRI depending on risk factors. Automated Breast Ultrasound (ABUS) is now available at both [facility] and [facility]. To schedule a patient, you caneither enter an ABUS order into [facility] EMR (type in ABUS), call [facility] Sched[facility] [phone], or call [facility] Central Scheduling [phone]. To fax an external order: [facility] [phone] and[facility] [phone]. If this radiology report contains a blank impression section, it is anincomplete radiology report. Please contact the interpreting radiologistor applicable radiology division as soon as possible to obtain thecompleted interpretation. 5' 2 125 Unknown Provider [facility] Final Resu lt * FUNGAL STAIN, JAMIE (10/29/2020 2:39 PM EDT) Fungus identified SEE NOTE [facility] Comment: ??FUNGAL STAIN ??Micro Number: ?[id number] ??Test Status: ? Final ??Specimen Source: ?? LEFT 2ND TOENAIL ??Specimen Quality: ??Adequate ??Smear: ? No fungal elements seen. 10/29/2020 2:39 PM EDT 10/29/2020 9:27 PM EDT Narrative Resulting Agency Comment [id number] us Tre Rosario DPM LABORATORY Final Result [facility] [address] [place] [address] * XRAY FEET COMPLETE MIN 3 VWS [...] Smear Negative for intraepithelial lesion or malignancy. [facility] Cytology study comment (Cvx/Vag) This Pap test has been evaluated with computer assisted technology. [facility] Director Of Nuclear Medicine (Cvx/Vag) SXA, CT(ASCP) CT screening location: [place] [address] [facility] COMMENT SEE NOTE [facility] Comment: EXPLANATORY NOTE: The Pap is [...] HPV MRNA E6/E7 Not Detected Not Detected [email or web address] Comment: Methodology: Food Production Worker-Mediated Amplification This assay detects E6/E7 viral messenger RNA (mRNA) from 14 high-risk HPV types (16,18,31,33,35,39,45,51,52,56,58,59,66,68). The analytical performance characteristics of this assay have been determined by [employer]. The modifications have not been cleared or approved by the FDA. This assay has been validated pursuant to the CLIA regulations and is used for clinical purposes. For additional information, please refer to http://education.Foodini/IXY293u1 (This link if provided for information/ educational purposes only.) ENDOCERVICAL STRUCTURE / Unknown 06/11/2020 11:05 AM EST 06/12/2020 7:26 AM EST Narrative Resulting Agency Comment [id number] us Brittany Li NP PATHOLOGY-INTERFACED Final Resul t [email or web address] [address] [place] [address] * US VENOUS DUPLEX SCAN EXTREMITY VEINS UNILAT/LIMITED STUDY RIGHT FC (05/27/2020 6:57 PM EST) 05/27/2020 7:18 PM EST Narrative [facility] - 05/27/2020 7:18 PM EST Right lower extremity venous duplex ultrasound. Comparison: None. Technique: Real time sonographic imaging, including color-flow imaging and spectral analysis, was performed by the road oiling truck driver. Multiple account development representative static images were saved for review. [...] and spectral analysis, was performed by the road oiling truck driver. Multiplerepresentative static images were saved for review. [...] Villaseñor IMG US ORDERABLES Final Res ult [facility] * XRAY KNEE FOR ORTHO [...] SCREENING (05/23/2020 2:14 PM EST) RADIOLOGY REPORT [facility] Department of Radiology [address] [place] [address], [facility] [phone] Name: JARRETT GARZON : 65 Date of Service: 05/23/20 1520 Acct Number: [id number] Order Number: ??[id number] ?Location: [facility] Report Number: [id number] ?Service: REG REF/ Requesting Physician: Darlene Rodas MD ([facility]) Category: MAMMOGRAPHY Exam: DIGITAL BREAST FUAD SCREENING ?? Signs/Symptoms: SCREENING Report Status: Signed STUDY: Bilateral screening mammogram with CAD and tomosynthesis. TECHNIQUE: ??Bilateral craniocaudal and mediolateral oblique views obtained. smartclip Version 1.3 computer aided detection system and [...] mammogram notification. Date/Time of Dictation: 05/23/20 1526 Yard Manager (if applicable): Approved By Attending Radiologist: Raven Miller MD 05/23/20 1526 [facility] Department of Radiology [address] [place] [address], [address] ? [phone] ? [facility] Anatomical Region Laterality Modality Other 05/23/2020 2:14 PM EST Narrative 05/23/2020 3:26 PM EST Reason for Study/History: Department of Radiology TEST(S) PROCESSED BY [facility] XRAY us Darlene Rodas MD IMAGING-[facility] Final Resu lt * SYPHILIS (FTA) ANTIBODY [...] 9:39 PM EST Narrative Resulting Agency Comment [id number] us Rachael Camarena MD LABORATORY Final Result [facility] [address] [place] [address] * PROTEIN, TOTAL, SERUM (03/16/2020 12:08 PM EST) Pathologist [facility] Protein Total (Serum) 6.6 6.1 - 8.1 g/dL [facility] 03/16/2020 12:0 8 PM EST 03/16/2020 9:39 PM EST Narrative Resulting Agency Comment [id number] Darlene Rodas MD LAB SAME DAY RESULT Final Result Performing Organization Address [facility] de Phone Number [facility] [address] [place] [address] * CBC INCLUDES DIFFERENTIAL AND PLATELET COUNT (02/29/2020 4:40 PM EDT) Only the most recent of3 resultswithin the time period is included. [facility] WBC 5.1 3.8 - 10.8 Thousand/u [...] 12:03 AM EDT Narrative Resulting Agency Comment [id number] us Darlene Rodas MD LAB SAME DAY RESULT Final Result Performing Organization Address City/[facility]/ZIP Co de Phone Number [facility] [address] [place] [address] * ALANINE AMINOTRANSFERASE (ALT), SERUM (02/29/2020 4:40 PM EDT) Only the most recent of3 resultswithin the time period is included. ALT (SGPT) 14 6 - 29 U/L [facility] 02/29/2020 4:40 PM EDT 03/01/2020 12:03 AM EDT Narrative Resulting Agency Comment [id number] Darlene Rodas MD LAB SAME DAY RESULT Final Result Performing Organization Address [facility] de Phone Number [facility] [address] [place] [address] * LIPID PANEL WITH REFLEX TO DIRECT [...] LDL-C. Vladimir BLACKMON et al. PUJA. 2013;310(19): 3436-8604 (http://education.NeurOptics.liveMag.ro/faq/OPV088) CHOL/HDL Ratio 2.2 <5.0 (calc) [facility] Cholesterol Non-HDL 95 <130 mg/dL (calc) [facility] Comment: For patients with diabetes plus 1 major ASCVD risk factor, treating to a non-HDL-C goal of <100 mg/dL (LDL-C of <70 mg/dL) is considered a therapeutic option. 02/29/2020 4:40 PM EDT 03/01/2020 12:03 AM EDT Narrative Resulting Agency Comment [id number] Darlene Rodas MD LABORATORY Final Resu lt Performing Organization Address City/[facility]/ZIP Co de Phone Number [facility] [address] [place] [address] * BASIC METABOLIC PANEL WITH (GFR) (02/29/2020 4:40 PM EDT) Only the most recent of4 resultswithin the time period is included. [facility] Glucose 92 65 - 99 mg/dL [facility] Comment:Fasting reference in terval Urea Nitrogen Blood (BUN) 19 7 - 25 mg/dL [facility] Creatinine 0.66 0.50 - 1.05 mg/dL [facility] Comment: For patients >49 years of age, the reference limit for Creatinine is approximately 13% higher for people identified as -Nigerian. EGFR 100 > OR = 60 mL/min/1 [...] needs for GFR calculation. Resulting Agency Comment [id number] Darlene Rodas MD LABORATORY Final Resu lt Performing Organization Address City/[facility]/ZIP Co de Phone Number [facility] [address] [place] [address] * TEST, URINE - STATION (06/30/2019 9:27 [...] and Clinical Pathology (electronic signature) Consulting Pathologist [facility] [phone] [facility] GROSS DESCRIPTION . A . SEE NOTE [email or web address] Comment: The container is labeled with patient's name and source ECC . ? Received in formalin is an endocervical brush with adherent mucoid material. The material measures 0.5 x 0.2 x 0.1 cm in aggregate. Specimen is submitted entirely in cassette A1. ??The specimen may not survive processing. ??Gross exam(s) performed at: ??[email or web address] ??[address] [place] [phone] ??Psychiatric Secretary: AILYN AGUILAR MD GROSS DESCRIPTION . B . SEE NOTE [email or web address] Comment: The container is labeled with patient's [...] Stefania Mclaughlin NP PATHOLOGY-INTERFACED Final R esult [facility] [address] [place] [address] * BREAST IMPLANT SCREEN DIGITAL MAMMOGRAPHY WITH CAD (05/19/2019 8:06 AM EST) Only the most recent of2 resultswithin the time period is included. RADIOLOGY REPORT [facility] Department of Radiology [address] [place] [address], [address] Name: JARRETT GARZON : 65 Date of Service: 05/18/19 180 Acct Number: [id number] Order Number: ??[id number] ?Location: [facility] Report Number: [id number] ?Service: REG REF/ Requesting Physician: Darlene Rodas MD ([facility]) Category: MAMMOGRAPHY Exam: IMPLANT SCREEN DIGITAL W CAD ?? Signs/Symptoms: SCREENING Report Status: ---Signed--- STUDY: Bilateral implant screening mammogram with CAD. TECHNIQUE: ??Bilateral craniocaudal and mediolateral oblique views obtained. smartclip Version 1.3 computer aided detection system utilized. [...] mammogram notification. Date/Time of Dictation: 05/19/19 09 Yard Manager (if applicable): Approved By Attending Radiologist: Raven Miller MD 05/19/19 0911 [facility] Department of Radiology [address] [place] [address], [address] ? [phone] ? [facility] Anatomical Region Laterality Modality Other 05/19/2019 8:06 AM EST Narrative 05/19/2019 9:14 AM EST Reason for Study/History: Department of Radiology TEST(S) PROCESSED BY [facility] XRAY Darlene Rodas MD IMAGING-[facility] Final Resu lt * TSH, 3RD GENERATION (04/11/2019 8:39 AM EST) Pathologist [facility] TSH 3.81 mIU/L [facility] Comment: ?Reference Range ?> or = 20 Years ??0.40-4.50 ? Ranges ?First trimester ?0.26-2.66 ?Second trimester ?? 0.55-2.73 ?Third trimester ?0.43-2.91 04/11/2019 8:39 AM EST 04/11/2019 9:59 PM EST Narrative Resulting Agency Comment [id number] Darlene Rodas MD LABORATORY Final Resu lt Performing Organization Address City/State/[facility] de Phone Number [facility] [address] [place] [address] * HEPATIC FUNCTION PANEL (ALT,AST,ALK PH,BILI'S,TP,ALB) (04/11/2019 [...] 9:59 PM EST Narrative Resulting Agency Comment [id number] us Darlene Rodas MD LABORATORY Final Resu lt [facility] [address] [place] [address] * (ABNORMAL) HSV 1 AND 2 IGG [...] 10:43 PM EST Narrative Resulting Agency Comment [id number] us Opal Stevens NP LABORATORY Final Result Performing Organization Address [facility] Phone Number [facility] [address] [place] [address] * ASPARTATE AMINOTRANSFERASE (AST), SERUM (03/18/2018 9:22 AM EST) AST (SGOT) 20 10 - 35 U/L [facility] 03/18/2018 9:22 AM EST 03/18/2018 5:02 PM EST Narrative Resulting Agency Comment [id number] us Opal Stevens NP LAB SAME DAY RESULT Final Result Performing Organization Address [facility] Phone Number [facility] [address] [place] [address] * (ABNORMAL) FSH (03/18/2018 9:22 AM EST) FSH 136.1(H) mIU/mL [facility] Comment: ?Reference Range ? Follicular Phase ? 2.5-10.2 ? Mid-cycle Peak ? 3.1-17.7 ? Luteal Phase ? 1.5- 9.1 ? Postmenopausal ? 23.0-116.3 ? 03/18/2018 9:22 AM EST 03/18/2018 5:02 PM EST us Opal Stevens CALIBRATION ENGINEER LAB SAME DAY RESULT Final Result [facility] [address] [place] [address] * XRAY ANKLE COMPLETE MIN 3 VWS [...] C virus Ab NON-REACTI VE NON-REACT IRENE [email or web address] Hepatitis C virus Ab Signal/Cutoff 0.02 <1.00 [facility] 11/17/2016 8:05 AM EDT 11/17/2016 8:04 PM EDT Narrative Resulting Agency Comment [id number] Linette Mcguire NP LABORATORY Final Result [facility] [address] [place] [address] * CARDIOVASCULAR STRESS TEST W/TREADMILL, BICYCLE, AND/OR [...]
--- OUTSIDE RECORDS SUMMARY | 2024-07-07 09:48 | XMS_ITS | Encounter Summary ---
Author Organization [facility] Address [address] [place] [address] Care Team Providers Care Store Clerk Checker Name Role Phone Oliverio Rodriguez DO Primary Care Provider [phone] Reason for Visit * Auth/Cert (Routine) Specialty Diagnoses / Procedures Referred By Contac t Referred To Contact Diagnoses Gastric reflux CHRONIC ACID REFLUX Procedures [place] EGD TRANSORAL BIOPSY SINGLE/MULTIPLE UPPER ENDOSCOPY WITH POSSIBLE BIOPSY AND/OR POLYPECTOMY AND POSSIBLE MODERATE SEDATION Referral ID Status Reason Start Date Expiration Date Visits Re quested Visits Authorized [id number] 99 99 Encounter Details Date Type Department Care Team (Latest Contact Info) Description 07/03/2024 1:55 PM EST - 07/03/2024 3:27 PM EST Hospital Encounter [facility] OR [address] [place] [address] Tammie Ramos MD [address] [place] [address] Gastric reflux Discharge Disposition: Home [...] Care Everywhere. * Art's Esophagus Discharge Instructions (Filipino) * Hiatal hernia ??? Discharge instructions (Filipino) * Peptic ulcers (Filipino) documented in this encounter Medications at Time [...] surgical condition: Assessment & Plan EGD Signature: Tamime Ramos MD Electronic Signature [1] diphenhydrAMINE (SOMINEX) tablet 25 mg, multivitamin (MULTIPLE VITAMINS) tablet, TRAZODONE HCL (TRAZODONE ORAL), documented in this encounter Procedure Notes * Tammie Ramos MD - 07/03/2024 12:49 PM ESTAssociated Order(s): UPPER GI ENDOSCOPY [facility] Patient Name: Raven Garzon Procedure Date: [...] involved the mucosa extending to the Z-line. Dimmitt-colored mucosa was present. The maximum longitudinal extent [...] Info) Description 08/01/2024 7:[address] [facility] Mammography Department [address] [place] [address] documented as of this encounter Procedures * Due to [facility] law, this organization might not be sharing negative HIV tests. Procedure Name Priority Date/Time Associated Diagnosis Comments TISSUE EXAM - [place] ONLY Routine 07/03/2024 2:36 PM EST Gastric reflux [place] EGD TRANSORAL BIOPSY SINGLE/MULTIPLE 07/03/2024 2:27 PM EST Gastric reflux UPPER GI ENDOSCOPY 07/03/2024 documented in this encounter Results * Due to [facility] law, this organization might not be sharing negative HIV tests. * Tissue Exam - [place] only (07/03/2024 2:36 PM EST) Tissue Exam Result SEE DETAILS 07/05/2024 12:00 AM EST [facility] Comment: ?FINAL DIAGNOSIS [...] special and immunostains performed at [facility] ?? [facility], [place] [address], (HP-[id number], CLIA ? #[id number]). ? Grossing and technical work performed at [facility] ([facility], [address] [facility], ?? [place] [address]; ; [id number]; CLIA #[id number] ? All professional pathology services performed at [facility] ? [place] ([address] [facility], [place] [address]; ; CLIA ?? #[id number]) ? Note: Some or all of the tests utilized in this case may be laboratory developed tests (LDT's) and may use class I analyte specific reagents (ASR). These tests were developed for clinical purposes and their ? performance characteristics determined by [facility] Laboratories on tissue fixed in 10% neutral buffered formalin. Other fixatives have not been validated, and therefore results on ? tissue with such fixation should be interpreted with caution and in ?? the clinical context. [facility] Laboratories are qualified under the CLIA [...] REFLUX us Tammie Ramos MD LAB PATH/CYTO ([place]) Final Result Performing Organization Address City/State/[facility] Co de Phone Number [facility] [address] [place] [address], * UPPER GI ENDOSCOPY (07/03/2024) Narrative Procedure Note Tammie Ramos MD - 07/03/2024 12:49 PM EST [facility] Patient Name: Raven Garzon Procedure Date: [...] involved the mucosa extending to the Z-line. Dimmitt-colored mucosawas present. The maximum longitudinal extent of [...] reflux documented in this encounter Care Teams Store Clerk Checker Relationship Specialty Start Date End Date Michael OliverioDO stevan PCP - General Family Medicine 08/11/21 07/03/24 documented as of this encounter
--- OUTSIDE RECORDS SUMMARY | 2024-07-07 09:48 | XMS_ITS | Encounter Summary ---
Author Organization [facility] Address [address] [place] [address] Care Team Providers Care Service Correspondent Name Role Phone Oliverio Rodriguez DO Primary Care Provider [phone] Reason for Visit * Auth/Cert (Routine) Specialty Diagnoses / Procedures Referred By Lakshmi t Referred To Contact Diagnoses Gastric reflux CHRONIC ACID REFLUX Procedures [place] EGD TRANSORAL BIOPSY SINGLE/MULTIPLE UPPER ENDOSCOPY WITH POSSIBLE BIOPSY AND/OR POLYPECTOMY AND POSSIBLE MODERATE SEDATION Referral ID Status Reason Start Date Expiration Date Visits Re quested Visits Authorized [id number] 99 99 Encounter Details Date Type Department Care Team (Late st Contact Info) Description 07/03/2024 2:30 PM EST Anesthesia Event [facility] OR [address] [place] [address] Stephen Joya MD [address] [place] [address] Anesthesia Record Procedure Summary Procedure Name Responsible [...] Gastric reflux (CHRONIC ACID REFLUX) Surgeons: Tammie Ramos MD Responsible Provider: Stephen Joya MD Anesthesia [...] BIOPSY AND/OR POLYPECTOMY AND POSSIBLE MODERATE SEDATION: 58274 (CPT??) Surgeon(s): Tammie Ramos MD Past Medical [...] Info) Description 08/01/2024 7:20 AM EDT Appointment [facility] Mammography Department [address] [place] [address] documented as of this encounter Visit Diagnoses [...] mg documented in this encounter Care Teams Service Correspondent Relationship Specialty Start Date End Date Oliverio Rodriguez DO PCP - General Family Medicine 08/11/21 07/03/24 documented as of this encounter
--- OUTSIDE RECORDS SUMMARY | 2024-07-07 09:48 | XMS_ITS | Encounter Summary ---
Author Organization [facility] Address [address] [place] [address] Care Team Providers Care Lumber Buyer Name Role Phone Oliverio Rodriguez DO Primary Care Provider [phone] Reason for Visit * Auth/Cert (Routine) Specialty Diagnoses / Procedures Referred By Contac t Referred To Contact Diagnoses Gastric reflux CHRONIC ACID REFLUX Procedures [place] EGD TRANSORAL BIOPSY SINGLE/MULTIPLE UPPER ENDOSCOPY WITH POSSIBLE BIOPSY AND/OR POLYPECTOMY AND POSSIBLE MODERATE SEDATION Referral ID Status Reason Start Date Expiration Date Visits Re quested Visits Authorized [id number] 99 99 Encounter Details Date Type Department Care Team (Late st Contact Info) Description 07/03/2024 2:10 PM EST - 07/03/2024 2:36 PM EST Surgery [facility] OR [address] [place] [address] Tammie Ramos MD [address] [place] [address] UPPER ENDOSCOPY WITH POSSIBLE BIOPSY AND/OR POLYPECTOMY AND POSSIBLE MODERATE SEDATION [67734 (CPT??)] Social History Tobacco Use Types Packs/Day [...] Care Everywhere. * Art's Esophagus Discharge Instructions (Ugandan) * Hiatal hernia ??? Discharge instructions (Ugandan) * Peptic ulcers (Ugandan) documented in this encounter Medications at Time [...] 12:49 PM ESTAssociated Order(s): UPPER GI ENDOSCOPY [facility] Patient Name: Raven Garzon Procedure Date: [...] involved the mucosa extending to the Z-line. Sutton-colored mucosa was present. The maximum longitudinal extent [...] Info) Description 08/01/2024 7:20 AM EDT Appointment [facility] Mammography Department [address] [place] [address] documented as of this encounter Procedures * Due to [place] [employer] law, this organization might not be sharing negative HIV tests. Procedure Name Priority Date/Time Associated Diagnosis Comments TISSUE EXAM - [place] ONLY Routine 07/03/2024 2:36 PM EST Gastric reflux [place] EGD TRANSORAL BIOPSY SINGLE/MULTIPLE 07/03/2024 2:27 PM EST Gastric reflux UPPER GI ENDOSCOPY 07/03/2024 documented in this encounter Results * Due to [place] [employer] law, this organization might not be sharing negative HIV tests. * Tissue Exam - [place] only (07/03/2024 2:36 PM EST) Tissue Exam Result SEE DETAILS 07/05/2024 12:00 AM EST [facility] Comment: ?FINAL DIAGNOSIS ?A. [...] special and immunostains performed at [facility] ?? [facility] [address], (HP-[id number], CLIA ? #[id number]). ? Grossing and technical work performed at [facility] ([facility], [address] [place] [address], ?? [place] [address]; ; HP-[id number]; CLIA #[id number] ? All professional pathology services performed at [facility] ? [place] ([address] [place] [address]; ; CLIA ?? #[id number]) ? Note: Some or all of the tests utilized in this case may be laboratory developed tests (LDT's) and may use class I analyte specific reagents (ASR). These tests were developed for clinical purposes and their ? performance characteristics determined by [facility] Laboratories on tissue fixed in 10% neutral buffered formalin. Other fixatives have not been validated, and therefore results on ? tissue with such fixation should be interpreted with caution and in ?? the clinical context. [facility] Laboratories are qualified under the CLIA ?? [...] REFLUX us Tammie Ramos MD LAB PATH/CYTO ([facility] Final Result [facility] [address] [place] [address], * UPPER GI ENDOSCOPY (07/03/2024) Narrative Procedure Note Tammie Ramos MD - 07/03/2024 12:49 PM EST [facility] Patient Name: Raven Garzon Procedure Date: [...] involved the mucosa extending to the Z-line. Sutton-colored mucosawas present. The maximum longitudinal extent of [...] reflux documented in this encounter Care Teams Lumber Buyer Relationship Specialty Start Date End Date MichaelLatoyaOliverio PCP - General Family Medicine 08/11/21 07/03/24 documented as of this encounter
--- OUTSIDE RECORDS SUMMARY | 2024-07-07 09:48 | XMS_ITS | Encounter Summary ---
Author Organization [facility] Address [address] [place] [address] Care Team Providers Care External Relations Manager Name Role Phone Darlene Rodas MD Primary Care Provider [phone] Encounter Details Date Type Department Care Team (Late st Contact Info) Description 04/11/[address] [facility] [address] [place] [phone] Darlene Rodas MD [address] [place] [address] Social History Tobacco Use Types Packs/Day Years [...] ality of the cells. There fore recommend derrick operator consult for colposcopy, if agreeable please send referral, for derrick operator (ASCUS HPV pos) Her lab work was all normal. documented in this encounter Plan of Treatment Not on file documented as of this encounter Procedures * Due to [employer] law, this organization might not be sharing [...] in this encounter Results * Due to [place] law, this organization might not be sharing [...] in vaginal danica suggestive of bacterial vaginosis. [facility] Cytology study comment (Cvx/Vag) This Pap test has been evaluated with computer assisted technology. [facility] Mutuel Department Manager (Cvx/Vag) CXP, CT(ASCP) CT screening location: [place] [address] [facility] Pathologist (Cvx/Vag) Guera Whitfield M.D., Board Certified in Anatomic and Clinical Pathology (electronic signature) Consulting Pathologist [facility]ology [phone] [facility] COMMENT SEE NOTE [facility] [...] was performed using the APTIMA HPV Assay ([employer] This assay detects E6/E7 viral messenger RNA (mRNA) from 14 high-risk HPV types (16,18,31,33,35,39,45,51,52,56,58,59,66,68). The analytical performance characteristics of this assay have been determined by [employer]. The modifications have not been cleared or approved by the FDA. This assay has been validated pursuant to the CLIA regulations and is used for clinical purposes. ENDOCERVICAL STRUCTURE / Unknown 04/11/2019 12:15 PM EST 04/11/2019 11:36 PM EST Narrative Resulting Agency Comment [id number] Darlene Rodas MD PATHOLOGY-INTERFACED Final Result [facility] [address] [place] [address] * CBC INCLUDES DIFFERENTIAL AND PLATELET COUNT [...] 9:59 PM EST Narrative Resulting Agency Comment [id number] Darlene Rodas MD LAB SAME DAY RESULT Final Result Performing Organization Address City/State/[facility] Co de Phone Number [facility] [address] [place] [address] * LIPID PANEL WITH REFLEX TO DIRECT [...] LDL-C. Vladimir BLACKMON et al. PUJA. 2013;310(19): 0980-7826 (http://education.Jule Game.SlideJar/faq/QIY761) CHOL/HDL Ratio 2.2 <5.0 (calc) [facility] Cholesterol Non-HDL 95 <130 mg/dL (calc) [facility] Comment: For patients with diabetes plus 1 major ASCVD risk factor, treating to a non-HDL-C goal of <100 mg/dL (LDL-C of <70 mg/dL) is considered a therapeutic option. 04/11/2019 8:39 AM EST 04/11/2019 9:59 PM EST Narrative Resulting Agency Comment [id number] Darlene Rodas MD LABORATORY Final Resu lt [facility] [address] [place] [address] * BASIC METABOLIC PANEL WITH (GFR) (04/11/2019 8:39 AM EST) Glucose 76 65 - 99 mg/dL [facility] Comment:Fasting reference in terval Urea Nitrogen Blood (BUN) 14 7 - 25 mg/dL [facility] Creatinine 0.65 0.50 - 1.05 mg/dL [facility] Comment: For patients >49 years of age, the reference limit for Creatinine is approximately 13% higher for people identified as -Trinidadian. EGFR 101 > OR = 60 mL/min/1 [...] needs for GFR calculation. Resulting Agency Comment [id number] Darlene Rodas MD LABORATORY Final Resu lt Performing Organization Address [facility] de Phone Number [facility] [address] [place] [address] * HEPATIC FUNCTION PANEL (ALT,AST,ALK PH,BILI'S,TP,ALB) (04/11/2019 [...] 9:59 PM EST Narrative Resulting Agency Comment [id number] Darlene Rodas MD LABORATORY Final Resu lt Performing Organization Address [facility] de Phone Number [facility] [address] [place] [address] * TSH, 3RD GENERATION (04/11/2019 8:39 AM EST) TSH 3.81 mIU/L [facility] Comment: ?Reference Range ?> or = 20 Years ??0.40-4.50 ? Ranges ?First trimester ?0.26-2.66 ?Second trimester ?? 0.55-2.73 ?Third trimester ?0.43-2.91 04/11/2019 8:39 AM EST 04/11/2019 9:59 PM EST Narrative Resulting Agency Comment [id number] Darlene Rodas MD LABORATORY Final Resu lt Performing Organization Address City/State/[facility] Co de Phone Number [facility] [address] [place] [address] documented in this encounter Visit Diagnoses Diagnosis Screening for metabolic disorder Screening for malignant neoplasm of cervix Screening for malignant neoplasm of the cervix documented in this encounter Care Teams External Relations Manager Relationship Specialty Start Date End Date Darlene Rodas MD [address] [place] [address] PCP - General 07/16/16 03/18/21 documented as of this encounter
--- OUTSIDE RECORDS SUMMARY | 2024-07-07 09:48 | XMS_ITS | Clinical Summary ---
Author Organization [facility] Address [address] [place] [address] Care Team Providers Care Elect Equip Maint Eng Name Role Phone Jeremy Camara Primary Care Provider [phone] Allergies No known active allergies Medications multivitamin (MULTIPLE VITAMINS) tablet Act solange diphenhydrAMINE (SOMINEX) tablet 25 mg 5 Discontinue d(Stop Taking at Discharge) TRAZODONE HCL (TRAZODONE ORAL) 07/04/19 2 5 Discontinue d(Stop Taking at Discharge) Active Problems Problem Noted Date Diagnosed Date Age-related facial wrinkles 11/09/2016 Encounters Date Type Department Care Team Description 07/03/2024 2:30 PM EST Anesthesia Event [facility] OR [address] [place] [address] Stephen Joya MD 07/03/2024 2:10 PM EST - 07/03/2024 2:36 PM EST Surgery [facility] OR [address] [place] [address] 79462 Tammie Ramos MD UPPER ENDOSCOPY WITH POSSIBLE BIOPSY AND/OR POLYPECTOMY AND POSSIBLE MODERATE SEDATION [55147 (CPT??)] 07/03/2024 1:55 PM EST - 07/03/2024 3:27 PM EST Hospital Encounter [facility] OR [address] [place] [address] Tammie Ramos MD Gastric reflux Discharge Disposition: [...] Info) Description 08/01/2024 7:20 AM EDT Appointment [facility] Mammography Department [address] [place] [address] Health Maintenance Due Date Last Done Comments [...] Additional history exists Procedures * Due to [place] [employer] law, this organization might not be sharing negative HIV tests. Procedure Name Priority Date/Time Associated Diagnosis Comments TISSUE EXAM - [place] ONLY Routine 07/03/2024 2:36 PM EST Gastric reflux [place] EGD TRANSORAL BIOPSY SINGLE/MULTIPLE 07/03/2024 2:27 PM EST Gastric reflux PATHOLOGY - SCANNED 07/03/2024 UPPER GI ENDOSCOPY 07/03/2024 FRANCK BILATERAL IMPLANT SCREENING DIGITAL MAMMOGRAM WITH FUAD Routine 06/30/2023 1:33 PM EST Screening mammogram for breast cancer from Last 3 Months or Most Recently Relevant to Health Maintenance Results * Due to [place] [employer] law, this organization might not be sharing negative HIV tests. * Tissue Exam - [place] only (07/03/2024 2:36 PM EST) Tissue Exam Result SEE DETAILS 07/05/2024 12:00 AM EST [facility] Comment: ?FINAL DIAGNOSIS ?A. [...] performance of special and immunostains performed at [facility] ?? [facility], [place] [address], (HP-[id number], CLIA ? #[id number]). ? Grossing and technical work performed at [facility] ?? Network ([facility], [address] [place] [address], ?? [place] [address]; ; HP-[id number]; CLIA #[id number] ? All professional pathology services performed at [facility] ? [place] ([address] [place] [address]; ; CLIA ?? #[id number]) ? Note: Some or all of the tests utilized in this case may be laboratory developed tests (LDT's) and may use class I analyte specific reagents (ASR). These tests were developed for clinical purposes and their ? performance characteristics determined by [facility] Laboratories on tissue fixed in 10% neutral buffered formalin. Other fixatives have not been validated, and therefore results on ? tissue with such fixation should be interpreted with caution and in ?? the clinical context. [facility] Laboratories are qualified under the CLIA [...] REFLUX us Tammie Ramos MD LAB PATH/CYTO ([place]) Final Result [facility] [address] [place] [address], [place] * PATHOLOGY - SCANNED (07/03/2024) us Onbase Scan Jacek SCANNED PROCEDURES Final Resu lt * UPPER GI ENDOSCOPY (07/03/2024) Narrative Procedure Note Tammie Ramos MD - 07/03/2024 12:49 PM EST [facility] Patient Name: Raven Garzon Procedure Date: [...] involved the mucosa extending to the Z-line. [place]-colored mucosawas present. The maximum longitudinal extent of [...] dense breast tissue shown on mammography. Per [employer] Appropriateness Criteria?? for Breast Cancer Screening (https://acsearch.acr.org/docs/63082/Narrative/) patient may benefit from tomosynthesis on future mammography and supplemental imaging with automated breast ultrasound (ABUS) or breast MRI depending on risk factors. Automated Breast Ultrasound (ABUS) is now available at both [facility] and in the Department of Mammography at [facility]. To schedule a patient, you can either enter an ABUS order into [facility] eBooks in Motion EMR (type in ABUS), call [facility] Central Scheduling at [phone], or call [facility] Central Scheduling at [phone]. To fax an external order: [facility] [phone] [facility] [phone]. If this radiology report contains a blank impression section, it is an incomplete radiology report. ??Please contact the interpreting radiologist or applicable radiology division as soon as possible to obtain the completed interpretation. Jeremy Camara IMRaya BI PROCEDURES Final Result from Last 3 Months or Most Recently Relevant to Health Maintenance Insurance [facility] MEDICAID Advance Directives Documents on File Type Date Recorded Patient First Breaker Feeder Expl anation Health Care Proxy 08/21/2021 Health Care Proxy 08/21/2021 Health Care Proxy 08/21/2021 Health Care Proxy 08/21/2021 Health Care Proxy 08/21/2021 Health Care Proxy 08/21/2021 Care Teams Elect Equip Maint Eng Relationship Specialty Start Date End Date Jeremy Camara [address] [place] [address] PCP - General Internal Medicine 07/04/24
--- OUTSIDE RECORDS SUMMARY | 2024-07-07 09:48 | XMS_ITS | Encounter Summary ---
Author Organization [facility] Address [address] [place] [address] Care Team Providers Care Insurance Consultant Name Role Phone Darlene Rodas MD Primary Care Provider [phone] Encounter Details Date Type Department Care Team (Late st Contact Info) Description 03/22/[address] [facility] [address] [place] [phone] Opal Stevens NP Social History Tobacco Use [...] of this encounter Procedures * Due to [place] [employer] law, this organization might not be sharing negative HIV tests. Procedure Name Priority Date/Time Associated Diagnosis Comments HSV 1 AND 2 IGG HERPESELECT SPECIFIC ANTIBODY Routine 03/22/2018 5:00 PM EST Screen for STD (sexually transmitted disease) documented in this encounter Results * Due to [place] [employer] law, this organization might not be sharing [...] 10:43 PM EST Narrative Resulting Agency Comment [id number] Opal Stevens NP LABORATORY Final Result [facility] [address] [place] [address] documented in this encounter Visit Diagnoses Diagnosis Screen for STD (sexually transmitted disease) Screening examination for venereal disease documented in this encounter Care Teams Insurance Consultant Relationship Specialty Start Date End Date Darlene Rodas MD [address] [place] [address] PCP - General 07/16/16 03/18/21 documented as of this encounter
--- OUTSIDE RECORDS SUMMARY | 2024-07-07 09:48 | XMS_ITS | Encounter Summary ---
Author Organization [facility] Address [address] [place] [address] Care Team Providers Care Fire Alarm Installer Name Role Phone Darlene Rodas MD Primary Care Provider [phone] Encounter Details Date Type Department Care Team (Late st Contact Info) Description 02/29/[address] [facility] [address] [place] [phone] Darlene Rodas MD [address] [place] [address] Social History Tobacco Use Types Packs/Day Years [...] this encounter Procedures * Due to [place] [employer] law, this organization might not be sharing [...] this encounter Results * Due to [place] [employer] law, this organization might not be sharing [...] 12:03 AM EDT Narrative Resulting Agency Comment [id number] Darlene Rodas MD LAB SAME DAY RESULT Final Result [facility] [address] [place] [address] * BASIC METABOLIC PANEL WITH (GFR) (02/29/2020 4:40 PM EDT) Glucose 92 65 - 99 mg/dL [facility] Comment:Fasting reference in terval Urea Nitrogen Blood (BUN) 19 7 - 25 mg/dL [facility] Creatinine 0.66 0.50 - 1.05 mg/dL [facility] Comment: For patients >49 years of age, the reference limit for Creatinine is approximately 13% higher for people identified as -[place]. EGFR 100 > OR = 60 mL/min/1 [...] needs for GFR calculation. Resulting Agency Comment [id number] Darlene Rodas MD LABORATORY Final Resu lt Performing Organization Address [facility] de Phone Number [facility] [address] [place] [address] * LIPID PANEL WITH REFLEX TO DIRECT [...] LDL-C. Vladimir BLACKMON et al. PUJA. 2013;310(19): 1346-3794 (http://education.[employer]/faq/WYL070) CHOL/HDL Ratio 2.2 <5.0 (calc) [facility] Cholesterol Non-HDL 95 <130 mg/dL (calc) [facility] Comment: For patients with diabetes plus 1 major ASCVD risk factor, treating to a non-HDL-C goal of <100 mg/dL (LDL-C of <70 mg/dL) is considered a therapeutic option. 02/29/2020 4:40 PM EDT 03/01/2020 12:03 AM EDT Narrative Resulting Agency Comment [id number] Darlene Rodas MD LABORATORY Final Resu lt Performing Organization Address [facility] Co de Phone Number [facility] [address] [place] [address] * ALANINE AMINOTRANSFERASE (ALT), SERUM (02/29/2020 4:40 PM EDT) ALT (SGPT) 14 6 - 29 U/L [facility] 02/29/2020 4:40 PM EDT 03/01/2020 12:03 AM EDT Narrative Resulting Agency Comment [id number] us Darlene Rodas MD LAB SAME DAY RESULT Final Result Performing Organization Address [facility] Co de Phone Number [facility] [address] [place] [address] * SYPHILIS (FTA) ANTIBODY CASCADING REFLEX TO [...] 12:03 AM EDT Narrative Resulting Agency Comment [id number] us Rachael Camarena MD LABORATORY Final Result Performing Organization Address [facility] de Phone Number [facility] [address] [place] [address] documented in this encounter Visit Diagnoses Diagnosis Concern about STD in female without diagnosis Person with feared complaint in whom no diagnosis was made Screening for endocrine, metabolic and immunity disorder documented in this encounter Care Teams Fire Alarm Installer Relationship Specialty Start Date End Date Darlene Rodas MD [address] [place] [address] PCP - General 07/16/16 03/18/21 documented as of this encounter
--- OUTSIDE RECORDS SUMMARY | 2024-07-07 09:48 | XMS_ITS | Referral Summary ---
Author Organization [facility] Address [address] [place] [address] Care Team Providers Care Women'S Soccer Coach Name Role Phone Jeremy Camara Primary Care Provider [phone] Encounters Date Type Department Care Team Description 07/03/2024 2:10 PM EST - 07/03/2024 2:36 PM EST Surgery [facility] OR [address] [place] [address] Tammie Ramos MD UPPER ENDOSCOPY WITH POSSIBLE BIOPSY AND/OR POLYPECTOMY AND POSSIBLE MODERATE SEDATION [92225 (CPT??)] 07/03/2024 2:30 PM EST Anesthesia Event [facility] OR [address] [place] [address] Stephen Joya MD 07/03/2024 1:55 PM EST - 07/03/2024 3:27 PM EST Hospital Encounter [facility] OR [address] [place] [address] Tammie Ramos MD Gastric reflux Discharge Disposition: Home or Self Care (01) from Last 3 Months Allergies No known active allergies Medications multivitamin (MULTIPLE VITAMINS) tablet Act solnage diphenhydrAMINE (SOMINEX) tablet 25 mg 5 Discontinue [...] Info) Description 08/01/2024 7:20 AM EDT Appointment [facility] Mammography Department [address] [place] [address] Procedures * Due to [place] [employer] law, this organization might not be sharing negative HIV tests. Procedure Name Priority Date/Time Associated Diagnosis Comments TISSUE EXAM - [facility] Routine 07/03/2024 2:36 PM EST Gastric reflux [place] EGD TRANSORAL BIOPSY SINGLE/MULTIPLE 07/03/2024 2:27 PM EST Gastric reflux PATHOLOGY - SCANNED 07/03/2024 UPPER GI ENDOSCOPY 07/03/2024 FRANCK BILATERAL IMPLANT SCREENING DIGITAL MAMMOGRAM WITH FUAD Routine 06/30/2023 1:33 PM EST Screening mammogram for breast cancer from Last 3 Months or Most Recently Relevant to Health Maintenance Results * Due to [place] state law, this organization might not be sharing negative HIV tests. * Tissue Exam - [place] only (07/03/2024 2:36 PM EST) Tissue Exam Result SEE DETAILS 07/05/2024 12:00 AM EST [facility] Comment: ?FINAL DIAGNOSIS ?A. ??Esophagus, [...] special and immunostains performed at [facility] ?? [facility], [place] [address], (HP-0362, CLIA ? #[id number]). ? Grossing and technical work performed at [facility] ?? [facility] ([facility], [address] [place] [address], ?? [place] [address]; ; HP-0361; CLIA #[id number] ? All professional pathology services performed at [facility] ? [place] ([address] [place] [address]; ; CLIA ?? #[id number]) ? Note: Some or all of the tests utilized in this case may be laboratory developed tests (LDT's) and may use class I analyte specific reagents (ASR). These tests were developed for clinical purposes and their ? performance characteristics determined by [facility] Laboratories on tissue fixed in 10% neutral buffered formalin. Other fixatives have not been validated, and therefore results on ? tissue with such fixation should be interpreted with caution and in ?? the clinical context. [facility] Laboratories are qualified under the CLIA [...] REFLUX us Tammie Ramos MD LAB PATH/CYTO ([place]) Final Result [facility] [address] [place] [address], [place] * PATHOLOGY - SCANNED (07/03/2024) us Onbase Scan Jacek SCANNED PROCEDURES Final Resu lt * UPPER GI ENDOSCOPY (07/03/2024) Narrative Procedure Note Tammie Ramos MD - 07/03/2024 12:49 PM EST [facility] Patient Name: Raven Garzon Procedure Date: 07/03/2024 [...] involved the mucosa extending to the Z-line. [place]-colored mucosawas present. The maximum longitudinal extent of [...] dense breast tissue shown on mammography. Per [employer] Appropriateness Criteria?? for Breast Cancer Screening (https://acsearch.acr.org/docs/71970/Narrative/) patient may benefit from tomosynthesis on future mammography and supplemental imaging with automated breast ultrasound (ABUS) or breast MRI depending on risk factors. Automated Breast Ultrasound (ABUS) is now available at both [facility]? [facility] and in the Department of Mammography at [facility]. To schedule a patient, you can either enter an ABUS order into [facility] [employer] EMR (type in ABUS), call [facility] Central Scheduling at [phone], or call [facility] Central Scheduling at [phone]. To fax an external order: [facility] [phone] and [facility] [phone]. If this radiology report contains a blank impression section, it is an incomplete radiology report. ??Please contact the interpreting radiologist or applicable radiology division as soon as possible to obtain the completed interpretation. Jeremy Camara IMG BI PROCEDURES Final Result from Last 3 Months or Most Recently Relevant to Health Maintenance Insurance [employer] Advance Directives Documents on File Type Date Recorded Patient Refrigeration Technician Expl anation Health Care Proxy 08/21/2021 Health Care Proxy 08/21/2021 Health Care Proxy 08/21/2021 Health Care Proxy 08/21/2021 Health Care Proxy 08/21/2021 Health Care Proxy 08/21/2021 Care Teams Women'S Soccer Coach Relationship Specialty Start Date End Date Jeremy Camara [address] [place] [address] PCP - General Internal Medicine 07/04/24
--- OUTSIDE RECORDS SUMMARY | 2024-07-07 09:48 | XMS_ITS | Encounter Summary ---
Author Organization [facility] Address [address] [place] [address] Care Team Providers Care Shoe Caser Name Role Phone Darlene Rodsa MD Primary Care Provider [phone] Encounter Details Date Type Department Care Team (Late st Contact Info) Description 03/16/[address] [facility] [address] [place] [phone] Darlene Rodas MD [address] [place] [address] Social History Tobacco Use Types Packs/Day Years [...] of this encounter Procedures * Due to [place] state law, this organization might not be sharing negative HIV tests. Procedure Name Priority Date/Time Associated Diagnosis Comments SYPHILIS (FTA) ANTIBODY CASCADING REFLEX TO RPR/TITER (*PREFERRED SCREEN*) Routine 03/16/2020 12:08 PM EST False positive syphilis serology VENIPUNCTURE Routine 03/16/2020 12:08 PM EST Vegan diet documented in this encounter Results * Due to New [...] 9:39 PM EST Narrative Resulting Agency Comment [id number] us Rachael Camarena MD LABORATORY Final Result Performing Organization Address [facility] Co de Phone Number [facility] [address] [place] [address] * PROTEIN, TOTAL, SERUM (03/16/2020 12:08 PM EST) Protein Total (Serum) 6.6 6.1 - 8.1 g/dL [facility] 03/16/2020 12:0 8 PM EST 03/16/2020 9:39 PM EST Narrative Resulting Agency Comment [id number] us Darlene Rodas MD LAB SAME DAY RESULT Final Result Performing Organization Address [facility] Co de Phone Number [facility] [address] [place] [address] documented in this encounter Visit Diagnoses Diagnosis Vegan diet False positive syphilis serology False positive serological test for syphilis documented in this encounter Care Teams Shoe Caser Relationship Specialty Start Date End Date Darlene Rodas MD [address] [place] [address] [place] [address] PCP - General 07/16/16 03/18/21 documented as of this encounter
--- OUTSIDE RECORDS SUMMARY | 2024-07-07 09:48 | XMS_ITS | Encounter Summary ---
Author Organization [facility] Address [address] [place] [address] Care Team Providers Care Carding Machine Feeder Name Role Phone Darlene Rodas MD Primary Care Provider [phone]- [phone] Encounter Details Date Type Department Care Team ([facility] Contact Info) Description 06/11/2020 Orders Only [facility] SIGNALS INTELLIGENCE SUPERINTENDENT [address] [facility] [address] [place] [address] Brittany Li, RAIN [address] [place] [address] Social History Tobacco Use Types Packs/Day Years [...] [address] on recall list. [employer] sent to pt. Problem list updated. * Result Encounter Note - Bree Martin - 06/11/2020 11:05 AM EST On recall documented in this encounter Plan of Treatment Not on file documented as of this encounter Procedures * Due to [place] [employer] law, this organization might not be sharing negative HIV tests. Procedure Name Priority Date/Time Associated Diagnosis Comments THINPREP TIS PAP AND HPV RNA, HR E6/E7, TMA Routine 06/11/2020 11:05 AM EST Abnormal cervical Papanicolaou smear, unspecified abnormal pap finding documented in this encounter Results * Due to [place] [employer] law, this organization might not be sharing [...] Smear Negative for intraepithelial lesion or malignancy. [facility] Cytology study comment (Cvx/Vag) This Pap test has been evaluated with computer assisted technology. [facility] Career Law Clerk (Cvx/Vag) SXA, CT(ASCP) CT screening location: [place] [address] [employer] COMMENT SEE NOTE [employer] Comment: EXPLANATORY NOTE: The Pap is a [...] HPV MRNA E6/E7 Not Detected Not Detected [employer] Comment: Methodology: Chemical Radiation Technician-Mediated Amplification This assay detects E6/E7 viral messenger RNA (mRNA) from 14 high-risk HPV types (16,18,31,33,35,39,45,51,52,56,58,59,66,68). The analytical performance characteristics of this assay have been determined by [employer]. The modifications have not been cleared or approved by the FDA. This assay has been validated pursuant to the CLIA regulations and is used for clinical purposes. For additional information, please refer to http://education.SETVI/RAN623x4 (This link if provided for information/ educational purposes only.) ENDOCERVICAL STRUCTURE / Unknown 06/11/2020 11:05 AM EST 06/12/2020 7:26 AM EST Narrative Resulting Agency Comment [id number] us Brittany Li COMPENSATION SPECIALIST PATHOLOGY-INTERFACED Final Resul t [employer] [address] [place] [address] documented in this encounter Visit Diagnoses Diagnosis Abnormal cervical Papanicolaou smear, unspecified abnormal pap finding documented in this encounter Care Teams Carding Machine Feeder Relationship Specialty Start Date End Date Darlene Rodas MD [address] [place] [address] PCP - General 07/16/16 03/18/21 documented as of this encounter
--- OUTSIDE RECORDS SUMMARY | 2024-07-07 09:49 | XMS_ITS | Encounter Summary ---
Author Organization [facility] Address [address] [place] [address] Care Team Providers Care Schedule Supervisor Name Role Phone Darlene Rodas MD Primary Care Provider [phone]- [phone] Encounter Details Date Type Department Care Team (Late st Contact Info) Description 2018 Orders Only [facility] [address] [place] [phone] Darlene Rodas MD [address] [place] [address] Social History Tobacco Use Types Packs/Day Years [...] on filedocumented in this encounter Care Teams Schedule Supervisor Relationship Specialty Start Date End Date Darlene Rodas MD [address] [place], [place] [id number] PCP - General 07/16/16 03/18/21 documented as of this encounter
--- OUTSIDE RECORDS SUMMARY | 2024-07-07 09:49 | XMS_ITS | Encounter Summary ---
Author Organization [facility] Address [address] [place] [address] Care Team Providers Care Seasonal Sales Associate Name Role Phone Darlene Rodas MD Primary Care Provider [phone]- [phone] Encounter Details Date Type Department Care Team (Late st Contact Info) Description 11/17/2016 Orders Only [facility] [address] [place] [phone] Linette Mcguire NP Social History Tobacco [...] of this encounter Procedures * Due to [place] state law, this [...] in this encounter Results * Due to [place] state law, this organization might not be sharing negative HIV tests. * HEPATITIS C AB WITH REFLEX TO RNA PCR, SERUM (11/17/2016 8:05 AM EDT) Hepatitis C virus Ab NON-REACTI VE NON-REACT IRENE [facility] Hepatitis C virus Ab Signal/Cutoff 0.02 <1.00 [facility] 11/17/2016 8:05 AM EDT 11/17/2016 8:04 PM EDT Narrative Resulting Agency Comment [id number] Linette Mcguire NP LABORATORY Final Result Performing Organization Address City/State/[facility] Co de Phone Number [facility] [address] [place] [address] * CBC INCLUDES DIFFERENTIAL AND PLATELET COUNT [...] 8:04 PM EDT Narrative Resulting Agency Comment [id number] Linette Mcguire NP LAB SAME DAY RESULT Final Re sult Performing Organization Address [facility] Co de Phone Number [facility] [address] [place] [address] * ALANINE AMINOTRANSFERASE (ALT), SERUM (11/17/2016 8:05 AM EDT) ALT (SGPT) 12 6 - 29 U/L [facility] 11/17/2016 8:05 AM EDT 11/17/2016 8:04 PM EDT Narrative Resulting Agency Comment [id number] Linette Mcguire [facility] SAME DAY RESULT Final Re sult Performing Organization Address [facility] Co de Phone Number [facility] [address] [place] [address] * LIPID PANEL WITH REFLEX TO DIRECT [...] 8:04 PM EDT Narrative Resulting Agency Comment [id number] us Linette Mcguire NP LABORATORY Final Result [facility] [address] [place] [address] * BASIC METABOLIC PANEL WITH (GFR) (11/17/2016 8:05 AM EDT) Pathologist [facility] Glucose 81 65 - 99 mg/dL [facility] Comment:Fasting reference in terval Urea Nitrogen Blood (BUN) 14 7 - 25 mg/dL [facility] Creatinine 0.76 0.50 - 1.05 mg/dL [facility] Comment: For patients >49 years of age, the reference limit for Creatinine is approximately 13% higher for people identified as -Botswanan. GFR 91 > OR = 60 mL/min/1 [...] needs for GFR calculation. Resulting Agency Comment [id number] us Linette Eineberg [facility] Final Result [facility] [address] [place] [address] documented in this encounter Visit Diagnoses Diagnosis Encounter to establish care with new doctor Other reasons for seeking consultation Health care maintenance Unspecified general medical examination Need for hepatitis C screening test Special screening examination for other specified viral diseases documented in this encounter Care Teams Seasonal Sales Associate Relationship Specialty Start Date End Date Darlene Rodas MD [address] [place] [id number] PCP - General 07/16/16 03/18/21 documented as of this encounter
--- OUTSIDE RECORDS SUMMARY | 2024-07-07 09:49 | XMS_ITS | Clinical Summary ---
Author Organization [facility] [employer] Address [address] [place] [address] Care Team Providers Care Special Needs Teacher Name Role Phone No, Pcp SENIOR COMMUNICATIONS ENGINEER Primary Care Provider Unavailabl e Allergies No [...] Adults 18 yrs or above (or HM Modifier)([facility]) 1983 Hepatitis C Virus Infection in Adolescents and Adults: Screening (or Modifier) ([facility]) 1983 SDOH Screening Reminder: Annually for all adults ([facility]) 1983 Tobacco Smoking Cessation: i n Adults excluding Women: Behavioral and Pharmacotherapy Interventions ([facility]) 1983 Cervical Cancer Screenin-65 yrs of age (or Modifier) 1986 Cervical Cancer Screening: P ap every 3 yrs pts age 21-65 1986 Cervical Cancer: Pap Screeni ng with Modifier timing ([facility]) 1986 Cervical Cancer: hrHPV alone or with cotesting Pap for Pts 30-65yrs screening every 5yrs ([facility]) 1986 Colorectal Cancer Screening 45 -75 Yrs (or HM Modifier) 2010 Colorectal Cancer: FLEXIBLE SIGMOIDOSCOPY Screening every 5 yrs 2010 Colorectal Cancer: Fecal Immunochemical Test (FIT) Annually [facility] 2010 Colorectal Cancer: High-sensitivity gFOBT Screening Annually [facility] 2010 Colorectal Cancer: Stool Cologuard Screening every 3 yrs 2010 Colorectal Cancer:CT Colonography Screening every 5 yrs 2010 Lipid Screening: Every 5 yrs for Women aged 45+ (or HM Modifier) ([facility]) 2011 Breast Cancer: Screening Annually age 50-74 yrs (or HM Modifier)([facility]) 2015 Flu Vaccination: Yearly for ages 18mos through 64 years (or Modifier)([facility]) 12/02/2023 01/10/2020 COVID-19 Vaccine Screening: Initial Series and Booster Status ([facility]) (2023- season) 2024 02/06/2021, 08/02/2020, 07/12/2020 DTaP/Tdap/Td Vaccines ([facility]) (2 - Td or Tdap) 02/06/2024 02/05/2014 Zoster/Shingles Vaccine Seri es Screening: Adults aged 18+ yrs (or HM Modifiers)([facility]) Completed 03/18/2020, 01/10/2020 Pneumococcal Vaccination Screening: Pts 0-19 & 19-64 yrs of age ([facility]) Aged Out No longer eligible based on patient's age to complete this topic Medical Devices Not on file Insurance [employer] Care Teams Special Needs Teacher Relationship Specialty Start Date End Date No, Pcp, SENIOR COMMUNICATIONS ENGINEER N/A Do not use PCP - General Family Medicine 03/24/20
--- OUTSIDE RECORDS SUMMARY | 2024-07-07 09:49 | XMS_ITS | Encounter Summary ---
Author Organization [facility] Address [address] [place] [address] Care Team Providers Care Data Network Architect Name Role Phone Darlene Rodas MD Primary Care Provider +1- [phone] Encounter Details Date Type Department Care Team (Late st Contact Info) Description 03/18/2018 Orders Only [facility] [address] [place] [phone] Opal Stevens NP Social History [...] of this encounter Progress Notes * Opal Setvens NP - 04/01/2018 2:19 PM EST Lab [...] 03/18/2018 5:02 PM EST us Opal Stevens COLD ROLLING MACHINE SETTER LAB SAME DAY RESULT Final Result [facility] [address] [place] [address] * ASPARTATE AMINOTRANSFERASE (AST), SERUM (03/18/2018 9:22 AM EST) AST (SGOT) 20 10 - 35 U/L [facility] 03/18/2018 9:22 AM EST 03/18/2018 5:02 PM EST Narrative Resulting Agency Comment [id number] us Opal Stevens COLD ROLLING MACHINE SETTER LAB SAME DAY RESULT Final Result Performing Organization Address City/[facility]/ZIP Co de Phone Number [facility] [address] [place] [address] * ALANINE AMINOTRANSFERASE (ALT), SERUM (03/18/2018 9:22 AM EST) ALT (SGPT) 12 6 - 29 U/L [facility] 03/18/2018 9:22 AM EST 03/18/2018 5:02 PM EST Narrative Resulting Agency Comment [id number] Opal Stevens COLD ROLLING MACHINE SETTER LAB SAME DAY RESULT Final Result Performing Organization Address [facility] de Phone Number [facility] [address] [place] [phone] * LIPID PANEL WITH REFLEX TO DIRECT [...] LDL-C. Vladimir BLACKMON et al. PUJA. 2013;310(19): 3307-5741 (http://education.[employer].Liepin.com/faq/BJA253) CHOL/HDL Ratio 2.1 <5.0 (calc) [facility] Cholesterol Non-HDL 98 <130 mg/dL (calc) [facility] Comment: For patients with diabetes plus 1 major ASCVD risk factor, treating to a non-HDL-C goal of <100 mg/dL (LDL-C of <70 mg/dL) is considered a therapeutic option. 03/18/2018 9:22 AM EST 03/18/2018 5:02 PM EST Narrative Resulting Agency Comment [id number] us Opal Stevens COLD ROLLING MACHINE SETTER LABORATORY Final Result Performing Organization Address City/[facility]/ZIP Co de Phone Number [facility] [address] [place] [address] * BASIC METABOLIC PANEL WITH (GFR) (03/18/2018 9:22 AM EST) Glucose 75 65 - 99 mg/dL [facility] Comment:Fasting reference in terval Urea Nitrogen Blood (BUN) 12 7 - 25 mg/dL [facility] Creatinine 0.63 0.50 - 1.05 mg/dL [facility] Comment: For patients >49 years of age, the reference limit for Creatinine is approximately 13% higher for people identified as -Malagasy. GFR 102 > OR = 60 mL/min/1 [...] needs for GFR calculation. Resulting Agency Comment [id number] Opal Stevens COLD ROLLING MACHINE SETTER LABORATORY Final Result Performing Organization Address [facility] Co de Phone Number [facility] [address] [place] [address] documented in this encounter Visit Diagnoses Diagnosis Healthy adult on routine physical examination Routine general medical examination at a health care facility documented in this encounter Care Teams Data Network Architect Relationship Specialty Start Date End Date Darlene Rodas MD [address] [place] [id number] PCP - General 07/16/16 03/18/21 documented as of this encounter
--- OUTSIDE RECORDS SUMMARY | 2024-07-07 09:49 | XMS_ITS | Encounter Summary ---
Author Organization [facility] Address [address] [place] [address] Care Team Providers Care Corporate Health Consultant Name Role Phone Unavailable Primary Care Provider Unavailabl e Encounter Details Date Type Department Care Team ([facility] st Contact Info) Description 07/03/2024 Orders Only [facility] [address] [place] [address] Tammie Ramos MD [address] [place] [address] Social History Tobacco Use Types Packs/Day Years [...] of this encounter Procedures * Due to [facility] law, this organization might not be sharing negative HIV tests. Procedure Name Priority Date/Time Associated Diagnosis Comments TISSUE EXAM - [place] ONLY Routine 07/03/2024 2:36 PM EST documented in this encounter Results * Due to [facility] law, this organization might not be sharing negative HIV tests. * TISSUE EXAM - [place] ONLY (07/03/2024 2:36 PM EST) TISSUE EXAM RESULT SEE DETAILS [facility] Comment: ?FINAL DIAGNOSIS ?A. ??Esophagus, distal, biopsy: [...] and immunostains performed at [facility] ?? [facility], [place] [address], ([id number], CLIA ? #[id number]). ? Grossing and technical work performed at [facility] ([facility], [address] [facility], ?? [place] [address]; ; -0361; CLIA #[id number] ? All professional pathology services performed at [facility] ? [place] ([address] [place] [address]; ; CLIA ?? #[id number]) ? Note: Some or all of the tests utilized in this case may be laboratory developed tests (LDT's) and may use class I analyte specific reagents (ASR). These tests were developed for clinical purposes and their ? performance characteristics determined by [facility] on tissue fixed [...] appropriate. ? 07/03/2024 2:36 PM EST Narrative [facility] - 07/05/2024 12:00 AM EST Pre-op diagnosis: CHRONIC ACID REFLUX Tammie Ramos MD PATHOLOGY Final Result [facility] [employer] [address] [place] [address] documented in this encounter Visit Diagnoses Not on filedocumented in this encounter
--- OUTSIDE RECORDS SUMMARY | 2024-07-07 09:49 | XMS_ITS | Encounter Summary ---
Author Organization [facility] Address [address] [place] [address] Care Team Providers Care Outreach Rep Name Role Phone Darlene Rodas MD Primary Care Provider +1- [phone] Encounter Details Date Type Department Care Team (Late st Contact Info) Description 10/06/2016 Orders Only [facility] [address] [place] [phone] Darlene Rodas MD [address] [place] [id number] Social History Tobacco Use Types Packs/Day Years [...] on filedocumented in this encounter Care Teams Outreach Rep Relationship Specialty Start Date End Date Darlene Rodas MD [address] [place], [place] [phone] PCP - General 07/16/16 03/18/21 documented as of this encounter
--- OUTSIDE RECORDS SUMMARY | 2024-07-07 09:49 | XMS_ITS | Encounter Summary ---
Author Organization [facility] Address [address] [place] [address] Care Team Providers Care Skills Instructor Name Role Phone Darlene Rodas MD Primary Care Provider +1- [phone] Encounter Details Date Type Department Care Team ([facility] st Contact Info) Description 10/29/2020 Orders Only [facility]. Podiatry [address] [place] [phone] Tre Rosario, DPYocasta [address] [place] [address] Social History Tobacco Use Types Packs/Day Years [...] of this encounter Procedures * Due to [place] [employer] law, this organization might not be sharing negative HIV tests. Procedure Name Priority Date/Time Associated Diagnosis Comments FUNGAL STAIN, JAMIE Routine 10/29/2020 2:3 9 PM EDT Onychomycosis documented in this encounter Results * Due to [place] [employer] law, this organization might not be sharing negative HIV tests. * FUNGAL STAIN, JAMIE (10/29/2020 2:39 PM EDT) Fungus identified SEE NOTE [facility] Comment: ??FUNGAL STAIN ??Micro Number: ?[id number] ??Test Status: ? Final ??Specimen Source: ?? LEFT 2ND TOENAIL ??Specimen Quality: ??Adequate ??Smear: ? No fungal elements seen. 10/29/2020 2:39 PM EDT 10/29/2020 9:27 PM EDT Narrative Resulting Agency Comment [id number] us Tre Rosario DPM LABORATORY Final Result Performing Organization Address City/State/[facility] Co de Phone Number [facility] [address] [place] [address] documented in this encounter Visit Diagnoses Diagnosis Onychomycosis Dermatophytosis of nail documented in this encounter Care Teams Skills Instructor Relationship Specialty Start Date End Date Darlene Rodas MD [address] [place] [address] [place] [address] PCP - General 07/16/16 03/18/21 documented as of this encounter
[2024-07-07 10:01] LABS: MANUAL DIFF FLAG NO
[2024-07-07 10:19] LABS: Basophils Percent Auto 0.7 % (0-2); Eosinophils Absolute Auto 0.2 X10*3/uL (0.0-0.4); Eosinophils Percent Auto 3.8 % (0-4); Hematocrit 41.6 % (37.0-47.0); Hemoglobin 13.8 g/dl (12.0-16.0); Imm Gran Abs Auto 0.01 X10*3/uL (0.00-0.03); Imm Gran Pct Auto 0.2 % (0.0-0.4); Lymphocytes Absolute Auto 1.7 X10*3/uL (1.2-4.9); Lymphocytes Percent Auto 41.1 % (20-40); Mean Corpuscular HGB Conc 33.2 g/dl (31.0-35.0); Mean Corpuscular Hemoglobin 29.7 pg (27.0-33.0); Mean Corpuscular Volume 89.7 fL (80.0-98.0); Mean Platelet Volume 9.6 fL (9.4-12.3); Monocytes Absolute Auto 0.4 X10*3/uL (0.1-1.2); Monocytes Percent Auto 8.4 % (2-11); Neutrophils Absolute Auto 1.9 x10*3/uL (2.0-8.3); Neutrophils Percent Auto 45.8 % (45-73); Platelet Count 248 X10*3/uL (160-400); Red Blood Count 4.64 X10*6/uL (4.20-5.50); Red Cell Distribution Width 12.3 % (11.0-16.0); White Blood Count 4.2 X10*3/uL (4.8-10.8)
[2024-07-07 10:47] LABS: Alanine Aminotransferase 23 U/L (0-31); Albumin Level 3.9 g/dL (3.5-5.0); Alkaline Phosphatase 134 U/L (39-117); Anion Gap 10 (12-20); Aspartate Amino Transferase 30 U/L (5-31); Bilirubin Total 0.2 mg/dL (0.0-1.0); Blood Urea Nitrogen 14 mg/dL (9-16); Calcium 9.3 mg/dL (8.4-10.2); Carbon Dioxide 27 mmol/L (22-29); Chloride 108 mmol/L (96-108); Cholesterol 186 mg/dL (<200); Estimated Glomerular Filt Rate > 60; Glucose Fasting 86 mg/dL (60-99); HDL Cholesterol 81 mg/dL (>40); LDL Cholesterol Calculated 97 mg/dL (<100); Potassium 3.9 mmol/L (3.3-5.1); Sodium 141 mmol/L (135-145); Total Protein 7.5 g/dL (6.5-8.0); Triglycerides 43 mg/dL (<150)
[2024-07-07 10:48] LABS: TSH reflex Free T4 1.77 uIU/mL (0.32-4.0)
[2024-07-07 11:33] LABS: Vitamin B12 574 pg/mL (200-900)
[2024-07-13 23:24] LABS: Vitamin D 25-OH, D2 <4 ng/mL; Vitamin D 25-OH, D3 37 ng/mL; Vitamin D 25-OH, Total 37 ng/mL (30-100)
== END 2024-07-07 08:40 | disposition home or self-care (01) ==
LOC: HO.HMGCLDS 08:39
PROVIDERS: PCP Internal Medicine; Visit Provider Internal Medicine
DX: K29.60 Other gastritis without bleeding (principal); K21.00 Gastro-esophageal reflux disease with esophagitis, without bleeding; K22.4 Dyskinesia of esophagus; D70.8 Other neutropenia
CPT/HCPCS: 36415; 80053; 80061; 82306; 82607; 84443; 85025; 99212

== ENCOUNTER 2024-07-20 08:27 | Outpatient (AMB) | payer OTHER, SELFPAY ==
--- NOTE | 2024-07-20 08:29 | A.OFFPC_ITS ---
Intake Visit Reasons: Anxiety Allergies No Known Allergies Allergy (Verified 07/20/24 08:29) Medication List - Last Reconciled 07/20/24 by Jeremy Camara MD omeprazole 20 mg PO BID Tobacco use date assessed: 07/20/24 Dental Screening Dental Screen Date: 07/20/24 Did you have a dental visit in the last 12 months?: Yes Did you have a dental problem in the last 6 months where you did not have access to dental care?: No Was dental information given to patient?: Patient has dentist HPI Anxiety HPI Details History - The patient is a 59-year-old female pr esenting with difficulty with sleep since the passing of her dog last year - The patient has been experiencing diff iculty sleeping at night. - She stopped taking lorazepam premature ly, which may have contributed to her current sleep issues. - The patient expresses worry about form ing a habit of dependency on lorazepam for sleep. - She had attempted to engage in therapy but was concerned about having it documented. - The patient has admitted to feelings o f sadness. Problem List - Insomnia - Depression Patient Instructions - Take lorazepam only as needed for slee p, rather than nightly to avoid dependency. - Start taking escitalopram (Lexapro) in the morning to aid mood and emotional control. - Consider continuing therapy through vi rtual options such as telephone or Zoom. - Expect contact from the behavioral [facility] coordinator for resources and appointment scheduling. - Monitor for any changes in mood or sle ep patterns, and report back after one month of medication use. Lexopro 5 mg sent 90 tabs Lorazepam .5 mg 30 tabs with one R f.u in 6 wks Review of Systems - General: No fever no chills - Neurological: No headaches no dizziness - Ear nose throat: No sore throat no hearing difficulty no ear pain - Cardiovascular: No syncope, no chest pain, no palpitations - Gastrointestinal: No nausea vomiting or diarrhea 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 How often do you have a drink containing alcohol?: Never 3. How often do you have six or more drinks on one occasion?: Never Total Score: 0 Score Reviewed/Action Taken: Yes ZEE-7 AMB Questionnaire ZEE-7 Date ZEE - 7 assessed: 05/05/24 Source: Developed by Drs. Drew Cerna, Avis Huitron, Wesley Perry and colleagues, with an educational lee from [employer]. Physical exam (Primary Care) Tobacco/Smoking Status: Tobacco use Status Tobacco use date assessed 07/20/24 07/20/24 08:29 Patient Tobacco Use Status Never used Tobacco 07/20/24 08:29 e-Cigarette/Vaping Use Never Used 07/20/24 08:29 Thrive Assessment: Date of Thrive Assessment Date Thrive assessed 07/07/24 07/20/24 08:29 Telehealth Telehealth Telehealth Platform: [facility] Location of provider rendering services: practice address Location of patient: address on file Patient Identification confirmed using: Name, : Yes Telehealth method: video Patient verbally consented to treatment: Yes Patient verbally consented to billing insurance company: Yes Patient informed of any privacy concerns related to visit: Yes Minutes spent on Phone/Video with Pt.: 13 Coding Level of Care Code Tele Est Pt Level 3 (62681) Diagnoses Bereavement, uncomplicated Z63.4 Difficulty sleeping G47.9 Mood disorder F39 Assessment & Plan Assessment & Plan (1) Bereavement, uncomplicated: Code(s): Z63.4 - Disappearance and of family member Category: Social Hx (2) Difficulty sleeping: Code(s): G47.9 - Sleep disorder, unspecified Category: Medical (3) Mood disorder: Code(s): F39 - Unspecified mood [affective] disorder Category: Medical Plan History - The patient is a 59-year-old female presenting with difficulty with sleep since the passing of her dog last year - The patient has been experiencing difficulty sleeping at night. - She stopped taking lorazepam prematurely, which may have contributed to her current sleep issues. - The patient expresses worry about forming a habit of dependency on lorazepam for sleep. - She had attempted to engage in therapy but was concerned about having it documented. - The patient has admitted to feelings of sadness. Problem List - Insomnia - Depression Patient Instructions - Take lorazepam only as needed for sleep, rather than nightly to avoid dependency. - Start taking escitalopram (Lexapro) in the morning to aid mood and emotional control. - Consider continuing therapy through virtual options such as telephone or Zoom. - Expect contact from the behavioral health coordinator for resources and appointment scheduling. - Monitor for any changes in mood or sleep patterns, and report back after one month of medication use. Lexopro 5 mg sent 90 tabs Lorazepam .5 mg 30 tabs with one R f.u in 6 wks Medications: New escitalopram oxalate (Lexapro) 5 mg PO DAILY 90 tabs 0RF Refilled lorazepam 0.5 mg PO BEDTIME PRN 30 tabs 1RF To sleep
== END 2024-07-20 09:22 | disposition home or self-care (01) ==
LOC: HO.HMCC 08:27
PROVIDERS: PCP Internal Medicine; Visit Provider Internal Medicine
DX: G47.9 Sleep disorder, unspecified (principal); Z63.4 Disappearance and death of family member; F39 Unspecified mood [affective] disorder

== ENCOUNTER → 2024-07-20 08:27 | Outpatient (BNVA) | payer OTHER, SELFPAY | PROVIDERS: PCP Internal Medicine; Visit Provider Internal Medicine ==

== ENCOUNTER 2024-09-07 08:39 | Outpatient (AMB) | payer OTHER, SELFPAY ==
--- NOTE | 2024-09-07 08:36 | MHC.PC.OV ---
Intake Visit Reasons: 6 WK F/U breast exam Allergies No Known Allergies Allergy (Verified 09/07/24 08:42) Medication List - Last Reconciled 09/07/24 by Jeremy Camara MD escitalopram oxalate (Lexapro) 5 mg PO DAILY lorazepam 0.5 mg PO BEDTIME PRN omeprazole 20 mg PO BID Tobacco use date assessed: 09/07/24 Dental Screening Dental Screen Date: 09/07/24 Did you have a dental visit in the last 12 months?: Yes Did you have a dental problem in the last 6 months where you did not have access to dental care?: No Was dental information given to patient?: Patient has dentist HPI 6 WK F/U breast exam HPI Details History - The patient is a 59-year-old female presenting with a discussion regarding medication management and follow-up for GERD. - The patient is currently under the care of a therapist, Jerilyn Rodgers, and has expressed interest in exploring hypnotherapy to manage emotional distress associated with the recent loss of her pet, Brittny. She has been provided with names for potential hypnosis therapists. - The patient has been prescribed Lorazepam for anxiety and Escitalopram 5 mg daily for depression, the latter of which she has not commenced due to concerns over polypharmacy. - The patient is under treatment for GERD by Dr Ramos and has been taking Voquezna for about a month, with reported improvement in symptoms such as nocturnal reflux. - The patient is scheduled for a follow-up endoscopy with Dr. Ramos to assess healing associated with her GERD medication. - She has been advised not to take Omeprazole concurrently with Voquezna. - A mammogram indicated dense breast tissue, and consideration for an MRI has been discussed, contingent upon insurance coverage. Problem List - Depression / anxiety - Gastroesophageal Reflux Disease (GERD) - Dense Breast Tissue Patient Instructions - Continue taking Voquezna as prescribed and do not take Omeprazole concurrently. - Consider starting Escitalopram 5 mg daily if comfortable, as prescribed. take Lorazepam only if needed - Follow-up with Dr. Ramos for the scheduled endoscopy. - Provide a report from the mammogram for consideration of an MRI for dense breast tissue. - Reach out if additional medication or assistance is needed. Review of Systems - General: No fever no chills - Neurological: No headaches no dizziness - Ear nose throat: No sore throat no hearing difficulty no ear pain - Cardiovascular: No syncope, no chest pain, no palpitations - Gastrointestinal: No nausea vomiting or diarrhea 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 Sexual orientation: Straight/Heterosexual Gender identity: Female Cognitive needs: No Hearing needs: No Vision needs: No Questionnaire Thrive Questionnaire Date Thrive assessed: 09/07/24 AUDIT C Alcohol Use Questionnaire (AUDIT-C) 1. How often do you have a drink containing alcohol?: Never 3. How often do you have six or more drinks on one occasion?: Never Total Score: 0 Score Reviewed/Action Taken: Yes ZEE-7 AMB Questionnaire ZEE-7 Date ZEE - 7 assessed: 05/05/24 Source: Developed by Drs. Drew Cerna, Avis Huitron, Wesley Perry and colleagues, with an educational lee from [employer]. Physical exam (Primary Care) Tobacco/Smoking Status: Tobacco use Status Tobacco use date assessed 09/07/24 09/07/24 08:43 Patient Tobacco Use Status Never used Tobacco 09/07/24 08:38 e-Cigarette/Vaping Use Never Used 09/07/24 08:38 Thrive Assessment: Date of Thrive Assessment Date Thrive assessed 09/07/24 09/07/24 08:43 Telehealth Telehealth Telehealth Platform: [facility] Location of provider rendering services: practice address Location of patient: address on file Patient Identification confirmed using: Name, : Yes Telehealth method: voice only Patient verbally consented to treatment: Yes Patient verbally consented to billing insurance company: Yes Patient informed of any privacy concerns related to visit: Yes Minutes spent on Phone/Video with Pt.: 12 Coding Level of Care Code Tele Est Pt Level 3 (08717) Diagnoses Mood disorder F39 Erosive gastritis K29.60 Bereavement, uncomplicated Z63.4 Assessment & Plan Assessment & Plan (1) Mood disorder: Code(s): F39 - Unspecified mood [affective] disorder Category: Medical (2) Erosive gastritis: Code(s): K29.60 - Other gastritis without bleeding Category: Medical (3) Bereavement, uncomplicated: Code(s): Z63.4 - Disappearance and of family member Category: Social Hx Plan History - The patient is a 59-year-old female presenting with a discussion regarding medication management and follow-up for GERD. - The patient is currently under the care of a therapist, Jerilyn Rodgers, and has expressed interest in exploring hypnotherapy to manage emotional distress associated with the recent loss of her pet, Brittny. She has been provided with names for potential hypnosis therapists. - The patient has been prescribed Lorazepam for anxiety and Escitalopram 5 mg daily for depression, the latter of which she has not commenced due to concerns over polypharmacy. - The patient is under treatment for GERD by Dr Ramos and has been taking Voquezna for about a month, with reported improvement in symptoms such as nocturnal reflux. - The patient is scheduled for a follow-up endoscopy with Dr. Ramos to assess healing associated with her GERD medication. - She has been advised not to take Omeprazole concurrently with Voquezna. - A mammogram indicated dense breast tissue, and consideration for an MRI has been discussed, contingent upon insurance coverage. Problem List - Depression / anxiety - Gastroesophageal Reflux Disease (GERD) - Dense Breast Tissue Patient Instructions - Continue taking Voquezna as prescribed and do not take Omeprazole concurrently. - Consider starting Escitalopram 5 mg daily if comfortable, as prescribed. take Lorazepam only if needed - Follow-up with Dr. aRmos for the scheduled endoscopy. - Provide a report from the mammogram for consideration of an MRI for dense breast tissue. - Reach out if additional medication or assistance is needed.
--- OUTSIDE RECORDS SUMMARY | 2024-09-07 08:53 | XMS_ITS | Continuity of Care Document ---
Author Organization [facility] Address [address] [place] [address] Care Team Providers Care Bulk Receiver Name Role Phone Unavailable Primary Care Provider Unavailabl e Encounters Date Type Department Care Team Description 07/03/[address] [facility] [address] [place] [address] Tammie Ramos MD 06/30/2023 Minor Procedure/Test [facility] [address] [place] [address] [facility], Unknown Provider 03/23/2023 Minor Procedure/Test [facility] [address] [place] [address] [facility], Unknown Provider 12/10/2022 Telephone [facility] [address] [place] [address] Brittany Li, RAIN Appointment 03/18/[address] [facility] [address] [place] [address] Darlene Rodas MD Other (Pcp; ins info/) 03/03/[address] [facility] [address] [place] [address] Darlene Rodas MD Imm/Inj 10/29/[address] [facility] [facility] [address] [place] [address] Tre Rosario DPM 10/29/2020 8:30 AM EDT Radiology [facility] X-Ray [address] [place] [address] 10/29/2020 [facility] Only [facility] [address] [place] [address] Tre Rosario DPM 10/29/2020 8:50 AM EDT Consult (Initial) [facility] [address] [place] [address] Tre Rosario, GOLD Onychomycosis (Primary Dx); Acquired hallux valgus of left foot; Bilateral foot pain; Acquired hallux valgus of right foot 10/22/2020 Telephone All of [address] [address] [place] [place], [facility] 10/22/2020 Telephone All of [address] [address] [facility] [place] [facility] 09/03/[address] [facility] [address] [place] [address] Darlene Rodas MD Cyst 06/12/[address] [facility] [address] [place] [address] Darlene Rodas MD Patient Questions 06/11/2020 Orders Only [facility] [address] [place] [address] Brittany Li NP 06/11/2020 Travel 06/11/2020 8:00 AM EST Office Visit [facility] [address] [place] [address] Brittany Li NP Encounter for gynecological examination (general) (routine) without abnormal findings (Primary Dx); Abnormal cervical Papanicolaou smear, unspecified abnormal pap finding; Menopause present; Pap smear for cervical cancer screening; History of uterine fibroid; Cystocele, midline 06/03/[address] [facility] [address] [place] [address] Darlene Rodas MD Letter/form Request 05/28/[address] [facility] [address] [place] [address] Darlene Rodas MD Labs/orders (mmg) 05/27/2020 4:30 PM EST Radiology [facility] Ultrasound [address] [place] [address] Leg edema 05/27/2020 6:30 PM EST Radiology [facility] Xray [address] [place] [address] Leg edema 05/27/2020 5:45 PM EST Office Visit [facility] [address] [address] Taiwo Noe PA Leg edema (Primary Dx) 05/27/2020 Travel 05/27/[address] [facility] [address] [place] [address] Darlene Rodas MD Knee Pain 05/23/2020 Orders Only NON FC SA [address] [address] Darlene Rodas MD 04/24/2020 Travel 04/17/2020 Travel 04/17/2020 8:15 AM EST CPE - Comprehensive Physical Exam [address] [facility] [facility] [address] [place] [address] Darlene Rodas MD Well adult exam (Primary Dx); ASCUS with positive high risk HPV cervical; S/P colonoscopy; Gastroesophageal reflux disease, unspecified whether esophagitis present 03/20/[address] [facility] [address] [place] [address] Darlene Rodas MD Results 03/16/2020 Orders Only [address] [facility] [address] [place] [address] Darlene Rodas MD [address] [facility] [address] [place] [address] Darlene Rodas MD Imm/Inj 02/29/2020 Orders Only [address] [facility] [address] [place] [address] Darlene Rodas MD 02/28/[address] [facility] [address] [place] [address] Darlene Rodas MD Labs/orders 11/29/[address] [facility] [address] [place] [address] Darlene Rodas MD Labs/orders 06/30/2019 Letter/Form [facility] [address] [place] [address] Stefania Mclaughlin NP 06/30/2019 8:15 AM EST Minor Procedure/Test [facility] [address] [place] [address] Stefania Mclaughlin, RAIN ASCUS with positive high risk HPV cervical (Primary Dx); Abnormal cervical Papanicolaou smear, unspecified abnormal pap finding 05/29/2019 Telephone [facility] [address] [place] [address] Vanessa Angel PA Follow Up 05/22/[address] [facility] [address] [place] [address] Darlene Rodas MD Labs/orders (mmg) 05/19/2019 Orders Only NON FC SA [facility] [address] [place] [address] Darlene Rodas MD 04/20/[address] [facility] [address] [place] [address] Darlene Rodas MD Results 04/19/2019 11:00 AM EST Consult (Initial) [facility] 5 [place] [address] Vanessa Angel PA Pruritus (Primary Dx); Dyschromia 04/11/[address] [facility] [address] [place] [address] Darlene Rodas MD Records 04/11/2019 Orders Only [facility] [address] [address] [place] [address] Darlene Rodas MD 04/11/2019 7:45 AM EST CPE - Comprehensive Physical Exam [facility] [address] [facility] [address] [place] [address] Darlene Rodas MD Well adult exam (Primary Dx); Screening for metabolic disorder; Screening for malignant neoplasm of cervix; Screening for eye condition; Need for vaccination 02/20/2019 Letter/Form [facility] [address] [address] [place] [address] Darlene Rodas MD 10/28/[address] [facility] [address] [place] [address] Darlene Rodas MD Labs/orders 07/06/[address] [facility] [address] [place] [address] Darlene Rodas MD E-prescribing Refill Request 05/11/[address] [facility] [address] [place] [address] Darlene Rodas MD Patient Questions 04/20/[address] [facility] [address] [place] [address] Opal Stevens NP E-prescribing Refill Request 04/18/2018 Orders Only NON FC SA [facility] [address] [place] [address] Darlene Rodas MD 04/04/[address] [facility] [address] [place] [address] Darlene Rodas MD Results 03/23/2018 Telephone [facility] [address] [address] [place] [address] Darlene Rodas MD Labs/orders 03/23/2018 Telephone FC MISCELLANEOUS [phone] Mychart, Provider Generic MyChart Verification 03/22/2018 Orders Only [facility] [address] [address] [place] [address] Opal Stevens NP 03/22/2018 3:15 PM EST CPE - Comprehensive Physical Exam [facility] [facility] [address] [place] [address] Opal Stevens NP Routine history and physical examination of adult (Primary Dx); Healthcare maintenance; Anxiety; Gastroesophageal reflux disease, esophagitis presence not specified; Insomnia, unspecified type; Screening for breast cancer; Screen for STD (sexually transmitted disease); Need for vaccination 03/21/2018 7:30 AM EST Office Visit [facility] Optometry [address] [place] [address] Maricruz Russo OD Encounter for ophthalmic examination and evaluation (Primary Dx); Disorder of refraction 03/18/2018 Orders Only [facility] [address] [place] [address] Opal Stevens NP 03/14/2018 Telephone [facility] [address] [place] [address] Darlene Rodas MD Labs/orders 2018 Orders Only [facility] [address] [place] [address] Darlene Rodas MD 2018 Orders Only [facility] [address] [place] [address] Opal Stevens NP 02/20/2018 Letter/Form [facility] [address] [place] [address] Darlene Rodas MD 02/20/2017 Letter/Form [facility] [address] [place] [address] Darlene Rodas MD 01/18/2017 1:00 PM EDT Radiology [facility] Xray [address] [place] [address] Sprain of right ankle, unspecified ligament, initial encounter 01/18/2017 12:30 PM EDT [facility] Visit [facility] [address] [place] [address] Sissy Ricks, PA Sprain of right ankle, unspecified ligament, initial encounter (Primary Dx); Neck sprain, initial encounter 01/14/2017 Telephone [facility] [address] [place] [address] Darlene Rodas MD Ankle pain 11/19/2016 Telephone [facility] [address] [place] [address] Darlene Rodas MD Results 11/17/2016 Orders Only [facility] [address] [place] [address] Linette Mcguire NP 11/10/2016 Letter/Form [facility] [address] [place] [address] Linette Mcguire NP 11/05/2016 Letter/Form [facility] [address] [place] [address] Linette Mcguire NP 10/06/2016 Orders Only [facility] [address] [place] [address] Darlene Rodas MD 10/06/2016 9:45 AM EDT Office Visit [facility] [address] [place] [address] Linette Mcguire NP Encounter to establish care with new doctor (Primary Dx); Insomnia, unspecified type; Gastroesophageal reflux disease, esophagitis presence not specified; Anxiety; Hot flashes; Health care maintenance; Need for hepatitis C screening test 08/19/2016 Telephone [facility] [address] [place] [address] Darlene Rodas MD Erroneous encounter-disregard 08/19/2016 Telephone [facility] [address] [place] [address] 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, SENIOR INSTRUMENTATION ENGINEER Constipation 08/12/2016 [facility] Records [address] [place] [address] Darlene Rodas MD 08/10/2016 Orders Only [facility] [address] [place] [address] Darlene Rodas MD 08/06/2016 Telephone [facility] [address] [place] [address] Darlene Rodas MD Referral Request (Chiro / Lonnie Baig) 07/27/2016 Orders Only [facility] [address] [place] [address] Darlene Rodas MD 07/27/2016 Telephone [facility] [address] [place] [address] Darlene Rodas MD Referral Request (chiro) 06/09/2016 [facility] Otolaryngology [address] [place] [address] Vicky Waters MD Cancellation 01/02/2016 Minor Procedure/Test [...] 3:00 PM EDT Office Visit [facility] Otolarynogology/Plas tics [address] [place] [address] Jimenez Morales MD Facial rhytids (Primary Dx) 08/31/2014 10:00 AM EDT Office Visit [facility] Otolarynogology/Plas tics [address] [place] [address] Jimenez Morales MD Facial rhytids (Primary Dx) 06/14/2014 Telephone [facility] Otolarynogology/Plas tics [address] [place] [address] Jimenez Morales MD Patient Questions 06/13/2014 Telephone [facility] Otolarynogology/Plas tics [address] [place] [address] Jimenez Morales MD Patient Questions 02/22/2014 2:45 PM EDT Office Visit [facility] Otolarynogology/Plas tics [address] [place] [address] Jimenez Morales MD Facial rhytids (Primary Dx) 02/15/2014 4:00 PM EDT Office Visit [facility] Otolarynogology/Plas tics [address] [place] [address] Jimenez Morales MD Facial rhytids (Primary Dx) 12/28/2013 3:30 PM EDT Consult (Initial) [facility] Otolarynogology/Plas tics [address] [place] [address] Jimenez Morales MD Facial rhytids (Primary Dx) 02/27/2013 Minor Procedure/Test ALARM ADJUSTER UNSPECIFIED Popeye Rodriguez Allergies No known active [...] 03/22/18: Last record available to me in [facility] for mammogram is 2014. Per patient report she had mammogram done in 2016 through outside [employer]AME C[employer]TING SUPERVISOR provider, Dr. Gary in [place]. Her CPE 2017 note, patient signed MERLINE [...] exercise stress test 10/06/2016 Overview (10/06/2016): At [facility] on 01/02/2016. No evidence of ischemia [...] patient report last Pap done by outside [employer]AME C[employer]TING SUPERVISOR 2017. We do not have these records. Mammography: Again, patient reports mammograms through outside FLAME C[employer]TING SUPERVISOR in 2017. Colonoscopy: Per patient report colonoscopy done through [facility], 2017, no polyps. 10-year repeat. Need records from [place]. DEXA: N/A Exercise: None Screen for STD (sexually transmitted disease) 05/28/19 19 06/11/2020 Overview (05/28/2018): 03/22/18: Patient requesting STD testing today. She is very concerned about the thought of having herpes. Tried to reassure her about the etiology and prevalence, and treatment of this disease. Anxiety 10/06/2016 04/11/2019 Overview (05/28/2018): Her previous PCP records. [place] it was situational regarding conflict with coworker. [...] Monovalent, 30 mcg/0.3 ml ruth-sucrose (12+) 09/09/2021 Hep B-CpG (Heplisav) 07/11/2024 IPV 04/23/2010 Influenza,MDCK,trivalent,PF (Flucelvax) 01/11/2024 Influenza,injectable,MDCK, P rsrv Fr,Quad 01/29/2022,01/10/2020 Influenza,injectable,quad,Prsrv Fr 01/26,02/06/2021,04/11/2019, 8 MMR 04/23/2010 PCV-21 07/11/2024 Tdap 02/16/2024,02/05/2014 Zoster (Shingrix) 03/18/2020,01/10/2020 Family History [...] Alive Social History Smoking Status as of 09/07/2024 Tobacco Use Types Packs/Day Years Used Date [...] Not on file Procedures * Due to [place] state law, [...] PELVIS COMPL 02/27/2013 Results * Due to [place] state law, this organization might not be sharing negative HIV tests. * TISSUE EXAM - LEV TURCIOS (07/03/2024 2:36 PM EST) TISSUE EXAM RESULT SEE DETAILS [facility] Comment: ?FINAL DIAGNOSIS ?A. ??Esophagus, [...] performance of special and immunostains performed at [facility] ?? [facility], [place] [address], ([id number], CLIA ? #[id number]). ? Grossing and technical work performed at [facility] ?? Network ([facility], [address], ?? [place] [address]; ; [id number]; CLIA #[id number] ? All professional pathology services performed at [facility] ? [place] ([address], [place] [address]; ; CLIA ?? #[id number]) ? Note: Some or all of the [...] caution and in ?? the clinical context. [facility] Laboratories are qualified under the CLIA ?? 1988 documents to provide high-complexity clinical laboratory testing. All controls are reviewed and deemed appropriate. ? 07/03/2024 2:36 PM EST Narrative [facility] - 07/05/2024 12:00 AM EST Pre-op diagnosis: CHRONIC ACID REFLUX Tammie Ramos MD PATHOLOGY Final Result Performing Organization Address [facility]/State/ZIP Co de Phone Number [facility] [employer] [address] [place] [address] * FRANCK BILATERAL IMPLANT SCREENING DIGITAL MAMMOGRAM [...] dense breast tissue shown on mammography. Per [employer] Appropriateness Criteria ??for Breast Cancer Screening (https://acsearch.acr.org/docs/43242/Narrative/) patient may benefit from tomosynthesis on future mammography and supplemental imaging with automated breast ultrasound (ABUS) or breast MRI depending on risk factors. Automated Breast Ultrasound (ABUS) is now available at both [facility] and in the Department of Mammography at [facility]. To schedule a patient, you can either enter an ABUS order into [facility] EMR (type in ABUS), call [facility] Central Scheduling at [phone], or call [facility] Central Scheduling at [phone]. To fax an external order: [facility] [phone] and [facility] [phone]. If this radiology report contains a blank impression section, it is an incomplete radiology report. ??Please contact the interpreting radiologist or applicable radiology division as soon as possible to obtain the completed interpretation. 5' 2 125 Procedure Note [facility], Unknown Provider - 07/05/2023 EXAMINATION FRANCK [...] of Radiology Appropriateness Criteria for Breast Cancer Screening(https://acsearch.acr.org/docs/13743/Narrative/) patient may benefit fromtomosynthesis on future mammography and supplemental imaging with automated breast ultrasound(ABUS) or breast MRI depending on risk factors. Automated Breast Ultrasound (ABUS) is now available at both [facility] and [facility]. To schedule a patient, you caneither enter an ABUS order into [facility] EMR (type in ABUS), call [facility] Scheduling [phone], or call [facility] Central Scheduling [phone]. To fax an external order: [facility] [phone] and[facility] [phone]. If this radiology report contains a blank impression section, it is anincomplete radiology report. Please contact the interpreting radiologistor applicable radiology division as soon as possible to obtain thecompleted interpretation. 5' 2 125 us Unknown Provider [facility] Final Resu lt * FUNGAL STAIN, JAMIE (10/29/2020 2:39 PM EDT) Fungus identified SEE NOTE [facility] Comment: ??FUNGAL STAIN ??Micro Number: ?[id number] ??Test Status: ? Final ??Specimen Source: ?? LEFT 2ND TOENAIL ??Specimen Quality: ??Adequate ??Smear: ? No fungal elements seen. 10/29/2020 2:39 PM EDT 10/29/2020 9:27 PM EDT Narrative Resulting Agency Comment [id number] us Tre Rosario DPM LABORATORY Final Result [facility] [address] [place] [address] * XRAY FEET COMPLETE MIN 3 VWS - BILAT (DX: FOOT PAIN *NO INJURY*M25.579/ 719.47) FC (10/29/2020 8:42AM EDT) Anatomical Region Laterality Modality LOWER EXTREMITY Radiographic Broenna ging 10/30/2020 9:51 AM EDT Narrative 10/30/2020 [...] bunion formation with low-gradepes planus. Tre Rosario DPYocasta IMG XRAY NO CONTRAST ORDERAB LES Final [...] Smear Negative for intraepithelial lesion or malignancy. [facility] Cytology study comment (Cvx/Vag) This Pap test has been evaluated with computer assisted technology. [facility] Scheduling Agent (Cvx/Vag) SXA, CT(ASCP) CT screening location: [place] [address] [facility] COMMENT SEE NOTE [facility] Comment: EXPLANATORY NOTE: The Pap is [...] HPV MRNA E6/E7 Not Detected Not Detected [facility] Comment: Methodology: Manager Basketball-Mediated Amplification This assay detects E6/E7 viral messenger RNA (mRNA) from 14 high-risk HPV types (16,18,31,33,35,39,45,51,52,56,58,59,66,68). The analytical performance characteristics of this assay have been determined by [employer]. The modifications have not been cleared or approved by the FDA. This assay has been validated pursuant to the CLIA regulations and is used for clinical purposes. For additional information, please refer to http://education.Wellcoin.Modern Feed/ACU481l8 (This link if provided for information/ educational purposes only.) ENDOCERVICAL STRUCTURE / Unknown 06/11/2020 11:05 AM EST 06/12/2020 7:26 AM EST Narrative Resulting Agency Comment [id number] us Brittany Li NP PATHOLOGY-INTERFACED Final Resul t [facility] [address] [place] [address] * US VENOUS DUPLEX SCAN EXTREMITY VEINS UNILAT/LIMITED STUDY RIGHT FC (05/27/2020 6:57 PM EST) 05/27/2020 7:18 PM EST Narrative [facility] - 05/27/2020 7:18 PM EST Right lower extremity venous duplex ultrasound. Comparison: None. Technique: Real time sonographic imaging, including color-flow imaging and spectral analysis, was performed by the digital content manager. Multiple sales representative supervisor static images were saved for review. Findings: [...] and spectral analysis, was performed by the digital content manager. Multiplerepresentative static images were saved for review. [...] Villaseñor IMG US ORDERABLES Final Res ult [facility] * XRAY KNEE FOR ORTHO [...] unremarkableright knee 2. Normal AP left knee WAYLON Villaseñor IMG XRAY NO CONTRAST ORDERA BLES Final Result * DIGITAL BREAST FUAD SCREENING (05/23/2020 2:14 PM EST) RADIOLOGY REPORT [facility] Department of Radiology [address] [place] [address], [address] Name: JARRETT GARZON : 65 Date of Service: 05/23/20 [facility]20 [facility] [id number] Order Number: ??[id number] ?Location: [facility] Report Number: [id number] ?Service: REG REF/ Requesting Physician: Darelne Rodas MD ([facility]) Category: MAMMOGRAPHY Exam: DIGITAL BREAST FUAD SCREENING ?? Signs/Symptoms: SCREENING Report Status: Signed STUDY: Bilateral screening mammogram with CAD and tomosynthesis. TECHNIQUE: ??Bilateral craniocaudal and mediolateral oblique views obtained. [email or web address] Version 1.3 computer aided detection system and [...] mammogram notification. Date/Time of Dictation: 05/23/20 1526 Picker Box Operator (if applicable): Approved By Attending Radiologist: Raven Miller MD 05/23/20 [facility] Department of Radiology [address] [place] [address], [address] ? [phone] ? [facility] Anatomical Region Laterality Modality Other 05/23/2020 2:14 PM EST Narrative 05/23/2020 3:26 PM EST Reason for Study/History: Department of Radiology TEST(S) PROCESSED BY [facility] XRAY Darlene Rodas MD IMAGING[facility] Final Resu lt * SYPHILIS (FTA) ANTIBODY CASCADING REFLEX TO RPR/TITER (*PREFERRED SCREEN*) (03/16/2020 12:08 PM EST) Only the most recent of2 resultswithin the time period is included. Treponema pallidum Ab NEGATIVE NEGATIVE [facility] Comment: No antibodies to T. pallidum (the agent causing syphilis) were detected in the specimen. This result, however, does not exclude very recent T. pallidum infection; testing of a second specimen, collected 2-4 weeks after this specimen, is recommended if the index of suspicion for recent infection is high. 03/16/2020 12:0 8 PM EST 03/16/2020 9:39 PM EST Narrative Resulting Agency Comment [id number] us Rachael Camarena MD LABORATORY Final Result Performing Organization Address City/[facility]/ZIP Co de Phone Number [facility] [address] [place] [address] * PROTEIN, TOTAL, SERUM (03/16/2020 12:08 PM EST) [facility] Protein Total (Serum) 6.6 6.1 - 8.1 g/dL [facility] 03/16/2020 12:0 8 PM EST 03/16/2020 9:39 PM EST Narrative Resulting Agency Comment [id number] Darlene Rodas MD LAB SAME DAY RESULT Final Result Performing Organization Address [facility] Co de Phone Number [facility] [address] [place] [address] * CBC INCLUDES DIFFERENTIAL AND PLATELET COUNT (02/29/2020 4:40 PM EDT) Only the most recent of3 resultswithin the time period is included. [facility] WBC 5.1 3.8 - 10.8 Thousand/u L [...] 12:03 AM EDT Narrative Resulting Agency Comment [id number] us Darlene Rodas MD LAB SAME DAY RESULT Final Result Performing Organization Address City/[facility]/ZIP Co de Phone Number [facility] [address] [place] [address] * ALANINE AMINOTRANSFERASE (ALT), SERUM (02/29/2020 4:40 PM EDT) Only the most recent of3 resultswithin the time period is included. ALT (SGPT) 14 6 - 29 U/L [facility] 02/29/2020 4:40 PM EDT 03/01/2020 12:03 AM EDT Narrative Resulting Agency Comment [id number] us Darlene Rodas MD LAB SAME DAY RESULT Final Result Performing Organization Address [facility] de Phone Number [facility] [address] [place] [address] * LIPID PANEL WITH REFLEX TO DIRECT [...] of LDL-C. Vladimir BLACKMON et al. PUJA. 2013;310(30): 8958-1232 (http://education.LookStat.Modern Feed/faq/SZF477) CHOL/HDL Ratio 2.2 <5.0 (calc) [facility] Cholesterol Non-HDL 95 <130 mg/dL (calc) [facility] Comment: For patients with diabetes plus 1 major ASCVD risk factor, treating to a non-HDL-C goal of <100 mg/dL (LDL-C of <70 mg/dL) is considered a therapeutic option. 02/29/2020 4:40 PM EDT 03/01/2020 12:03 AM EDT Narrative Resulting Agency Comment [id number] Darlene Rodas MD LABORATORY Final Resu lt Performing Organization Address City/[facility]/ZIP Co de Phone Number [facility] [address] [place] [address] * BASIC METABOLIC PANEL WITH (GFR) (02/29/2020 [...] approximately 13% higher for people identified as -[place] Citizen. EGFR 100 > OR = 60 mL/min/1 [...] needs for GFR calculation. Resulting Agency Comment [id number] us Darlene Rodas MD LABORATORY Final Resu lt Performing Organization Address City/[facility]/ZIP Co de Phone Number [facility] [address] [place] [address] * TEST, URINE - STATION (06/30/2019 9:27 AM EST) HCG, Qualitative, Urine neg Neg Urine specimen (specimen) 06/30/2019 9:27 AM EST Stefania Mclaughlin BUTTON SEWER HAND STATION LAB Final Result * TISSUE PATHOLOGY [...] and Clinical Pathology (electronic signature) Consulting Pathologist [facility] Pathology [phone] [facility] GROSS DESCRIPTION . A . SEE NOTE [facility] Comment: The container is labeled with patient's name and source ECC . ? Received in formalin is an endocervical brush with adherent mucoid material. The material measures 0.5 x 0.2 x 0.1 cm in aggregate. Specimen is submitted entirely in cassette A1. ??The specimen may not survive processing. ??Gross exam(s) performed at: ??[facility] ??[address] [place] [id number] ??Bed Laborer: AILYN AGUILAR MD GROSS DESCRIPTION . B . SEE NOTE [facility] Comment: The container is labeled with patient's [...] Stefania Mclaughlin NP PATHOLOGY-INTERFACED Final R esult [facility] [address] [place] [address] * BREAST IMPLANT SCREEN DIGITAL MAMMOGRAPHY WITH CAD (05/19/2019 8:06 AM EST) Only the most recent of2 resultswithin the time period is included. RADIOLOGY REPORT [facility] Department of Radiology [address] [place] [address], [address] Name: JARRETT GARZON : 65 Date of Service: 05/18/19 180 Acct Number: [id number] Order Number: ??[id number] ?Location: [facility] Report Number: [id number] ?Service: REG REF/ Requesting Physician: Darlene Rodas MD ([facility] [place] Category: MAMMOGRAPHY Exam: IMPLANT SCREEN DIGITAL W CAD ?? Signs/Symptoms: SCREENING Report Status: ---Signed--- STUDY: Bilateral implant screening mammogram with CAD. TECHNIQUE: ??Bilateral craniocaudal and mediolateral oblique views obtained. Fiverr.com Version 1.3 computer aided detection system utilized. [...] annual screening mammogram notification. Date/Time of Dictation: 05/19/19910 Picker Box Operator (if applicable): Approved By Attending Radiologist: Raven Miller MD 05/19/19 0911 [facility] Department of Radiology [address] [place] [address], [address] ? [phone] ? [facility] RAD Anatomical Region Laterality Modality Other 05/19/2019 8:06 AM EST Narrative 05/19/2019 9:14 AM EST Reason for Study/History: Department of Radiology TEST(S) PROCESSED BY [facility] XRAY Darlene Rodas MD IMAGING-[facility] Final Resu lt * TSH, 3RD GENERATION (04/11/2019 8:39 AM EST) Pathologist [facility] TSH 3.81 mIU/L [facility] Comment: ?Reference Range ?> or = 20 Years ??0.40-4.50 ? Ranges ?First trimester ?0.26-2.66 ?Second trimester ?? 0.55-2.73 ?Third trimester ?0.43-2.91 04/11/2019 8:39 AM EST 04/11/2019 9:59 PM EST Narrative Resulting Agency Comment [id number] Darlene Rodas MD LABORATORY Final Resu lt [facility] [address] [place] [address] * HEPATIC FUNCTION PANEL (ALT,AST,ALK PH,BILI'S,TP,ALB) (04/11/2019 8:39 AM EST) Pathologist [facility] Protein Total (Serum) 7.0 6.1 - 8.1 [...] 9:59 PM EST Narrative Resulting Agency Comment [id number] us Darlene Rodas MD LABORATORY Final Resu lt [facility] [address] [place] [address] * (ABNORMAL) HSV 1 AND 2 IGG [...] 10:43 PM EST Narrative Resulting Agency Comment [id number] Opal Stevens BUTTON SEW[facility] LABORATORY Final Result Performing Organization Address [facility] Phone Number [facility] [address] [place] [address] * ASPARTATE AMINOTRANSFERASE (AST), SERUM (03/18/2018 9:22 AM EST) AST (SGOT) 20 10 - 35 U/L [facility] 03/18/2018 9:22 AM EST 03/18/2018 5:02 PM EST Narrative Resulting Agency Comment [id number] Opal Stevens BUTTON SEWER HAND LAB SAME DAY RESULT Final Result Performing Organization Address [facility] Phone Number [facility] [address] [place] [address] * (ABNORMAL) FSH (03/18/2018 9:22 AM EST) FSH 136.1(H) mIU/mL [facility] Comment: ?Reference Range ? Follicular Phase ? 2.5-10.2 ? Mid-cycle Peak ? 3.1-17.7 ? Luteal Phase ? 1.5- 9.1 ? Postmenopausal ? 23.0-116.3 ? 03/18/2018 9:22 AM EST 03/18/2018 5:02 PM EST Opal Stevens BUTTON SEWER HAND LAB SAME DAY RESULT Final Result Performing Organization Address City/[facility]/ZIP Co de Phone Number [facility] [address] [place] [address] * XRAY ANKLE COMPLETE MIN 3 VWS [...] C virus Ab NON-REACTI VE NON-REACT IRENE [facility] Hepatitis C virus Ab Signal/Cutoff 0.02 <1.00 [facility] 11/17/2016 8:05 AM EDT 11/17/2016 8:04 PM EDT Narrative Resulting Agency Comment [id number] Linette Mcguire BUTTON SEWER [facility] LABORATORY Final Result Performing Organization Address City/[facility]/ZIP Co de Phone Number [facility] [address] [place] [address] * CARDIOVASCULAR STRESS TEST W/TREADMILL, BICYCLE, AND/OR [...]
--- OUTSIDE RECORDS SUMMARY | 2024-09-07 08:54 | XMS_ITS | Encounter Summary ---
Author Organization [facility] Address [address] [place] [address] Care Team Providers Care Oil Pipeline Operator Name Role Phone Darlene Rodas MD Primary Care Provider +1- [phone] Encounter Details Date Type Department Care Team (Late st Contact Info) Description 03/18/2018 Orders Only [facility] [address] [place] [address] Opal Stevens NP Social History [...] of this encounter Procedures * Due to [place] state law, this organization might not be [...] in this encounter Results * Due to [place] state law, this organization might not be sharing negative HIV tests. * (ABNORMAL) FSH (03/18/2018 9:22 AM EST) FSH 136.1(H) mIU/mL [facility] Comment: ?Reference Range ? Follicular Phase ? 2.5-10.2 ? Mid-cycle Peak ? 3.1-17.7 ? Luteal Phase ? 1.5- 9.1 ? Postmenopausal ? 23.0-116.3 ? 03/18/2018 9:22 AM EST 03/18/2018 5:02 PM EST us Opal Stevens NOVELTIES SALES REPRESENTATIVE LAB SAME DAY RESULT Final Result [facility] [address] [place] [address] * ASPARTATE AMINOTRANSFERASE (AST), SERUM (03/18/2018 9:22 AM EST) AST (SGOT) 20 10 - 35 U/L [facility] 03/18/2018 9:22 AM EST 03/18/2018 5:02 PM EST Narrative Resulting Agency Comment [id number] us Opal Stevens NOVELTIES SALES REPRESENTATIVE LAB SAME DAY RESULT Final Result Performing Organization Address City/[facility]/ZIP Co de Phone Number [facility] [address] [place] [address] * ALANINE AMINOTRANSFERASE (ALT), SERUM (03/18/2018 9:22 AM EST) ALT (SGPT) 12 6 - 29 U/L [facility] 03/18/2018 9:22 AM EST 03/18/2018 5:02 PM EST Narrative Resulting Agency Comment [id number] Opal Stevens NOVELTIES SALES REPRESENTATIVE LAB SAME DAY RESULT Final Result Performing Organization Address [facility] de Phone Number [facility] [address] [place] [phone] * LIPID PANEL WITH REFLEX TO DIRECT [...] LDL-C. Vladimir BLACKMON et al. PUJA. 2013;310(19): 0311-5810 (http://education.HEALTH CARE DATAWORKS.mEgo/faq/IYV950) CHOL/HDL Ratio 2.1 <5.0 (calc) [facility] Cholesterol Non-HDL 98 <130 mg/dL (calc) [facility] Comment: For patients with diabetes plus 1 major ASCVD risk factor, treating to a non-HDL-C goal of <100 mg/dL (LDL-C of <70 mg/dL) is considered a therapeutic option. 03/18/2018 9:22 AM EST 03/18/2018 5:02 PM EST Narrative Resulting Agency Comment [id number] us Opal Stevens NOVELTIES SALES REPRESENTATIVE LABORATORY Final Result Performing Organization Address City/[facility]/ZIP Co de Phone Number [facility] [address] [place] [address] * BASIC METABOLIC PANEL WITH (GFR) (03/18/2018 9:22 AM EST) Glucose 75 65 - 99 mg/dL [facility] Comment:Fasting reference in terval Urea Nitrogen Blood (BUN) 12 7 - 25 mg/dL [facility] Creatinine 0.63 0.50 - 1.05 mg/dL [facility] Comment: For patients >49 years of age, the reference limit for Creatinine is approximately 13% higher for people identified as -[place]. GFR 102 > OR = 60 mL/min/1 [...] needs for GFR calculation. Resulting Agency Comment [id number] Opal Stevens NOVELTIES SALES REPRESENTATIVE LABORATORY Final Result Performing Organization Address [facility] Co de Phone Number [facility] [address] [place] [address] documented in this encounter Visit Diagnoses Diagnosis Healthy adult on routine physical examination Routine general medical examination at a health care facility documented in this encounter Care Teams Oil Pipeline Operator Relationship Specialty Start Date End Date Darlene Rodas MD [address] [place] [address] PCP - General 07/16/16 03/18/21 documented as of this encounter
--- OUTSIDE RECORDS SUMMARY | 2024-09-07 08:54 | XMS_ITS | Encounter Summary ---
Author Organization [facility] Address [address] [place] [address] Care Team Providers Care Alternative Dispute Resolution Mediator Name Role Phone Darlene Rodas MD Primary Care Provider +1- [phone] Encounter Details Date Type Department Care Team (Late st Contact Info) Description 03/22/[address] [facility] [address] [place] [phone] Opal Stevens NP Social History Tobacco Use [...] this encounter Procedures * Due to [place] law, this organization might not be sharing negative HIV tests. Procedure Name Priority Date/Time Associated Diagnosis Comments HSV 1 AND 2 IGG HERPESELECT SPECIFIC ANTIBODY Routine 03/22/2018 5:00 PM EST Screen for STD (sexually transmitted disease) documented in this encounter Results * Due to [place] law, this organization might not be sharing [...] 10:43 PM EST Narrative Resulting Agency Comment [id number] Opal Stevens NP LABORATORY Final Result [facility] [address] [place] [address] documented in this encounter Visit Diagnoses Diagnosis Screen for STD (sexually transmitted disease) Screening examination for venereal disease documented in this encounter Care Teams Alternative Dispute Resolution Mediator Relationship Specialty Start Date End Date Darlene Rodas MD [address] [place] [address] PCP - General 07/16/16 03/18/21 documented as of this encounter
--- OUTSIDE RECORDS SUMMARY | 2024-09-07 08:54 | XMS_ITS | Encounter Summary ---
Author Organization [facility] Address [address] [place] [address] Care Team Providers Care Ems Helicopter Pilot Name Role Phone Darlene Rodas MD Primary Care Provider +1- [phone] Encounter Details Date Type Department Care Team ([facility] st Contact Info) Description 10/29/2020 Orders Only [facility]. Podiatry [address] [place] [phone] Tre Rosario, DPYocasta [address] [place] [address] Social History Tobacco Use Types Packs/Day Years [...] of this encounter Procedures * Due to [place] Interactivo law, this organization might not be sharing negative HIV tests. Procedure Name Priority Date/Time Associated Diagnosis Comments FUNGAL STAIN, JAMIE Routine 10/29/2020 2:3 9 PM EDT Onychomycosis documented in this encounter Results * Due to [place] Interactivo law, this organization might not be sharing negative HIV tests. * FUNGAL STAIN, JAMIE (10/29/2020 2:39 PM EDT) Fungus identified SEE NOTE [facility] Comment: ??FUNGAL STAIN ??Micro Number: ?[id number] ??Test Status: ? Final ??Specimen Source: ?? LEFT 2ND TOENAIL ??Specimen Quality: ??Adequate ??Smear: ? No fungal elements seen. 10/29/2020 2:39 PM EDT 10/29/2020 9:27 PM EDT Narrative Resulting Agency Comment [id number] us Tre Rosario DPM LABORATORY Final Result Performing Organization Address City/State/[facility] Co de Phone Number [facility] [address] [place] [address] documented in this encounter Visit Diagnoses Diagnosis Onychomycosis Dermatophytosis of nail documented in this encounter Care Teams Ems Helicopter Pilot Relationship Specialty Start Date End Date Darlene Rodas MD [address] [place] [address] [place] [address] PCP - General 07/16/16 03/18/21 documented as of this encounter
--- OUTSIDE RECORDS SUMMARY | 2024-09-07 08:54 | XMS_ITS | Encounter Summary ---
Author Organization [facility] Address [address] [place] [address] Care Team Providers Care Construction Technology Instructor Name Role Phone Darlene Rodas MD Primary Care Provider +1- [phone] Encounter Details Date Type Department Care Team (Late st Contact Info) Description 03/16/[address] Orders [address] [facility] [address] [place] [phone] Darlene Rodas MD [address] [place] [address] Social History Tobacco Use Types Packs/Day Years [...] as of this encounter Progress Notes * Darleen Rodas MD - 03/16/2020 12:08 PM EST [...] 9:39 PM EST Narrative Resulting Agency Comment [id number] us Rachael Camarena MD LABORATORY Final Result Performing Organization Address [facility] Co de Phone Number [facility] [address] [place] [address] * PROTEIN, TOTAL, SERUM (03/16/2020 12:08 PM EST) Protein Total (Serum) 6.6 6.1 - 8.1 g/dL [facility] 03/16/2020 12:0 8 PM EST 03/16/2020 9:39 PM EST Narrative Resulting Agency Comment [id number] us Darlene Rodas MD LAB SAME DAY RESULT Final Result Performing Organization Address [facility] Co de Phone Number [facility] [address] [place] [address] documented in this encounter Visit Diagnoses Diagnosis Vegan diet False positive syphilis serology False positive serological test for syphilis documented in this encounter Care Teams Construction Technology Instructor Relationship Specialty Start Date End Date Darlene Rodas MD [address] [place] [address] [place] [address] PCP - General 07/16/16 03/18/21 documented as of this encounter
--- OUTSIDE RECORDS SUMMARY | 2024-09-07 08:54 | XMS_ITS | Encounter Summary ---
Author Organization [facility] Address [address] [place] [address] Care Team Providers Care Dentist Attendant Name Role Phone Darlene Rodas MD Primary Care Provider +1- [phone] Encounter Details Date Type Department Care Team (Late st Contact Info) Description 10/06/2016 Orders Only [facility] [address] [place] [phone] Darlene Rodas MD [address] [place] [address] Social History Tobacco Use Types Packs/Day Years [...] on filedocumented in this encounter Care Teams Dentist Attendant Relationship Specialty Start Date End Date Darlene Rodas MD [address] [place], [place] [phone] PCP - General 07/16/16 03/18/21 documented as of this encounter
--- OUTSIDE RECORDS SUMMARY | 2024-09-07 08:54 | XMS_ITS | Encounter Summary ---
Author Organization [facility] Address [address] [place] [address] Care Team Providers Care Sas Bi Developer Name Role Phone Darlene Rodas MD Primary Care Provider +1- [phone] Encounter Details Date Type Department Care Team (Late st Contact Info) Description 2018 Orders Only [facility] [address] [place] [phone] Darlene Rodas MD [address] [place] [address] Social History Tobacco Use Types Packs/Day Years [...] on filedocumented in this encounter Care Teams Sas Bi Developer Relationship Specialty Start Date End Date Darlene Rodas MD [address] [place], [place] [phone] PCP - General 07/16/16 03/18/21 documented as of this encounter
--- OUTSIDE RECORDS SUMMARY | 2024-09-07 08:54 | XMS_ITS | Encounter Summary ---
Author Organization [facility] Address [address] [place] [address] Care Team Providers Care Deputy Assessor Name Role Phone Darlene Rodas MD Primary Care Provider +1- [phone] Encounter Details Date Type Department Care Team ([facility] Contact Info) Description 06/11/2020 Orders Only [facility] LARGE ENGINE ASSEMBLER [address] [facility] [address] [place] [address] Brittany Li, RAIN [address] [place] [address] Social History Tobacco Use Types Packs/Day Years [...] [address] on recall list. [employer] sent to pt. Problem list updated. * Result Encounter Note - Bree Martin - 06/11/2020 11:05 AM EST On recall documented in this encounter Plan of Treatment Not on file documented as of this encounter Procedures * Due to [place] Periscape law, this organization might not be sharing negative HIV tests. Procedure Name Priority Date/Time Associated Diagnosis Comments THINPREP TIS PAP AND HPV RNA, HR E6/E7, TMA Routine 06/11/2020 11:05 AM EST Abnormal cervical Papanicolaou smear, unspecified abnormal pap finding documented in this encounter Results * Due to [place] Periscape law, this organization might not be sharing [...] Smear Negative for intraepithelial lesion or malignancy. [facility] Cytology study comment (Cvx/Vag) This Pap test has been evaluated with computer assisted technology. [facility] Technical Service Engineer (Cvx/Vag) SXA, CT(ASCP) CT screening location: [place] [address] [facility] COMMENT SEE NOTE [facility] Comment: EXPLANATORY NOTE: The Pap is a [...] HPV MRNA E6/E7 Not Detected Not Detected [facility] Comment: Methodology: Shoe Stamper-Mediated Amplification This assay detects E6/E7 viral messenger RNA (mRNA) from 14 high-risk HPV types (16,18,31,33,35,39,45,51,52,56,58,59,66,68). The analytical performance characteristics of this assay have been determined by [facility]. The modifications have not been cleared or approved by the FDA. This assay has been validated pursuant to the CLIA regulations and is used for clinical purposes. For additional information, please refer to http://education.deets, Inc./ECD550x9 (This link if provided for information/ educational purposes only.) ENDOCERVICAL STRUCTURE / Unknown 06/11/2020 11:05 AM EST 06/12/2020 7:26 AM EST Narrative Resulting Agency Comment [id number] us Brittany Li MED AIDE PATHOLOGY-INTERFACED Final Resul t [facility] [address] [place] [address] documented in this encounter Visit Diagnoses Diagnosis Abnormal cervical Papanicolaou smear, unspecified abnormal pap finding documented in this encounter Care Teams Deputy Assessor Relationship Specialty Start Date End Date Darlene Rodas MD [address] [place] [address] PCP - General 07/16/16 03/18/21 documented as of this encounter
--- OUTSIDE RECORDS SUMMARY | 2024-09-07 08:54 | XMS_ITS | Data Portability ---
Author Organization [facility], svmg_admin Address [address] [place] [id number] Care Team Providers Care Licensed Mass Real Estate Appraiser Name Role Phone NILDA RODRIGUEZ Primary Care Provider Assessment No assessment recorded. Plan of Treatment Reminders Order Date Submit Date Provider Last Modified By Organization Details Last Modified Time Details Appointments None recorded. Lab cytology report, thin prep, smear or scraping, cervical or vaginal 2021 022 [place] [facility], [address] [place] [address], [id number], 2 11:07:[address]/dietiti an referral - Insurance referral request sent to PCP Dr Rodriguez 2021 022 [email or web address] 5 Candace Jaqueline ([facility] ), [address] [place] [address], [id number], 13:42:37 Procedures None recorded. Surgeries None recorded. Imaging None recorded. Medication Orders None recorded. Patient TargetsNo targets recorded. Patient InstructionsNo instructions recorded. 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 Refer ral for Unintentional weight gain unintended weight gain, non-medical Insurance referral request sent to PCP Dr Rodriguez Referring Physician: Cliff Ortiz, COMPUTER SYSTEMS ADMINISTRATOR, Encounter Date: 07/03/2021 Results Created Date Observation Date Name Description Value Unit Range Abnormal Flag Note LastModifiedBy Organization Detail LastModifiedTime 07/05/19 22 07/08/2021 IGP, APTIM A HPV, RFX 16/18 ,45 HPV aptima Negati ve negati ve This nucle ic acid ampli ficat ion test detec ts fourt een high- risk HPV types (16,1 8,31, 33,35 ,39,4 5,51, 52,56 ,58,5 9,66, 68) witho ut diffe renti ation . Not Available [facility] ([facility]) [address] [facility], [place], [address], 07/10/2021 11:07:41 07/05/19 22 07/10/2021 IGP, APTIM A HPV, RFX 16/18 ,45 diagnosis: Danilo fernandez NEGAT IRENE FOR INTRA EPITH ELIAL LESIO N OR MALIG VIVIANA . THIS SPECI MEN WAS RESCR EENED PART OF OUR QUALI TY CONTR OL PROGR AM. Not Available [facility] ([facility]) [address] [facility], [place], [address], 07/10/2021 11:07:41 07/05/19 22 07/10/2021 IGP, APTIM A HPV, RFX 16/18 ,45 specimen adequacy: Danilo fernandez Satis facto ry for evalu ation . No endoc ervic al compo nent is ident ified . Not Available [facility] ([facility]) [address] [facility], [place], [address], 07/10/2021 11:07:41 07/05/19 22 07/10/2021 IGP, APTIM A HPV, RFX 16/18 ,45 clinician provided ICD10: Danilo fernandez Z12.4 Not Available [facility] ([facility]) [address] [place], [address], 07/10/2021 11:07:41 07/05/19 22 07/10/2021 IGP, APTIM A HPV, RFX 16/18 ,45 performed by: Navneet De La Paz ei Not Available [facility] ([facility]) [address] [place], [address], 07/10/2021 11:07:41 07/05/19 22 07/10/2021 IGP, APTIM A HPV, RFX 16/18 ,45 QC reviewed by: Ria Sinha ala visor y Cytot andres fernandez (ASCP ) Not Available [facility] ([facility]) [address] [place], [address], 07/10/2021 11:07:41 07/05/19 22 07/10/2021 IGP, APTIM A HPV, RFX 16/18 ,45 . . Not Available [facility] ([facility]) [address] [facility], [place], [address], 07/10/2021 11:07:41 07/05/19 22 07/10/2021 IGP, APTIM A HPV, RFX 16/18 ,45 note: Danilo fernandez The Pap smear is a scree cassy test desig cata to aid in the detec tion of radhames ligna nt and malig nant condi tions of the uteri ne cervi x. It is not a diagn ostic proce dure and shoul d not be used as the sole means of detec ting cervi luz cance r. Both false -posi tive and false -nega tive repor ts do occur . Not Available [facility] ([facility]) [address] [facility], [place], [address], 07/10/2021 11:07:41 07/05/19 22 07/10/2021 IGP, APTIM A HPV, RFX 16/18 ,45 test methodology: Danilo fernandez This liqui d based ThinP rep(R ) pap test was scree cata with the use of an image guide mich mata. Not Available [facility] ([facility]) [address] [facility], [place], [address], 07/10/2021 11:07:41 07/08/19 22 06/13/2021 bone densi ty No observ ation record ed. Not Available 2021 08:07:51 07/08/19 22 06/13/2021 MAMMO , scree cassy, digit al, bilat eral No observ ation record ed. Not Available 2021 08:07:51 06/16/19 23 02/09/2022 US, traci prieto No observ ation record ed. [email or web address] [facility]) [address], [place], [address], 06/17/2022 20:28:08 Result Notes None recorded. Problems Name Problem SNOMED Code Status Onset Date Resolution Date Notes Provider Name and Address Organization Details Recorded Time Midline cystocele [id number] Active 022 Cliff Ortiz CNP [address] [place] [address], [phone], [facility] 13:21:33 Problem Notes None recorded. Procedures Surgical History Date Name Laterality Status Provider Name and Address Organization Details Recorded Time 06/13/19 22 Most Recent Bone Density completed Cliff Ortiz CNP [address] [place], [address], [facility] 07/03/2021 13:14:09 06/13/19 22 completed Cliff Ortiz CNP [address] [place] [address], [phone], [facility] 07/03/2021 13:14:09 06/03/19 15 Colonoscopy completed Cliff Ortiz CNP [address] [place], [address], [facility] 07/03/2021 13:14:09 Breast Surgery (Lumpectomy, Biopsy, Implants) completed Cliff Ortiz CNP [address] [place], [address], [facility] 07/03/2021 13:14:12 Abdominal Surgery completed Cliff Ortiz CNP [address] [place], [address], [facility] 07/03/2021 13:14:12 [facility] 07/[facility] 13:19:48 Breast Implants completed [facility] 07/03/2021 13:20:03 Imaging Results Imaging Date Name Status LastModified by Organiz ation Details LastModified Time 06/13/2021 bone density completed Information not available 07/08/2021 08:07:51 06/13/2021 MAMMO, screening, digital, bilateral completed Information not available 07/08/2021 08:07:51 02/09/2022 US, pelvis completed [email or web address] [facility] [address] [facility] [place], [address], 06/17/2022 20:28:08 Procedure Notes None recorded. Medical Equipment None Reported. Allergies No known drug allergies Medications Name Sig Start Date Stop Date Status Note LastModified by Organization Details LastModified Time multivitamin active Not Available Not Available Not Available Vitals Date Recorded Body weight Body temperature Heart rate Oxygen saturation Oxygen saturation in Arterial blood by Pulse oximetry Pain severity - 0-10 verbal numeric rating [Score] - Reported Systolic blood pressure Diastolic blood pressure Provider Name and Address Organization Details Last Updated DateTime 2 [address].6 4 g 98 [degF] 96 /min 97 % 97 % 0 110 mm[Hg] 74 mm[Hg] [facility] 2 13:14:54 Social History Question Answer Notes LastModified by Organizat ion Details LastModified Time Tobacco Smoking Status Never [facility]/2021 13:19:21 Do You Have An Advance Directive? No [email or web address] Information not available 07/03/2021 What Is Your Level Of Alcohol Consumption? Occasional Information not available 07/03/2021 Are You Blind Or Do You Have Difficulty Seeing? No Information not available 07/03/2021 Is Blood Transfusion Acceptable In An Emergency? Yes [email or web address] Information not available 07/03/2021 What Is Your Level Of Caffeine Consumption? Occasional Information not available 07/03/2021 Are You Currently Employed? Yes [email or web address] Information not available 07/03/2021 Are You Deaf Or Do You Have Serious Difficulty Hearing? No Information not available 07/03/2021 What Type Of Diet Are You Following? 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 Right Information not available 07/03/2021 If Pulse Oximetry Was Done: Is The Patient's Sp02 Less Than 93% On Room Air? No [email or web address] Information not available 04/10/2021 What Was The Date Of Your Most Recent Tobacco Screening? 07/03/2021 Information not available 07/03/2021 Have You Ever Been Counseled For Unhealthy Alcohol Use? No Information not available 07/03/2021 Do You Have Any Pets? Yes [email or web address] Information not available 07/03/2021 What Is Your Relationship Status? [email or web address] Information not available 07/03/2021 Do You Feel Stressed (tense, Restless, Nervous, Or Anxious, Or Unable To Sleep At Night)? [id number] [email or web address] Information not available 07/03/2021 Do You Use Any Illicit Or Recreational Drugs? No Information not available 07/03/2021 Has Tobacco Cessation Counseling Been Provided? No Information not available 07/03/2021 Do You Or Have You Ever Used Any Other Forms Of Tobacco Or Nicotine? No Information not available 07/03/2021 How Many Days In The Past Year Have You Consumed 4 Or More Drinks? 2 [email or web address] Information not available 07/03/2021 Sex: Unknown Functional Status Question Answer Note LastModified by Organizat ion Details LastModified Time Are you able to care for yourself? Yes Information not available 07/03/2021 What is your exercise level? Occasional [email or web address] Information not available 07/03/2021 Mental Status None recorded. Family History Relationship Description Onset Age of this Age Resolved Age Notes LastModified by Organization Details LastModified Time Maternal Grandmother Family history of malignant neoplasm Stomac h and liver CA Not available 07/03/2021 13:18:22 Maternal Grandmother Family history of malignant neoplasm Not available 2021 13:18:07 Paternal Grandmother Family history of malignant neoplasm Breast CA Not available 07/03/2021 13:18:40 Paternal Grandmother Diabetes mellitus [email or web address] Not available 07/03 13:14:09 Paternal Grandmother Family history of malignant neoplasm Not available 2021 13:18:26 Medical History Condition Response Anxiety Y HPV (Human Papillomavirus) Y Gynecological History Statement/Question Response 06/13/2021 Date of LMP 10/01/2017 Date of last mammogram 06/13/2021 Last Annual Exam Date 06/18/2021 Total # of Births 2 Date of last pap 06/11/2020 Age at Menarche 9 Current Control Method Abstinence If Post Menopausal, Age at Menopause 52 Abnormal MMG N Most Recent Bone Density 06/13/2021 Sexually Active? N Number of Abortions 0 Date of Abnormal Pap 06/11/2020 Number of Pregnancies? 3 History of Abnormal Pap Smear? Yes Colonoscopy 06/03/2014 Number of Miscarriages? 1 Obstetrics History GPAL:G 3 P 2 0 1 2 Type Value Full Term 2 Spontaneous 1 Living 2 Total 3 Immunizations Vaccine Type Date Status Note Provider Nam e and Address Organization Details Recorded Time COVID-19, mRNA, LNP-S, PF, 30 mcg/0.3 mL dose 02/06/2021 completed Melinda Hartnagel null, [facility] 04/10/2021 16:10:49 COVID-19, mRNA, LNP-S, PF, 30 mcg/0.3 mL dose 08/02/2020 completed Melinda Hartnagel null, [facility] 04/10/2021 16:10:55 COVID-19, mRNA, LNP-S, PF, 30 mcg/0.3 mL dose 07/12/2020 completed Melinda Hartnagel null, [facility] 04/10/2021 16:10:59 IPV 04/23/2010 completed Melinda Hartnagel null, [facility] 04/10/2021 16:11:11 MMR 04/23/2010 completed Melindakraig Lockegel alesha, [facility] 04/10/2021 16:11:28 Tdap 02/05/2014 completed Melindakraig Starkeynagel null, [facility] 04/10/2021 16:11:42 zoster, unspecified formulation 03/18/2020 completed Melinda Hartnagel null, [facility] 04/10/2021 16:12:18 zoster, unspecified formulation 01/10/2020 completed Melinda Hartnagel null, [facility] 04/10/2021 16:12:22 Past Encounters Encounter ID Performer Location Encounter Start Date Encounter Closed Date Diagnosis/Indication Diagnosis SNOMED-CT Code Diagnosis ICD10 Code Diagnosis Note [id number] Kayla Edwards MD [facility] [address] [facility] [place] [address] 07/03/2021 12:54:38 07/03/2021 14:36:44 Gynecologic examination 20856548 Z01.419 Normal breast and pelvic exam today. F/u in one year for repeat. Unintentio nal weight gain 9797497177 60899 R63.5 Screening for malignant neoplasm of cervix 023146131 Z12.4 Hx of abnormal. rpt today Health Concerns Section Related Observation LastModified by Organization Detai ls LastModified Time None Recorded Concern Status LastModified by Organization Details LastModified Time None Recorded Advance Directives Directive N: Payers Encounter Date Sequence Insurance Name Policy Number Policy Mittal Covered Member ID Mittal Member ID Guarantor Name 07/03/2021 1 [employer] Raven Garzon [id number] Raven Garzon Notes Date Note Type Note Provider Name and Address Organization Details Recorded Time 07/03/2021 text/html Annual GYNReport ed bypatient.History:no gynecologic complaints; no change in interval history Urinary symptoms:No hematuria Vulva:No genital lesion Vagina:Normal vaginal discharge Breast:No breast pain; No breast lump; No nipple discharge Sexual complaints:No sexual complaints; No pain during intercourse; Normal libido Menopausal Symptoms:No menopausal symptoms; Normal vaginal lubrication Psychological symptoms:No depression Raven is 56 yo , presents as a new pt for annual VERIFYING SPECIALIST 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 She is postmenopausal since age of 52.Denies menopausal symptoms including bleeding, vaginal dryness, hot flashes, night sweats. HRT- never.She is feeling well, no complaints except weight gain that she can't get off. Gained 26 lb in past 2 years. Recent labs by PCP normal. She is vegan so she eats alot of carbs, would like to see a farmworker fryer farm to help with weight loss and encouraged regular exercise. Last pap 06/2020 cytology neg HPV testing neg. Hx of abnormal in 2019 HPV+ and ASCUS, colpo was benign. Continue yearly surveillance.Last mammogram: 3 weeks ago at [facility], normal per pt, will request recordsLast bone density: 3 weeks ago at [facility]. Will request records Sexually active: No Cliff Ortiz, MASTER COOK [address] [place] [address], [phone], [facility]. 07/03/2021 15:38:05 OBGyn Episode No OBEpisode recorded.
--- OUTSIDE RECORDS SUMMARY | 2024-09-07 08:54 | XMS_ITS | Encounter Summary ---
Author Organization [facility] Address [address] [place] [address] Care Team Providers Care Chemical Radiation Technician Name Role Phone Darlene Rodas MD Primary Care Provider [phone] Encounter Details Date Type Department Care Team (Late st Contact Info) Description 04/11/[address] [facility] [address] [place] [phone] Darlene Rodas MD [address] [place] [address] Social History Tobacco Use Types Packs/Day Years [...] ality of the cells. 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 documented in this encounter Plan of Treatment Not on file documented as of this encounter Procedures * Due to [place] law, this organization might not be sharing [...] in this encounter Results * Due to [place] law, this organization might not be sharing [...] in vaginal danica suggestive of bacterial vaginosis. [facility] Cytology study comment (Cvx/Vag) This Pap test has been evaluated with computer assisted technology. [facility] Cook Roast (Cvx/Vag) CXP, CT(ASCP) CT screening location: [place] [address] [facility] Pathologist (Cvx/Vag) Guera Whitfield M.D., Board Certified in Anatomic and Clinical Pathology (electronic signature) Consulting Pathologist [facility]ology [phone] [facility] COMMENT SEE NOTE [facility] [...] was performed using the APTIMA HPV Assay ([employer] This assay detects E6/E7 viral messenger RNA (mRNA) from 14 high-risk HPV types (16,18,31,33,35,39,45,51,52,56,58,59,66,68). The analytical performance characteristics of this assay have been determined by [employer]. The modifications have not been cleared or approved by the FDA. This assay has been validated pursuant to the CLIA regulations and is used for clinical purposes. ENDOCERVICAL STRUCTURE / Unknown 04/11/2019 12:15 PM EST 04/11/2019 11:36 PM EST Narrative Resulting Agency Comment [id number] Darlene Rodas MD PATHOLOGY-INTERFACED Final Result [facility] [address] [place] [address] * CBC INCLUDES DIFFERENTIAL AND PLATELET COUNT [...] 9:59 PM EST Narrative Resulting Agency Comment [id number] Darlene Rodas MD LAB SAME DAY RESULT Final Result Performing Organization Address City/State/[facility] Co de Phone Number [facility] [address] [place] [address] * LIPID PANEL WITH REFLEX TO DIRECT [...] LDL-C. Vladimir BLACKMON et al. PUJA. 2013;310(19): 0365-3176 (http://education.TalentSky.Epunchit/faq/YWJ256) CHOL/HDL Ratio 2.2 <5.0 (calc) [facility] Cholesterol Non-HDL 95 <130 mg/dL (calc) [facility] Comment: For patients with diabetes plus 1 major ASCVD risk factor, treating to a non-HDL-C goal of <100 mg/dL (LDL-C of <70 mg/dL) is considered a therapeutic option. 04/11/2019 8:39 AM EST 04/11/2019 9:59 PM EST Narrative Resulting Agency Comment [id number] Darlene Rodas MD LABORATORY Final Resu lt [facility] [address] [place] [address] * BASIC METABOLIC PANEL WITH (GFR) (04/11/2019 8:39 AM EST) Glucose 76 65 - 99 mg/dL [facility] Comment:Fasting reference in terval Urea Nitrogen Blood (BUN) 14 7 - 25 mg/dL [facility] Creatinine 0.65 0.50 - 1.05 mg/dL [facility] Comment: For patients >49 years of age, the reference limit for Creatinine is approximately 13% higher for people identified as -[place]oc[place]. EGFR 101 > OR = 60 mL/min/1 [...] needs for GFR calculation. Resulting Agency Comment [id number] Darlene Rodas MD LABORATORY Final Resu lt Performing Organization Address [facility] de Phone Number [facility] [address] [place] [address] * HEPATIC FUNCTION PANEL (ALT,AST,ALK PH,BILI'S,TP,ALB) (04/11/2019 [...] 9:59 PM EST Narrative Resulting Agency Comment [id number] Darlene Rodas MD LABORATORY Final Resu lt Performing Organization Address [facility] de Phone Number [facility] [address] [place] [address] * TSH, 3RD GENERATION (04/11/2019 8:39 AM EST) TSH 3.81 mIU/L [facility] Comment: ?Reference Range ?> or = 20 Years ??0.40-4.50 ? Ranges ?First trimester ?0.26-2.66 ?Second trimester ?? 0.55-2.73 ?Third trimester ?0.43-2.91 04/11/2019 8:39 AM EST 04/11/2019 9:59 PM EST Narrative Resulting Agency Comment [id number] Darlene Rodas MD LABORATORY Final Resu lt Performing Organization Address City/State/[facility] Co de Phone Number [facility] [address] [place] [address] documented in this encounter Visit Diagnoses Diagnosis Screening for metabolic disorder Screening for malignant neoplasm of cervix Screening for malignant neoplasm of the cervix documented in this encounter Care Teams Chemical Radiation Technician Relationship Specialty Start Date End Date Darlene Rodas MD [address] [place] [address] PCP - General 07/16/16 03/18/21 documented as of this encounter
--- OUTSIDE RECORDS SUMMARY | 2024-09-07 08:54 | XMS_ITS | Encounter Summary ---
Author Organization [facility] Address [address] [place] [address] Care Team Providers Care Breaker Mechanic Name Role Phone Darlene Rodas MD Primary Care Provider [phone]- [phone] Encounter Details Date Type Department Care Team (Late st Contact Info) Description 02/29/[address] [facility] [address] [place] [phone] Darlene Rodas MD [address] [place] [address] Social History Tobacco Use Types Packs/Day Years [...] this encounter Procedures * Due to [place] [employer] law, this organization might not be sharing [...] this encounter Results * Due to [place] [employer] law, this organization might not be sharing [...] 12:03 AM EDT Narrative Resulting Agency Comment [id number] Darlene Rodas MD LAB SAME DAY RESULT Final Result [facility] [address] [place] [address] * BASIC METABOLIC PANEL WITH (GFR) (02/29/2020 4:40 PM EDT) Glucose 92 65 - 99 mg/dL [facility] Comment:Fasting reference in terval Urea Nitrogen Blood (BUN) 19 7 - 25 mg/dL [facility] Creatinine 0.66 0.50 - 1.05 mg/dL [facility] Comment: For patients >49 years of age, the reference limit for Creatinine is approximately 13% higher for people identified as -Citizen Of [place]. EGFR 100 > OR = 60 mL/min/1 [...] needs for GFR calculation. Resulting Agency Comment [id number] Darlene Rodas MD LABORATORY Final Resu lt Performing Organization Address [facility] de Phone Number [facility] [address] [place] [address] * LIPID PANEL WITH REFLEX TO DIRECT [...] LDL-C. Vladimir BLACKMON et al. PUJA. 2013;310(19): 9792-1213 (http://education.Goomzee/faq/JPY748) CHOL/HDL Ratio 2.2 <5.0 (calc) [facility] Cholesterol Non-HDL 95 <130 mg/dL (calc) [facility] Comment: For patients with diabetes plus 1 major ASCVD risk factor, treating to a non-HDL-C goal of <100 mg/dL (LDL-C of <70 mg/dL) is considered a therapeutic option. 02/29/2020 4:40 PM EDT 03/01/2020 12:03 AM EDT Narrative Resulting Agency Comment [id number] Darlene Rodas MD LABORATORY Final Resu lt Performing Organization Address [facility] Co de Phone Number [facility] [address] [place] [address] * ALANINE AMINOTRANSFERASE (ALT), SERUM (02/29/2020 4:40 PM EDT) ALT (SGPT) 14 6 - 29 U/L [facility] 02/29/2020 4:40 PM EDT 03/01/2020 12:03 AM EDT Narrative Resulting Agency Comment [id number] Darlene Rodas MD LAB SAME DAY RESULT Final Result Performing Organization Address [facility] Co de Phone Number [facility] [address] [place] [address] * SYPHILIS (FTA) ANTIBODY CASCADING REFLEX TO [...] 12:03 AM EDT Narrative Resulting Agency Comment [id number] us Rachael Camarena MD LABORATORY Final Result Performing Organization Address [facility] de Phone Number [facility] [address] [place] [address] documented in this encounter Visit Diagnoses Diagnosis Concern about STD in female without diagnosis Person with feared complaint in whom no diagnosis was made Screening for endocrine, metabolic and immunity disorder documented in this encounter Care Teams Breaker Mechanic Relationship Specialty Start Date End Date Darlene Rodas MD [address] [place] [address] PCP - General 07/16/16 03/18/21 documented as of this encounter
--- OUTSIDE RECORDS SUMMARY | 2024-09-07 08:54 | XMS_ITS | Encounter Summary ---
Author Organization [facility] Address [address] [place] [address] Care Team Providers Care Security Trainer Name Role Phone Darlene Rodas MD Primary Care Provider [phone] Encounter Details Date Type Department Care Team (Late st Contact Info) Description 11/17/2016 Orders Only [facility] [address] [place] [phone] Linette Mcguire, RAIN Social History Tobacco [...] 8:04 PM EDT Narrative Resulting Agency Comment [id number] Linette Mcguire NP LABORATORY Final Result Performing Organization Address City/State/[facility] Co de Phone Number [facility] [address] [place] [address] * CBC INCLUDES DIFFERENTIAL AND PLATELET COUNT [...] 8:04 PM EDT Narrative Resulting Agency Comment [id number] Linette Mcguire NP LAB SAME DAY RESULT Final Re sult Performing Organization Address [facility] Co de Phone Number [facility] [address] [place] [address] * ALANINE AMINOTRANSFERASE (ALT), SERUM (11/17/2016 8:05 AM EDT) ALT (SGPT) 12 6 - 29 U/L [facility] 11/17/2016 8:05 AM EDT 11/17/2016 8:04 PM EDT Narrative Resulting Agency Comment [id number] Linette Mcguire SALES OFFICE COORDINATOR LAB SAME DAY RESULT Final Re sult Performing Organization Address [facility] Co de Phone Number [facility] [address] [place] [address] * LIPID PANEL WITH REFLEX TO DIRECT [...] 8:04 PM EDT Narrative Resulting Agency Comment [id number] us Linette Mcguire NP LABORATORY Final Result [facility] [address] [place] [address] * BASIC METABOLIC PANEL WITH (GFR) (11/17/2016 [...] higher for people identified as -Citizen Of [place]. GFR 91 > OR = 60 mL/min/1 [...] needs for GFR calculation. Resulting Agency Comment [id number] us Linette Eineberg SALES OFFICE COORDINATOR LABORATORY Final Result [facility] [address] [place] [address] documented in this encounter Visit Diagnoses Diagnosis Encounter to establish care with new doctor Other reasons for seeking consultation Health care maintenance Unspecified general medical examination Need for hepatitis C screening test Special screening examination for other specified viral diseases documented in this encounter Care Teams Security Trainer Relationship Specialty Start Date End Date Darlene Rodas MD [address] [place] [id number] PCP - General 07/16/16 03/18/21 documented as of this encounter
--- OUTSIDE RECORDS SUMMARY | 2024-09-07 08:54 | XMS_ITS | Referral Summary ---
Author Organization [facility] Address [address] [place] [address] Care Team Providers Care Stop Attacher Name Role Phone Jeremy Camara Primary Care Provider [phone] Encounters Date Type Department Care Team Description 08/04/2024 12:35 PM EDT - 08/04/2024 11:59 PM EDT Hospital Encounter [facility] Mammography Department [address] [place] [phone] Screening mammogram for breast cancer Discharge Disposition: Home or Self Care () 07/03/2024 2:10 PM EST - 07/03/2024 2:36 PM EST Surgery [facility] OR [address] [place] [address] Tammie Ramos MD UPPER ENDOSCOPY WITH POSSIBLE BIOPSY AND/OR POLYPECTOMY AND POSSIBLE MODERATE SEDATION [68744 (CPT??)] 07/03/2024 2:30 PM EST Anesthesia Event [facility] [place] [address] [place] [address] Stephen Joya MD 07/03/2024 1:55 PM EST - 07/03/2024 3:27 PM EST Hospital Encounter [facility] [place] [address] [place] [address] Tammie Ramos MD Gastric reflux Discharge Disposition: Home or Self Care () from Last 3 Months Allergies No known active allergies Medications multivitamin (MULTIPLE VITAMINS) tablet Act solange Active Problems Problem Noted Date Diagnosed Date [...] Upcoming Encounters Date Type Department Care Team (Latest Contact Info) Description 09/18/2024 11:20 AM EDT Hospital Encounter [facility] [place] [address] [place] [id number] Tammie Ramos MD [address] [place] [address] 09/18/2024 11:20 AM EDT - 09/18/2024 11:46 AM EDT Surgery [facility] OR [address] [place] [address] Tammie Ramos MD [address] [place] [address] UPPER ENDOSCOPY WITH POSSIBLE BIOPSY AND/OR POLYPECTOMY AND POSSIBLE MODERATE SEDATION [94226 (CPT??)] Scheduled Procedures Name Priority Associated Diagnoses Date/Ti co UPPER ENDOSCOPY WITH POSSIBLE BIOPSY AND/OR POLYPECTOMY AND POSSIBLE MODERATE SEDATION Abnormal findings on esophagogastroduodenoscopy (EGD) 09/18/2024 11:20 AM EDT Procedures * Due to [place] Sport[place] law, this organization might not be sharing negative HIV tests. Procedure Name Priority Date/Time Associated Diagnosis Comments [facility] BILATERAL IMPLANT SCREENING DIGITAL MAMMOGRAM WITH FUAD Routine 08/04/2024 1:14 PM EDT Screening mammogram for breast cancer TISSUE EXAM - [place] ONLY Routine 07/03/2024 2:36 PM EST Gastric reflux MA EGD TRANSORAL BIOPSY SINGLE/MULTIPLE 07/03/2024 2:27 PM EST Gastric reflux PATHOLOGY - SCANNED 07/03/2024 UPPER GI ENDOSCOPY 07/03/2024 [facility] COLONOSCOPY 01/29/2022 11:15 AM EDT from Last 3 Months or Most Recently Relevant to Health Maintenance Results * Due to [place] [employer] law, this organization might not be sharing negative HIV tests. * [facility] Bilateral Implant Screening Digital Mammogram With Fuad (08/04/2024 1:14 PM EDT) Anatomical Region Laterality Modality Breast Bilateral Mammography Narrative 08/12/2024 9:23 AM EDT Raven Garzon Exam Date: 08/04/[address] [address] EXAMINATION FRANCK Bilateral Implant Screening Digital Mammogram With Fuad. INDICATION Raven Garzon is a 59 y.o. female and is seen for: FRANCK Bilateral Implant Screening Digital Mammogram With Fuad. CC and MLO views were obtained. FDA approved Transpara?? AI (artificial intelligence) software and R2 CAD were used as a concurrent reading aid in the interpretation of this study. COMPARISON Compared to: 06/30/2023 [facility] Bilateral Implant Screening Digital Mammogram With Fuad and 06/19/2022 [facility] Screening Digital Mammogram Bilateral Breast Findings: The breasts are heterogeneously dense, which may obscure small masses. No significant masses, calcifications or other abnormalities are seen. Implants: Silicone Retro-pectoral, Bilateral, Normal implant. IMPRESSION BI-RADS?? ATLAS category (overall): 2 - Benign MANAGEMENT Routine Screening Mammogram in 1 Year is recommended for bilateral. ??The patient was entered into a reminder system with a subsequent mammography target date. The patient? s lifetime risk for breast cancer was calculated using Tyrer-Cuzick: 10.86%. Women with lifetime risk <20% and dense breast tissue may benefit from supplemental screening with breast MRI or automated breast ultrasound (ABUS) depending on risk factors. https://acsearch.acr.org/docs/7988560/Narrative/ Breast MRI is available at many [facility] MRI locations. To schedule, enter an MRI order into [facility] (MRI BREAST BILAT SCREENING W WO CONTRAST), call [phone] or [phone], or fax [phone]. ABUS is available at two [facility] sites. To schedule, enter an ABUS order into [facility] (ABUS), contact [facility] Central Scheduling (call [phone] or fax order [phone]), or contact [facility] Central Scheduling (call [phone] or fax order [phone]). If this radiology report contains a blank impression section, it is an incomplete radiology report. ??Please contact the interpreting radiologist or applicable radiology division as soon as possible to obtain the completed interpretation. Parish Riggs MD Resulting Agency Comment [id number] Jeremy Camara [facility] BI PROCEDURES Final Result * Tissue Exam - [facility] (07/03/2024 2:36 PM EST) Tissue Exam Result [...] performed at [facility] ?? [facility], [place] [address], ([id number], CLIA ? #[id number]). ? Grossing and technical work performed at [facility] ?? Network ([facility], [address] [place] [address], ?? [place] [address]; ; [id number]; CLIA #[id number] ? All professional pathology services performed at [facility] ? [place] ([address] [place] [address]; ; CLIA ?? #[id number]) ? Note: Some or all of the tests utilized in this case may be laboratory developed tests (LDT's) and may use class I analyte specific reagents (ASR). These tests were developed for clinical purposes and their ? performance characteristics determined by [facility] ?? Network Laboratories on tissue [...] REFLUX us Tammie Ramos MD LAB PATH/CYTO ([place]) Final Result [facility] [address] [facility] [place] [address], [place] * PATHOLOGY - SCANNED (07/03/2024) us Onbase Scan Jacek SCANNED PROCEDURES Final Resu lt * UPPER GI ENDOSCOPY (07/03/2024) Narrative Procedure Note Tammie Ramos MD - 07/03/2024 12:49 PM EST [facility] Patient Name: Raven Garzon Procedure Date: [...] involved the mucosa extending to the Z-line. [place]-colored mucosawas present. The maximum longitudinal extent of [...] MD PROVATION PROCEDURES Final Resul t * [facility] Colonoscopy (01/29/2022 11:15 AM EDT) us Onbase Scan [facility] HEALTH MAINTENANCE Final Resu lt from Last 3 Months or Most Recently Relevant to Health Maintenance [facility] MEDICAID Advance Directives Documents on File Type Date Recorded Patient Production Engineer Expl anation Health Care Proxy 08/21/2021 Health Care Proxy 08/21/2021 Health Care Proxy 08/21/2021 Health Care Proxy 08/21/2021 Health Care Proxy 08/21/2021 Health Care Proxy 08/21/2021 Advance Directive 06/03/2021 11:22 AM Care Teams Stop Attacher Relationship Specialty Start Date End Date Jeremy Camara [address] [place] [address] PCP - General Internal Medicine 07/04/24
--- OUTSIDE RECORDS SUMMARY | 2024-09-07 08:54 | XMS_ITS | Encounter Summary ---
Author Organization [facility] Address [address] [place] [address] Care Team Providers Care Chemical Worker Name Role Phone Darlene Rodas MD Primary Care Provider [phone]- [phone] Encounter Details Date Type Department Care Team (Late st Contact Info) Description 2018 Orders Only [facility] [address] [place] [address] Opal Stevens NP Social History [...] of this encounter Results * Due to [place] state law, this organization might not be sharing negative HIV tests. * ASPARTATE AMINOTRANSFERASE (AST), SERUM (03/18/2018 9:22 AM EST) AST (SGOT) 20 10 - 35 U/L [facility] 03/18/2018 9:22 AM EST 03/18/2018 5:02 PM EST Narrative Resulting Agency Comment [id number] Opal Stevens NP LAB SAME DAY RESULT Final Result [facility] [address] [place] [address] * ALANINE AMINOTRANSFERASE (ALT), SERUM (03/18/2018 9:22 AM EST) ALT (SGPT) 12 6 - 29 U/L [facility] 03/18/2018 9:22 AM EST 03/18/2018 5:02 PM EST Narrative Resulting Agency Comment [id number] Opal Stevens [facility] SAME DAY RESULT Final Result Performing Organization Address [facility] de Phone Number [facility] [address] [place] [address] * LIPID PANEL WITH REFLEX TO DIRECT [...] of LDL-C. Vladimir SS et al. PUJA. 2013;310(14): 6621-0992 (http://education.Znode/faq/NND262) CHOL/HDL Ratio 2.1 <5.0 (calc) [facility] Cholesterol Non-HDL 98 <130 mg/dL (calc) [facility] Comment: For patients with diabetes plus 1 major ASCVD risk factor, treating to a non-HDL-C goal of <100 mg/dL (LDL-C of <70 mg/dL) is considered a therapeutic option. 03/18/2018 9:22 AM EST 03/18/2018 5:02 PM EST Narrative Resulting Agency Comment [id number] us Opal Stevens [facility] LABORATORY Final Result Performing Organization Address [facility] de Phone Number [facility] [address] [place] [address] * BASIC METABOLIC PANEL WITH (GFR) (03/18/2018 9:22 AM EST) Glucose 75 65 - 99 mg/dL [facility] Comment:Fasting reference in terval Urea Nitrogen Blood (BUN) 12 7 - 25 mg/dL [facility] Creatinine 0.63 0.50 - 1.05 mg/dL [facility] Comment: For patients >49 years of age, the reference limit for Creatinine is approximately 13% higher for people identified as -[place]altese. GFR 102 > OR = 60 mL/min/1 [...] needs for GFR calculation. Resulting Agency Comment [id number] Opal Stevens NP LABORATORY Final Result Performing Organization Address City/State/[facility] Co de Phone Number [facility] [address] [place] [address] documented in this encounter Visit Diagnoses Diagnosis Healthy adult on routine physical examination Routine general medical examination at a health care facility Healthy adult on routine physical examination Routine general medical examination at a health care facility documented in this encounter Care Teams Chemical Worker Relationship Specialty Start Date End Date Darlene Rodas MD [address] [place] [address] PCP - General 07/16/16 03/18/21 documented as of this encounter
--- OUTSIDE RECORDS SUMMARY | 2024-09-07 08:54 | XMS_ITS | Clinical Summary ---
Author Organization [facility] [email or web address] Address [address] [place] [address] Care Team Providers Care Spinner Hand Name Role Phone No, Pcp WELT RANDER Primary Care Provider Unavailabl e Allergies No [...] Adults 18 yrs or above (or HM Modifier)([facility]) 1983 Hepatitis C Virus Infection in Adolescents and Adults: Screening (or Modifier) ([facility]) 1983 SDOH Screening Reminder: Ирина marcano for all adults ([facility]) 1983 Tobacco Smoking Cessation: i n Adults excluding Women: Behavioral and Pharmacotherapy Interventions ([facility]) 1983 Cervical Cancer Screenin 1-65 yrs of age (or Modifier) 1986 Cervical Cancer Screening: P ap every 3 yrs pts age 21-65 1986 Cervical Cancer: Pap Screeni ng with Modifier timing ([facility]) 1986 Cervical Cancer: hrHPV alone or with cotesting Pap for Pts 30-65yrs screening every 5yrs ([facility]) 1986 Colorectal Cancer Screening 45 -75 Yrs (or HM Modifier) 2010 Colorectal Cancer: FLEXIBLE SIGMOIDOSCOPY Screening every 5 yrs 2010 Colorectal Cancer: Fecal Immunochemical Test (FIT) Annually [facility] 2010 Colorectal Cancer: High-sens itivity gFOBT Screening Annually [facility] 2010 Colorectal Cancer: Stool Col oguard Screening every 3 yrs 2010 Colorectal Cancer:CT Colonog estrella Screening every 5 yrs 2010 Lipid Screening: Every 5 yrs for Women aged 45+ (or HM Modifier) ([facility]) 2011 Breast Cancer: Screening Ирина ually age 50-74 yrs (or HM Modifier)([facility]) 2015 Pneumococcal Vaccination Scr eening: Patients 50+ yrs of age ([facility]) (1 of 1 - PCV) 2015 COVID-19 Vaccine Screening: Initial Series and Booster Status ([facility]) ( - 2023- season) 2024 02/06/2021, 08/02/2020, 07/12/2020 DTaP/Tdap/Td Vaccines ([facility]) (2 - Td or Tdap) 02/06/2024 02/05/2014 Flu Vaccination: Yearly for ages 18mos through 64 years (or Modifier)([facility]) 12/01/2024 01/10/2020 Zoster/Shingles Vaccine Seri es Screening: Adults aged 18+ yrs (or HM Modifiers)([facility]) Completed 03/18/2020, 01/10/2020 Medical Devices Not on file Insurance [facility] Care Teams Spinner Hand Relationship Specialty Start Date End Date No, Pcp, WELT RANDER N/A Do not use PCP - General Family Medicine 03/24/20
--- OUTSIDE RECORDS SUMMARY | 2024-09-07 08:54 | XMS_ITS | Clinical Summary ---
Author Organization [facility] Address [address] [place] [address] Care Team Providers Care Audio Production Instructor Name Role Phone Jeremy Camara Primary Care Provider [phone] Allergies No known active allergies Medications multivitamin (MULTIPLE VITAMINS) tablet Act solange Active Problems Problem Noted Date Diagnosed Date Age-related facial wrinkles 11/09/2016 Encounters Date Type Department Care Team Description 08/04/2024 12:35 PM EDT - 08/04/2024 11:59 PM EDT Hospital Encounter [facility] Mammography Department [address] [place] [id number] Screening mammogram for breast cancer Discharge Disposition: Home or Self Care () 07/03/2024 2:30 PM EST Anesthesia Event [facility] OR [address] [place] [address] Stephen Joya MD 07/03/2024 2:10 PM EST - 07/03/2024 2:36 PM EST Surgery [facility] OR [address] [place] [address] Tammie Ramos MD UPPER ENDOSCOPY WITH POSSIBLE BIOPSY AND/OR POLYPECTOMY AND POSSIBLE MODERATE SEDATION [29717 (CPT??)] 07/03/2024 1:55 PM EST - 07/03/2024 3:27 PM EST Hospital Encounter [facility] OR [address] [place] [address] Tammie Ramos MD Gastric reflux Discharge Disposition: Home or Self Care (01) from Last 3 Months Social History Tobacco [...] Description 09/18/2024 11:20 AM EDT Hospital Encounter [facility] OR [address] [place] [address] Tammie Ramos MD [address] [place] [address] 09/18/2024 11:20 AM EDT - 09/18/2024 11:46 AM EDT Surgery [facility] OR [address] [place] [address] Tammie Ramos MD [address] [place] [address] UPPER ENDOSCOPY WITH POSSIBLE BIOPSY AND/OR POLYPECTOMY AND POSSIBLE MODERATE SEDATION [44180 (CPT??)] Scheduled Procedures Name Priority Associated Diagnoses Date/Ti me UPPER ENDOSCOPY WITH POSSIBLE BIOPSY AND/OR POLYPECTOMY AND POSSIBLE MODERATE SEDATION Abnormal findings on esophagogastroduodenoscopy (EGD) 09/18/2024 11:20 AM EDT Health Maintenance Due Date Last Done Comments Cologuard 1965 FOBT / Fit Test 1965 HIV Screening 1965 Hepatitis C Screening 1965 Sigmoidoscopy 1965 Pap Smear 06/11/2023 06/11/2020 Alcohol/Substance Use Screening 05/03/2024 Depression Screening and Follow-Up 05/03/2024 Social Drivers of Health Ирина ual Screening 05/03/2024 Hepatitis B Vaccines (2 of 2 - CpG 2-dose series) 08/08/2024 07/11/2024 Cervical Cancer Screening 06/11/2025 HPV and Pap Smear 06/11/2025 06/11/2020 Mammogram 08/04/2026 08/04/2024, 06/04, 06/19/2022, Additional history exists Colon Cancer Screening 01/30/2032 Colonoscopy 01/30/2032 01/29/2022, 01/26/2022 DTaP,Tdap,and Td Vaccines (4 - Td or Tdap) 02/15/2034 02/16/2024, 02/05/2014, 04/23/2010 RSV Vaccine (60+ years old a nd patients) (1 - 1-dose 75+ series) 2040 Zoster Vaccines Completed 03/18/2020, 01/10/2020 COVID-19 Vaccine Completed 01/11/2024, , 03/12/2022, Additional history exists Influenza Vaccine Completed 01/11/2024, , 01/29/2022, Additional history exists Pneumococcal Vaccine: 50+ Years Completed 5 Procedures * Due to [place] state law, this organization might not be sharing negative HIV tests. Procedure Name Priority Date/Time Associated Diagnosis Comments FRANCK BILATERAL IMPLANT SCREENING DIGITAL MAMMOGRAM WITH FUAD Routine 08/04/2024 1:14 PM EDT Screening mammogram for breast cancer TISSUE EXAM - [place] ONLY Routine 07/03/2024 2:36 PM EST Gastric reflux MT EGD TRANSORAL BIOPSY SINGLE/MULTIPLE 07/03/2024 2:27 PM EST Gastric reflux PATHOLOGY - SCANNED 07/03/2024 UPPER GI ENDOSCOPY 07/03/2024 HM COLONOSCOPY 01/29/2022 11:15 AM EDT from Last 3 Months or Most Recently Relevant to Health Maintenance Results * Due to [place] state law, this organization might not be sharing negative HIV tests. * [facility] Bilateral Implant Screening Digital Mammogram With Fuad (08/04/2024 1:14 PM EDT) Anatomical Region Laterality Modality Breast Bilateral Mammography Narrative 08/12/2024 9:23 AM EDT Raven Garzon Exam Date: 08/04/[address] [address] EXAMINATION FRANCK Bilateral Implant Screening Digital Mammogram With Fuad. INDICATION Raven Garzon is a 59 y.o. female and is seen for: FRANCK Bilateral Implant Screening Digital Mammogram With Fuad. CC and MLO views were obtained. FDA approved Transpara?? AI (artificial intelligence) software and R2 CAD were used as a concurrent reading aid in the interpretation of this study. COMPARISON Compared to: 06/30/2023 [facility] Bilateral Implant Screening Digital Mammogram With Fuad and 06/19/2022 [facility] Screening Digital Mammogram Bilateral Breast Findings: The [...] breast ultrasound (ABUS) depending on risk factors. [email or web address] Breast MRI is available at many [facility] MRI locations. To schedule, enter an MRI order into [facility] (MRI BREAST BILAT SCREENING W WO CONTRAST), call [phone] or [phone], or fax [phone]. ABUS is available at two [facility] sites. To schedule, enter an ABUS order into [facility] (ABUS), contact [facility] Scheduling (call [phone] or fax order [phone]), or contact [facility] Central Scheduling (call [phone] or fax order [phone]). If this radiology report contains a blank impression section, it is an incomplete radiology report. ??Please contact the interpreting radiologist or applicable radiology division as soon as possible to obtain the completed interpretation. Parish Riggs MD Resulting Agency Comment [id number] Jeremy Camara [facility] Final Result * Tissue Exam - [place] only (07/03/2024 2:36 PM EST) Tissue Exam Result SEE DETAILS 07/05/2024 12:00 AM EST [facility] Comment: ?FINAL DIAGNOSIS [...] performance of special and immunostains performed at [facility] ?? Formerly [facility], [place] [address], ([id number], CLIA ? #[id number]). ? Grossing and technical work performed at [facility] ([facility], [address] [facility] [address] [place], ?? [place] [address]; ; [id number]; CLIA #[id number] ? All professional pathology services performed at [facility] ? [place] ([address] [place] [address]; ; CLIA ?? #[id number]) ? Note: Some or all of the tests utilized in this case may be laboratory developed tests (LDT's) and may use class I analyte specific reagents (ASR). These tests were developed for clinical purposes and their ? performance characteristics determined by [facility] on tissue fixed in 10% neutral buffered formalin. Other fixatives have not been validated, and therefore results on ? tissue with such fixation should be interpreted with caution and in ?? the clinical context. [facility] are qualified under the CLIA ?? 1988 documents to provide high-complexity clinical laboratory testing. All controls are reviewed and deemed appropriate. ? Tissue Esophageal structure / Unknown Non-Blood Collection / Unknown 07/03/2024 2:36 PM EST 07/04/2024 10:13 AM EST Comment:Pre-op diagnosis: CHRONIC ACID REFLUX Tissue specimen (specimen) Specimen from stomach / Unknown 07/03/2024 2:39 PM EST Comment:Pre-op diagnosis: CHRONIC ACID REFLUX Tammie Ramos MD LAB PATH/CYTO (LEV) Final Result [facility] [address] [place] [address], * PATHOLOGY - SCANNED (07/03/2024) us Onbase Scan Jacek SCANNED PROCEDURES Final Resu lt * UPPER GI ENDOSCOPY (07/03/2024) Narrative Procedure Note Tammie Ramos MD - 07/03/2024 12:49 PM EST [facility] Patient Name: Raven Garzon Procedure Date: 07/03/2024 12:49 PM Date of : 1965 Admit Type: Outpatient Age: 59 Room: [facility] PROCEDURE Gender: Female Note Status: Finalized Attending [...] involved the mucosa extending to the Z-line. [place]-colored mucosawas present. The maximum longitudinal extent of [...] (01/29/2022 11:15 AM EDT) us Onbase Scan [facility] Final Resu lt from Last 3 Months or Most Recently Relevant to Health Maintenance Insurance [facility] MEDICAID Advance Directives Documents on File Type Date Recorded Patient Signal Wirer Expl anation Health Care Proxy 08/21/2021 Health Care Proxy 08/21/2021 Health Care Proxy 08/21/2021 Health Care Proxy 08/21/2021 Health Care Proxy 08/21/2021 Health Care Proxy 08/21/2021 Advance Directive 06/03/2021 11:22 AM Care Teams Audio Production Instructor Relationship Specialty Start Date End Date Jeremy Camara [address] [place] [address] PCP - General Internal Medicine 07/04/24
--- OUTSIDE RECORDS SUMMARY | 2024-09-07 08:54 | XMS_ITS | Data Portability ---
Author Organization [place] [facility] - IP Address [address] [place] [address] Care Team Providers Care Dip Tube Assembler Machine Name Role Phone AL NEGRETE Primary Care Provider [phone] Assessment No assessment recorded. Plan of Treatment Reminders Order Date Submit Date Provider Last Modified By Organization Details Last Modified Time Details Appointments UPPER GI PROPOFOL 2024 11:00A M Aziz_proc edures Not available Not available Not available COLON PROPOFOL 2024 09:30A M Aziz_proc edures Not available Not available [...] lorazepam 0.5 mg tablet TAKE 1 TABLET BY MOUTH BEDTIME NEEDED FOR TO SLEEP active Not Available Not Available No t Available omeprazole 20 mg capsule,fernanda yed release TAKE 1 CAPSULE BY MOUTH 2 TIMES A DAY FOR ABDOMINAL DISCOMFORT active Not Available Not Available N ot Available escitalopram 5 mg tablet TAKE 1 TABLET BY MOUTH DAILY active Not Available Not Available Not Available Golytely 236 gram-22.74 gram-6.74 gram-5.86 gram oral solution Take 4000 mL by oral route. 09/23/ 2022 active Not Available Not Available Not Avai lable Gavilyte-C 240 gram-22.72 gram-6.72 gram-5.84 gram oral solution TAKE 4000 ML BY ORAL ROUTE. active Not Available Not Available No t Available Voquezna 20 mg tablet Take by oral route for 30 days. active Not Available Not Available No t [...] SNOMED-CT Code Diagnosis ICD10 Code Diagnosis Note [id number] Tammie Ramos MD [facility] Office [address] [place] [address] 02/07/2022 15:07:49 02/07/2022 15:10:05 Family history of cancer of colon 107988435 Z80.0 [id number] Tammie Ramos MD [facility] Office [address] [place] [phone] 02/13/2022 09:59:09 02/13/2022 10:02:16 Polyp of colon [id number] K63.5 [id number] Tammie Ramos MD [facility] Office [address] [place] [address] 07/30/2022 14:00:48 07/30/2022 14:08:09 Family history of cancer of colon [id number] Z80.0 [id number] Tammie Ramos MD [facility] Office [address] [place] [phone] 07/21/2024 11:04:40 07/21/2024 11:08:32 Gastric ulcer [id number] K25.9 Gastroesop hageal reflux disease without esophagitis [id number] K21.9 Health Concerns Section Related Observation LastModified by Organization Detai ls LastModified Time None Recorded Concern Status LastModified by Organization Details LastModified Time None Recorded Advance Directives Directive None Recorded Payers Insurance Date Sequence Insurance Name Policy Number Policy Mittal Covered Member ID Mittal Member ID Guarantor Name 08/23/2024 1 [facility] HEALTH NET PLAN (MEDICAID HMO) KRISTY Garzon [id number] Raven Garzon 06/20/2024 1 [facility] (O) Duran Carbajal [id number] Raven Garzon OBGycandy Episode No OBEpisode recorded.
== END 2024-09-07 09:22 | disposition home or self-care (01) ==
LOC: HO.HMCC 08:39
PROVIDERS: PCP Internal Medicine; Visit Provider Internal Medicine
DX: K29.60 Other gastritis without bleeding (principal); F39 Unspecified mood [affective] disorder; Z63.4 Disappearance and death of family member

== ENCOUNTER → 2024-09-07 08:39 | Outpatient (BNVA) | payer OTHER, SELFPAY | PROVIDERS: PCP Internal Medicine; Visit Provider Internal Medicine | DX: Z13.89 Encounter for screening for other disorder (principal) ==

== ENCOUNTER 2024-10-13 13:21 | Outpatient (AMB) | payer OTHER, SELFPAY ==
--- NOTE | 2024-10-13 13:22 | A.OFFPC_ITS ---
Vital Signs 10/13/24 13:27 Height 5 ft 2 in BMI Reason not done Patient refused/unable BP 108/64 Blood Pressure Location Rt brachial Position Sitting Pulse 78 Pulse Source Pulse Oximeter Temp 98 F Temp Source Oral Pulse Oximetry (%) 99 Oxygen Delivery Method Room Air Intake Visit Reasons: Discuss breast MRI Allergies No Known Allergies Allergy (Verified 10/13/24 13:27) Medication List - Last Reconciled 10/13/24 by Jeremy Camara MD lorazepam 0.5 mg PO BEDTIME PRN vonoprazan 20 mg PO DAILY Tobacco use date assessed: 10/13/24 Dental Screening Dental Screen Date: 10/13/24 Did you have a dental visit in the last 12 months?: Yes Did you have a dental problem in the last 6 months where you did not have access to dental care?: No Was dental information given to patient?: Patient has dentist HPI Discuss breast MRI HPI Details For women at high risk of breast cancer, including those with strong family histories, known genetic mutations (like BRCA1/2), dense breast tissue, or a history of radiation therapy to the chest. History - The patient is a 59-year-old female pr esenting with concerns regarding breast cancer risk and the utility of a breast MRI due to dense breasts noted in a mammogram. - The patient reports having dense breas ts, causing difficulty in detecting potential breast conditions via mammogram. She worries that dense breast tissue might obscure the mammogram results, potentially delaying the detection of any emerging cancers. - The patient has no prior history of br east cancer, no family history of breast cancer, and has not been tested for genetic predispositions for breast cancer. - She expressed anxiety about breast can cer despite the assurance that she has no significant risk factors and the mammogram report looked normal. - The mammogram report indicates the pat ient has a 10.86% lifetime risk of developing breast cancer - The patient has implants, which adds t o her concern about potential obscuration of mammogram results. Surgical History: - Breast implants Social History: - Drinks alcohol (specific details not p rovided, but acknowledged alcohol use) Family History: - No family history of breast cancer, th ough other cancers are present in cic-qgtwy-ozxcks relatives. Diagnostic Results: Tests: - Mammogram showed dense breast tissue; detailed score of 10.86% indicating lifetime risk Problem List - Dense breast tissue contributing to po tential diagnostic obscuration Patient Instructions - Regular physical exams and mammograms are necessary to monitor breast health. - Patient advised to discuss with insura nhe about coverage concerns and possible approval for MRI if circumstances indicate. Review of Systems - General: No fever no chills - Neurological: No headaches no dizziness - Ear nose throat: No sore throat no hearing difficulty no ear pain - Cardiovascular: No syncope, no chest pain, no palpitations - Gastrointestinal: No nausea vomiting or diarrhea - Endocrine: No polyuria polydipsia no heat intolerance - Genitourinary: No dysuria , no blood in urine Physical Exam - General: No acute distress - HEENT: No acute findings - Neck: Supple - Respiratory system: Able to talk in f ull sentences, no audible wheeze - Cardiovascular: S1-S2 regular in rate and rhythm - Breast exam show implants present but no lumps found - Gastrointestinal: No pain - Extremities: No new findings - PANTRY STEWARD/STEWARDESS: Alert awake oriented x3 motor se nsory intact - Skin: Normal turgor 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 1. Little interest or pleasure in doing things: not at all 2. Feeling down, depressed, or hopeless: not at all 3. Trouble falling or staying asleep, or sleeping too much: several days 4. Feeling tired or having little energy: several days 5. Poor appetite or overeating: not at all 6. Feeling bad about yourself - or that you are a failure or have let yourself or your family down: not at all 7. Trouble concentrating on things, such as reading the newspaper or watching television: not at all 8. Moving or speaking so slowly that other people could have noticed. Or the opposite - being so fidgety or restless that you have been moving around a lot more than usual: not at all 9. Thoughts that you would be better off or of hurting yourself in some way: not at all Total score: 2 Depression Screening Interpretation: Negative Depression Screening Done: Yes 53942 - PHQ-9 Billing: Yes Source: Developed by Drs. Drew Cerna, Avis Huitron, Wesley Perry and colleagues, with an educational lee from [employer]. Thrive Questionnaire Date Thrive assessed: 10/13/24 I am a: Patient What is your living situation today?: I have a steady place to live Within the past 12 months, did the food you bought not last and you didn't have the money to get more?: Sometimes True Within the past 12 months, did you worry whether your food would run out before you got money to buy more?: Sometimes True Do you have trouble paying for medicines?: No Do you have trouble getting transportation to medical appointments?: No Do you have trouble paying your heating and electricity bill?: No Do you have trouble taking care of your child, family member or friend?: No Do you have trouble with day-to-day activities such as bathing, preparing meals, shopping, managing finances, etc.?: No Are you currently unemployed and looking for a job?: No Are you interested in more education?: No Please select the resources that you would like help with: Food Currently or been in a relationship where the following occur: No concerns reported THRIVE Score: 2 ZEE-7 AMB Questionnaire ZEE-7 Date ZEE - 7 assessed: 10/13/24 Source: Developed by Drs. Drew Cerna, Avis Huitron, Wesley Perry and colleagues, with an educational lee from [employer]. Physical exam (Primary Care) Vital Signs: Last Vital Signs Temp 98 F 10/13/24 13:27 Pulse 78 10/13/24 13:27 BP 108/64 10/13/24 13:27 Pulse Ox 99 10/13/24 13:27 Oxygen Delivery Method Room Air 10/13/24 13:27 Tobacco/Smoking Status: Tobacco use Status Tobacco use date assessed 10/13/24 10/13/24 13:33 Patient Tobacco Use Status Never used Tobacco 10/13/24 13:24 e-Cigarette/Vaping Use Never Used 10/13/24 13:24 PHQ-9: PHQ-9 Score PHQ-9: Total score 2 10/13/24 13:45 Depression Screening Interpretation: Negative Thrive Assessment: Date of Thrive Assessment Date Thrive assessed 10/13/24 10/13/24 13:33 Currently or been in a relationship where the following occur: No concerns reported Coding Level of Care Code Est Pt Level 3 (63939) Diagnoses Dense breast tissue on mammogram R92.30 Generalized anxiety disorder F41.1 Anxiety disorder type: generalized anxiety disorder Additional Codes PHQ-9 - 87262 - PHQ-9 Billing: Yes ([id number]) Assessment & Plan Assessment & Plan (1) Dense breast tissue on mammogram: Code(s): R92.30 - Dense breasts, unspecified Category: Medical (2) Anxiety disorder: Code(s): F41.9 - Anxiety disorder, unspecified Category: Medical Qualifiers: Anxiety disorder type: generalized anxiety disorder Qualified Code(s): F41.1 - Generalized anxiety disorder Plan For women at high risk of breast cancer, including those with strong family histories, known genetic mutations (like BRCA1/2), dense breast tissue, or a history of radiation therapy to the chest. History - The patient is a 59-year-old female presenting with concerns regarding breast cancer risk and the utility of a breast MRI due to dense breasts noted in a mammogram. - The patient reports having dense breasts, causing difficulty in detecting potential breast conditions via mammogram. She worries that dense breast tissue might obscure the mammogram results, potentially delaying the detection of any emerging cancers. - The patient has no prior history of breast cancer, no family history of breast cancer, and has not been tested for genetic predispositions for breast cancer. - She expressed anxiety about breast cancer despite the assurance that she has no significant risk factors and the mammogram report looked normal. - The mammogram report indicates the patient has a 10.86% lifetime risk of developing breast cancer - The patient has implants, which adds to her concern about potential obscuration of mammogram results. Surgical History: - Breast implants Social History: - Drinks alcohol (specific details not provided, but acknowledged alcohol use) Family History: - No family history of breast cancer, though other cancers are present in shf-wrnmj-wfxgnk relatives. Diagnostic Results: Tests: - Mammogram showed dense breast tissue; detailed score of 10.86% indicating lifetime risk Problem List - Dense breast tissue contributing to potential diagnostic obscuration Patient Instructions - Regular physical exams and mammograms are necessary to monitor breast health. - Patient advised to discuss with insurance about coverage concerns and possible approval for MRI if circumstances indicate.
[2024-10-13 13:27] VITALS: BP 108/64; PULSE 78; TEMP 36.6; O2SAT 99
--- OUTSIDE RECORDS SUMMARY | 2024-10-13 13:39 | XMS_ITS | Continuity of Care Document ---
Author Organization [facility] Address [address] [place] [address] Care Team Providers Care Phys Therapist Name Role Phone Unavailable Primary Care Provider Unavailabl e Encounters Date Type Department Care Team Description 10/09/2024 Orders Only [facility] [address] [place] [address] Tammie Ramos MD 07/03/2024 Orders Only [facility] [address] [place] [address] Tammie Ramos MD 06/30/2023 Minor Procedure/Test [facility] [address] [place] [address] [facility], Unknown Provider 03/23/2023 Minor Procedure/Test [facility] [address] [place] [address] [facility], Unknown Provider 12/10/2022 Telephone [facility] MRI ASSISTANT [address] [place] [address] Brittany Li NP Appointment 03/18/[address] [facility] [address] [place] [address] Darlene Rodas MD Other (Pcp; ins info/) 03/03/[address] [facility] [address] [place] [address] Darlene Rodas MD Imm/Inj 10/29/2020 Orders Only [facility]. Podiatry [address] [place] [phone] Tre Rosario DPM 10/29/2020 8:30 AM EDT Radiology [facility] X-Ray [address] [place] [address] 10/29/2020 Orders Only [facility] Podiatry [address] [place] [phone] Tre Rosario, DPYocasta 10/29/2020 8:50 AM EDT Consult (Initial) [facility] Podiatry [address] [place] [phone] Tre Rosario, DPM Onychomycosis (Primary Dx); Acquired hallux valgus of left foot; Bilateral foot pain; Acquired hallux valgus of right foot 10/22/2020 Telephone All of [address] [address] [facility] [place] 10/22/2020 Telephone All of [address] [address] [facility] 09/03/[address] [facility] [address] [place] [address] Darlene Rodas MD Cyst 06/12/[address] [facility] [address] [place] [address] Darlene Rodas MD Patient Questions 06/11/2020 Orders Only [facility] MRI ASSISTANT [address] [facility] [address] [place] [address] Brittany Li NP 06/11/2020 Travel 06/11/2020 8:00 AM EST Office Visit [facility] MRI ASSISTANT [address] [facility] [address] [place] [address] Brittany Li NP Encounter for gynecological examination (general) (routine) without abnormal findings (Primary Dx); Abnormal cervical Papanicolaou smear, unspecified abnormal pap finding; Menopause present; Pap smear for cervical cancer screening; History of uterine fibroid; Cystocele, midline 06/03/[address] [facility] [address] [place] [address] Darlene Rodas MD Letter/form Request 05/28/[address] [facility] [address] [place] [address] Darlene Rodas MD Labs/orders (mmg) 05/27/2020 4:30 PM EST Radiology [facility] Ultrasound [address] [place] [address] Leg edema 05/27/2020 6:30 PM EST Radiology [facility] Xray [address] [place] [address] Leg edema 05/27/2020 5:45 PM EST Office Visit [facility] [address] [address] Taiwo Noe PA Leg edema (Primary Dx) 05/27/2020 Travel 05/27/[address] [facility] [address] [place] [address] Darlene Rodas MD Knee Pain 05/23/2020 Orders Only NON FC SA [address] [address] Darlene Rodas MD 04/24/2020 Travel 04/17/2020 Travel 04/17/2020 8:15 AM EST CPE - Comprehensive Physical Exam [address] [facility] [facility] [address] [place] [address] Darlene Rodas MD Well adult exam (Primary Dx); ASCUS with positive high risk HPV cervical; S/P colonoscopy; Gastroesophageal reflux disease, unspecified whether esophagitis present 03/20/[address] [facility] [address] [place] [address] Darlene Rodas MD Results 03/16/2020 Orders Only [address] [facility] [address] [place] [address] Darlene Rodas MD [address] [facility] [address] [place] [address] Darlene Rodas MD Imm/Inj 02/29/2020 Orders Only [address] [facility] [address] [place] [address] Darlene Rodas MD 02/28/[address] [facility] [address] [place] [address] Darlene Rodas MD Labs/orders 11/29/[address] [facility] [address] [place] [address] Darlene Rodas MD Labs/orders 06/30/2019 Letter/Form [facility] MRI ASSISTANT [address] [facility] [address] [place] [address] Stefania Mclaughlin, RAIN 06/30/2019 8:15 AM EST Minor Procedure/Test [facility] MRI ASSISTANT [address] [facility] [address] [place] [address] Stefania Mclaughlin, ENDODONTIST ASCUS with positive high risk HPV cervical (Primary Dx); Abnormal cervical Papanicolaou smear, unspecified abnormal pap finding 05/29/2019 Telephone [facility] Dermatology [address] [place] [address] Vanessa Angel PA Follow Up 05/22/[address] [facility] [address] [place] [address] Darlene Rodas MD Labs/orders ([facility]) 05/19/2019 Orders Only NON FC [facility] [address] [place] [address] Darlene Rodas MD 04/20/[address] [facility] [address] [place] [address] Darlene Rodas MD Results 04/19/2019 11:00 AM EST Consult (Initial) [facility] [address] [place] [address] Vanessa Angel PA Pruritus (Primary Dx); Dyschromia 04/11/2019 Telephone [facility] [facility] [address] [place] [address] Darlene Rodas MD Records 04/11/2019 Orders Only [facility] [facility] [address] [place] [address] Darlene Rodas MD 04/11/2019 7:45 AM EST CPE - Comprehensive Physical Exam [facility] [address] [place] [address] Darlene Rodas MD Well adult exam (Primary Dx); Screening for metabolic disorder; Screening for malignant neoplasm of cervix; Screening for eye condition; Need for vaccination 02/20/2019 Letter/Form [facility] [address] [place] [address] Darlene Rodas MD 10/28/2018 Telephone [facility] [facility] [address] [place] [address] Darlene Rodas MD Labs/orders 07/06/2018 Refill [facility] [facility] [address] [place] [address] Darlene Rodas MD E-prescribing Refill Request 05/11/2018 Telephone [facility] [address] [place] [address] Darlene Rodas MD Patient Questions 04/20/2018 Refill [facility] [address] [place] [address] Opal Stevens NP E-prescribing Refill Request 04/18/2018 Orders Only NON FC SA [facility] [address] [place] [address] Darlene Rodas MD 04/04/[address] [facility] [address] [place] [address] Darlene Rodas MD Results 03/23/[address] [facility] [address] [place] [address] Darlene Rodas MD Labs/orders 03/23/2018 Telephone FC MISCELLANEOUS [phone] Mychart, Provider Generic MyChart Verification 03/22/2018 Orders Only [address] [facility] [address] [place] [address] Opal Stevens NP 03/22/2018 3:15 PM EST CPE - Comprehensive Physical Exam [facility] [address] [place] [address] Opal Stevens NP Routine history and physical examination of adult (Primary Dx); Healthcare maintenance; Anxiety; Gastroesophageal reflux disease, esophagitis presence not specified; Insomnia, unspecified type; Screening for breast cancer; Screen for STD (sexually transmitted disease); Need for vaccination 03/21/2018 7:30 AM EST Office Visit [facility]. Optometry [address] [place] [phone] Maricruz Russo OD Encounter for ophthalmic examination and evaluation (Primary Dx); Disorder of refraction 03/18/2018 Orders Only [facility] [address] [place] [address] Opal Stevens NP 03/14/[address] [facility] [address] [place] [address] Darlene Rodas MD Labs/orders 2018 Orders Only [facility] [address] [place] [address] Darlene Rodas MD 2018 Orders Only [facility] [address] [place] [address] Opal Stevens NP 02/20/2018 Letter/Form [facility] [address] [facility] [place] [address] Darlene Rodas MD 02/20/2017 Letter/Form [facility] [address] [place] [address] Darlene Rodas MD 01/18/2017 1:00 PM EDT Radiology [facility] Xray [address] [place] [address] Sprain of right ankle, unspecified ligament, initial encounter 01/18/2017 12:30 PM EDT Office Visit [facility] [address] [place] [phone] Sissy Ricks PA Sprain of right ankle, unspecified ligament, initial encounter (Primary Dx); Neck sprain, initial encounter 01/14/2017 Telephone [facility] [address] [place] [address] Darlene Rodas MD Ankle pain 11/19/2016 Telephone [facility] [address] [place] [address] Darlene Rodas MD Results 11/17/2016 Orders Only [facility] [address] [facility] [place] [address] Linette Mcguire NP 11/10/2016 Letter/Form [facility] [address] [place] [address] Linette Mcguire NP 11/05/2016 Letter/Form [facility] [address] [place] [address] Linette Mcguire NP 10/06/2016 Orders Only [facility] [address] [facility] [place] [address] Darlene Rodas MD 10/06/2016 9:45 AM EDT Office Visit [facility] [address] [place] [address] Linette Mcguire NP Encounter to establish care with new doctor (Primary Dx); Insomnia, unspecified type; Gastroesophageal reflux disease, esophagitis presence not specified; Anxiety; Hot flashes; Health care maintenance; Need for hepatitis C screening test 08/19/2016 Telephone [facility] [address] [place] [address] Darlene Rodas MD Erroneous encounter-disregard 08/19/2016 Telephone [facility] [address] [place] [address] 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, STAVE MACHINE TENDER Constipation 08/12/2016 [facility] [address] [place] [address] Darlene Rodas MD 08/10/2016 Orders Only [facility] [address] [place] [address] Darlene Rodas MD 08/06/2016 Telephone [facility] [address] [place] [address] Darlene Rodas MD Referral Request (Chiro / Lonnie Baig) 07/27/2016 Orders Only [facility] [address] [place] [address] Darlene Rodas MD 07/27/2016 Telephone [facility] [address] [place] [address] Darlene Rodas MD Referral Request (chiro) 06/09/2016 Telephone [facility] Otolaryngology [address] [place] [address] [place] [address] Vicky Waters MD Cancellation 01/02/2016 Minor Procedure/Test Azeb Antunez MD 12/16/2015 Office Visit Azeb Antunez MD 12/16/2015 Minor Procedure/Test CARDI UNSPECIFIED Daniel Ybarra MD 09/05/2015 Minor Procedure/Test GASTRO UNSPECIFIED Gavin Cruz MD 10/31/2014 Minor Procedure/Test FAM PRAC UNSPECIFIED Azeb Ling MD 10/11/2014 Office Visit FAM PRAC UNSPECIFIED Nicole Marks NP 09/27/2014 3:00 PM EDT Office Visit [facility] Otolarynogology/Plas tics [address] [address] Jimenez Morales MD Facial rhytids (Primary Dx) 08/31/2014 10:00 AM EDT Office Visit [facility] Otolarynogology/Plas tics [address] [address] Jimenez Morales MD Facial rhytids (Primary Dx) 06/14/2014 Telephone [facility] Otolarynogology/Plas tics [address] [address] Jimenez Morales MD Patient Questions 06/13/2014 Telephone [facility] Otolarynogology/Plas tics [address] [address] Jimenez Morales MD Patient Questions 02/22/2014 2:45 PM EDT Office Visit [facility] Otolarynogology/Plas tics [address] [address] Jimenez Morales MD Facial rhytids (Primary Dx) 02/15/2014 4:00 PM EDT Office Visit [facility] Otolarynogology/Plas tics [address] [address] Jimenez Morales MD Facial rhytids (Primary Dx) 12/28/2013 3:30 PM EDT Consult (Initial) [facility] Otolarynogology/Plas tics [address] [address] Jimenez Morales MD Facial rhytids (Primary Dx) 02/27/2013 Minor Procedure/Test EYEDOTTER UNSPECIFIED Popeye Rodriguez Allergies No known active [...] 03/22/18: Last record available to me in [facility] for mammogram is 2014. Per patient report she had mammogram done in 2015 through outside [facility] provider, Dr. Gary in [place]. Her CPE 2017 note, patient signed MERLINE [...] exercise stress test 10/06/2016 Overview (10/06/2016): At [facility] on 01/02/2016. No evidence of ischemia [...] patient report last Pap done by outside [facility] 2017. We do not have these records. Mammography: Again, patient reports mammograms through outside [facility] in 2017. Colonoscopy: Per patient report colonoscopy done through [facility], 2017, no polyps. 10-year repeat. Need records from [place]. DEXA: N/A Exercise: None Screen for STD (sexually transmitted disease) 05/28/19 19 06/11/2020 Overview (05/28/2018): 03/22/18: Patient requesting STD testing today. She is very concerned about the thought of having herpes. Tried to reassure her about the etiology and prevalence, and treatment of this disease. Anxiety 10/06/2016 04/11/2019 Overview (05/28/2018): Her previous PCP records. Kenneth it was situational regarding conflict with coworker. [...] with me to further discuss mood. Immunizations Immunization Administration Dates Next Due COVID-19, mRNA (Pfizer [...] Influenza,injectable,MDCK, P rsrv Fr,Quad 01/29/2022,01/10/2020 Influenza,injectable,quad,Prsrv Fr 01/26,02/06/2021,04/11/2019,2017 MMR 04/23/2010 PCV-21 07/11/2024 Tdap 02/16/2024,02/05/2014 Zoster [...] Alive Social History Smoking Status as of 10/13/2024 Tobacco Use Types Packs/Day Years Used Date [...] on file Procedures * Due to [place] state law, this organization might not be sharing negative HIV tests. Procedure Name Priority Date/Time Associated Diagnosis Comments TISSUE EXAM - [place] ONLY Routine 10/09/2024 12:22 PM EDT TISSUE EXAM - [place] ONLY Routine 07/03/2024 [...] COMPL 02/27/2013 Results * Due to [place] state law, this organization might not be sharing negative HIV tests. * TISSUE EXAM - [place] ONLY (10/09/2024 12:22 PM EDT) Only the most recent of2 resultswithin the time period is included. TISSUE EXAM RESULT SEE DETAILS [facility] Comment: ?FINAL DIAGNOSIS ?A. ??Esophagus, distal, biopsy: ?- Cardiofundic-type mucosa with moderate chronic inactive ?inflammation; no intestinal metaplasia seen. ?- Squamous epithelium within normal limits. ?B. ??Stomach, biopsy: Antral-type mucosa with mild chronic ?inactive inflammation; no Helicobacter organisms seen. ? Srinivasa Gonzales M.D. ? Electronic Signature: 10/10/2024 ? 12:23 ? Clinical History ? Follow up of gastric ulcer ? Microscopic Description ? A. ??Sections have cardiofundic-type mucosa with moderate chronic ? inactive inflammation. No intestinal metaplasia is seen, ? supported by AB/PAS stains. Also seen is normal appearing ? squamous epithelium. ? B. ??Sections have antral-type mucosa with mild chronic inactive ? inflammation. No intestinal metaplasia is seen, supported by ? AB/PAS stains. No Helicobacter organisms are seen, supported by ? H. pylori immunostain. ? Macroscopic Description ? A. ??Received in formalin are 3 white 1-3 mm soft tissue fragments, ? totally submitted in cassette A1. ? B. ??Received in formalin are 3 grossman 2-6 mm soft tissue fragments, ? totally submitted in cassette B1. ? Excision to formalin time: immediate; total time in formalin: ? 4.5 hours. (HG) ? Unless otherwise stated, all tissue is formalin-fixed and ? paraffin-embedded. ? Special stains ordered and performed: AB/PAS stains on A and B; ? immunostain for H. pylori on B ? Technical performance of special and immunostains performed at [facility] ?? [place] [address], ([id number], CLIA ? #[id number]). ? Grossing and technical work performed at [facility] ([facility], [address] [place] [address], ?? [place] [address]; : [phone]; [phone]; CLIA #[id number] ? All professional pathology services performed at [facility] ? [place] ([address] [place] [address]; : [phone]; CLIA ?? #[id number]) ? Note: Some or all of the tests utilized in this case may be laboratory developed tests (LDT's) and may use class I analyte specific reagents (ASR). These tests were developed for clinical purposes and their ? performance characteristics determined by [facility] on tissue fixed in 10% neutral buffered formalin. Other fixatives have not been validated, and therefore results on ? tissue with such fixation should be interpreted with caution and in ?? the clinical context. [facility] Laboratories are qualified under the CLIA ?? 1988 documents to provide high-complexity clinical laboratory testing. All controls are reviewed and deemed appropriate. ? 10/09/2024 12:2 2 PM EDT Narrative [facility] - 10/10/2024 12:00 AM EDT Pre-op diagnosis: REPEAT EGD Tammie Ramos MD PATHOLOGY Final Result [facility] [address] [place] [address] * FRANCK BILATERAL IMPLANT SCREENING DIGITAL MAMMOGRAM [...] dense breast tissue shown on mammography. Per [employer] Appropriateness Criteria ??for Breast Cancer Screening (https://acsearch.acr.org/docs/62538/Narrative/) patient may benefit from tomosynthesis on future mammography and supplemental imaging with automated breast ultrasound (ABUS) or breast MRI depending on risk factors. Automated Breast Ultrasound (ABUS) is now available at both [facility] and in the Department of Mammography at [facility]. To schedule a patient, you can either enter an ABUS order into [facility] EMR (type in ABUS), call [facility] Scheduling at [phone], or call [facility] Central Scheduling at [phone]. To fax an external order: [facility] [phone] and [facility] [phone]. If this radiology report contains a blank impression section, it is an incomplete radiology report. ??Please contact the interpreting radiologist or applicable radiology division as soon as possible to obtain the completed interpretation. 5' 2 125 Procedure Note [facility], Unknown Provider - 07/05/2023 EXAMINATION FRANCK Bilateral [...] of Radiology Appropriateness Criteria for Breast Cancer Screening(https://acsearch.acr.org/docs/51021/Narrative/) patient may benefit fromtomosynthesis on future mammography and supplemental imaging with automated breast ultrasound(ABUS) or breast MRI depending on risk factors. Automated Breast Ultrasound (ABUS) is now available at both [facility] and [facility]. To schedule a patient, you caneither enter an ABUS order into [facility] EMR (type in ABUS), call [facility] [phone], or call [facility] Central Scheduling [phone]. To fax an external order: [facility] [phone] [facility] [phone]. If this radiology report contains a blank impression section, it is anincomplete radiology report. Please contact the interpreting radiologistor applicable radiology division as soon as possible to obtain thecompleted interpretation. 5' 2 125 us Unknown Provider [facility] Final Resu lt * FUNGAL STAIN, JAMIE (10/29/2020 2:39 PM EDT) Fungus identified SEE NOTE [facility] Comment: ??FUNGAL STAIN ??Micro Number: ?[id number] ??Test Status: ? Final ??Specimen Source: ?? LEFT 2ND TOENAIL ??Specimen Quality: ??Adequate ??Smear: ? No fungal elements seen. 10/29/2020 2:39 PM EDT 10/29/2020 9:27 PM EDT Narrative Resulting Agency Comment [id number] Tre Rosario DPM LABORATORY Final Result [facility] [address] [place] [address] * XRAY FEET COMPLETE MIN 3 VWS [...] Smear Negative for intraepithelial lesion or malignancy. [facility] Cytology study comment (Cvx/Vag) This Pap test has been evaluated with computer assisted technology. [facility] Wool Hat Forming Machine Tender (Cvx/Vag) SXA, CT(ASCP) CT screening location: [place] [address] [facility] COMMENT SEE NOTE [facility] Comment: EXPLANATORY NOTE: The Pap is a [...] HPV MRNA E6/E7 Not Detected Not Detected [facility] Comment: Methodology: Wire Drawing Die Maker-Mediated Amplification This assay detects E6/E7 viral messenger RNA (mRNA) from 14 high-risk HPV types (16,18,31,33,35,39,45,51,52,56,58,59,66,68). The analytical performance characteristics of this assay have been determined by [employer]. The modifications have not been cleared or approved by the FDA. This assay has been validated pursuant to the CLIA regulations and is used for clinical purposes. For additional information, please refer to http://education.[employer].ELENZA/UVR302e4 (This link if provided for information/ educational purposes only.) ENDOCERVICAL STRUCTURE / Unknown 06/11/2020 11:05 AM EST 06/12/2020 7:26 AM EST Narrative Resulting Agency Comment [id number] us Brittany Li ENDODONTIST PATHOLOGY-INTERFACED Final Resul t [facility] [address] [place] [address] * US VENOUS DUPLEX SCAN EXTREMITY VEINS UNILAT/LIMITED STUDY RIGHT FC (05/27/2020 6:57 PM EST) 05/27/2020 7:18 PM EST Narrative [facility] - 05/27/2020 7:18 PM EST Right lower extremity venous duplex ultrasound. Comparison: None. Technique: Real time sonographic imaging, including color-flow imaging and spectral analysis, was performed by the field advisor. Multiple entry level account representative static images were saved for review. [...] and spectral analysis, was performed by the field advisor. Multiplerepresentative static images were saved for review. [...] Villaseñor IMG US ORDERABLES Final Res ult [facility] * XRAY KNEE FOR ORTHO [...] SCREENING (05/23/2020 2:14 PM EST) RADIOLOGY REPORT [facility] Department of Radiology [address] [place] [address], [address] Name: JARRETT GARZON : 65 Date of Service: 05/23/20 1520 Acct Number: [id number] Order Number: ??[id number] ?Location: [facility] Report Number: [id number] ?Service: REG REF/ Requesting Physician: Darlene Rodas MD ([facility]) Category: MAMMOGRAPHY Exam: DIGITAL BREAST FUAD SCREENING ?? Signs/Symptoms: SCREENING Report Status: Signed STUDY: Bilateral screening mammogram with CAD and tomosynthesis. TECHNIQUE: ??Bilateral craniocaudal and mediolateral oblique views obtained. LifeLock Version 1.3 computer aided detection system and [...] mammogram notification. Date/Time of Dictation: 05/23/20 1526 Playground Supervisor (if applicable): Approved By Attending Radiologist: Raven Miller MD 05/23/20 [facility]6 [facility] Department of Radiology [address] [place] [address], [address] ? [phone] ? [facility] RAD Anatomical Region Laterality Modality Other 05/23/2020 2:14 PM EST Narrative 05/23/2020 3:26 PM EST Reason for Study/History: Department of Radiology TEST(S) PROCESSED BY [facility] XRAY Darlene Rodas MD [facility] Final Resu lt * SYPHILIS (FTA) ANTIBODY CASCADING REFLEX TO RPR/TITER (*PREFERRED SCREEN*) (03/16/2020 12:08 PM EST) Only the most recent of2 resultswithin the time period is included. Pathologist [facility] Treponema pallidum Ab NEGATIVE NEGATIVE [facility] [...] 9:39 PM EST Narrative Resulting Agency Comment [id number] Rachael Camarena MD LABORATORY Final Result Performing Organization Address [facility] de Phone Number [facility] [address] [place] [address] * PROTEIN, TOTAL, SERUM (03/16/2020 12:08 PM EST) [facility] Protein Total (Serum) 6.6 6.1 - 8.1 g/dL [facility] 03/16/2020 12:0 8 PM EST 03/16/2020 9:39 PM EST Narrative Resulting Agency Comment [id number] Darlene Rodas MD LAB SAME DAY RESULT Final Result Performing Organization Address [facility] Co de Phone Number [facility] [address] [place] [address] * CBC INCLUDES DIFFERENTIAL AND PLATELET COUNT (02/29/2020 4:40 PM EDT) Only the most recent of3 resultswithin the time period is included. Pathologist [facility] WBC 5.1 3.8 - 10.8 [...] 12:03 AM EDT Narrative Resulting Agency Comment [id number] Darlene Rodas MD LAB SAME DAY RESULT Final Result [facility] [address] [place] [address] * ALANINE AMINOTRANSFERASE (ALT), SERUM (02/29/2020 4:40 PM EDT) Only the most recent of3 resultswithin the time period is included. ALT (SGPT) 14 6 - 29 U/L [facility] 02/29/2020 4:40 PM EDT 03/01/2020 12:03 AM EDT Narrative Resulting Agency Comment [id number] Darlene Rodas MD LAB SAME DAY RESULT Final Result [facility] [address] [place] [address] * LIPID PANEL WITH REFLEX TO DIRECT [...] LDL-C. Vladimir SS et al. PUJA. 2013;310(19): 6264-3778 (http://education.[employer]/faq/UHP561) CHOL/HDL Ratio 2.2 <5.0 (calc) [facility] Cholesterol Non-HDL 95 <130 mg/dL (calc) [facility] Comment: For patients with diabetes plus 1 major ASCVD risk factor, treating to a non-HDL-C goal of <100 mg/dL (LDL-C of <70 mg/dL) is considered a therapeutic option. 02/29/2020 4:40 PM EDT 03/01/2020 12:03 AM EDT Narrative Resulting Agency Comment [id number] Darlene Rodas MD LABORATORY Final Resu lt [facility] [address] [place] [address] * BASIC METABOLIC PANEL WITH (GFR) (02/29/2020 [...] approximately 13% higher for people identified as -Swiss. EGFR 100 > OR = 60 mL/min/1 [...] needs for GFR calculation. Resulting Agency Comment [id number] Darlene Rodas MD LABORATORY Final Resu lt [facility] [address] [place] [address] * TEST, URINE - STATION (06/30/2019 9:27 AM EST) HCG, Qualitative, Urine neg Neg Urine specimen (specimen) 06/30/2019 9:27 AM EST Stefania Mclaughlin ENDODONTIST [facility] Final Result * TISSUE PATHOLOGY (06/30/2019 8:15 AM EST) COLLECTION DATE 06/30/2019 8:15 AM [facility] SPECIMEN SOURCE . A . Endocervix [facility] DIAGNOSIS . A . Fragments of unremarkable endocervical epithelium. [facility] SPECIMEN SOURCE . B . 1 o'clock [facility] DIAGNOSIS . B . Transformation zone mucosa, negative for dysplasia. [facility] Pathologist Jair Brumfield M.D., Board Certified in Anatomic and Clinical Pathology (electronic signature) Consulting Pathologist [facility] Pathology [phone] [facility] GROSS DESCRIPTION . A . SEE NOTE [facility] Comment: The container is labeled with patient's name and source ECC . ? Received in formalin is an endocervical brush with adherent mucoid material. The material measures 0.5 x 0.2 x 0.1 cm in aggregate. Specimen is submitted entirely in cassette A1. ??The specimen may not survive processing. ??Gross exam(s) performed at: ??[facility] ??[address] [facility] [facility] [id number] ??Automatic Data Processing Planner: AILYN AGUILAR MD GROSS DESCRIPTION . B . SEE NOTE [facility] Comment: The container is labeled with patient's [...] 8:15 AM EST 06/30/2019 10:34 PM EST us Stefania Mclaughlin NP PATHOLOGY-INTERFACED Final R esult Performing Organization Address City/State/[facility] Co de Phone Number [facility] [address] [place] [address] * BREAST IMPLANT SCREEN DIGITAL MAMMOGRAPHY WITH CAD (05/19/2019 8:06 AM EST) Only the most recent of2 resultswithin the time period is included. RADIOLOGY REPORT [facility] Department of Radiology [address] [place] [address], [id number] Name: JARRETT GARZON : 65 Date of Service: 05/18/19 1801 Acct Number: [id number] Order Number: ??[id number] ?Location: [facility] Report Number: [id number] ?Service: REG REF/ Requesting Physician: Darlene Rodas MD ([facility]) Category: MAMMOGRAPHY Exam: IMPLANT SCREEN DIGITAL W CAD ?? Signs/Symptoms: SCREENING Report Status: ---Signed--- STUDY: Bilateral implant screening mammogram with CAD. TECHNIQUE: ??Bilateral craniocaudal and mediolateral oblique views obtained. LifeLock Version 1.3 computer aided detection system utilized. [...] mammogram notification. Date/Time of Dictation: 05/19/19 0911 Playground Supervisor (if applicable): Approved By Attending Radiologist: Raven Miller MD 05/19/19 0911 [facility] Department of Radiology [address] [place] [address], [address] ? [phone] ? [facility] RAD Anatomical Region Laterality Modality Other 05/19/2019 8:0 6 AM EST Narrative 05/19/2019 9:14 AM EST Reason for Study/History: Department of Radiology TEST(S) PROCESSED BY [facility] XRAY us Darlene Rodas MD IMAGING-[facility] Final Resu lt * TSH, 3RD GENERATION (04/11/2019 8:39 AM EST) TSH 3.81 mIU/L [facility] Comment: ?Reference Range ?> or = 20 Years ??0.40-4.50 ? Ranges ?First trimester ?0.26-2.66 ?Second trimester ?? 0.55-2.73 ?Third trimester ?0.43-2.91 04/11/2019 8:39 AM EST 04/11/2019 9:59 PM EST Narrative Resulting Agency Comment [id number] Darlene Rodas MD LABORATORY Final Resu lt Performing Organization Address [facility] de Phone Number [facility] [address] [place] [address] * HEPATIC FUNCTION PANEL (ALT,AST,ALK PH,BILI'S,TP,ALB) (04/11/2019 [...] 9:59 PM EST Narrative Resulting Agency Comment [id number] Darlene Rodas MD LABORATORY Final Resu lt Performing Organization Address [facility] de Phone Number [facility] [address] [place] [address] * (ABNORMAL) HSV 1 AND 2 IGG [...] 10:43 PM EST Narrative Resulting Agency Comment [id number] Opal Stevens NP LABORATORY Final Result Performing Organization Address [facility] Phone Number [facility] [address] [place] [address] * ASPARTATE AMINOTRANSFERASE (AST), SERUM (03/18/2018 9:22 AM EST) Pathologist [facility] AST (SGOT) 20 10 - 35 U/L [facility] 03/18/2018 9:22 AM EST 03/18/2018 5:02 PM EST Narrative Resulting Agency Comment [id number] Opal Stevens NP LAB SAME DAY RESULT Final Result Performing Organization Address [facility] de Phone Number [facility] [address] [place] [address] * (ABNORMAL) FSH (03/18/2018 9:22 AM EST) Pathologist [facility] FSH 136.1(H) mIU/mL [facility] Comment: ?Reference Range ? Follicular Phase ? 2.5-10.2 ? Mid-cycle Peak ? 3.1-17.7 ? Luteal Phase ? 1.5- 9.1 ? Postmenopausal ? 23.0-116.3 ? 03/18/2018 9:22 AM EST 03/18/2018 5:02 PM EST Opal Stevens ENDODONTIST LAB SAME DAY RESULT Final Result [facility] [address] [place] [address] * XRAY ANKLE COMPLETE MIN 3 VWS [...] foreign body. Impression: 1. Normal right ankle us Sissy Y Rambo PA IMG XRAY NO CONTRAST ORDERABLES Final Result * HEPATITIS C AB WITH REFLEX TO RNA PCR, SERUM (11/17/2016 8:05 AM EDT) Hepatitis C virus Ab NON-REACTI VE NON-REACT IRENE [facility] Hepatitis C virus Ab Signal/Cutoff 0.02 <1.00 [facility] 11/17/2016 8:05 AM EDT 11/17/2016 8:04 PM EDT Narrative Resulting Agency Comment [id number] Linette Mcguire NP LABORATORY Final Result [facility] [address] [place] [address] * CARDIOVASCULAR STRESS TEST W/TREADMILL, BICYCLE, AND/OR [...]
== END 2024-10-13 13:57 | disposition home or self-care (01) ==
LOC: HO.HMCC 13:22
PROVIDERS: PCP Internal Medicine; Visit Provider Internal Medicine
DX: R92.30 Dense breasts, unspecified (principal); F41.1 Generalized anxiety disorder

== ENCOUNTER → 2024-10-13 13:21 | Outpatient (BNVA) | payer OTHER, SELFPAY | PROVIDERS: PCP Internal Medicine; Visit Provider Internal Medicine | DX: F41.1 Generalized anxiety disorder (principal); R92.30 Dense breasts, unspecified | CPT/HCPCS: 96127; 99212 ==

== ENCOUNTER 2024-11-10 08:16 | Outpatient (REF) | payer OTHER, SELFPAY ==
--- NOTE | ~2024-11-10 | XR_ITS ---
EXAMINATION: XR CHEST 2 VIEWS HISTORY: R07.89 - Other chest pain COMPARISON: There are no prior studies available for comparison. FINDINGS: PA and lateral views of the chest are submitted. The lungs are expanded and clear. There is no pleural effusion, pneumothorax, or pulmonary vascular congestion. The heart is normal in size. The bones are intact. XR/XR chest 2V IMPRESSION: Clear lungs. Electronically signed by: Drew Hsu MD 11/10/2024 09:29 AM EDT
== END 2024-11-10 08:17 | disposition home or self-care (01) ==
LOC: HO.HMGCX 08:16
PROVIDERS: PCP Internal Medicine; Visit Provider Physician Assistant
DX: R07.89 Other chest pain (principal)
CPT/HCPCS: 71046; 99212

== ENCOUNTER 2024-11-10 08:32 | Outpatient (AMB) | payer OTHER, SELFPAY ==
[2024-11-10 08:35] VITALS: BP 114/68; PULSE 74; TEMP 36.9; O2SAT 96; BMI 25.6
--- NOTE | 2024-11-10 08:35 | AM.OFFWIN_ITS ---
Intake Vital Signs 11/10/24 08:35 Height 5 ft 2 in Weight 140 lb 4 oz BMI 25.6 BP 114/68 Blood Pressure Location Rt brachial Position Sitting Pulse 74 Pulse Source Pulse Oximeter Temp 98.4 F Temp Source Oral Pulse Oximetry (%) 96 Oxygen Delivery Method Room Air Intake Visit Reasons: EP sharp pain on her right breast Patient Tobacco Use Status: Never used Tobacco Pediatric Orthodontist Required: No Is last menstrual period known: No Post menopausal: Yes Patient : No Allergies No Known Allergies Allergy (Verified 11/10/24 08:40) Do you need a note to return to daycare/school/sports/work: No HPI HPI Comments History of Present Illness Details This is a 59-year-old female with a past medical history of anxiety and bilateral breast implants presenting for evaluation of a sharp pain that she has pain behind her breasts bilaterally that started approximately 10 days ago. Patient states it is a ?burning and stinging? sensation that is intermittent but did abruptly wake her from her sleep yesterday. Patient's last mammography was on August 04 and was found to be benign. Patient denies any overt chest pain, shortness for breath, rashes or other cutaneous lesions on her chest wall. Patient has not taken any medication for treatment of her discomfort. Patient does state however that her last MRI showed ?dense breast tissue? for which she was encouraged to have MRI imaging. This imaging has not yet been pursued due to insurance coverage. Patient denies feeling any specific breast lesions bilaterally. 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 Sexual orientation: Straight/Heterosexual Gender identity: Female Cognitive needs: No Hearing needs: No Vision needs: No Review of Systems Const All systems reviewed & are unremarkable except as noted in HPI and below Reports no additional complaints Eyes Reports no additional complaints ENT Reports no additional complaints Card Reports no additional complaints Resp Reports no additional complaints and Denies cough GI Reports no additional complaints Reports no additional complaints Musc Details: chest wall discomfort Reports no additional complaints Skin/Breast Reports system reviewed and no additional complaints, except as documented, Denies breast swelling, Denies breast mass and Denies change in breast shape Neuro Reports no additional complaints Psych Reports no additional complaints Endo Reports no additional complaints Wale/Lymph Reports no additional complaints Aller/Immun Reports no additional complaints Physical Exam Vital Signs: Last Vital Signs Temp 98.4 F 11/10/24 08:35 Pulse 74 11/10/24 08:35 BP 114/68 11/10/24 08:35 Pulse Ox 96 11/10/24 08:35 Oxygen Delivery Method Room Air 11/10/24 08:35 BMI result Body Mass Index 25.6 Const General: cooperative, healthy appearing, comfortable, no acute distress, well developed, alert and awake; No ill appearing Nutritional Appearance: average body habitus Orientation/consciousness: patient oriented x3 Limitations: no limitations Chest Chest palpation & inspection: normal inspection of the chest, normal palpation of entire chest wall and no tenderness Breast/axilla inspection: normal inspection of the breasts and normal inspection of the axillae Breast/axilla palpation: normal palpation of the breasts, normal palpation of the axillae and no axillary lymphadenopathy Resp Effort & Inspection: normal respiratory effort and able to speak in complete sentences Auscultation: clear to auscultation bilaterally Cardio Rate: regular rate Rhythm: regular rhythm Skin General skin exam: no rashes or lesions noted Neuro General: patient oriented x3 Psych Appearance: grossly normal Mental Status: mental status grossly normal Insight: Good insight present (Psych) Judgement: Good judgement present (Psych) Results Reviewed Results Reviewed: No acute findings noted on CXR Assessment & Plan Assessment & Plan (1) Breast pain: Code(s): N64.4 - Mastodynia Plan Patient is experiencing breast pain right > left that is not reproducible. Given that the patient has bilateral breast implants and had a normal mammography in August 2024, patient will be referred back to the breast center at [facility] for further evaluation and management. Orders: Orders XR chest 2V Today R07.89 - Other chest pain Patient Instructions: Follow-up with breast center at [facility]. Coding Level of Care Code Est Pt Level 3 (36750) Diagnoses Breast pain N64.4 Time Spent (min) 25
== END 2024-11-10 09:44 | disposition home or self-care (01) ==
PROVIDERS: PCP Internal Medicine; Visit Provider Physician Assistant
DX: N64.4 Mastodynia (principal)

== ENCOUNTER → 2024-11-10 09:17 | Outpatient (BNV) | payer OTHER, SELFPAY | PROVIDERS: PCP Internal Medicine; Visit Provider Radiology Diagnostic Radiology | DX: R07.89 Other chest pain (principal) | CPT/HCPCS: 71046 ==

== ENCOUNTER 2025-02-16 08:21 | Outpatient (AMB) | payer OTHER, SELFPAY ==
[2025-02-16 08:22] VITALS: BP 112/70; PULSE 73; O2SAT 97; BMI 25.2
--- NOTE | 2025-02-16 08:22 | A.OFFPC_ITS ---
Vital Signs 02/16/25 08:22 Height 5 ft 2 in Weight 138 lb BMI 25.2 BP 112/70 Blood Pressure Location Lt brachial Position Sitting Pulse 73 Pulse Source Pulse Oximeter Pulse Oximetry (%) 97 Intake Visit Reasons: Annual PE Wildlife Conservation Professor Required: No Accompanied by: Self / Same As Patient Allergies No Known Allergies Allergy (Verified 02/16/25 08:23) Medication List - Last Reconciled 02/16/25 by Jeremy Camara MD lorazepam 0.5 mg PO BEDTIME PRN vonoprazan (Voquezna) 10 mg PO DAILY Tobacco use date assessed: 10/13/24 Dental Screening Dental Screen Date: 10/13/24 HPI Annual PE HPI Details Physical exam appointment Constipation: - The patient reports experiencing const ipation this morning. She states that it resolved well after a bowel movement. - The patient has implemented dietary ch anges to have smaller, more frequent meals. Bloated sensation (gastrointestinal discomfort): - The patient reports a sensation of blo ating. - An endoscopy had previously revealed m oderate chronic inactive gastritis, patient is established with gastroenterology at [facility]. Anxiety: - The patient reports her anxiety sympto ms have improved. She occasionally uses lorazepam; however, she has not required a refill after the initial prescription. Depression: - The patient reports improvements in he r depressive symptoms. Medical History: - Anxiety - Depression - Moderate chronic inactive gastritis Social History: - The patient is attempting dietary valentino ges by making meals smaller and more frequent to manage her gastrointestinal discomfort. - The patient denies difficulty sleeping and feels her balance and functional status are good. Health Maintenance - Recent mammogram conducted in August was normal. - Patient follows regular PARAPROFESSIONAL AIDE visits, - Blood tests will be conducted, includi ng cholesterol, liver, kidney function, protein, calcium, and thyroid levels. - Patient received a flu vaccine a few w eeks ago and a COVID-19 vaccine approximately three weeks prior. [facility] - [facility] Gastroenterology - Marion Martínez, PARAPROFESSIONAL AIDE Patient Instructions - Proceed to the lab for blood test as o rdered. - Continue with dietary changes: consume smaller and more frequent meals. - Maintain current medication regimen as instructed by the healthcare providers at [facility]. Follow-up 1 year Review of Systems - General: No fever no chills - Neurological: No headaches no dizzin ess - Ear nose throat: No sore throat no hearing difficulty no ear pain - Cardiovascular: No syncope, no chest pain, no palpitations - Gastrointestinal: No nausea vomiting or diarrhea - Endocrine: No polyuria polydipsia no heat intolerance - Genitourinary: No dysuria - Skin: No new complaints Physical Exam General: Cooperative, healthy appearing, comfortable, no acute distress Orientation: Patient oriented x3 Limitations: None Head: Normal to inspection Ears: Within normal limit visually Nose: Normal external nose present Face and sinus: Normal facial exam Eyes: Appearance normal, extraocular movement intact pupils reactive Neck: Normal visual inspection and supple Respiratory: Normal respiratory effort and able to speak in complete sentences. Clear to auscultation, no stridor Cardiovascular: S1 and S2 RRR Breast through OBGYN patient have breast implants GI: Normal to inspection. Soft to palpation and nontender. Skin: Turgor normal, no acute findings Neuro: Patient oriented x3, motor sensory intact, balance intact, tandem pass Extremities: Normal to inspection, no swelling in ankles or feet. Reflexes intact. . 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 Sexual orientation: Straight/Heterosexual Gender identity: Female Cognitive needs: No Hearing needs: No Vision needs: No Questionnaire Thrive Questionnaire Date Thrive assessed: 05/05/24 I am a: Patient What is your living situation today?: I have a steady place to live Within the past 12 months, did the food you bought not last and you didn't have the money to get more?: Sometimes True Within the past 12 months, did you worry whether your food would run out before you got money to buy more?: Sometimes True Do you have trouble paying for medicines?: No Do you have trouble getting transportation to medical appointments?: No Do you have trouble paying your heating and electricity bill?: No Do you have trouble taking care of your child, family member or friend?: No Do you have trouble with day-to-day activities such as bathing, preparing meals, shopping, managing finances, etc.?: No Are you currently unemployed and looking for a job?: No Are you interested in more education?: No Please select the resources that you would like help with: Food Currently or been in a relationship where the following occur: No concerns reported THRIVE Score: 2 ZEE-7 AMB Questionnaire ZEE-7 Date ZEE - 7 assessed: 10/13/24 Source: Developed by Drs. Drew Cerna, Avis Huitron, Wesley Perry and colleagues, with an educational lee from [employer]. Physical exam (Primary Care) Vital Signs: Last Vital Signs Pulse 73 02/16/25 08:22 BP 112/70 02/16/25 08:22 Pulse Ox 97 02/16/25 08:22 BMI result Body Mass Index 25.2 Tobacco/Smoking Status: Tobacco use Status Tobacco use date assessed 10/13/24 02/16/25 08:22 Patient Tobacco Use Status Never used Tobacco 02/16/25 08:22 e-Cigarette/Vaping Use Never Used 02/16/25 08:22 Thrive Assessment: Date of Thrive Assessment Date Thrive assessed 05/05/24 02/16/25 08:22 Currently or been in a relationship where the following occur: No concerns reported Coding Level of Care Code Est Pt Level 3 (88868) Est Pt Prev Care 40-64y(47072) Diagnoses Encounter for general adult medical examination without abnormal findings Z00.00 Lack of appetite R63.0 Abdominal bloating R14.0 Gastroesophageal reflux disease with esophagitis without hemorrhage K21.00 Esophagitis presence: with esophagitis Esophagitis bleeding: without hemorrhage Breast implant in situ Z98.82 Assessment & Plan Assessment & Plan (1) Encounter for general adult medical examination without abnormal findings: Code(s): Z00.00 - Encounter for general adult medical examination without abnormal findings Category: Medical (2) Lack of appetite: Code(s): R63.0 - Anorexia Category: Medical (3) Abdominal bloating: Code(s): R14.0 - Abdominal distension (gaseous) Category: Medical (4) Acid reflux disease: Code(s): K21.9 - Gastro-esophageal reflux disease without esophagitis Category: Medical Qualifiers: Esophagitis presence: with esophagitis Esophagitis bleeding: without hemorrhage Qualified Code(s): K21.00 - Gastro-esophageal reflux disease with esophagitis, without bleeding (5) Breast implant in situ: Code(s): Z98.82 - Breast implant status Category: Medical Plan Constipation: - The patient reports experiencing constipation this morning. She states that it resolved well after a bowel movement. - The patient has implemented dietary changes to have smaller, more frequent meals. Bloated sensation (gastrointestinal discomfort): - The patient reports a sensation of bloating. - An endoscopy had previously revealed moderate chronic inactive gastritis, patient is established with gastroenterology at [facility]. Anxiety: - The patient reports her anxiety symptoms have improved. She occasionally uses lorazepam; however, she has not required a refill after the initial prescription. Depression: - The patient reports improvements in her depressive symptoms. Medical History: - Anxiety - Depression - Moderate chronic inactive gastritis Social History: - The patient is attempting dietary changes by making meals smaller and more frequent to manage her gastrointestinal discomfort. - The patient denies difficulty sleeping and feels her balance and functional status are good. Health Maintenance - Recent mammogram conducted in August was normal. - Patient follows regular PARAPROFESSIONAL AIDE visits, - Blood tests will be conducted, including cholesterol, liver, kidney function, protein, calcium, and thyroid levels. - Patient received a flu vaccine a few weeks ago and a COVID-19 vaccine approximately three weeks prior. [facility] - [facility] Gastroenterology - Marion Martínez, PARAPROFESSIONAL AIDE Patient Instructions - Proceed to the lab for blood test as ordered. - Continue with dietary changes: consume smaller and more frequent meals. - Maintain current medication regimen as instructed by the healthcare providers at [facility]. Follow-up 1 year . Orders: Orders Complete Blood Count Auto Diff Today D70.8 - Other neutropenia, R10.13 - Epigastric pain, R63.0 - Anorexia, Z00.01 - Encounter for general adult medical examination with abnormal findings Comprehensive [place]. Panel Fast Today D70.8 - Other neutropenia, R10.13 - Epigastric pain, R63.0 - Anorexia, Z00.01 - Encounter for general adult medical examination with abnormal findings Vitamin D 25-OH (D2 and D3) Today D70.8 - Other neutropenia, R10.13 - Epigastric pain, R63.0 - Anorexia, Z00.01 - Encounter for general adult medical examination with abnormal findings TSH reflex Free T4 Today D70.8 - Other neutropenia, R10.13 - Epigastric pain, R63.0 - Anorexia, Z00.01 - Encounter for general adult medical examination with abnormal findings Lipid Panel Today D70.8 - Other neutropenia, R10.13 - Epigastric pain, R63.0 - Anorexia, Z00.01 - Encounter for general adult medical examination with abnormal findings
--- OUTSIDE RECORDS SUMMARY | 2025-02-16 08:37 | XMS_ITS | Encounter Summary ---
Author Organization [facility] Address [address] [place] [address] Care Team Providers Care Field Enumerator Name Role Phone Darlene Rodas MD Primary Care Provider +1- [phone] Encounter Details Date Type Department Care Team (Late st Contact Info) Description 10/06/2016 Orders Only [facility] [address] [place] [phone] Darlene Rodas MD [address] [place] [id number] Social History Tobacco Use Types Packs/Day Years [...] on filedocumented in this encounter Care Teams Field Enumerator Relationship Specialty Start Date End Date Darlene Rodas MD [address] [place], [place] [id number] PCP - General 07/16/16 03/18/21 documented as of this encounter
--- OUTSIDE RECORDS SUMMARY | 2025-02-16 08:37 | XMS_ITS | Encounter Summary ---
Author Organization [facility] Address [address] [place] [address] Care Team Providers Care Service Line Bus Cleaner Name Role Phone Darlene Rodas MD Primary Care Provider +1- [phone] Encounter Details Date Type Department Care Team (Late st Contact Info) Description 2018 Orders Only [facility] [address] [place] [phone] Darlene Rodas MD [address] [place] [id number] Social History Tobacco Use Types Packs/Day Years [...] on filedocumented in this encounter Care Teams Service Line Bus Cleaner Relationship Specialty Start Date End Date Darlene Rodas MD [address] [place], [place] [id number] PCP - General 07/16/16 03/18/21 documented as of this encounter
--- OUTSIDE RECORDS SUMMARY | 2025-02-16 08:37 | XMS_ITS | Encounter Summary ---
Author Organization [facility] Address [address] [place] [address] Care Team Providers Care Spring Winder Name Role Phone Darlene Rodas MD Primary Care Provider +1- [phone] Encounter Details Date Type Department Care Team (Late st Contact Info) Description 11/17/2016 Orders Only [facility] [address] [place] [phone] Linette Mcguire NP Social History Tobacco [...] 8:04 PM EDT Narrative Resulting Agency Comment [id number] Linette Mcguire NP LABORATORY Final Result Performing Organization Address City/State/[facility] Co de Phone Number [facility] [address] [place] [address] * CBC INCLUDES DIFFERENTIAL AND PLATELET COUNT [...] 8:04 PM EDT Narrative Resulting Agency Comment [id number] Linette Mcguire NP LAB SAME DAY RESULT Final Re sult Performing Organization Address [facility] Co de Phone Number [facility] [address] [place] [address] * ALANINE AMINOTRANSFERASE (ALT), SERUM (11/17/2016 8:05 AM EDT) ALT (SGPT) 12 6 - 29 U/L [facility] 11/17/2016 8:05 AM EDT 11/17/2016 8:04 PM EDT Narrative Resulting Agency Comment [id number] Linette Mcguire CORE DRILLING SUPERVISOR LAB SAME DAY RESULT Final Re sult Performing Organization Address [facility] Co de Phone Number [facility] [address] [place] [address] * LIPID PANEL WITH REFLEX TO DIRECT [...] 8:04 PM EDT Narrative Resulting Agency Comment [id number] Linette Mcguire NP LABORATORY Final Result [facility] [address] [place] [address] * BASIC METABOLIC PANEL WITH (GFR) (11/17/2016 8:05 AM EDT) Pathologist [facility] Glucose 81 65 - 99 mg/dL [facility] Comment:Fasting reference in terval Urea Nitrogen Blood (BUN) 14 7 - 25 mg/dL [facility] Creatinine 0.76 0.50 - 1.05 mg/dL [facility] Comment: For patients >49 years of age, the reference limit for Creatinine is approximately 13% higher for people identified as -Indonesian. GFR 91 > OR = 60 mL/min/1 [...] needs for GFR calculation. Resulting Agency Comment [id number] us Linette Eineberg CORE DRILLING SUPERVISOR LABORATORY Final Result [facility] [address] [place] [address] documented in this encounter Visit Diagnoses Diagnosis Encounter to establish care with new doctor Other reasons for seeking consultation Health care maintenance Unspecified general medical examination Need for hepatitis C screening test Special screening examination for other specified viral diseases documented in this encounter Care Teams Spring Winder Relationship Specialty Start Date End Date Darlene Rodas MD [address] [place] [id number] PCP - General 07/16/16 03/18/21 documented as of this encounter
--- OUTSIDE RECORDS SUMMARY | 2025-02-16 08:37 | XMS_ITS | Encounter Summary ---
Author Organization [facility] Address [address] [place] [address] Care Team Providers Care Patient Safety Tech Name Role Phone Darlene Rodas MD Primary Care Provider +1- [phone] Encounter Details Date Type Department Care Team (Late st Contact Info) Description 03/22/[address] [facility] [facility] [address] [place] [phone] Opal Stevens NP Social History Tobacco Use [...] this encounter Procedures * Due to [employer] law, this organization might not be sharing negative HIV tests. Procedure Name Priority Date/Time Associated Diagnosis Comments HSV 1 AND 2 IGG HERPESELECT SPECIFIC ANTIBODY Routine 03/22/2018 5:00 PM EST Screen for STD (sexually transmitted disease) documented in this encounter Results * Due to [employer] law, this organization might not be sharing negative HIV tests. * (ABNORMAL) HSV 1 AND 2 IGG HERPESELECT SPECIFIC ANTIBODY (03/22/2018 5:00 PM EST) Herpes Simplex Virus 1 IgG 54.40(H) index [facility] Herpes simplex virus 2 Ab.IgG 7.09(H) index [facility] Comment: Index Interpretation ----- <0.90 Negative 0.90-1.09 Equivocal >1.09 Positive This assay utilizes recombinant type-specific antigens to [...] 10:43 PM EST Narrative Resulting Agency Comment [id number] Opal Stevens NP LABORATORY Final Result [facility] [address] [place] [address] documented in this encounter Visit Diagnoses Diagnosis Screen for STD (sexually transmitted disease) Screening examination for venereal disease documented in this encounter Care Teams Patient Safety Tech Relationship Specialty Start Date End Date Darlene Rodas MD [address] [place] [id number] PCP - General 07/16/16 03/18/21 documented as of this encounter
--- OUTSIDE RECORDS SUMMARY | 2025-02-16 08:37 | XMS_ITS | Encounter Summary ---
Author Organization [facility] Address [address] [place] [address] Care Team Providers Care Photovoltaic Fabrication Technician Name Role Phone Darlene Rodas MD Primary Care Provider +1- [phone] Encounter Details Date Type Department Care Team (Late st Contact Info) Description 03/18/2018 Orders Only [facility] [address] [place] [phone] Opal Stevens NP Social History [...] EST) FSH 136.1(H) mIU/mL [facility] Comment: Reference Range Follicular Phase 2.5-10.2 Mid-cycle Peak 3.1-17.7 Luteal Phase 1.5- 9.1 Postmenopausal 23.0-116.3 03/18/2018 9:22 AM EST 03/18/2018 5:02 PM EST Opal Stevens CONSULTANT INTERN LAB SAME DAY RESULT Final Result Performing Organization Address City/[facility] Co de Phone Number [facility] [address] [place] [address] * ASPARTATE AMINOTRANSFERASE (AST), SERUM (03/18/2018 9:22 AM EST) AST (SGOT) 20 10 - 35 U/L [facility] 03/18/2018 9:22 AM EST 03/18/2018 5:02 PM EST Narrative Resulting Agency Comment [id number] Opal Stevens CONSULTANT INTERN LAB SAME DAY RESULT Final Result [facility] [address] [place] [address] * ALANINE AMINOTRANSFERASE (ALT), SERUM (03/18/2018 9:22 AM EST) ALT (SGPT) 12 6 - 29 U/L [facility] 03/18/2018 9:22 AM EST 03/18/2018 5:02 PM EST Narrative Resulting Agency Comment [id number] Opal Stevens CONSULTANT INTERN LAB SAME DAY RESULT Final Result Performing Organization Address [facility] de Phone Number [facility] [address] [place] [address] * LIPID PANEL WITH REFLEX TO DIRECT LDL (03/18/2018 9:22 AM EST) Cholesterol 187 <200 mg/dL [facility] HDL Cholesterol 89 >50 mg/dL [facility] Triglyceride 30 <150 mg/dL [facility] LDL Cholesterol 89 mg/dL (calc) [facility] Comment: Reference range: <100 Desirable range <100 mg/dL for primary prevention; <70 mg/dL for patients with CHD or diabetic patients with > or = 2 CHD risk factors. LDL-C is now calculated using the Adal calculation, which is a validated novel method providing better accuracy than the Friedewald equation in the estimation of LDL-C. Vladimir SS et al. PUJA. 2013;310(71): 2649-5069 (http://education.LocalView/faq/WDR032) CHOL/HDL Ratio 2.1 <5.0 (calc) [facility] Cholesterol Non-HDL 98 <130 mg/dL (calc) [facility] Comment: For patients with diabetes plus 1 major ASCVD risk factor, treating to a non-HDL-C goal of <100 mg/dL (LDL-C of <70 mg/dL) is considered a therapeutic option. 03/18/2018 9:22 AM EST 03/18/2018 5:02 PM EST Narrative Resulting Agency Comment [id number] Opal Stevens CONSULTANT INTERN LABORATORY Final Result Performing Organization Address [facility] Co de Phone Number [facility] [address] [place] [address] * BASIC METABOLIC PANEL WITH (GFR) (03/18/2018 9:22 AM EST) Glucose 75 65 - 99 mg/dL [facility] Comment:Fasting reference in terval Urea Nitrogen Blood (BUN) 12 7 - 25 mg/dL [facility] Creatinine 0.63 0.50 - 1.05 mg/dL [facility] Comment: For patients >49 years of age, the reference limit for Creatinine is approximately 13% higher for people identified as -St Helenian. GFR 102 > OR = 60 mL/min/1 [...] needs for GFR calculation. Resulting Agency Comment [id number] Opal Stevens NP LABORATORY Final Result Performing Organization Address City/State/[facility] Co de Phone Number [facility] [address] [place] [address] documented in this encounter Visit Diagnoses Diagnosis Healthy adult on routine physical examination Routine general medical examination at a health care facility documented in this encounter Care Teams Photovoltaic Fabrication Technician Relationship Specialty Start Date End Date Darlene Rodas MD [address] [place] [phone] PCP - General 07/16/16 03/18/21 documented as of this encounter
--- OUTSIDE RECORDS SUMMARY | 2025-02-16 08:37 | XMS_ITS | Continuity of Care Document ---
Author Organization [facility] Address [address] [place] [address] Care Team Providers Care Solderer Name Role Phone Unavailable Primary Care Provider Unavailabl e Encounters Date Type Department Care Team Description 10/09/2024 Orders Only [facility] [address] [place] [address] Tammie Ramos MD 07/03/2024 Orders Only [facility] [address] [place] [address] Tammie Ramos MD 06/30/2023 Minor Procedure/Test [facility] [address] [place] [address] [facility], Unknown Provider 03/23/2023 Minor Procedure/Test [facility] [address] [place] [address] [facility], Unknown Provider 12/10/[address] [facility] SHELL REPRINT OPERATOR [address] [place] [address] Brittany Li NP Appointment 03/18/[address] [facility] [address] [place] [address] Darlene Rodas MD Other (Pcp; ins info/) 03/03/[address] [facility] [address] [place] [address] Darlene Rodas MD Imm/Inj 10/29/2020 Orders Only [facility]. Podiatry [address] [place] [phone] Tre Rosario DPM 10/29/2020 8:30 AM EDT Radiology [facility] X-Ray [address] [place] [address] 10/29/2020 Orders Only [facility] Podiatry [address] [place] [phone] Tre Rosario, DPYocasta 10/29/2020 8:50 AM EDT Consult (Initial) [facility] Podiatry [address] [place] [phone] Tre Rosario, DPM Onychomycosis (Primary Dx); Acquired hallux valgus of left foot; Bilateral foot pain; Acquired hallux valgus of right foot 10/22/2020 Telephone All of [address] [address] Uzma France, [facility] 10/22/2020 Telephone All of [address] [address] [facility] [place], [facility] 09/03/[address] [facility] [address] [place] [address] Darlene Rodas MD Cyst 06/12/[address] [facility] [address] [place] [address] Darlene Rodas MD Patient Questions 06/11/[address] [facility] SHELL REPRINT OPERATOR [address] [facility] [address] [place] [address] Brittany Li NP 06/11/2020 Travel 06/11/2020 8:00 AM EST Office Visit [facility] SHELL REPRINT OPERATOR [address] [facility] [address] [place] [address] Brittany Li NP Encounter for gynecological examination (general) (routine) without abnormal findings (Primary Dx); Abnormal cervical Papanicolaou smear, unspecified abnormal pap finding; Menopause present; Pap smear for cervical cancer screening; History of uterine fibroid; Cystocele, midline 06/03/[address] [facility] [address] [place] [address] Darlene Rodas MD Letter/form Request 05/28/[address] [facility] [address] [place] [address] Darlene Rodas MD Labs/orders (mmg) 05/27/2020 4:30 PM EST Radiology [facility] Ultrasound [address] [place] [address] Leg edema 05/27/2020 6:30 PM EST Radiology [facility] Xray [address] [place] [address] Leg edema 05/27/2020 5:45 PM EST Office Visit [facility] [address] [address] Taiwo Noe PA Leg edema (Primary Dx) 05/27/2020 Travel 05/27/[address] [facility] [address] [place] [address] Darlene Rodas MD Knee Pain 05/23/2020 Orders Only NON FC SA [address] [address] Darlene Rodas MD 04/24/2020 Travel 04/17/2020 Travel 04/17/2020 8:15 AM EST CPE - Comprehensive Physical Exam [address] [facility] [facility] [address] [place] [address] Darlene Rodas MD Well adult exam (Primary Dx); ASCUS with positive high risk HPV cervical; S/P colonoscopy; Gastroesophageal reflux disease, unspecified whether esophagitis present 03/20/[address] [facility] [address] [place] [address] Darlene Rodas MD Results 03/16/2020 Orders Only [address] [facility] [address] [place] [address] Darlene Rodas MD [address] [facility] [address] [place] [address] Darlene Rodas MD Imm/Inj 02/29/2020 Orders Only [address] [facility] [address] [place] [address] Darlene Rodas MD 02/28/[address] [facility] [address] [place] [address] Darlene Rodas MD Labs/orders 11/29/[address] [facility] [address] [place] [address] Darlene Rodas MD Labs/orders 06/30/2019 Letter/Form [facility] SHELL REPRINT OPERATOR [address] [facility] [address] [place] [address] Stefania Mclaughlin, RAIN 06/30/2019 8:15 AM EST Minor Procedure/Test [facility] SHELL REPRINT OPERATOR [address] [facility] [address] [place] [address] Stefania Mclaughlin, INSURANCE PRODUCER ASCUS with positive high risk HPV cervical (Primary Dx); Abnormal cervical Papanicolaou smear, unspecified abnormal pap finding 05/29/2019 Telephone [facility] Dermatology [address] [place] [address] Vanessa Angel PA Follow Up 05/22/[address] [facility] [address] [place] [address] Darlene Rodas MD Labs/orders ([facility]) 05/19/2019 Orders Only NON FC [facility] [address] [place] [address] Darlene Rodas MD 04/20/[address] [facility] [address] [place] [address] Darlene Rodas MD Results 04/19/2019 11:00 AM EST Consult (Initial) [facility] [address] [place] [address] Vanessa Angel PA Pruritus (Primary Dx); Dyschromia 04/11/2019 Telephone [facility] [facility] [address] [place] [address] Darlene Rodas MD Records 04/11/2019 Orders Only [facility] [address] [place] [address] Darlene Rodas MD 04/11/2019 7:45 AM EST CPE - Comprehensive Physical Exam [facility] [address] [place] [address] Darlene Rodas MD Well adult exam (Primary Dx); Screening for metabolic disorder; Screening for malignant neoplasm of cervix; Screening for eye condition; Need for vaccination 02/20/2019 Letter/Form [facility] [address] [place] [address] Darlene Rodas MD 10/28/2018 Telephone [facility] [address] [place] [address] Darlene Rodas MD Labs/orders 07/06/2018 Refill [facility] [address] [place] [address] Darlene Rodas MD E-prescribing Refill Request 05/11/2018 Telephone [facility] [address] [place] [address] Darlene Rodas MD Patient Questions 04/20/2018 Refill [facility] [address] [place] [address] Opal Stevens NP E-prescribing Refill Request 04/18/2018 Orders Only NON FC SA [facility] [address] [place] [address] Darlene Rodas MD 04/04/[address] [facility] [address] [place] [address] Darlene Rodas MD Results 03/23/[address] [facility] [address] [place] [address] Darlene Rodas MD Labs/orders 03/23/2018 Telephone FC MISCELLANEOUS [phone] Mychart, Provider Generic MyChart Verification 03/22/2018 Orders Only [address] [facility] [address] [place] [address] Opal Stevens NP 03/22/2018 3:15 PM EST CPE - Comprehensive Physical Exam [facility] [address] [place] [address] Opal Stevens NP Routine history and physical examination of adult (Primary Dx); Healthcare maintenance; Anxiety; Gastroesophageal reflux disease, esophagitis presence not specified; Insomnia, unspecified type; Screening for breast cancer; Screen for STD (sexually transmitted disease); Need for vaccination 03/21/2018 7:30 AM EST Office Visit [facility]. Optometry [address] [place] [phone] Maricruz Russo OD Encounter for ophthalmic examination and evaluation (Primary Dx); Disorder of refraction 03/18/2018 Orders Only [facility] [address] [place] [address] Opal Stevens NP 03/14/[address] [facility] [address] [place] [address] Darlene Rodas MD Labs/orders 2018 Orders Only [facility] [address] [place] [address] Darlene Rodas MD 2018 Orders Only [facility] [address] [place] [address] Opal Stevens NP 02/20/2018 Letter/Form [facility] [address] [place] [facility] [place] [place] [address] Darlene Rodas MD 02/20/2017 Letter/Form [facility] [address] [place] [facility] [place] [address] Darlene Rodas MD 01/18/2017 1:00 PM EDT Radiology [facility] Xray [address] [place] [address] Sprain of right ankle, unspecified ligament, initial encounter 01/18/2017 12:30 PM EDT Office Visit [facility] [address] [place] [address] Sissy Ricks PA Sprain of right ankle, unspecified ligament, initial encounter (Primary Dx); Neck sprain, initial encounter 01/14/2017 Telephone [facility] [address] [place] [address] Darlene Rodas MD Ankle pain 11/19/2016 Telephone [facility] [address] [place] [address] Darlene Rodas MD Results 11/17/2016 Orders Only [facility] [address] [place] [facility] [place] [address] Linette Mcguire NP 11/10/2016 Letter/Form [facility] [address] [place] [address] Linette Mcguire NP 11/05/2016 Letter/Form [facility] [address] [place] [address] Linette Mcguire NP 10/06/2016 Orders Only [facility] [address] [place] [facility] [place] [address] Darlene Rodas MD 10/06/2016 9:45 AM EDT Office Visit [facility] [address] [place] [address] Linette Mcguire NP Encounter to establish care with new doctor (Primary Dx); Insomnia, unspecified type; Gastroesophageal reflux disease, esophagitis presence not specified; Anxiety; Hot flashes; Health care maintenance; Need for hepatitis C screening test 08/19/2016 Telephone [facility] [address] [place] [address] Darlene Rodas MD Erroneous encounter-disregard 08/19/2016 Telephone [facility] [address] [place] [address] 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, FLASH OVEN OPERATOR Constipation 08/12/2016 [facility] Medical Records [address] [place] [address] Darlene Rodas MD 08/10/2016 Orders Only [facility] [address] [place] [address] Darlene Rodas MD 08/06/2016 Telephone [facility] [address] [place] [address] Darlene Rodas MD Referral Request (Chiro / Lonnie Baig) 07/27/2016 Orders Only [facility] [address] [place] [address] Darlene Rodas MD 07/27/2016 Telephone [facility] [address] [place] [address] Darlene Rodas MD Referral Request (chiro) 06/09/[address] [facility] Otolaryngology [address] [place] [address] [place] [address] Vicky Waters MD Cancellation 01/02/2016 Minor Procedure/Test Azeb Antunez MD 12/16/2015 Office Visit Azeb Antunez MD 12/16/2015 Minor Procedure/Test CARDI UNSPECIFIED Daniel Ybarra MD 09/05/2015 Minor Procedure/Test GASTRO UNSPECIFIED Gavin Cruz MD 10/31/2014 Minor Procedure/Test FAM PRAC UNSPECIFIED Azeb Ling MD 10/11/2014 Office Visit FAM PRAC UNSPECIFIED Nicole Marks NP 09/27/2014 3:00 PM EDT Office Visit [facility] Otolarynogology/Plas tics [address] [address] Jimenez Morales MD Facial rhytids (Primary Dx) 08/31/2014 10:00 AM EDT Office Visit [facility] Otolarynogology/Plas tics [address] [address] Jimenez Morales MD Facial rhytids (Primary Dx) 06/14/[address] [facility] Otolarynogology/Plas tics [address] [address] Jimenez Morales MD Patient Questions 06/13/[address] [facility] Otolarynogology/Plas tics [address] [address] Jimenez Morales MD Patient Questions 02/22/2014 2:45 PM EDT Office Visit [facility] Otolarynogology/Plas tics [address] [address] Jimenez Morales MD Facial rhytids (Primary Dx) 02/15/2014 4:00 PM EDT Office Visit [facility] Otolarynogology/Plas tics [address] [address] Jimenez Morales MD Facial rhytids (Primary Dx) 12/28/2013 3:30 PM EDT Consult (Initial) [facility] Otolarynogology/Plas tics [address] [address] Jimenez Morales MD Facial rhytids (Primary Dx) 02/27/2013 Minor Procedure/Test IMAGING TECH UNSPECIFIED Popeye Rodriguez Allergies No known active [...] 03/22/18: Last record available to me in [facility] for mammogram is 2014. Per patient report she had mammogram done in 2015 through outside RESIDENT INSPECTOR provider, Dr. [place] [employer]. Her CPE 2017 note, patient signed MERLINE [...] exercise stress test 10/06/2016 Overview (10/06/2016): At [facility] on 01/02/2016. No evidence of ischemia [...] Overview (05/28/2018): Immunization History Administered Date(s) Administered Influenza,injectable,quad,Prsrv Fr 04/04/2018 Tdap 02/05/2014 HCP: Reviewed and updated as appropriate. LMP: Pap/HPV: Per patient report last Pap done by outside RESIDENT INSPECTOR 2017. We do not have these records. Mammography: Again, patient reports mammograms through outside RESIDENT INSPECTOR in 2017. Colonoscopy: Per patient report colonoscopy done through [facility], 2017, no polyps. 10-year repeat. Need records from [place]. DEXA: N/A Exercise: None Screen for STD (sexually transmitted disease) 05/28/19 19 06/11/2020 Overview (05/28/2018): 03/22/18: Patient requesting STD testing today. She is very concerned about the thought of having herpes. Tried to reassure her about the etiology and prevalence, and treatment of this disease. Anxiety 10/06/2016 04/11/2019 Overview (05/28/2018): Her previous PCP records. [place] it was situational regarding conflict with coworker. [...] Alive Social History Smoking Status as of 02/16/2025 Tobacco Use Types Packs/Day Years Used Date [...] 96 05/27/2020 6:02 PM EST Temperature 36.1 C (96.9 F) 05/27/2020 6:02 PM EST Respiratory Rate - - Oxygen Saturation 98% 05/27/2020 6:02 PM EST Inhaled Oxygen Concentration - - Weight 61.2 kg (135 lb) 06/11/2020 8:04 AM EST Height 157.5 cm (5' 2 ) 06/11/2020 8:04 AM EST Body Mass Index 24.69 06/11/2020 8:04 AM EST Plan of Treatment Not on file Procedures * Due to [place] state law, this organization might not be [...] PELVIS COMPL 02/27/2013 Results * Due to [place] state law, this organization might not be sharing negative HIV tests. * TISSUE EXAM - START ONLY (10/09/2024 12:22 PM EDT) Only the most recent of2 resultswithin the time period is included. TISSUE EXAM RESULT SEE DETAILS [facility] Comment: FINAL DIAGNOSIS A. Esophagus, distal, biopsy: - Cardiofundic-type mucosa with moderate chronic inactive inflammation; no intestinal metaplasia seen. - Squamous epithelium within normal limits. B. Stomach, biopsy: Antral-type mucosa with mild chronic inactive inflammation; no Helicobacter organisms seen. Srinivasa Gonzales M.D. Electronic Signature: 10/10/2024 12:23 Clinical History Follow up of gastric ulcer Microscopic Description A. Sections have cardiofundic-type mucosa with moderate chronic inactive inflammation. No intestinal metaplasia is seen, supported by AB/PAS stains. Also seen is normal appearing squamous epithelium. B. Sections have antral-type mucosa with mild chronic inactive inflammation. No intestinal metaplasia is seen, supported by AB/PAS stains. No Helicobacter organisms are seen, supported by H. pylori immunostain. Macroscopic Description A. Received in formalin are 3 white 1-3 mm soft tissue fragments, totally submitted in cassette A1. B. Received in formalin are 3 grossman 2-6 mm soft tissue fragments, totally submitted in cassette B1. Excision to formalin time: immediate; total time in formalin: 4.5 hours. (HG) Unless otherwise stated, all tissue is formalin-fixed and paraffin-embedded. Special stains ordered and performed: AB/PAS stains on A and B; immunostain for H. pylori on B Technical performance of special and immunostains [place] [address], ([id number], CLIA #[id number]). Grossing and technical work performed at [facility] ([facility], [address] [place] [address]; ; [id number]; CLIA #[id number] All professional pathology services performed at [facility] ([address] [place] [address]; ; CLIA #[id number]) Note: Some or all of the tests utilized in this case may be laboratory developed tests (LDT's) and may use class I analyte specific reagents (ASR). These tests were developed for clinical purposes and their performance characteristics determined by [facility] on tissue fixed in 10% neutral buffered formalin. Other fixatives have not been validated, and therefore results on tissue with such fixation should be interpreted with caution and in the clinical context. [facility] are qualified under the CLIA 1988 documents to provide high-complexity clinical laboratory testing. All controls are reviewed and deemed appropriate. 10/09/2024 12:2 2 PM EDT Narrative [facility] - 10/10/2024 12:00 AM EDT Pre-op diagnosis: REPEAT EGD us Tammie Ramos MD PATHOLOGY Final Result [facility] [employer] ONE [address] [place] [address] * FRANCK BILATERAL IMPLANT SCREENING DIGITAL MAMMOGRAM [...] are stable bilateral retropectoral breast implants. No suspicious masses, areas of unexplained architectural distortion, or suspicious clusters calcifications are seen within either breast. IMPRESSION No mammographic evidence of malignancy. BI-RADS ATLAS category (overall): 2 - Benign MANAGEMENT Recommend annual screening mammography. The patient was entered into a reminder system with a target date for their next mammogram. DENSE BREAST RECOMMENDATIONS: The patient has dense breast tissue shown on mammography. Per [employer] Appropriateness Criteria for Breast Cancer Screening (https://acsearch.acr.org/docs/69168/Narrative/) patient may benefit from tomosynthesis on future mammography and supplemental imaging with automated breast ultrasound (ABUS) or breast MRI depending on risk factors. Automated Breast Ultrasound (ABUS) is now available at both [facility] and in the Department of Mammography at [facility]. To schedule a patient, you can either enter an ABUS order into [facility] EMR (type in ABUS), call [facility] Scheduling at [phone], or call [facility] Central Scheduling at [phone]. To fax an external order: [facility] [phone] and [facility] [phone]. If this radiology report contains a blank impression section, it is an incomplete radiology report. Please contact the interpreting radiologist or applicable radiology division as soon as possible to obtain the completed interpretation. 5' 2 125 Procedure Note [facility], Unknown Provider - 07/05/2023 EXAMINATION [...] of Radiology Appropriateness Criteria for Breast Cancer Screening(https://acsearch.acr.org/docs/91346/Narrative/) patient may benefit fromtomosynthesis on future mammography and supplemental imaging with automated breast ultrasound(ABUS) or breast MRI depending on risk factors. Automated Breast Ultrasound (ABUS) is now available at both [facility] and [facility]. To schedule a patient, you caneither enter an ABUS order into [facility] EMR (type in ABUS), call [facility] [phone], or call [facility] Central Scheduling [phone]. To fax an external order: [facility] [phone] and[facility] [phone]. If this radiology report contains a blank impression section, it is anincomplete radiology report. Please contact the interpreting radiologistor applicable radiology division as soon as possible to obtain thecompleted interpretation. 5' 2 125 Unknown Provider [facility] Final Resu lt * FUNGAL STAIN, JAMIE (10/29/2020 2:39 PM EDT) Fungus identified SEE NOTE [facility] Comment: FUNGAL STAIN Micro Number: [id number] Test Status: Final Specimen Source: LEFT 2ND TOENAIL Specimen Quality: Adequate Smear: No fungal elements seen. 10/29/2020 2:39 PM EDT 10/29/2020 9:27 PM EDT Narrative Resulting Agency Comment [id number] us Tre Rosario DPYocasta LABORATORY Final Result [facility] [address] [place] [address] * XRAY FEET COMPLETE MIN 3 VWS - BILAT (DX: FOOT PAIN *NO INJURY*M25.579/ 719.47) FC (10/29/2020 8:42AM EDT) Anatomical Region Laterality Modality LOWER EXTREMITY Radiographic Breonna ging 10/30/2020 9:51 AM EDT Narrative 10/30/2020 9:51 AM EDT CONTRAST: Weightbearing 3 views of the left foot. Comparison: None. Findings: LEFT: Normal alignment. No fracture. No suspicious bony lesions. Nominal bunion formation. Joint spaces are preserved. Calcaneal pitch angle 9 degrees. 5? of Meary's angle depression. RIGHT: Mild bunion formation. Negative for fracture or dislocation. No suspicious bony lesions. Joint spaces are preserved. Calcaneal pitch angle 12 degrees. 8? of Meary's angle depression. IMPRESSION: Left [...] Smear Negative for intraepithelial lesion or malignancy. [facility] Cytology study comment (Cvx/Vag) This Pap test has been evaluated with computer assisted technology. [facility] [place] (Cvx/Vag) SXA, CT(ASCP) CT screening location: [place] [address] [facility] COMMENT SEE NOTE [facility] Comment: EXPLANATORY NOTE: The Pap is [...] HPV MRNA E6/E7 Not Detected Not Detected [facility] Comment: Methodology: Software Test And Validation Engineer-Mediated Amplification This assay detects E6/E7 viral messenger RNA (mRNA) from 14 high-risk HPV types (16,18,31,33,35,39,45,51,52,56,58,59,66,68). The analytical performance characteristics of this assay have been determined by [employer]. The modifications have not been cleared or approved by the FDA. This assay has been validated pursuant to the CLIA regulations and is used for clinical purposes. For additional information, please refer to http://education.[employer]Brevado/KVS230z6 (This link if provided for information/ educational purposes only.) ENDOCERVICAL STRUCTURE / Unknown 06/11/2020 11:05 AM EST 06/12/2020 7:26 AM EST Narrative Resulting Agency Comment [id number] us Brittany Li NP PATHOLOGY-INTERFACED Final Resul t [facility] [address] [place] [address] * US VENOUS DUPLEX SCAN EXTREMITY VEINS UNILAT/LIMITED STUDY RIGHT FC (05/27/2020 6:57 PM EST) 05/27/2020 7:18 PM EST Narrative [facility] - 05/27/2020 7:18 PM EST Right lower extremity venous duplex ultrasound. Comparison: None. Technique: Real time sonographic imaging, including color-flow imaging and spectral analysis, was performed by the pattern chain builder. Multiple termite control representative static images were saved for review. Findings: The deep venous system is fully compressible from common femoral through the proximal leg veins. There is spontaneous and phasic flow, and augmentation. Color Doppler and spectral tracings are unremarkable. A tiny Cordoba's cyst measuring 13 x 8 x 4 mm is noted. Impression: 1. Right lower extremity venous duplex ultrasound negative for DVT. 2. Tiny Cordoba's cyst. Procedure Note Jeremy Donaldson MD - 05/27/2020 Right lower extremity venous duplex ultrasound. Comparison: None. Technique: Real time sonographic imaging, including color-flow imaging and spectral analysis, was performed by the pattern chain builder. Multiplerepresentative static images were saved for review. [...] Villaseñor IMG US ORDERABLES Final Res ult [facility] * XRAY KNEE FOR ORTHO - RIGHT FC (05/27/2020 6:20 PM EST) Anatomical Region Laterality Modality LOWER EXTREMITY Radiographic Breonna ging 05/27/2020 6:36 PM EST Narrative 05/27/2020 6:36 PM EST AP standing bilateral knees, 2 views right knee Comparison: None Findings: No fractures or dislocations. A moderate to large right knee joint effusion is present.. No significant arthritic change. No radiopaque foreign body. Impression: 1. Moderate to large right knee joint effusion. Otherwise, unremarkable right knee 2. Normal AP left [...] knee 2. Normal AP left knee us Taiwo Arias V, PA IMG XRAY NO CONTRAST ORDERA BLES Final Result * DIGITAL BREAST FUAD SCREENING (05/23/2020 2:14 PM EST) RADIOLOGY REPORT [facility] Department of Radiology [address] [place] [address], [id number] Name: JARRETT GARZON : 65 Date of Service: 05/23/20 1520 Acct Number: [id number] Order Number: [id number] Location: [facility] Report Number: [id number] Service: REG REF/ Requesting Physician: Darlene Rodas MD ([facility]) Category: MAMMOGRAPHY Exam: DIGITAL BREAST FUAD SCREENING Signs/Symptoms: SCREENING Report Status: Signed STUDY: Bilateral screening mammogram with CAD and tomosynthesis. TECHNIQUE: Bilateral craniocaudal and mediolateral oblique views obtained. Yebol Version 1.3 computer aided detection system and tomosynthesis utilized. Implant displaced views are also obtained. Patient has bilateral subpectoral silicone implants placed in 2012. COMPARISON: .07/09/2016, 04/14/2018 and 05/18/2019 .. FAMILY HISTORY: None Reported BREAST COMPOSITION: Heterogeneously [...] mammogram notification. Date/Time of Dictation: 05/23/20 1526 Electric Milkers Installer (if applicable): Approved By Attending Radiologist: Raven Miller MD 05/23/20 [facility]6 [facility] Department of Radiology [address] [place] [address], [id number] [facility] RAD Anatomical Region Laterality Modality Other 05/23/2020 2:14 PM EST Narrative 05/23/2020 3:26 PM EST Reason for Study/History: Department of Radiology TEST(S) PROCESSED BY [facility] [employer] us Darlene Rodas MD IMAGING-[facility] Final Resu lt * SYPHILIS (FTA) ANTIBODY CASCADING REFLEX TO RPR/TITER (*PREFERRED SCREEN*) (03/16/2020 12:08 PM EST) Only the most recent of2 resultswithin the time period is included. Treponema pallidum Ab NEGATIVE NEGATIVE [facility] Comment: No antibodies to T. pallidum (the agent causing syphilis) were detected in the specimen. This result, however, does not exclude very recent T. pallidum infection; testing of a second specimen, collected 2-4 weeks after this specimen, is recommended if the index of suspicion for recent infection is high. 03/16/2020 12:0 8 PM EST 03/16/2020 9:39 PM EST Narrative Resulting Agency Comment [id number] us Rachael Camarena MD LABORATORY Final Result [facility] [address] [place] [address] * PROTEIN, TOTAL, SERUM (03/16/2020 12:08 PM EST) Pathologist [facility] Protein Total (Serum) 6.6 6.1 - 8.1 g/dL [facility] 03/16/2020 12:0 8 PM EST 03/16/2020 9:39 PM EST Narrative Resulting Agency Comment [id number] Darlene Rodas MD LAB SAME DAY RESULT Final Result [facility] [address] [place] [address] * CBC INCLUDES DIFFERENTIAL AND PLATELET COUNT (02/29/2020 4:40 PM EDT) Only the most recent of3 resultswithin the time period is included. [facility] WBC 5.1 3.8 - 10.8 Thousand/u [...] 12:03 AM EDT Narrative Resulting Agency Comment [id number] Darlene Rodas MD LAB SAME DAY RESULT Final Result [facility] [address] [place] [address] * ALANINE AMINOTRANSFERASE (ALT), SERUM (02/29/2020 4:40 PM EDT) Only the most recent of3 resultswithin the time period is included. ALT (SGPT) 14 6 - 29 U/L [facility] 02/29/2020 4:40 PM EDT 03/01/2020 12:03 AM EDT Narrative Resulting Agency Comment [id number] Darlene Rodas MD LAB SAME DAY RESULT Final Result [facility] [address] [place] [address] * LIPID PANEL WITH REFLEX TO DIRECT LDL (02/29/2020 4:40 PM EDT) Only the most recent of4 resultswithin the time period is included. Cholesterol 177 <200 mg/dL [facility] HDL Cholesterol 82 > OR = 50 mg/dL [facility] Triglyceride 55 <150 mg/dL [facility] LDL Cholesterol 81 mg/dL (calc) [facility] Comment: Reference range: <100 Desirable range <100 mg/dL for primary prevention; <70 mg/dL for patients with CHD or diabetic patients with > or = 2 CHD risk factors. LDL-C is now calculated using the Vladimir-Murray calculation, which is a validated novel method providing better accuracy than the Friedewald equation in the estimation of LDL-C. Vladimir SS et al. PUJA. 2013;310(19): 2392-9426 (http://education.[employer]Brevado/faq/ICI247) CHOL/HDL Ratio 2.2 <5.0 (calc) [facility] Cholesterol Non-HDL 95 <130 mg/dL (calc) [facility] Comment: For patients with diabetes plus 1 major ASCVD risk factor, treating to a non-HDL-C goal of <100 mg/dL (LDL-C of <70 mg/dL) is considered a therapeutic option. 02/29/2020 4:40 PM EDT 03/01/2020 12:03 AM EDT Narrative Resulting Agency Comment [id number] us Darlene Rodas MD LABORATORY Final Resu lt Performing Organization Address City/[facility]/ZIP Co de Phone Number [facility] [address] [place] [address] * BASIC METABOLIC PANEL WITH (GFR) (02/29/2020 [...] approximately 13% higher for people identified as -Tajik. EGFR 100 > OR = 60 mL/min/1 [...] needs for GFR calculation. Resulting Agency Comment [id number] us Darlene Rodas MD LABORATORY Final Resu lt Performing Organization Address City/[facility]/ZIP Co de Phone Number [facility] [address] [place] [address] * TEST, URINE - STATION (06/30/2019 9:27 AM EST) HCG, Qualitative, Urine neg Neg Urine specimen (specimen) 06/30/2019 9:27 AM EST Stefania Mclaughlin NP [facility] Final Result * TISSUE PATHOLOGY (06/30/2019 8:15 AM EST) COLLECTION DATE 06/30/2019 8:15 AM [facility] SPECIMEN SOURCE . A . Endocervix [facility] DIAGNOSIS . A . Fragments of unremarkable endocervical epithelium. [facility] SPECIMEN SOURCE . B . 1 o'clock [facility] DIAGNOSIS . B . Transformation zone mucosa, negative for dysplasia. [facility] Pathologist Jair Brumfield M.D., Board Certified in Anatomic and Clinical Pathology (electronic signature) Consulting Pathologist [facility] Pathology [phone] [facility] GROSS DESCRIPTION . A . SEE NOTE [facility] Comment: The container is labeled with patient's name and source ECC . Received in formalin is an endocervical brush with adherent mucoid material. The material measures 0.5 x 0.2 x 0.1 cm in aggregate. Specimen is submitted entirely in cassette A1. The specimen may not survive processing. Gross exam(s) performed at: [facility] [address] [address] Strategic Account Manager: AILYN AGUILAR MD GROSS DESCRIPTION . B . SEE NOTE [facility] Comment: The container is labeled with patient's name and source one . Specimen is received in formalin and consists of one fragment of light grossman tissue measuring 0.4 x 0.3 x 0.1 cm. Specimen is filtered and submitted entirely in cassette B1. ELV/ 06/30/2019 Note: Due to fixation formalin shrinkage, the measurements in the gross description may be less than those taken at the time of surgery. 06/30/2019 8:15 AM EST 06/30/2019 10:34 PM EST Stefania Mclaughlin NP PATHOLOGY-INTERFACED Final R esult [facility] [address] [place] [address] * BREAST IMPLANT SCREEN DIGITAL MAMMOGRAPHY WITH CAD (05/19/2019 8:06 AM EST) Only the most recent of2 resultswithin the time period is included. Pathologist [facility] RADIOLOGY REPORT [facility] Department of Radiology [address] [place] [address], [id number] Name: JARRETT GARZON : 65 Date of Service: 05/18/19 180 Acct Number: [id number] Order Number: [id number] Location: [facility] Report Number: [id number] Service: REG REF/ Requesting Physician: Darlene Rodas MD ([facility]) Category: MAMMOGRAPHY Exam: IMPLANT SCREEN DIGITAL W CAD Signs/Symptoms: SCREENING Report Status: ---Signed--- STUDY: Bilateral implant screening mammogram with CAD. TECHNIQUE: Bilateral craniocaudal and mediolateral oblique views obtained. Yebol Version 1.3 computer aided detection system utilized. Implant displaced views were also obtained. COMPARISON: 07/09/2016 and 04/14/2018 FAMILY HISTORY: There is no family history [...] screening mammogram notification. Date/Time of Dictation: 05/19/19910 Electric Milkers Installer (if applicable): Approved By Attending Radiologist: Raven Miller MD 05/19/19 0911 [facility] Department of Radiology [address] [place] [address], [id number] [facility] RAD Anatomical Region Laterality Modality Other 05/19/2019 8:06 AM EST Narrative 05/19/2019 9:14 AM EST Reason for Study/History: Department of Radiology TEST(S) PROCESSED BY [facility] XRAY Darlene Rodas MD IMAGING-[facility] Final Resu lt * TSH, 3RD GENERATION (04/11/2019 8:39 AM EST) TSH 3.81 mIU/L [facility] Comment: Reference Range > or = 20 Years 0.40-4.50 Ranges First trimester 0.26-2.66 Second trimester 0.55-2.73 Third trimester 0.43-2.91 04/11/2019 8:39 AM EST 04/11/2019 9:59 PM EST Narrative Resulting Agency Comment [id number] Darlene Rodas MD LABORATORY Final Resu lt Performing Organization Address City/[facility] Co de Phone Number [facility] [address] [place] [address] * HEPATIC FUNCTION PANEL (ALT,AST,ALK PH,BILI'S,TP,ALB) (04/11/2019 8:39 AM EST) Pathologist [facility] Protein Total (Serum) 7.0 6.1 - 8.1 [...] 9:59 PM EST Narrative Resulting Agency Comment [id number] Darlene Rodas MD LABORATORY Final Resu lt Performing Organization Address City/[facility] Co de Phone Number [facility] [address] [place] [address] * (ABNORMAL) HSV 1 AND 2 IGG [...] 10:43 PM EST Narrative Resulting Agency Comment [id number] us Opal Stevens NP LABORATORY Final Result Performing Organization Address [facility] Phone Number [facility] [address] [place] [address] * ASPARTATE AMINOTRANSFERASE (AST), SERUM (03/18/2018 9:22 AM EST) AST (SGOT) 20 10 - 35 U/L [facility] 03/18/2018 9:22 AM EST 03/18/2018 5:02 PM EST Narrative Resulting Agency Comment [id number] us Opal Stevens NP LAB SAME DAY RESULT Final Result Performing Organization Address [facility] Phone Number [facility] [address] [place] [address] * (ABNORMAL) FSH (03/18/2018 9:22 AM EST) FSH 136.1(H) mIU/mL [facility] Comment: Reference Range Follicular Phase 2.5-10.2 Mid-cycle Peak 3.1-17.7 Luteal Phase 1.5- 9.1 Postmenopausal 23.0-116.3 03/18/2018 9:22 AM EST 03/18/2018 5:02 PM EST us Opal Stevens NP LAB SAME DAY RESULT Final Result [facility] [address] [place] [address] * XRAY ANKLE COMPLETE MIN 3 VWS [...] Impression: 1. Normal right ankle us Sissy Ricks PA IMG XRAY NO CONTRAST ORDERABLES Final Result * HEPATITIS C AB WITH REFLEX TO RNA PCR, SERUM (11/17/2016 8:05 AM EDT) Hepatitis C virus Ab NON-REACTI VE NON-REACT IRENE [facility] Hepatitis C virus Ab Signal/Cutoff 0.02 <1.00 [facility] 11/17/2016 8:05 AM EDT 11/17/2016 8:04 PM EDT Narrative Resulting Agency Comment [id number] us Linette Mcguire NP LABORATORY Final Result [facility] [address] [place] [address] * CARDIOVASCULAR STRESS TEST W/TREADMILL, BICYCLE, AND/OR [...]
--- OUTSIDE RECORDS SUMMARY | 2025-02-16 08:37 | XMS_ITS | Encounter Summary ---
Author Organization [facility] Address [address] [place] [address] Care Team Providers Care Elementary Librarian Name Role Phone Darlene Rodas MD Primary Care Provider [phone] Encounter Details Date Type Department Care Team (Late st Contact Info) Description 2018 Orders Only [facility] [address] [place] [address] Opal Stevens NP Social History [...] of this encounter Results * Due to [place] state law, this organization might not be sharing negative HIV tests. * ASPARTATE AMINOTRANSFERASE (AST), SERUM (03/18/2018 9:22 AM EST) AST (SGOT) 20 10 - 35 U/L [facility] 03/18/2018 9:22 AM EST 03/18/2018 5:02 PM EST Narrative Resulting Agency Comment [id number] Opal Stevens NP LAB SAME DAY RESULT Final Result [facility] [address] [place] [address] * ALANINE AMINOTRANSFERASE (ALT), SERUM (03/18/2018 9:22 AM EST) ALT (SGPT) 12 6 - 29 U/L [facility] 03/18/2018 9:22 AM EST 03/18/2018 5:02 PM EST Narrative Resulting Agency Comment [id number] Opal Stevens PHYSICAL THERAPY RESIDENT LAB SAME DAY RESULT Final Result Performing Organization Address [facility] de Phone Number [facility] [address] [place] [address] * LIPID PANEL WITH REFLEX TO DIRECT [...] LDL-C. Vladimir SS et al. PUJA. 2013;310(19): 4395-2795 (http://education.AIRSIS.Billibox/faq/LPV903) CHOL/HDL Ratio 2.1 <5.0 (calc) [facility] Cholesterol Non-HDL 98 <130 mg/dL (calc) [facility] Comment: For patients with diabetes plus 1 major ASCVD risk factor, treating to a non-HDL-C goal of <100 mg/dL (LDL-C of <70 mg/dL) is considered a therapeutic option. 03/18/2018 9:22 AM EST 03/18/2018 5:02 PM EST Narrative Resulting Agency Comment [id number] us Opal Stevens PHYSICAL THERAPY RESIDENT LABORATORY Final Result Performing Organization Address [facility] Co de Phone Number [facility] [address] [place] [address] * BASIC METABOLIC PANEL WITH (GFR) (03/18/2018 9:22 AM EST) Glucose 75 65 - 99 mg/dL [facility] Comment:Fasting reference in terval Urea Nitrogen Blood (BUN) 12 7 - 25 mg/dL [facility] Creatinine 0.63 0.50 - 1.05 mg/dL [facility] Comment: For patients >49 years of age, the reference limit for Creatinine is approximately 13% higher for people identified as -[place]. GFR 102 > OR = 60 mL/min/1 [...] needs for GFR calculation. Resulting Agency Comment [id number] Opal Stevens NP LABORATORY Final Result Performing Organization Address City/State/[facility] Co de Phone Number [facility] [address] [place] [address] documented in this encounter Visit Diagnoses Diagnosis Healthy adult on routine physical examination Routine general medical examination at a health care facility Healthy adult on routine physical examination Routine general medical examination at a health care facility documented in this encounter Care Teams Elementary Librarian Relationship Specialty Start Date End Date Darlene Rodas MD [address] [place] [address] PCP - General 07/16/16 03/18/21 documented as of this encounter
--- OUTSIDE RECORDS SUMMARY | 2025-02-16 08:38 | XMS_ITS | Clinical Summary ---
Author Organization [facility] Address [address] [place] [address] Care Team Providers Care Retail Advertising Account Executive Name Role Phone Jeremy Camara Primary Care Provider [phone] Allergies No known active allergies Medications multivitamin (MULTIPLE VITAMINS) tablet Act solange omeprazole (PriLOSEC) 20 mg capsule Take 40 mg by mouth once a day. Active LORazepam (ATIVAN) 0.5 mg tablet Take 0.5 mg by mouth nightly. Active lactobacillus combination no.4 (Probiotic) 3 billion cell capsule Take 1 tablet by mouth daily. Active Active Problems Problem Noted Date Diagnosed Date [...] Sign Reading Time Taken Comments Blood Pressure 110/63 10/09/2024 12:45 PM EDT Pulse 73 10/09/2024 12:45 PM EDT Temperature 37 C (98.6 F) 10/09/2024 11:15 AM EDT Respiratory Rate 18 10/09/2024 12:45 PM EDT Oxygen Saturation 97% 10/09/2024 12:45 PM EDT Inhaled Oxygen Concentration - - Weight 63 kg (139 lb) 10/09/2024 11:15 AM EDT Height 157.5 cm (5' 2 ) 10/09/2024 11:15 AM EDT Body Mass Index 25.42 10/09/2024 11:15 AM EDT Plan of Treatment Health Maintenance Due Date Last Done Comments Cologuard 1965 FOBT / Fit Test 1965 HIV Screening 1965 Hepatitis C Screening 1965 Sigmoidoscopy 1965 Hepatitis B Vaccines (1 of 3 - 19+ 3-dose series) 1984 Pap Smear 06/11/2023 06/11/2020 Alcohol/Substance Use Screening 05/03/2024 Depression Screening and Follow-Up 05/03/2024 Social Drivers of Health Ирина ual Screening 05/03/2024 Diabetes Screening 10/02/2024 10/02/2021, 0 10/02/2021, 06/05/2021, Additional history exists COVID-19 Vaccine (2024-2 6 season) 2025 01/26/2023, 03/12/2022, 09/09/2021, Additional history exists Influenza Vaccine (#1) 2025 , 01/26/2023, 01/29/2022, Additional history exists Cervical Cancer Screening 06/11/2025 HPV and Pap Smear 06/11/2025 06/11/2020 Mammogram 08/04/2026 08/04/2024, 06/04, 06/19/2022, Additional history exists Colon Cancer Screening 01/30/2032 Colonoscopy 01/30/2032 01/29/2022, 01/26/2022 DTaP,Tdap,and Td Vaccines (3 - Td or Tdap) 02/15/2034 02/16/2024, 02/05/2014 RSV Vaccine (60+ years old a nd patients) (1 - 1-dose 75+ series) 2040 Zoster Vaccines Completed 03/18/2020, 01/10/2020 Pneumococcal Vaccine: 50+ Years Completed 5 Procedures * Due to [place] state law, this organization might not be sharing negative HIV tests. Procedure Name Priority Date/Time Associated Diagnosis Comments FRANCK BILATERAL IMPLANT SCREENING DIGITAL MAMMOGRAM WITH FUAD Routine 08/04/2024 1:14 PM EDT Screening mammogram for breast cancer [facility] COLONOSCOPY 01/29/2022 11:15 AM EDT COMPREHENSIVE METABOLIC PANEL Routine 10/02/2021 8:52 AM EDT from Last 3 Months or Most Recently Relevant to Health Maintenance Results * Due to [place] state law, this organization might not be sharing negative HIV tests. * FRANCK Bilateral Implant Screening Digital Mammogram With Fuad (08/04/2024 1:14 PM EDT) Anatomical Region Laterality Modality Breast Bilateral Mammography Narrative 08/12/2024 9:23 AM EDT Raven Garzon Exam Date: 08/04/[address] [address] EXAMINATION FRANCK Bilateral Implant Screening Digital Mammogram With Fuad. INDICATION Raven Garzon is a 59 y.o. female and is seen for: FRANCK Bilateral Implant Screening Digital Mammogram With Fuad. CC and MLO views were obtained. FDA approved Trac [employer] & Safety AI (artificial intelligence) software and R2 CAD were used as a concurrent reading aid in the interpretation of this study. COMPARISON Compared to: 06/30/2023 FRANCK Bilateral Implant Screening Digital Mammogram With Fuad and 06/19/2022 [facility] Screening Digital Mammogram Bilateral Breast Findings: The breasts are heterogeneously dense, which may obscure small masses. No significant masses, calcifications or other abnormalities are seen. Implants: Silicone Retro-pectoral, Bilateral, Normal implant. IMPRESSION BI-RADS ATLAS category (overall): 2 - Benign MANAGEMENT Routine Screening Mammogram in 1 Year is recommended for bilateral. The patient was entered into a reminder system with a subsequent mammography target date. The patient s lifetime risk for breast cancer was calculated using Tyrer-Cuzick: 10.86%. Women with lifetime risk <20% and dense breast tissue may benefit from supplemental screening with breast MRI or automated breast ultrasound (ABUS) depending on risk factors. https://acsearch.acr.org/docs/2028461/Narrative/ Breast MRI is available at many [facility] MRI locations. To schedule, enter an MRI order into [facility] (MRI BREAST BILAT SCREENING W WO CONTRAST), call [phone] or [phone], or fax [phone]. ABUS is available at two [facility] sites. To schedule, enter an ABUS order into [facility] (ABUS), contact [place] Central Scheduling (call [phone] or fax order [phone]), or contact [facility] Central Scheduling (call [phone] or fax order [phone]). If this radiology report contains a blank impression section, it is an incomplete radiology report. Please contact the interpreting radiologist or applicable radiology division as soon as possible to obtain the completed interpretation. Parish Riggs MD Resulting Agency Comment [id number] us Jeremy Camara IM BI PROCEDURES Final Result * Colonoscopy (01/29/2022 11:15 AM EDT) us Onbase Scan [facility] Final Resu lt * Comprehensive Metabolic Panel (10/02/2021 8:52 AM EDT) Alkaline Phosphatase 110 40.0 - 129.0 U/L CONVERSION DATA LAB 10/02/2021 8:52 AM EDT us Oliverio Michael DO LAB BLOOD ORDERABLES Final Resul t CONVERSION DATA LAB from Last 3 Months or Most Recently Relevant to Health Maintenance Insurance [facility] MEDICAID Advance Directives Documents on File Type Date Recorded Patient Rn Mds Coordinator Expl anation Health Care Proxy 08/21/2021 Health Care Proxy 08/21/2021 Health Care Proxy 08/21/2021 Health Care Proxy 08/21/2021 Health Care Proxy 08/21/2021 Health Care Proxy 08/21/2021 Advance Directive 06/03/2021 11:22 AM Care Teams Retail Advertising Account Executive Relationship Specialty Start Date End Date Jeremy Camara [address] [place] [address] PCP - General Internal Medicine 07/04/24
--- OUTSIDE RECORDS SUMMARY | 2025-02-16 08:38 | XMS_ITS | Encounter Summary ---
Author Organization [facility] Address [address] [place] [address] Care Team Providers Care Die Storage Clerk Name Role Phone Darlene Rodas MD Primary Care Provider [phone] Encounter Details Date Type Department Care Team ([facility] st Contact Info) Description 10/29/2020 Orders Only [facility]. Podiatry [address] [place] [id number] Tre Rosario, DPYocasta [address] [place] [address] Social History Tobacco Use Types Packs/Day Years [...] encounter Procedures * Due to [place] law, this organization might not be sharing negative HIV tests. Procedure Name Priority Date/Time Associated Diagnosis Comments FUNGAL STAIN, JAMIE Routine 10/29/2020 2:3 9 PM EDT Onychomycosis documented in this encounter Results * Due to [place] law, this organization might not be sharing negative HIV tests. * FUNGAL STAIN, JAMIE (10/29/2020 2:39 PM EDT) Fungus identified SEE NOTE [facility] Comment: FUNGAL STAIN Micro Number: [id number] Test Status: Final Specimen Source: LEFT 2ND TOENAIL Specimen Quality: Adequate Smear: No fungal elements seen. 10/29/2020 2:39 PM EDT 10/29/2020 9:27 PM EDT Narrative Resulting Agency Comment [id number] us Tre Rosario DPM LABORATORY Final Result Performing Organization Address City/State/[facility] Co de Phone Number [facility] [address] [place] [address] documented in this encounter Visit Diagnoses Diagnosis Onychomycosis Dermatophytosis of nail documented in this encounter Care Teams Die Storage Clerk Relationship Specialty Start Date End Date Darlene Rodas MD [address] [place] [id number] PCP - General 07/16/16 03/18/21 documented as of this encounter
--- OUTSIDE RECORDS SUMMARY | 2025-02-16 08:38 | XMS_ITS | Encounter Summary ---
Author Organization [facility] Address [address] [place] [address] Care Team Providers Care Electric Car Operator Name Role Phone Darlene Rodas MD Primary Care Provider +1- [phone] Encounter Details Date Type Department Care Team (Late st Contact Info) Description 03/16/[address] [facility] [address] [place] [phone] Darlene Rodas MD [address] [place] [address] Social History Tobacco Use Types Packs/Day Years [...] of this encounter Procedures * Due to [place] state law, this organization might not be sharing negative HIV tests. Procedure Name Priority Date/Time Associated Diagnosis Comments SYPHILIS (FTA) ANTIBODY CASCADING REFLEX TO RPR/TITER (*PREFERRED SCREEN*) Routine 03/16/2020 12:08 PM EST False positive syphilis serology VENIPUNCTURE Routine 03/16/2020 12:08 PM EST Vegan diet documented in this encounter Results * Due to [place] state law, this organization might not be [...] 9:39 PM EST Narrative Resulting Agency Comment [id number] us Rachael Camarena MD LABORATORY Final Result Performing Organization Address [facility] Co de Phone Number [facility] [address] [place] [address] * PROTEIN, TOTAL, SERUM (03/16/2020 12:08 PM EST) Protein Total (Serum) 6.6 6.1 - 8.1 g/dL [facility] 03/16/2020 12:0 8 PM EST 03/16/2020 9:39 PM EST Narrative Resulting Agency Comment [id number] us Darlene Rodas MD LAB SAME DAY RESULT Final Result Performing Organization Address [facility] Co de Phone Number [facility] [address] [place] [address] documented in this encounter Visit Diagnoses Diagnosis Vegan diet False positive syphilis serology False positive serological test for syphilis documented in this encounter Care Teams Electric Car Operator Relationship Specialty Start Date End Date Darlene Rodas MD [address] [place] [address] [place] [id number] PCP - General 07/16/16 03/18/21 documented as of this encounter
--- OUTSIDE RECORDS SUMMARY | 2025-02-16 08:38 | XMS_ITS | Encounter Summary ---
Author Organization [facility] Address [address] [place] [address] Care Team Providers Care Fruit Or Nut Farm Worker Name Role Phone Darlene Rodas MD Primary Care Provider +1- [phone] Encounter Details Date Type Department Care Team ([facility] Contact Info) Description 06/11/2020 Orders Only [facility] NITROGLYCERIN SUPERVISOR [address] [facility] [address] [place] [address] Brittany Li, RAIN [address] [place] [address] Social History Tobacco Use Types Packs/Day Years [...] AM EST documented as of this encounter Functional Status documented as of this encounter Miscellaneous Notes * Result Encounter Note - Brittany Alcocer NP - 06/11/2020 11:05 AM EST Normal pap smear / negative HPV. Repeat in [address] on recall list. Ecrebo sent to pt. Problem list updated. * Result Encounter Note - Bree Martin - 06/11/2020 11:05 AM EST On recall documented in this encounter Plan of Treatment Not on file documented as of this encounter Procedures * Due to [place] [employer] law, this organization might not be sharing negative HIV tests. Procedure Name Priority Date/Time Associated Diagnosis Comments THINPREP TIS PAP AND HPV RNA, HR E6/E7, TMA Routine 06/11/2020 11:05 AM EST Abnormal cervical Papanicolaou smear, unspecified abnormal pap finding documented in this encounter Results * Due to [place] [employer] law, this organization might not be sharing [...] Smear Negative for intraepithelial lesion or malignancy. [facility] Cytology study comment (Cvx/Vag) This Pap test has been evaluated with computer assisted technology. [facility] Vacuum Kettle Cook (Cvx/Vag) SXA, CT(ASCP) CT screening location: [facility] [address] [address] [facility] COMMENT SEE NOTE [facility] Comment: EXPLANATORY NOTE: The Pap is a [...] HPV MRNA E6/E7 Not Detected Not Detected [facility] Comment: Methodology: Debt Management Counselor-Mediated Amplification This assay detects E6/E7 viral messenger RNA (mRNA) from 14 high-risk HPV types (16,18,31,33,35,39,45,51,52,56,58,59,66,68). The analytical performance characteristics of this assay have been determined by [employer]. The modifications have not been cleared or approved by the FDA. This assay has been validated pursuant to the CLIA regulations and is used for clinical purposes. For additional information, please refer to http://education.GOGETMi / ?.??/AVW730n0 (This link if provided for information/ educational purposes only.) ENDOCERVICAL STRUCTURE / Unknown 06/11/2020 11:05 AM EST 06/12/2020 7:26 AM EST Narrative Resulting Agency Comment [id number] us Brittany Li [facility]-INTERFACED Final Resul t [facility] [address] [place] [address] documented in this encounter Visit Diagnoses Diagnosis Abnormal cervical Papanicolaou smear, unspecified abnormal pap finding documented in this encounter Care Teams Fruit Or Nut Farm Worker Relationship Specialty Start Date End Date Darlene Rodas MD [address] [place] [id number] PCP - General 07/16/16 03/18/21 documented as of this encounter
--- OUTSIDE RECORDS SUMMARY | 2025-02-16 08:38 | XMS_ITS | Clinical Summary ---
Author Organization [facility] [employer] Address [address] [place] [address] Care Team Providers Care Shovel Operator Name Role Phone No, Pcp SALES MARKETING DIRECTOR Primary Care Provider Unavailabl e Allergies No [...] 76 11/21/2020 10:56 AM EDT Temperature 37 C (98.6 F) 11/21/2020 10:56 AM EDT Respiratory Rate - [...] Adults 18 yrs or above (or HM Modifier)([facility]) 1983 Hepatitis C Virus Infection in Adolescents and Adults: Screening (or Modifier) ([facility]) 1983 SDOH Screening Reminder: Ирина ually for all adults ([facility]) 1983 Tobacco Smoking Cessation: i n Adults excluding Women: Behavioral and Pharmacotherapy Interventions ([facility]) 1983 Cervical Cancer Screenin 1-65 yrs of age (or Modifier) 1986 Cervical Cancer Screening: P ap every 3 yrs pts age 21-65 1986 Cervical Cancer: Pap Screeni ng with Modifier timing ([facility]) 1986 Cervical Cancer: hrHPV alone or with cotesting Pap for Pts 30-65yrs screening every 5yrs ([facility]) 1986 Colorectal Cancer Screening 45 -75 Yrs (or HM Modifier) 2010 Colorectal Cancer: FLEXIBLE SIGMOIDOSCOPY Screening every 5 yrs 2010 Colorectal Cancer: Fecal Immunochemical Test (FIT) Annually [facility] 2010 Colorectal Cancer: High-sens itivity gFOBT Screening Annually [facility] 2010 Colorectal Cancer: Stool Col oguard Screening every 3 yrs 2010 Colorectal Cancer:CT Colonog estrella Screening every 5 yrs 2010 Breast Cancer: Screening Ирина ually age 50-74 yrs (or HM Modifier)([facility]) 2015 Pneumococcal Vaccination Scr eening: Patients 50+ yrs of age ([facility]) (1 of 1 - PCV) 2015 DTaP/Tdap/Td Vaccines ([facility]) (2 - Td or Tdap) 02/06/2024 02/05/2014 Flu Vaccination: Yearly for ages 18mos through 64 years (or Modifier)([facility]) 12/01/2024 01/10/2020 COVID-19 Vaccine Screening: Initial Series and Booster Status ([facility]) (2024- season) 2025 02/06/2021, 08/02/2020, 07/12/2020 Zoster/Shingles Vaccine Seri es Screening: Adults aged 18+ yrs (or HM Modifiers)([facility]) Completed 03/18/2020, 01/10/2020 Medical Devices Not on file Insurance [facility] Care Teams Shovel Operator Relationship Specialty Start Date End Date No, Pcp, SALES MARKETING DIRECTOR N/A Do not use PCP - General Family Medicine 03/24/20
--- OUTSIDE RECORDS SUMMARY | 2025-02-16 08:38 | XMS_ITS | Encounter Summary ---
Author Organization [facility] Address [address] [place] [address] Care Team Providers Care Social Insurance Administrator Name Role Phone Darlene Rodas MD Primary Care Provider +1- [phone] Encounter Details Date Type Department Care Team (Late st Contact Info) Description 02/29/[address] [facility] [address] [place] [phone] Darlene Rodas MD [address] [place] [address] Social History Tobacco Use Types Packs/Day Years [...] this encounter Procedures * Due to [place] [employer] law, this organization might not be sharing [...] this encounter Results * Due to [place] [employer] law, this organization might not be sharing [...] 12:03 AM EDT Narrative Resulting Agency Comment [id number] Darlene Rodas MD LAB SAME DAY RESULT Final Result [facility] [address] [place] [address] * BASIC METABOLIC PANEL WITH (GFR) (02/29/2020 4:40 PM EDT) Glucose 92 65 - 99 mg/dL [facility] Comment:Fasting reference in terval Urea Nitrogen Blood (BUN) 19 7 - 25 mg/dL [facility] Creatinine 0.66 0.50 - 1.05 mg/dL [facility] Comment: For patients >49 years of age, the reference limit for Creatinine is approximately 13% higher for people identified as -Salvadorean. EGFR 100 > OR = 60 mL/min/1 [...] needs for GFR calculation. Resulting Agency Comment [id number] Darlene Rodas MD LABORATORY Final Resu lt Performing Organization Address [facility] Co de Phone Number [facility] [address] [place] [address] * LIPID PANEL WITH REFLEX TO DIRECT [...] LDL-C. Vladimir BLACKMON et al. PUJA. 2013;310(19): 7907-0348 (http://education.[employer]/faq/FYU901) CHOL/HDL Ratio 2.2 <5.0 (calc) [facility] Cholesterol Non-HDL 95 <130 mg/dL (calc) [facility] Comment: For patients with diabetes plus 1 major ASCVD risk factor, treating to a non-HDL-C goal of <100 mg/dL (LDL-C of <70 mg/dL) is considered a therapeutic option. 02/29/2020 4:40 PM EDT 03/01/2020 12:03 AM EDT Narrative Resulting Agency Comment [id number] Darlene Rodas MD LABORATORY Final Resu lt Performing Organization Address City/[facility]/ZIP Co de Phone Number [facility] [address] [place] [address] * ALANINE AMINOTRANSFERASE (ALT), SERUM (02/29/2020 4:40 PM EDT) ALT (SGPT) 14 6 - 29 U/L [facility] 02/29/2020 4:40 PM EDT 03/01/2020 12:03 AM EDT Narrative Resulting Agency Comment [id number] us Darlene Rodas MD LAB SAME DAY RESULT Final Result Performing Organization Address [facility] Co de Phone Number [facility] [address] [place] [address] * SYPHILIS (FTA) ANTIBODY CASCADING REFLEX TO [...] 12:03 AM EDT Narrative Resulting Agency Comment [id number] us Rachael Camarena MD LABORATORY Final Result Performing Organization Address [facility] de Phone Number [facility] [address] [place] [address] documented in this encounter Visit Diagnoses Diagnosis Concern about STD in female without diagnosis Person with feared complaint in whom no diagnosis was made Screening for endocrine, metabolic and immunity disorder documented in this encounter Care Teams Social Insurance Administrator Relationship Specialty Start Date End Date Darlene Rodas MD [address] [place] [address] PCP - General 07/16/16 03/18/21 documented as of this encounter
--- OUTSIDE RECORDS SUMMARY | 2025-02-16 08:38 | XMS_ITS | Encounter Summary ---
Author Organization [facility] Address [address] [place] [address] Care Team Providers Care Sound Editor Name Role Phone Darlene Rodas MD Primary Care Provider +1- [phone] Encounter Details Date Type Department Care Team (Late st Contact Info) Description 04/11/[address] [facility] [address] [place] [phone] Darlene Rodas MD [address] [place] [address] Social History Tobacco Use Types Packs/Day Years [...] ality of the cells. There fore recommend mathematics academic chair consult for colposcopy, if agreeable please send referral, for mathematics academic chair (ASCUS HPV pos) Her lab work was all normal. documented in this encounter Plan of Treatment Not on file documented as of this encounter Procedures * Due to [place] [employer] law, this organization might not be sharing [...] in this encounter Results * Due to [place] [employer] law, this organization might not be sharing [...] in vaginal danica suggestive of bacterial vaginosis. [email or web address] Cytology study comment (Cvx/Vag) This Pap test has been evaluated with computer assisted technology. [facility] Vp Delivery (Cvx/Vag) CXP, CT(ASCP) CT screening location: [place] [address] [facility] Pathologist (Cvx/Vag) Guera Whitfield M.D., Board Certified in Anatomic and Clinical Pathology (electronic signature) Consulting Pathologist [facility] [phone] [facility] COMMENT SEE NOTE [facility] [...] was performed using the APTIMA HPV Assay ([employer] This assay detects E6/E7 viral messenger RNA (mRNA) from 14 high-risk HPV types (16,18,31,33,35,39,45,51,52,56,58,59,66,68). The analytical performance characteristics of this assay have been determined by [employer]. The modifications have not been cleared or approved by the FDA. This assay has been validated pursuant to the CLIA regulations and is used for clinical purposes. ENDOCERVICAL STRUCTURE / Unknown 04/11/2019 12:15 PM EST 04/11/2019 11:36 PM EST Narrative Resulting Agency Comment [id number] Darlene Rodas MD PATHOLOGY-INTERFACED Final Result [facility] [address] [place] [address] * CBC INCLUDES DIFFERENTIAL AND PLATELET COUNT [...] 9:59 PM EST Narrative Resulting Agency Comment [id number] Darlene Rodas MD LAB SAME DAY RESULT Final Result Performing Organization Address City/State/[facility] Co de Phone Number [facility] [address] [place] [address] * LIPID PANEL WITH REFLEX TO DIRECT [...] LDL-C. Vladimir BLACKMON et al. PUJA. 2013;310(19): 5959-8201 (http://education.[employer]ot.Openplay/faq/PWN256) CHOL/HDL Ratio 2.2 <5.0 (calc) [facility] Cholesterol Non-HDL 95 <130 mg/dL (calc) [facility] Comment: For patients with diabetes plus 1 major ASCVD risk factor, treating to a non-HDL-C goal of <100 mg/dL (LDL-C of <70 mg/dL) is considered a therapeutic option. 04/11/2019 8:39 AM EST 04/11/2019 9:59 PM EST Narrative Resulting Agency Comment [id number] Darlene Rodas MD LABORATORY Final Resu lt [facility] [address] [place] [address] * BASIC METABOLIC PANEL WITH (GFR) (04/11/2019 8:39 AM EST) Glucose 76 65 - 99 mg/dL [facility] Comment:Fasting reference in terval Urea Nitrogen Blood (BUN) 14 7 - 25 mg/dL [facility] Creatinine 0.65 0.50 - 1.05 mg/dL [facility] Comment: For patients >49 years of age, the reference limit for Creatinine is approximately 13% higher for people identified as -Kosovan. EGFR 101 > OR = 60 mL/min/1 [...] needs for GFR calculation. Resulting Agency Comment [id number] Darlene Rodas MD LABORATORY Final Resu lt Performing Organization Address [facility] de Phone Number [facility] [address] [place] [address] * HEPATIC FUNCTION PANEL (ALT,AST,ALK PH,BILI'S,TP,ALB) (04/11/2019 [...] 9:59 PM EST Narrative Resulting Agency Comment [id number] us Darlene Rodas MD LABORATORY Final Resu lt Performing Organization Address [facility] de Phone Number [facility] [address] [place] [address] * TSH, 3RD GENERATION (04/11/2019 8:39 AM EST) TSH 3.81 mIU/L [facility] Comment: Reference Range > or = 20 Years 0.40-4.50 Ranges First trimester 0.26-2.66 Second trimester 0.55-2.73 Third trimester 0.43-2.91 04/11/2019 8:39 AM EST 04/11/2019 9:59 PM EST Narrative Resulting Agency Comment [id number] us Darlene Rodas MD LABORATORY Final Resu lt [facility] [address] [place] [address] documented in this encounter Visit Diagnoses Diagnosis Screening for metabolic disorder Screening for malignant neoplasm of cervix Screening for malignant neoplasm of the cervix documented in this encounter Care Teams Sound Editor Relationship Specialty Start Date End Date Darlene Rodas MD [address] [place] [address] PCP - General 07/16/16 03/18/21 documented as of this encounter
== END 2025-02-16 08:43 | disposition home or self-care (01) ==
LOC: HO.HMCC 08:21
PROVIDERS: PCP Internal Medicine; Visit Provider Internal Medicine
DX: Z00.00 Encounter for general adult medical examination without abnormal findings (principal); R63.0 Anorexia; R14.0 Abdominal distension (gaseous); K21.00 Gastro-esophageal reflux disease with esophagitis, without bleeding; Z98.82 Breast implant status

== ENCOUNTER 2025-02-16 08:21 | Outpatient (REF) | payer OTHER, SELFPAY ==
--- OUTSIDE RECORDS SUMMARY | 2025-02-16 09:17 | XMS_ITS | Data Portability ---
Author Organization [facility] Olegario Stayful, [facility]_admin Address [address] [place] [phone] Care Team Providers Care Interventional Pain Physician Name Role Phone NILDA RODRIGUEZ Primary Care Provider [phone] Assessment No assessment recorded. Plan of Treatment Reminders Order Date Submit Date Provider Last Modified By Organization Details Last Modified Time Details Appointments None recorded. Lab cytology report, thin prep, smear or scraping, cervical or vaginal 2021 022 KRISTY [facility], [address] [place] [address], [id number], 2 11:07:[address]/dietiti an referral - Insurance referral request sent to PCP Dr Rodriguez 2021 022 [email or web address] 5 Candace Parsons ([facility] ), [address] [place] [address], [address], 13:42:37 Procedures None recorded. Surgeries None recorded. Imaging None recorded. Medication Orders None recorded. Patient TargetsNo targets recorded. Patient InstructionsNo instructions recorded. Reason for Referral Staff Radiologist/dietitian Refer ral for Unintentional weight gain unintended weight gain, non-medical Insurance referral request sent to PCP Dr Rodriguez Referring Physician: Cliff Ortiz, DIRECTOR INSTRUCTIONAL MATERIAL, Encounter Date: 07/03/2021 Results Created Date Observation [...] diffe renti ation . Not Available [facility] ([facility]) [address] [facility], [place], [address], 07/10/2021 11:07:41 07/05/19 22 07/10/2021 IGP, APTIM A HPV, RFX 16/18 ,45 diagnosis: Danilo fernandez NEGAT IRENE FOR INTRA EPITH ELIAL LESIO N OR MALIG VIVIANA . THIS SPECI MEN WAS RESCR EENED PART OF OUR QUALI TY CONTR OL PROGR AM. Not Available [facility] ([facility]) [address] [facility], [place], [address], 07/10/2021 11:07:41 07/05/19 22 07/10/2021 IGP, APTIM A HPV, RFX 16/18 ,45 specimen adequacy: Danilo fernandez Satis facto ry for evalu ation . No endoc ervic al compo nent is ident ified . Not Available [facility] ([facility]) [address] [facility], [place], [address], 07/10/2021 11:07:41 07/05/19 22 07/10/2021 IGP, APTIM A HPV, RFX 16/18 ,45 clinician provided ICD10: Danilo fernandez Z12.4 Not Available [facility] ([facility]) [address] [facility], [place], [address], 07/10/2021 11:07:41 07/05/19 22 07/10/2021 IGP, APTIM A HPV, RFX 16/18 ,45 performed by: Danilo Gill, Cytorebecca fernandez Not Available [facility] ([facility]) [address] [place], [address], 07/10/2021 11:07:41 07/05/19 22 07/10/2021 IGP, APTIM A HPV, RFX 16/18 ,45 QC reviewed by: Ria Sinha alaor y Cytot andres fernandez (ASCP ) Not Available [facility] ([facility]) [address] [place], [address], 07/10/2021 11:07:41 07/05/19 22 07/10/2021 IGP, APTIM A HPV, RFX 16/18 ,45 . . Not Available [facility] ([facility]) [address] [place], [address], 07/10/2021 11:07:41 07/05/19 22 07/10/2021 IGP, APTIM [...] ts do occur . Not Available [facility] ([facility]) [address] [facility], [place], [address], 07/10/2021 11:07:41 07/05/19 22 07/10/2021 IGP, APTIM A HPV, RFX 16/18 ,45 test methodology: Danilo fernandez This liqui d based ThinP rep(R ) pap test was scree cata with the use of an image guide mich de santiago Not Available [facility] ([facility]) [address] [place], [address], 07/10/2021 11:07:41 07/08/19 22 06/13/2021 bone densi ty No observ ation record ed. Not Available 2021 08:07:51 07/08/19 22 06/13/2021 MAMMO , scree cassy, digit al, bilat eral No observ ation record ed. Not Available 2021 08:07:51 06/16/19 23 02/09/2022 US, traci s No observ ation record ed. [email or web address] [facility] [address] [facility], [place], [address], 06/17/2022 20:28:08 Result Notes None recorded. Problems Name Problem SNOMED Code Status Onset Date Resolution Date Notes Provider Name and Address Organization Details Recorded Time Midline cystocele [id number] Active 022 Cliff Ortiz CNP [address] [place] [address], [phone], [facility] 13:21:33 Problem Notes None recorded. Procedures Surgical History Date Name Laterality Status Provider Name and Address Organization Details Recorded Time 06/13/19 22 Most Recent Bone Density completed Cliff Ortiz CNP [address] [place] [address], [phone], [facility] 07/03/2021 13:14:09 06/13/19 22 completed Cliff Ortiz CNP [address] [place] [address], [phone], [facility] 07/03/2021 13:14:09 06/03/19 15 Colonoscopy completed Cliff Ortiz CNP [address] [place], [phone], [facility] 07/03/2021 13:14:09 Breast Surgery (Lumpectomy, Biopsy, Implants) completed Cliff Ortiz CNP [address] [place], [address], [facility] 07/03/2021 13:14:12 Abdominal Surgery completed Cliff Ortiz CNP [address] [place], [phone], [facility] 07/03/2021 13:14:12 abdominoplasty completed [facility] 07/03/2021 13:19:48 Breast Implants completed [facility] 07/03/2021 13:20:03 Imaging Results None recorded. Procedure Notes None recorded. Medical Equipment None [...] verbal numeric rating [Score] - Reported Systolic And Diastolic Provider Name and Address Organization Details Last Updated DateTime 2 [address]11.6 4 g 98 [degF] 96 /min 97 % 97 % 0 110/74 mm[Hg] [facility] 2 13:14:54 Social History Question Answer Notes LastModified by Organizat ion Details LastModified Time Tobacco Smoking Status Never Smoker [facility] 07/03/2021 13:19:21 Do You Have An Advance Directive? No Information not available 07/03/2021 Are You Blind Or Do You Have Difficulty Seeing? No Information not available 07/03/2021 Is Blood Transfusion Acceptable In An Emergency? Yes [email or web address] Information not available 07/03/2021 What Is Your Level Of Caffeine Consumption? Occasional Information not available 07/03/2021 Are You Deaf Or Do You Have Serious Difficulty Hearing? No Information not available 07/03/2021 What Type Of Diet Are You Following? VEGAN [email or web address] Information not available 07/03/2021 Which Of Your [...] 07/03/2021 Do You Have Any Pets? Yes Information not available 07/03/2021 What Is Your Relationship Status? Information not available 07/03/2021 Has Tobacco Cessation Counseling Been Provided? No Information not available 07/03/2021 How Many Days In The Past Year Have You Consumed 4 Or More Drinks? 2 [email or web address] Information no t available 07/03/2021 Sex: Unknown Functional Status Question Answer Note LastModified by Organizat ion Details LastModified Time Do you use any illicit or recreational drugs? No Information not available 07/03/2021 Do you or have you ever used any other forms of tobacco or nicotine? No Information not available 07/03/2021 What is your level of alcohol consumption? Occasional Information not available 07/03/2021 Are you currently employed? Yes [email or web address] Information not available 07/03/2021 Are you able to care for yourself independently? 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 Occasional [email or web address] Information not available 07/03/2021 Mental Status Question Answer Note LastModified by Organization D etails LastModified Time Do you feel stressed (tense, restless, nervous, or anxious, or unable to sleep at night)? [id number] [email or web address] Information not available 07/03/2021 Family History Relationship Description Onset Age of this Age Resolved Age Notes LastModified by Organization Details LastModified Time Maternal Grandmother Family history of malignant neoplasm Stomac h and liver CA Not available 07/03/2021 13:18:22 Maternal Grandmother Family history of malignant neoplasm Not available 2021 13:18:07 Paternal Grandmother Family history of malignant neoplasm Breast CA Not available 07/03/2021 13:18:40 Paternal Grandmother Diabetes mellitus [email or web address] Not available 07/03 13:14:09 Paternal Grandmother Family history of malignant neoplasm Not available 2021 13:18:26 Medical History Condition Response HPV (Human Papillomavirus) Y Anxiety Y Gynecological History Statement/Question Response 06/13/2021 Date [...] mL dose 02/06/2021 completed Melinda Hartnagel null, [facility] 04/10/2021 16:10:49 COVID-19, mRNA, LNP-S, PF, 30 mcg/0.3 mL dose 08/02/2020 completed Melinda Hartnagel null, [facility] 04/10/2021 16:10:55 COVID-19, mRNA, LNP-S, PF, 30 mcg/0.3 mL dose 07/12/2020 completed Melinda Hartnagel null, [facility] 04/10/2021 16:10:59 IPV 04/23/2010 completed Melinda Hartnagel null, [facility] 04/10/2021 16:11:11 MMR 04/23/2010 completed Melinda Hartnagel null, [facility]. 04/10/2021 16:11:28 Tdap 02/05/2014 completed Melinda Hartnagel null, [facility] 04/10/2021 16:11:42 zoster, unspecified formulation 03/18/2020 completed Melinda Hartnagel null, [facility]. 04/10/2021 16:12:18 zoster, unspecified formulation 01/10/2020 completed Melinda eduardo [facility] 04/10/2021 16:12:22 Past Encounters Encounter ID Performer Location Encounter Start Date Encounter Closed Date Diagnosis/Indication Diagnosis SNOMED-CT Code Diagnosis ICD10 Code Diagnosis IMO Codes Diagnosis Note [id number] Kayla Edwards MD [facility] [address] [facility] JANE LAUREN [id number] 07/03/2021 12:54:38 07/03/2021 14:36:44 Gynecologic examination 93498080 Z01.419 Normal breast and pelvic exam today. F/u in one year for repeat. Unintentio nal weight gain 4095842831 30696 R63.5 Screening for malignant neoplasm of cervix 232406252 Z12.4 Hx of abnormal. rpt today Health Concerns Section Related Observation LastModified by Organization Detai ls LastModified Time None Recorded Concern Status LastModified by Organization Details LastModified Time None Recorded Advance Directives Directive N: Payers Insurance Date Sequence Insurance Name Policy Number Policy Mittal Covered Member ID Mittal Member ID Guarantor Name 09/08/2022 1 [facility] (O) [id number] Raven Alivia Garzon [id number] Raven Garzon 06/01/2022 1 [facility] Raven Garzon [id number] Raven Garzon 09/08/2022 1 [facility] (MEDICAID HMO) Raven Garzon [id number] Raven Garzon Notes Date Note Type Note Provider Name and Address Organization Details Recorded Time 07/03/2021 text/html Annual GYNReport ed by PatientHistoryFor history, patient reportsno gynecologic complaintsandno change in interval history.Genitourinary symptomsFor urinary symptoms, patient reportsno hematuria. For vulva, patient reportsno genital lesion. For vagina, patient reportsnormal vaginal discharge.Breast symptomsFor breast, patient reportsno breast pain,no breast lump, andno nipple discharge.Endocrine symptomsFor sexual complaints, patient reportsno sexual complaints,no pain during intercourse, andnormal libido. For menopausal symptoms, patient reportsno menopausal symptomsandnormal vaginal lubrication.Psychologi luz symptomsFor psychological symptoms, patient reportsno depression.ROS as noted in the HPI Raven is 56 yo , presents as a new pt for annual ANALYTICAL LEAD exam today. She is postmenopausal since age of 52.Denies menopausal symptoms including bleeding, vaginal dryness, hot flashes, night sweats. HRT- never.She is feeling well, no complaints except weight gain that she can't get off. Gained 26 lb in past 2 years. Recent labs by PCP normal. She is vegan so she eats alot of carbs, would like to see a ground crewman mission support to help with weight loss and encouraged regular exercise. Last pap 06/2020 cytology neg HPV testing neg. Hx of abnormal in 2019 HPV+ and ASCUS, colpo was benign. Continue yearly surveillance.Last mammogram: 3 weeks ago at [facility], normal per pt, will request recordsLast bone density: 3 weeks ago at [facility]. Will request records Sexually active: No Cliff Ortiz, SIDE DOOR WORKER [address] [place] [address], [phone], [facility]. 07/03/2021 15:38:05 OBGyn Episode No OBEpisode recorded.
[2025-02-16 10:01] LABS: MANUAL DIFF FLAG NO
[2025-02-16 10:06] LABS: Hematocrit 43.4 % (37.0-47.0); Hemoglobin 14.0 g/dl (12.0-16.0); Imm Gran Abs Auto 0.01 X10*3/uL (0.00-0.03); Imm Gran Pct Auto 0.2 % (0.0-0.4); Lymphocytes Absolute Auto 1.5 X10*3/uL (1.2-4.9); Mean Corpuscular HGB Conc 32.3 g/dl (31.0-35.0); Mean Corpuscular Hemoglobin 29.2 pg (27.0-33.0); Mean Corpuscular Volume 90.6 fL (80.0-98.0); NRBC Abs Auto 0.000 X10*3/uL (0.0-0.012); NRBC Pct Auto 0.0 /100WBC (0.0-0.2); Platelet Count 246 X10*3/uL (160-400); Red Blood Count 4.79 X10*6/uL (4.20-5.50); White Blood Count 4.3 X10*3/uL (4.8-10.8)
[2025-02-16 13:03] LABS: Alanine Aminotransferase 19 U/L (0-31); Albumin Level 4.2 g/dL (3.5-5.0); Alkaline Phosphatase 127 U/L (39-117); Anion Gap 11 (12-20); Aspartate Amino Transferase 29 U/L (5-31); Blood Urea Nitrogen 11 mg/dL (9-16); Calcium 9.4 mg/dL (8.4-10.2); Carbon Dioxide 27 mmol/L (22-29); Chloride 108 mmol/L (96-108); Cholesterol 201 mg/dL (<200); Estimated Glomerular Filt Rate > 60; HDL Cholesterol 79 mg/dL (>40); Potassium 3.9 mmol/L (3.3-5.1); Sodium 142 mmol/L (135-145); Total Protein 7.3 g/dL (6.5-8.0); Triglycerides 63 mg/dL (<150)
[2025-02-22 14:58] LABS: Vitamin D 25-OH, D2 <4 ng/mL; Vitamin D 25-OH, D3 38 ng/mL; Vitamin D 25-OH, Total 38 ng/mL (30-100)
== END 2025-02-16 08:22 | disposition home or self-care (01) ==
LOC: HO.HMGCLDS 08:21
PROVIDERS: PCP Internal Medicine; Visit Provider Internal Medicine
DX: Z00.01 Encounter for general adult medical examination with abnormal findings (principal); R63.0 Anorexia; D70.8 Other neutropenia; R10.13 Epigastric pain; K59.00 Constipation, unspecified; R14.0 Abdominal distension (gaseous); F41.9 Anxiety disorder, unspecified; F32.A Depression, unspecified; K21.00 Gastro-esophageal reflux disease with esophagitis, without bleeding; Z98.2 Presence of cerebrospinal fluid drainage device
CPT/HCPCS: 36415; 80053; 80061; 82306; 84443; 85025; 99396

== ENCOUNTER 2025-03-13 07:40 | Outpatient (REF) | payer OTHER, SELFPAY ==
--- NOTE | ~2025-03-13 | XR_ITS ---
EXAMINATION: XR CERVICAL SPINE CLINICAL INFORMATION: M54.2 - Cervicalgia COMPARISON: None available. TECHNIQUE: 3 views of the cervical spine were obtained. FINDINGS: Mild head tilt to the left and curvature of the proximal cervical spine to the right. Bone alignment otherwise normal. No fracture or dislocation. Mild degenerative spondylosis and disc space narrowing at C5-6 and C6-7. Prevertebral soft tissues are normal. XR/XR cervical spine 3V IMPRESSION: Mild head tilt to the left, curvature of the proximal cervical spine to the right and degenerative changes at C5-6 and C6-7. Electronically signed by: Meka Coronado MD 03/13/2025 09:15 AM EST
== END 2025-03-13 07:41 | disposition home or self-care (01) ==
LOC: HO.HMGCX 07:40
PROVIDERS: PCP Internal Medicine; Visit Provider Physician Assistant Medical
DX: M54.2 Cervicalgia (principal)
CPT/HCPCS: 72040; 99212

== ENCOUNTER 2025-03-13 07:40 | Outpatient (AMB) | payer OTHER, SELFPAY ==
[2025-03-13 07:41] VITALS: BP 120/68; PULSE 88; O2SAT 98; BMI 24.9
--- NOTE | 2025-03-13 07:41 | AM.OFFWIN_ITS ---
Intake Vital Signs 03/13/25 07:41 Height 5 ft 2 in Weight 136 lb BMI 24.9 BP 120/68 Blood Pressure Location Lt brachial Position Sitting Pulse 88 Pulse Source Pulse Oximeter Pulse Oximetry (%) 98 Oxygen Delivery Method Room Air Intake Visit Reasons: ep right neck pain Intake Note: Patient presents with c/o pain in back of neck on the right side x4 days. Patient Tobacco Use Status: Never used Tobacco Allergies No Known Allergies Allergy (Verified 03/13/25 07:44) Do you need a note to return to daycare/school/sports/work: No HPI HPI Comments History of Present Illness Details History of Present Illness - The patient is a 60-year-old female pr esenting with neck pain and muscle spasms. - The neck pain started before a cruise, described as severe pain in the back of the neck on the right, worsened by bending, with associated spasms and tingling. - No trauma was reported, but stress and improper sleeping posture are suspected as contributing factors. - An anxiety attack occurred before the cruise, potentially worsening the neck pain. - Has no associated headache. - She has no trauma or falls. - She has no radiation of the pain into the shoulders or back. - She has no numbness or tingling. Physical Exam General: Cooperative, healthy appearing, comfortable, no acute distress and well developed Orientation: Patient oriented x3 Limitations: No limitations Neck: full ROM. No midline spinous tenderness noted. No step offs noted. TTP of the right cervical paraspinous muscles. TTP of the right SCM. Respiratory: Normal respiratory effort and able to speak in complete sentences. Clear to auscultation bilaterally Cardiovascular: Regular rate and rhythm. Normal S1 and S2 Skin: No rashes or lesions noted Neuro: Sensation is intact. Extremities: Normal to inspection. FROM of the shoulders bilaterally. Strength is 5/5 on the UE bilaterally. No TTP to the anterior and posterior shoulder on the right. Hand consulting project director is intact. Patient was informed and verbally consented to the use of an ambient scribe for clinic note documentation during this visit. 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 Sexual orientation: Straight/Heterosexual Gender identity: Female Cognitive needs: No Hearing needs: No Vision needs: No Review of Systems Const All systems reviewed & are unremarkable except as noted in HPI and below Physical Exam Vital Signs: Last Vital Signs Pulse 88 03/13/25 07:41 BP 120/68 03/13/25 07:41 Pulse Ox 98 03/13/25 07:41 Oxygen Delivery Method Room Air 03/13/25 07:41 BMI result Body Mass Index 24.9 Results Reviewed Results Reviewed: will review the c-spine x-ray in the office Assessment & Plan Assessment & Plan (1) Neck pain: Code(s): M54.2 - Cervicalgia Plan Most likely strain vs arthritis vs cervical radiculopathy plan - Prescribed muscle relaxants and anti-inflammatory medications to alleviate pain and reduce muscle tension. - Recommended application of heat and neck stretching exercises to improve flexibility and reduce discomfort. - Advised on proper sleeping posture to prevent exacerbation of symptoms. - Ordered an x-ray to rule out any structural abnormalities in the cervical spine. - follow up with PCP if no better Orders: Orders XR cervical spine 3V Today M54.2 - Cervicalgia Medications: New naproxen 500 mg PO Q12H PRN 20 tabs 0RF pain 7 days cyclobenzaprine 5 mg PO Q8H PRN 20 tabs 0RF Muscle Spasm Coding Level of Care Code Est Pt Level 4 (68801) Diagnoses Neck pain M54.2
--- OUTSIDE RECORDS SUMMARY | 2025-03-13 07:44 | XMS_ITS | Data Portability ---
Author Organization [facility] [employer], svmg_admin Address [address] [place] [id number] Care Team Providers Care Prison Warden Name Role Phone NILDA RODRIGUEZ Primary Care Provider Assessment No assessment recorded. Plan of Treatment Reminders Order Date Submit Date Provider Last Modified By Organization Details Last Modified Time Details Appointments None recorded. Lab cytology report, thin prep, smear or scraping, cervical or vaginal 2021 022 KRISTY [facility], [address] [place] [address], [address], 2 11:07:[address]/dietiti an referral - Insurance referral request sent to PCP Dr Rodriguez 2021 022 [email or web address] 5 Candace Parsons ([facility] ), [address] [place] [address], [address], 13:42:37 Procedures None recorded. Surgeries None recorded. Imaging None recorded. Medication Orders None recorded. Patient TargetsNo targets recorded. Patient InstructionsNo instructions recorded. Reason for Referral Radio Communication Coordinator/dietitian Refer ral for Unintentional weight gain unintended weight gain, non-medical Insurance referral request sent to PCP Dr Rodriguez Referring Physician: Cliff Ortiz, TELEGRAPHER AGENT, Encounter Date: 07/03/2021 Results Created Date Observation [...] diffe renti ation . Not Available [facility] ([facility]) [address] [facility], [place], [address], 07/10/2021 11:07:41 07/05/19 22 07/10/2021 IGP, APTIM A HPV, RFX 16/18 ,45 diagnosis: Danilo fernandez NEGAT IRENE FOR INTRA EPITH ELIAL LESIO N OR MALIG VIVIANA . THIS SPECI MEN WAS RESCR EENED PART OF OUR QUALI TY CONTR OL PROGR AM. Not Available [facility] ([facility]) [address] [facility], [place], [address], 07/10/2021 11:07:41 07/05/19 22 07/10/2021 IGP, APTIM A HPV, RFX 16/18 ,45 specimen adequacy: Danilo fernandez Satis facto ry for evalu ation . No endoc ervic al compo nent is ident ified . Not Available [facility] ([facility]) [address] [facility] [address], [place], [address], 07/10/2021 11:07:41 07/05/19 22 07/10/2021 IGP, APTIM A HPV, RFX 16/18 ,45 clinician provided ICD10: Danilo fernandez Z12.4 Not Available [facility] ([facility]) [address] [facility] [address], [place], [address], 07/10/2021 11:07:41 07/05/19 22 07/10/2021 IGP, APTIM A HPV, RFX 16/18 ,45 performed by: Danilo Gill, Cytorebecca fernandez Not Available [facility] ([facility]) [address] [place], [address], 07/10/2021 11:07:41 07/05/19 22 07/10/2021 IGP, APTIM A HPV, RFX 16/18 ,45 QC reviewed by: Ria Sinha alaor y Cytot andres fernandez (ASCP ) Not Available [facility] ([facility]) [address] [place], [address], 07/10/2021 11:07:41 07/05/19 22 07/10/2021 IGP, APTIM A HPV, RFX 16/18 ,45 . . Not Available [facility] ([facility]) [address] [place], [address], 07/10/2021 11:07:41 07/05/19 22 07/10/2021 IGP, APTIM [...] ts do occur . Not Available [facility] ([facility]) [address] [facility] [address], [place], [address], 07/10/2021 11:07:41 07/05/19 22 07/10/2021 IGP, APTIM A HPV, RFX 16/18 ,45 test methodology: Danilo fernandez This liqui d based ThinP rep(R ) pap test was scree cata with the use of an image guide mich de santiago Not Available [facility] ([facility]) [address] [place], [address], 07/10/2021 11:07:41 07/08/19 22 06/13/2021 bone densi ty No observ ation record ed. Not Available 2021 08:07:51 07/08/19 22 06/13/2021 MAMMO , scree cassy, digit al, bilat eral No observ ation record ed. Not Available 2021 08:07:51 06/16/19 23 02/09/2022 US, traci s No observ ation record ed. [email or web address] [facility]) [address] [facility], [place], [address], 06/17/2022 20:28:08 Result Notes None recorded. Problems Name Problem SNOMED Code Status Onset Date Resolution Date Notes Provider Name and Address Organization Details Recorded Time Midline cystocele [id number] Active 022 Cliff Ortiz CNP [address] [place] [address], [phone], [facility] 13:21:33 Problem Notes None recorded. Procedures Surgical History Date Name Laterality Status Provider Name and Address Organization Details Recorded Time 06/13/19 22 Most Recent Bone Density completed Cliff Ortiz CNP [address] [place] [address], [phone], [facility] 07/03/2021 13:14:09 06/13/19 22 completed Cliff Ortiz CNP [address] [place] [address], [phone], [facility] 07/03/2021 13:14:09 06/03/19 15 Colonoscopy completed Cliff Ortiz CNP [address] [place], [address], [facility] 07/03/2021 13:14:09 Breast Surgery (Lumpectomy, Biopsy, Implants) completed Cliff Ortiz CNP [address] [place], [address], [facility] 07/03/2021 13:14:12 Abdominal Surgery completed Cliff Ortiz CNP [address] [place], [address], [facility] 07/03/2021 13:14:12 abdominoplasty completed [facility] 07/03/2021 13:19:48 Breast Implants completed [facility] 07/03/2021 13:20:03 Imaging Results None recorded. Procedure [...] Address Organization Details Last Updated DateTime 2 42389.6 4 g 98 [degF] 96 /min 97 % 97 % 0 110/74 mm[Hg] [facility] 2 13:14:54 Social History Question Answer Notes LastModified by Organizat ion Details LastModified Time Tobacco Smoking Status [facility]/2021 13:19:21 Do You Have An Advance Directive? No [email or web address] Information not available 07/03/2021 Are You Blind Or Do You Have Difficulty Seeing? No Information not available 07/03/2021 Is Blood Transfusion Acceptable In An Emergency? Yes [email or web address] Information not available 07/03/2021 What Is Your Level Of Caffeine Consumption? Occasional Information not available 07/03/2021 Are You Deaf Or Do You Have Serious Difficulty Hearing? No Information not available 07/03/2021 What Type Of Diet Are You Following? VEGAN [email or web address] Information not available 07/03/2021 Which Of Your [...] 07/03/2021 Do You Have Any Pets? Yes [email or web address] Information not available 07/03/2021 What Is Your Relationship Status? Information not available 07/03/2021 Has Tobacco Cessation Counseling Been Provided? No Information not available 07/03/2021 How Many Days In The Past Year Have You Consumed 4 Or More Drinks? 2 [email or web address] Information no t available 07/03/2021 Sex: Unknown [...] available 07/03/2021 Are you currently employed? Yes [email or web address] Information not available 07/03/2021 Are you able to care for yourself independently? 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 Occasional [email or web address] Information not available 07/03/2021 Mental Status Question Answer Note LastModified by Organization D etails LastModified Time Do you feel stressed (tense, restless, nervous, or anxious, or unable to sleep at night)? [id number] [email or web address] Information not available 07/03/2021 Family History Relationship [...] available 07/03/2021 13:18:40 Paternal Grandmother Diabetes mellitus [email or web address] Not available 07/03 13:14:09 Paternal Grandmother Family [...] mL dose 02/06/2021 completed Melinda Hartnagel null, [facility] 04/10/2021 16:10:49 COVID-19, mRNA, LNP-S, PF, 30 mcg/0.3 mL dose 08/02/2020 completed Melinda Hartnagel null, [facility]. 04/10/2021 16:10:55 COVID-19, mRNA, LNP-S, PF, 30 mcg/0.3 mL dose 07/12/2020 completed Melinda Hartnagel null, [facility] 04/10/2021 16:10:59 IPV 04/23/2010 completed Melinda Hartnagel null, [facility] 04/10/2021 16:11:11 MMR 04/23/2010 completed Melinda Hartnagel null, [facility]. 04/10/2021 16:11:28 Tdap 02/05/2014 completed Melinda Hartnagel null, [facility] 04/10/2021 16:11:42 zoster, unspecified formulation 03/18/2020 completed Melinda Hartnagel null, [facility]. 04/10/2021 16:12:18 zoster, unspecified formulation 01/10/2020 completed Melinda eduardo [facility] 04/10/2021 16:12:22 Past Encounters Encounter ID Performer Location Encounter Start Date Encounter Closed Date Diagnosis/Indication Diagnosis SNOMED-CT Code Diagnosis ICD10 Code Diagnosis IMO Codes Diagnosis Note [id number] Kayla Edwards MD [facility] [address] [facility] JANE LAUREN [id number] 07/03/2021 12:54:38 07/03/2021 14:36:44 Gynecologic examination 19044153 Z01.419 Normal breast and pelvic exam today. F/u in one year for repeat. Unintentio nal weight gain 1790117866 68929 R63.5 Screening for malignant neoplasm of cervix 160636903 Z12.4 Hx of abnormal. rpt today Health Concerns Section Related Observation LastModified by Organization Detai ls LastModified Time None Recorded Concern Status LastModified by Organization Details LastModified Time None Recorded Advance Directives Directive N: Payers Insurance Date Sequence Insurance Name Policy Number Policy Mittal Covered Member ID Mittal Member ID Guarantor Name 09/08/2022 1 [facility] (O) [id number] Raven Alivia Garzon [id number] Raven Garzon 06/01/[address] 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 She is postmenopausal since age of 52.Denies menopausal symptoms including bleeding, vaginal dryness, hot flashes, night sweats. HRT- never.She is feeling well, no complaints except weight gain that she can't get off. Gained 26 lb in past 2 years. Recent labs by PCP normal. She is vegan so she eats alot of carbs, would like to see a mercerizing range controller to help with weight loss and encouraged regular exercise. Last pap 06/2020 cytology neg HPV testing neg. Hx of abnormal in 2019 HPV+ and ASCUS, colpo was benign. Continue yearly surveillance.Last mammogram: 3 weeks ago at [place], normal per pt, will request recordsLast bone density: 3 weeks ago at [place]. Will request records Sexually active: No Cliff Ortiz, LUMBER STACKER OPERATOR [address] [place] [address], [phone], [facility] - [facility]. 07/03/2021 15:38:05 OBGyn Episode No OBEpisode recorded.
--- OUTSIDE RECORDS SUMMARY | 2025-03-13 07:44 | XMS_ITS | Data Portability ---
Author Organization [place] - [facility] - IP Address [address] [place] [address] Care Team Providers Care Human Capital Manager Name Role Phone PENELOPEJUANITARai Primary Care Provider [phone] Assessment No assessment recorded. Plan of Treatment Reminders Order Date Submit Date Provider Last Modified By Organization Details Last Modified Time Details Appointments COLON PROPOFOL 2024 02:30P M Rachel_proc edures Not available Not available Not available Telehealt h 15 min 2024 07:45P M MOLINA LUCERO MD Not available Not available Not available Telehealt h 15 min 2025 04:00P M MOLINA LUCERO MD Not available Not available Not available Lab [...] No t Available Voquezna 20 mg tablet 2024 active Not Available Not Available Not Avai lable Voquezna 10 mg tablet active Not Available Not Available No t [...] ICD10 Code Diagnosis IMO Codes Diagnosis Note [id number] Molina Lucero MD [facility] Office [address] [place] [address] 02/07/2022 15:07:49 02/07/2022 15:10:05 Family history of cancer of colon 953191707 Z80.0 [id number] Molina Lucero MD [facility] Office [address] [place] [id number] 02/13/2022 09:59:09 02/13/2022 10:02:16 Polyp of colon 16957283 K63.5 [id number] Molina Lucero MD [facility] Office [address] [place] [address] 07/30/2022 14:00:48 07/30/2022 14:08:09 Family history of cancer of colon 240693498 Z80.0 [id number] Molina Lucero MD [facility] Office [address] [place] [phone] 07/21/2024 11:04:40 07/21/2024 11:08:32 Gastric ulcer 679277261 K25.9 Gastroesop hageal reflux disease without esophagitis 913460487 K21.9 [id number] Molina Lucero MD [facility] [address] [place] [address] 11/24/2024 12:41:35 11/24/2024 12:45:51 Gastric ulcer 269479743 K25.9 [id number] Health Concerns Section Related Observation LastModified by Organization Detai ls LastModified Time None Recorded Concern Status LastModified by Organization Details LastModified Time None Recorded Advance Directives Directive None Recorded Payers Insurance Date Sequence Insurance Name Policy Number Policy Mittal Covered Member ID Mittal Member ID Guarantor Name 01/17/2025 1 [facility] (MEDICAID HMO) KRISTY Garzon [id number] Raven Garzon 06/20/2024 1 [facility] (O) Duran Carbajal [id number] Raven Garzon OBGyn Episode No OBEpisode recorded.
--- OUTSIDE RECORDS SUMMARY | 2025-03-13 07:44 | XMS_ITS | Encounter Summary ---
Author Organization [facility] Address [address] [place] [address] Care Team Providers Care Brim Pouncer Name Role Phone Darlene Rodas MD Primary Care Provider [phone]- [phone] Encounter Details Date Type Department Care Team (Late st Contact Info) Description 02/29/[address] [facility] [address] [place] [phone] Darlene Rodas MD [address] [place] [address] Social History Tobacco Use Types Packs/Day Years [...] this encounter Procedures * Due to [place] [employer] law, this organization might not be sharing [...] this encounter Results * Due to [place] [employer] law, this organization might not be sharing [...] 12:03 AM EDT Narrative Resulting Agency Comment [id number] Darlene Rodas MD LAB SAME DAY RESULT Final Result [facility] [address] [place] [address] * BASIC METABOLIC PANEL WITH (GFR) (02/29/2020 4:40 PM EDT) Glucose 92 65 - 99 mg/dL [facility] Comment:Fasting reference in terval Urea Nitrogen Blood (BUN) 19 7 - 25 mg/dL [facility] Creatinine 0.66 0.50 - 1.05 mg/dL [facility] Comment: For patients >49 years of age, the reference limit for Creatinine is approximately 13% higher for people identified as -Bruneian. EGFR 100 > OR = 60 mL/min/1 [...] needs for GFR calculation. Resulting Agency Comment [id number] Darlene Rodas MD LABORATORY Final Resu lt Performing Organization Address [facility] Co de Phone Number [facility] [address] [place] [address] * LIPID PANEL WITH REFLEX TO DIRECT [...] LDL-C. Vladimir BLACKMON et al. PUJA. 2013;310(19): 9811-2757 (http://education.[employer]/faq/AIT378) CHOL/HDL Ratio 2.2 <5.0 (calc) [facility] Cholesterol Non-HDL 95 <130 mg/dL (calc) [facility] Comment: For patients with diabetes plus 1 major ASCVD risk factor, treating to a non-HDL-C goal of <100 mg/dL (LDL-C of <70 mg/dL) is considered a therapeutic option. 02/29/2020 4:40 PM EDT 03/01/2020 12:03 AM EDT Narrative Resulting Agency Comment [id number] Darlene Rodas MD LABORATORY Final Resu lt Performing Organization Address City/[facility]/ZIP Co de Phone Number [facility] [address] [place] [address] * ALANINE AMINOTRANSFERASE (ALT), SERUM (02/29/2020 4:40 PM EDT) ALT (SGPT) 14 6 - 29 U/L [facility] 02/29/2020 4:40 PM EDT 03/01/2020 12:03 AM EDT Narrative Resulting Agency Comment [id number] Darlene Rodas MD LAB SAME DAY RESULT Final Result Performing Organization Address [facility] Co de Phone Number [facility] [address] [place] [address] * SYPHILIS (FTA) ANTIBODY CASCADING REFLEX TO [...] 12:03 AM EDT Narrative Resulting Agency Comment [id number] us Rachael Camarena MD LABORATORY Final Result Performing Organization Address [facility] de Phone Number [facility] [address] [place] [address] documented in this encounter Visit Diagnoses Diagnosis Concern about STD in female without diagnosis Person with feared complaint in whom no diagnosis was made Screening for endocrine, metabolic and immunity disorder documented in this encounter Care Teams Brim Pouncer Relationship Specialty Start Date End Date Darlene Rodas MD [address] [place] [address] PCP - General 07/16/16 03/18/21 documented as of this encounter
--- OUTSIDE RECORDS SUMMARY | 2025-03-13 07:44 | XMS_ITS | Clinical Summary ---
Author Organization [facility] Address [address] [place] [address] Care Team Providers Care Boom Truck Driver Name Role Phone No, Pcp MANAGER PROGRAM MANAGEMENT Primary Care Provider Unavailabl e Allergies No [...] Mass Index - - Plan of Treatment Not on file Medical Devices Not on file Insurance [facility] PLAN Care Teams Boom Truck Driver Relationship Specialty Start Date End Date No, Pcp, MANAGER PROGRAM MANAGEMENT N/A Do not use PCP - General Family Medicine 03/24/20
--- OUTSIDE RECORDS SUMMARY | 2025-03-13 07:44 | XMS_ITS | Encounter Summary ---
Author Organization [facility] Address [address] [place] [address] Care Team Providers Care Assembly Line Brazer Name Role Phone Darlene Rodas MD Primary Care Provider [phone]- [phone] Encounter Details Date Type Department Care Team (Late st Contact Info) Description 04/11/[address] [facility] [address] [place] [phone] Darlene Rodas MD [address] [place] [address] Social History Tobacco Use Types Packs/Day Years [...] ality of the cells. There fore recommend supervisor agency appointments consult for colposcopy, if agreeable please send referral, for supervisor agency appointments (ASCUS HPV pos) Her lab work was all normal. documented in this encounter Plan of Treatment Not on file documented as of this encounter Procedures * Due to [employer] law, this organization might not be sharing [...] in this encounter Results * Due to [employer] law, this organization might not be sharing [...] in vaginal danica suggestive of bacterial vaginosis. [facility] Cytology study comment (Cvx/Vag) This Pap test has been evaluated with computer assisted technology. [facility] Hat Presser (Cvx/Vag) CXP, CT(ASCP) CT screening location: [place] [address] [facility] Pathologist (Cvx/Vag) Guera Whitfield M.D., Board Certified in Anatomic and Clinical Pathology (electronic signature) Consulting Pathologist [facility] Pathology [phone] [facility] COMMENT SEE NOTE [facility] [...] was performed using the APTIMA HPV Assay ([employer] This assay detects E6/E7 viral messenger RNA (mRNA) from 14 high-risk HPV types (16,18,31,33,35,39,45,51,52,56,58,59,66,68). The analytical performance characteristics of this assay have been determined by [employer]. The modifications have not been cleared or approved by the FDA. This assay has been validated pursuant to the CLIA regulations and is used for clinical purposes. ENDOCERVICAL STRUCTURE / Unknown 04/11/2019 12:15 PM EST 04/11/2019 11:36 PM EST Narrative Resulting Agency Comment [id number] Darlene Rodas MD PATHOLOGY-INTERFACED Final Result [facility] [address] [place] [address] * CBC INCLUDES DIFFERENTIAL AND PLATELET COUNT [...] 9:59 PM EST Narrative Resulting Agency Comment [id number] Darlene Rodas MD LAB SAME DAY RESULT Final Result Performing Organization Address City/State/[facility] Co de Phone Number [facility] [address] [place] [address] * LIPID PANEL WITH REFLEX TO DIRECT [...] LDL-C. Vladimir BLACKMON et al. PUJA. 2013;310(19): 8776-8052 (http://education.[employer].e-Zassi/faq/YLD044) CHOL/HDL Ratio 2.2 <5.0 (calc) [facility] Cholesterol Non-HDL 95 <130 mg/dL (calc) [facility] Comment: For patients with diabetes plus 1 major ASCVD risk factor, treating to a non-HDL-C goal of <100 mg/dL (LDL-C of <70 mg/dL) is considered a therapeutic option. 04/11/2019 8:39 AM EST 04/11/2019 9:59 PM EST Narrative Resulting Agency Comment [id number] Darlene Rodas MD LABORATORY Final Resu lt [facility] [address] [place] [address] * BASIC METABOLIC PANEL WITH (GFR) (04/11/2019 8:39 AM EST) Glucose 76 65 - 99 mg/dL [facility] Comment:Fasting reference in terval Urea Nitrogen Blood (BUN) 14 7 - 25 mg/dL [facility] Creatinine 0.65 0.50 - 1.05 mg/dL [facility] Comment: For patients >49 years of age, the reference limit for Creatinine is approximately 13% higher for people identified as -Norwegian. EGFR 101 > OR = 60 mL/min/1 [...] needs for GFR calculation. Resulting Agency Comment [id number] Darlene Rodas MD LABORATORY Final Resu lt Performing Organization Address [facility] de Phone Number [facility] [address] [place] [address] * HEPATIC FUNCTION PANEL (ALT,AST,ALK PH,BILI'S,TP,ALB) (04/11/2019 [...] 9:59 PM EST Narrative Resulting Agency Comment [id number] us Darlene Rodas MD LABORATORY Final Resu lt Performing Organization Address [facility] de Phone Number [facility] [address] [place] [address] * TSH, 3RD GENERATION (04/11/2019 8:39 AM EST) TSH 3.81 mIU/L [facility] Comment: Reference Range > or = 20 Years 0.40-4.50 Ranges First trimester 0.26-2.66 Second trimester 0.55-2.73 Third trimester 0.43-2.91 04/11/2019 8:39 AM EST 04/11/2019 9:59 PM EST Narrative Resulting Agency Comment [id number] Darlene Rodas MD LABORATORY Final Resu lt [facility] [address] [place] [address] documented in this encounter Visit Diagnoses Diagnosis Screening for metabolic disorder Screening for malignant neoplasm of cervix Screening for malignant neoplasm of the cervix documented in this encounter Care Teams Assembly Line Brazer Relationship Specialty Start Date End Date Darlene Rodas MD [address] [place] [address] PCP - General 07/16/16 03/18/21 documented as of this encounter
--- OUTSIDE RECORDS SUMMARY | 2025-03-13 07:44 | XMS_ITS | Clinical Summary ---
Author Organization [facility] Address [address] [place] [address] Care Team Providers Care Science Instructor Name Role Phone Jeremy Camara Primary Care Provider [phone] Allergies No known active allergies Medications multivitamin [...] 1965 Hepatitis C Screening 1965 Sigmoidoscopy 1965 Zoster Vaccines (2 of 2) 03/06/2020 01/10/2020 Pap Smear 06/11/2023 06/11/2020 Alcohol/Substance Use Screening 05/03/2024 Depression Screening and Follow-Up 05/03/2024 Social Drivers of Health Annual Screening 05/03/2024 Diabetes Screening 10/02/2024 10/02/2021, 0 10/02/2021, 06/05/2021, Additional history exists COVID-19 Vaccine ( season) 2025 01/11/2024, 01/26/2023, 03/12/2022, Additional history exists Influenza Vaccine (#1) 2025 , 01/26/2023, 01/29/2022, Additional history exists Cervical Cancer Screening 06/11/2025 HPV and Pap Smear 06/11/2025 06/11/2020 Mammogram 08/04/2026 08/04/2024, 06/04, 06/19/2022, Additional history exists Colon Cancer Screening 01/30/2032 Colonoscopy 01/30/2032 01/29/2022, 01/26/2022 DTaP,Tdap,and Td Vaccines (3 - Td or Tdap) 02/15/2034 02/16/2024, 02/05/2014 RSV Vaccine (60+ years old and patients) (1 - 1-dose 75+ series) 2040 Pneumococcal Vaccine: 50+ Years Completed 07/11/2024 Hepatitis B Vaccines Aged Out No long er eligible based on patient's age to complete this topic Procedures * Due to [place] state law, this organization might not be [...] to Health Maintenance Results * Due to [place] state law, this organization might not be sharing negative HIV tests. * FRANCK Bilateral Implant Screening Digital Mammogram With Fuad (08/04/2024 1:14 PM EDT) Anatomical Region Laterality Modality Breast Bilateral Mammography Narrative 08/12/2024 9:23 AM EDT Raven Garzon Exam Date: 08/04/[address] [id number] EXAMINATION FRANCK Bilateral Implant Screening Digital Mammogram With Fuad. INDICATION Raven Garzon is a 59 y.o. female and is seen for: FRANCK Bilateral Implant Screening Digital Mammogram With Fuad. CC and MLO views were obtained. FDA approved [employer] AI (artificial intelligence) software and R2 CAD were used as a concurrent reading aid in the interpretation of this study. COMPARISON Compared to: 06/30/2023 FRANCK Bilateral Implant Screening Digital Mammogram With Fuad and 06/19/2022 FRANCK Screening Digital Mammogram Bilateral Breast Findings: The [...] breast ultrasound (ABUS) depending on risk factors. [email or web address] Breast MRI is available at many [facility] MRI locations. To schedule, enter an MRI order into [facility] (MRI BREAST BILAT SCREENING W WO CONTRAST), call [phone] or [phone], or fax [phone]. ABUS is available at two [facility] sites. To schedule, enter an ABUS order into [facility] (ABUS), contact [place] Central Scheduling (call [phone] or fax order [phone]), or contact [facility] Central Scheduling (call [phone] or fax order [phone]). If this radiology report contains a blank impression section, it is an incomplete radiology report. Please contact the interpreting radiologist or applicable radiology division as soon as possible to obtain the completed interpretation. Parish Riggs MD Resulting Agency Comment [id number] us Jeremy Camara IMG BI PROCEDURES Final Result * Colonoscopy (01/29/2022 11:15 AM EDT) us Onbase Scan [facility] Final Resu lt * Comprehensive Metabolic Panel (10/02/2021 8:52 AM EDT) Alkaline Phosphatase 110 40.0 - 129.0 U/L CONVERSION DATA LAB 10/02/2021 8:52 AM EDT us Oliverio Michael DO LAB BLOOD ORDERABLES Final Resul t CONVERSION DATA LAB from Last 3 Months or Most Recently Relevant to Health Maintenance Insurance [facility] MEDICAID Advance Directives Documents on File Type Date Recorded Patient Rn Building Expl anation Health Care Proxy 08/21/2021 Health Care Proxy 08/21/2021 Health Care Proxy 08/21/2021 Health Care Proxy 08/21/2021 Health Care Proxy 08/21/2021 Health Care Proxy 08/21/2021 Advance Directive 06/03/2021 11:22 AM Care Teams Science Instructor Relationship Specialty Start Date End Date Jeremy Camara [address] [place] [address] PCP - General Internal Medicine 07/04/24
--- OUTSIDE RECORDS SUMMARY | 2025-03-13 07:44 | XMS_ITS | Continuity of Care Document ---
Author Organization [facility] Address [address] [place] [address] Care Team Providers Care Tube Mounter Name Role Phone Unavailable Primary Care Provider Unavailabl e Encounters Date Type Department Care Team Description 10/09/2024 Orders Only [facility] [address] [place] [address] Tammie Ramos MD 07/03/2024 Orders Only [facility] [address] [place] [address] Tammie Ramos MD 06/30/2023 Minor Procedure/Test [facility] [address] [place] [address] [facility], Unknown Provider 03/23/2023 Minor Procedure/Test [facility] [address] [place] [address] [facility], Unknown Provider 12/10/2022 Telephone [facility] 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 [facility] [address] [place] [address] Darlene Rodas MD Other (Pcp; ins info/) 03/03/[address] [facility] [address] [place] [address] Darlene Rodas MD Imm/Inj 10/29/2020 Orders Only [facility]. Podiatry [address] [place] [phone] Tre Rosario DPM 10/29/2020 8:30 AM EDT Radiology [facility] X-Ray [address] [place] [address] 10/29/2020 Orders Only [facility] Podiatry [address] [place] [address] Tre Rosario, DPYocasta 10/29/2020 8:50 AM EDT Consult (Initial) [facility] [address] [place] [phone] Tre Rosario, DPM Onychomycosis (Primary Dx); Acquired hallux valgus of left foot; Bilateral foot pain; Acquired hallux valgus of right foot 10/22/2020 Telephone All of [address] [address] Umza [place], [employer] [facility] 10/22/2020 Telephone All of [address] [address] [employer] [place], [employer] [facility] Program 09/03/[address] [facility] [address] [place] [address] Darlene Rodas MD Cyst 06/12/[address] 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 [address] [place] [address] Brittany Li NP 06/11/2020 Travel 06/11/2020 8:00 AM EST Office Visit [facility] PRINTING PRESS MACHINE OPERATOR [address] [facility] [address] [place] [address] Brittany Li NP Encounter for gynecological examination (general) (routine) without abnormal findings (Primary Dx); Abnormal cervical Papanicolaou smear, unspecified abnormal pap finding; Menopause present; Pap smear for cervical cancer screening; History of uterine fibroid; Cystocele, midline 06/03/[address] [facility] [address] [place] [address] Darlene Rodas MD Letter/form Request 05/28/[address] [facility] [address] [place] [address] Darlene Rodas MD Labs/orders (mmg) 05/27/2020 4:30 PM EST Radiology [facility] Ultrasound [address] [place] [address] Leg edema 05/27/2020 6:30 PM EST Radiology [facility] Xray [address] [place] [address] Leg edema 05/27/2020 5:45 PM EST Office Visit [facility] [address] [address] Taiwo Noe PA Leg edema (Primary Dx) 05/27/2020 Travel 05/27/[address] [facility] [address] [place] [address] Darlene Rodas MD Knee Pain 05/23/2020 Orders Only NON FC SA [address] [address] Darlene Rodas MD 04/24/2020 Travel 04/17/2020 Travel 04/17/2020 8:15 AM EST CPE - Comprehensive Physical Exam [address] [facility] [facility] [address] [place] [address] Darlene Rodas MD Well adult exam (Primary Dx); ASCUS with positive high risk HPV cervical; S/P colonoscopy; Gastroesophageal reflux disease, unspecified whether esophagitis present 03/20/[address] [facility] [address] [place] [address] Darlene Rodas MD Results 03/16/[address] Orders [address] [facility] [address] [place] [address] Darlene Rodas MD [address] [facility] [address] [place] [address] Darlene Rodas MD Imm/Inj 02/29/2020 Orders Only [address] [facility] [address] [place] [address] Darlene Rodas MD 02/28/[address] [facility] [address] [place] [address] Darlene Rodas MD Labs/orders 11/29/[address] [facility] [address] [place] [address] Darlene Rodas MD Labs/orders 06/30/2019 Letter/Form [facility] PRINTING PRESS MACHINE OPERATOR [address] 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 [facility] [address] [place] [address] Darlene Rodas MD Labs[facility]orders [facility] 05/19/2019 Orders Only NON FC SA [facility] [address] [place] [address] Darlene Rodas MD 04/20/[address] [facility] [address] [place] [address] Darlene Rodas MD Results 04/19/2019 11:00 AM EST Consult (Initial) [facility] [address] [place] [address] Vanessa Angel PA Pruritus (Primary Dx); Dyschromia 04/11/2019 Telephone [facility] [facility] [address] [place] [address] Darlene Rodas MD Records 04/11/2019 Orders Only [facility] [address] [place] [address] Darlene Rodas MD 04/11/2019 7:45 AM EST CPE - Comprehensive Physical Exam [facility] [address] [place] [address] Darlene Rodas MD Well adult exam (Primary Dx); Screening for metabolic disorder; Screening for malignant neoplasm of cervix; Screening for eye condition; Need for vaccination 02/20/2019 Letter/Form [facility] [address] [place] [address] Darlene Rodas MD 10/28/2018 Telephone [facility] [address] [place] [address] Darlene Rodas MD Labs/orders 07/06/2018 Refill [facility] [address] [place] [address] Darlene Rodas MD E-prescribing Refill Request 05/11/2018 Telephone [facility] [address] [place] [address] Darlene Rodas MD Patient Questions 04/20/2018 Refill [facility] [address] [place] [address] Opal Stevens NP E-prescribing Refill Request 04/18/2018 Orders Only NON FC SA [facility] [address] [place] [address] Darlene Rodas MD 04/04/[address] [facility] [address] [place] [address] Darlene Rodas MD Results 03/23/[address] [facility] [address] [place] [address] Darlene Rodas MD Labs/orders 03/23/2018 Telephone FC MISCELLANEOUS [phone] Mychart, Provider Generic MyChart Verification 03/22/2018 Orders Only [address] [facility] [address] [place] [address] Opal Stevens NP 03/22/2018 3:15 PM EST CPE - Comprehensive Physical Exam [facility] [address] [place] [address] Opal Stevens NP Routine history and physical examination of adult (Primary Dx); Healthcare maintenance; Anxiety; Gastroesophageal reflux disease, esophagitis presence not specified; Insomnia, unspecified type; Screening for breast cancer; Screen for STD (sexually transmitted disease); Need for vaccination 03/21/2018 7:30 AM EST Office Visit [facility]. Optometry [address] [place] [phone] Maricruz Russo OD Encounter for ophthalmic examination and evaluation (Primary Dx); Disorder of refraction 03/18/2018 Orders Only [facility] [address] [place] [address] Opal Stevens NP 03/14/[address] [facility] [address] [place] [address] Darlene Rodas MD Labs/orders 2018 Orders Only [facility] [address] [place] [address] Darlene Rodas MD 2018 Orders Only [facility] [address] [place] [address] Opal Stevens NP 02/20/2018 Letter/Form [facility] [address] [place] [address] Darlene Rodas MD 02/20/2017 Letter/Form [facility] [address] [place] [facility] [place] [address] Darlene Rodas MD 01/18/2017 1:00 PM EDT Radiology [facility] Xray [address] [place] [address] Sprain of right ankle, unspecified ligament, initial encounter 01/18/2017 12:30 PM EDT Office Visit [facility] [address] [place] [address] Sissy Ricks PA Sprain of right ankle, unspecified ligament, initial encounter (Primary Dx); Neck sprain, initial encounter 01/14/2017 Telephone [facility] [address] [place] [address] Darlene Rodas MD Ankle pain 11/19/2016 Telephone [facility] [address] [place] [address] Darlene Rodas MD Results 11/17/2016 Orders Only [facility] [address] [place] [address] Linette Mcguire NP 11/10/2016 Letter/Form [facility] [address] [place] [address] Linette Mcguire NP 11/05/2016 Letter/Form [facility] [address] [place] [address] Linette Mcguire NP 10/06/2016 Orders Only [facility] [address] [place] [address] Darlene Rodas MD 10/06/2016 9:45 AM EDT Office Visit [facility] [address] [place] [address] Linette Mcguire NP Encounter to establish care with new doctor (Primary Dx); Insomnia, unspecified type; Gastroesophageal reflux disease, esophagitis presence not specified; Anxiety; Hot flashes; Health care maintenance; Need for hepatitis C screening test 08/19/2016 Telephone [facility] [address] [place] [address] Darlene Rodas MD Erroneous encounter-disregard 08/19/2016 Telephone [facility] [address] [place] [address] Mleodie Leos, AUTOMOTIVE PARTS COUNTER ASSOCIATE Constipation 08/12/2016 [facility] Medical Records [address] [place] [address] Darlene Rodas MD 08/10/2016 Orders Only [facility] [address] [place] [address] Darlene Rodas MD 08/06/2016 Telephone [facility] [address] [place] [address] Darlene Rodas MD Referral Request (Chiro / Lonnie Baig) 07/27/2016 Orders Only [facility] [address] [place] [address] Darlene Rodas MD 07/27/2016 Telephone [facility] [address] [place] [address] Darlene Rodas MD Referral Request (chiro) 06/09/2016 Telephone [facility] Otolaryngology [address] [place] [address] [place] [address] Vicky Waters MD Cancellation 01/02/2016 Minor Procedure/Test Azeb Antunez MD 12/16/2015 Office Visit Azeb Antunez MD 12/16/2015 Minor Procedure/Test CARDI UNSPECIFIED Daniel Ybarra MD 09/05/2015 Minor Procedure/Test GASTRO UNSPECIFIED Gavin Cruz MD 10/31/2014 Minor Procedure/Test FAM PRAC UNSPECIFIED Azeb Ling MD 10/11/2014 Office Visit FAM PRAC UNSPECIFIED Nicole Marks NP 09/27/2014 3:00 PM EDT Office Visit [facility] Otolarynogology/Plas tics [address] [address] Jimenez Morales MD Facial rhytids (Primary Dx) 08/31/2014 10:00 AM EDT Office Visit [facility] Otolarynogology/Plas tics [address] [address] Jimenez Morales MD Facial rhytids (Primary Dx) 06/14/2014 Telephone [facility] Otolarynogology/Plas tics [address] [address] Jimenez Morales MD Patient Questions 06/13/2014 Telephone [facility] Otolarynogology/Plas tics [address] [address] Jimenez Morales MD Patient Questions 02/22/2014 2:45 PM EDT Office Visit [facility] Otolarynogology/Plas tics [address] [address] Jimenez Morales MD Facial rhytids (Primary Dx) 02/15/2014 4:00 PM EDT Office Visit [facility] Otolarynogology/Plas tics [address] [address] Jimenez Morales MD Facial rhytids (Primary Dx) 12/28/2013 3:30 PM EDT Consult (Initial) [facility] Otolarynogology/Plas tics [address] [address] Jimenez Morales MD Facial rhytids (Primary Dx) 02/27/2013 Minor Procedure/Test 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 Per patient report she had mammogram done in 2015 through outside [facility] [facility] provider, Dr. Gary in [place]. Her CPE 2017 note, patient signed MERLINE [...] exercise stress test 10/06/2016 Overview (10/06/2016): At [facility] on 01/02/2016. No evidence of ischemia [...] patient report last Pap done by outside [employer] [facility] [facility] 2017. We do not have these records. Mammography: Again, patient reports mammograms through outside [facility] [facility] [facility] in 2017. Colonoscopy: Per patient report colonoscopy done through [facility], 2017, no polyps. 10-year repeat. Need records from [facility]. DEXA: N/A Exercise: None Screen for STD (sexually transmitted disease) 05/28/19 19 06/11/2020 Overview (05/28/2018): 03/22/18: Patient requesting STD testing today. She is very concerned about the thought of having herpes. Tried to reassure her about the etiology and prevalence, and treatment of this disease. Anxiety 10/06/2016 04/11/2019 Overview (05/28/2018): Her previous PCP records. [facility] it was situational regarding conflict with coworker. [...] Alive Social History Smoking Status as of 03/13/2025 Tobacco Use Types Packs/Day Years Used Date [...] negative HIV tests. * TISSUE EXAM - [place] ONLY (10/09/2024 12:22 PM EDT) Only the most recent of2 resultswithin the time period is included. TISSUE EXAM RESULT SEE DETAILS [facility] Comment: FINAL DIAGNOSIS A. Esophagus, distal, [...] performance of special [place] [address], ([id number], CLIA #[id number]). Grossing and technical work performed at [facility] ([facility], [address] [place] [address]; ; [id number]; CLIA #[id number] All professional pathology services performed at [facility] ([address] [place] [address]; ; CLIA #[id number]) Note: Some or all of the tests utilized in this case may be laboratory developed tests (LDT's) and may use class I analyte specific reagents (ASR). These tests were developed for clinical purposes and their performance characteristics determined by [facility] on tissue fixed in 10% neutral buffered formalin. Other fixatives have not been validated, and therefore results on tissue with such fixation should be interpreted with caution and in the clinical context. [facility] are qualified under the CLIA 1988 documents to provide high-complexity clinical laboratory testing. All controls are reviewed and deemed appropriate. 10/09/2024 12:2 2 PM EDT Narrative [facility] - 10/10/2024 12:00 AM EDT Pre-op diagnosis: REPEAT EGD us Tammie Ramos MD PATHOLOGY Final Result [facility] BIOTECH ONE [address] [place] [address] * FRANCK BILATERAL IMPLANT SCREENING DIGITAL MAMMOGRAM [...] dense breast tissue shown on mammography. Per [employer] Appropriateness Criteria for Breast Cancer Screening (https://acsearch.acr.org/docs/38512/Narrative/) patient may benefit from tomosynthesis on future mammography and supplemental imaging with automated breast ultrasound (ABUS) or breast MRI depending on risk factors. Automated Breast Ultrasound (ABUS) is now available at both [facility] and in the Department of Mammography at [facility]. To schedule a patient, you can either enter an ABUS order into [facility] [employer] EMR (type in ABUS), call [facility] Central Scheduling at [phone], or call [facility] Central Scheduling at [phone]. To fax an external order: [facility] [phone] [facility] [phone]. If this radiology report contains a blank impression section, it is an incomplete radiology report. Please contact the interpreting radiologist or applicable radiology division as soon as possible to obtain the completed interpretation. 5' 2 125 Procedure Note [facility], Unknown Provider - 07/05/2023 EXAMINATION [...] of Radiology Appropriateness Criteria for Breast Cancer Screening(https://acsearch.acr.org/docs/07439/Narrative/) patient may benefit fromtomosynthesis on future mammography and supplemental imaging with automated breast ultrasound(ABUS) or breast MRI depending on risk factors. Automated Breast Ultrasound (ABUS) is now available at both [facility] and [facility]. To schedule a patient, you caneither enter an ABUS order into [facility] [employer] EMR (type in ABUS), call [facility] Central Scheduling [phone], or call [facility] Central Scheduling [phone]. To fax an external order: [facility] [phone] and[facility] [phone]. If this radiology report contains a blank impression section, it is anincomplete radiology report. Please contact the interpreting radiologistor applicable radiology division as soon as possible to obtain thecompleted interpretation. 5' 2 125 Unknown Provider [facility] Final Resu lt * FUNGAL STAIN, JAMIE (10/29/2020 2:39 PM EDT) Fungus identified SEE NOTE [facility] Comment: FUNGAL STAIN Micro Number: [id number] Test Status: Final Specimen Source: LEFT 2ND TOENAIL Specimen Quality: Adequate Smear: No fungal elements seen. 10/29/2020 2:39 PM EDT 10/29/2020 9:27 PM EDT Narrative Resulting Agency Comment [id number] us Tre Rosario DPYocasta LABORATORY Final Result [facility] [address] [place] [address] * XRAY FEET COMPLETE MIN 3 VWS [...] Smear Negative for intraepithelial lesion or malignancy. [facility] Cytology study comment (Cvx/Vag) This Pap test has been evaluated with computer assisted technology. [facility] Billing Manager (Cvx/Vag) SXA, CT(ASCP) CT screening location: [place] [address] [facility] COMMENT SEE NOTE [facility] Comment: EXPLANATORY NOTE: The Pap is [...] HPV MRNA E6/E7 Not Detected Not Detected [facility] Comment: Methodology: Saw Superintendent-Mediated Amplification This assay detects E6/E7 viral messenger RNA (mRNA) from 14 high-risk HPV types (16,18,31,33,35,39,45,51,52,56,58,59,66,68). The analytical performance characteristics of this assay have been determined by [facility]. The modifications have not been cleared or approved by the FDA. This assay has been validated pursuant to the CLIA regulations and is used for clinical purposes. For additional information, please refer to http://education.snagajob.com.Speakap/BCX791b4 (This link if provided for information/ educational purposes only.) ENDOCERVICAL STRUCTURE / Unknown 06/11/2020 11:05 AM EST 06/12/2020 7:26 AM EST Narrative Resulting Agency Comment [id number] us Brittany Li NP PATHOLOGY-INTERFACED Final Resul t [facility] [address] [place] [address] * US VENOUS DUPLEX SCAN EXTREMITY VEINS UNILAT/LIMITED STUDY RIGHT FC (05/27/2020 6:57 PM EST) 05/27/2020 7:18 PM EST Narrative [facility] RADI[facility]Y [facility] - 05/27/2020 7:18 PM EST Right lower extremity venous duplex ultrasound. Comparison: None. Technique: Real time sonographic imaging, including color-flow imaging and spectral analysis, was performed by the network designer. Multiple off premise service representative static images were saved for review. [...] and spectral analysis, was performed by the network designer. Multiplerepresentative static images were saved for review. [...] Villaseñor IMG US ORDERABLES Final Res ult [facility] * XRAY KNEE FOR ORTHO [...] SCREENING (05/23/2020 2:14 PM EST) RADIOLOGY REPORT [facility] Department of Radiology [address] [place] [address], [id number] Name: JARRETT GARZON : 65 Date of Service: 05/23/20 1520 Acct Number: [id number] Order Number: [id number] Location: [facility] Report Number: [id number] Service: REG REF/ Requesting Physician: Darlene Rodas MD ([facility]) Category: MAMMOGRAPHY Exam: DIGITAL BREAST FUAD SCREENING Signs/Symptoms: SCREENING Report Status: Signed STUDY: Bilateral screening mammogram with CAD and tomosynthesis. TECHNIQUE: Bilateral craniocaudal and mediolateral oblique views obtained. [employer] Version 1.3 computer aided detection system and [...] mammogram notification. Date/Time of Dictation: 05/23/20 1526 Logistics Support (if applicable): Approved By Attending Radiologist: Raven Miller MD 05/23/20 [facility] Department of Radiology [address] [place] [address], [id number] [facility] RAD Anatomical Region Laterality Modality Other 05/23/2020 2:14 PM EST Narrative 05/23/2020 3:26 PM EST Reason for Study/History: Department of Radiology TEST(S) PROCESSED BY [facility] [employer] [facility] Darlene Rodas MD IMAGING-[facility] Final Resu lt * SYPHILIS (FTA) ANTIBODY CASCADING REFLEX TO RPR/TITER (*PREFERRED SCREEN*) (03/16/2020 12:08 PM EST) Only the most recent of2 resultswithin the time period is included. Treponema pallidum Ab NEGATIVE NEGATIVE [facility] Comment: No antibodies to T. pallidum (the agent causing syphilis) were detected in the specimen. This result, however, does not exclude very recent T. pallidum infection; testing of a second specimen, collected 2-4 weeks after this specimen, is recommended if the index of suspicion for recent infection is high. 03/16/2020 12:0 8 PM EST 03/16/2020 9:39 PM EST Narrative Resulting Agency Comment [id number] us Rachael Camarena MD LABORATORY Final Result [facility] [address] [place] [address] * PROTEIN, TOTAL, SERUM (03/16/2020 12:08 PM EST) Pathologist [facility] Protein Total (Serum) 6.6 6.1 - 8.1 g/dL [facility] 03/16/2020 12:0 8 PM EST 03/16/2020 9:39 PM EST Narrative Resulting Agency Comment [id number] Darlene Rodas MD LAB SAME DAY RESULT Final Result [facility] [address] [place] [address] * CBC INCLUDES DIFFERENTIAL AND PLATELET COUNT (02/29/2020 4:40 PM EDT) Only the most recent of3 resultswithin the time period is included. [facility] WBC 5.1 3.8 - 10.8 [...] 12:03 AM EDT Narrative Resulting Agency Comment [id number] Darlene Rodas MD LAB SAME DAY RESULT Final Result [facility] [address] [place], [place] [address] * ALANINE AMINOTRANSFERASE (ALT), SERUM (02/29/2020 4:40 PM EDT) Only the most recent of3 resultswithin the time period is included. ALT (SGPT) 14 6 - 29 U/L [facility] 02/29/2020 4:40 PM EDT 03/01/2020 12:03 AM EDT Narrative Resulting Agency Comment [id number] Darlene Rodas MD LAB SAME DAY RESULT Final Result [facility] [address] [place] [address] * LIPID PANEL WITH REFLEX TO DIRECT LDL (02/29/2020 4:40 PM EDT) Only the most recent of4 resultswithin the time period is included. Cholesterol 177 <200 mg/dL [facility] HDL Cholesterol 82 > OR = 50 mg/dL [facility] Triglyceride 55 <150 mg/dL [facility] LDL Cholesterol 81 mg/dL (calc) [facility] Comment: Reference range: <100 Desirable range <100 mg/dL for primary prevention; <70 mg/dL for patients with CHD or diabetic patients with > or = 2 CHD risk factors. LDL-C is now calculated using the Vladimir-Murray calculation, which is a validated novel method providing better accuracy than the Friedewald equation in the estimation of LDL-C. Vladimir SS et al. PUJA. 2013;310(19): 0687-6147 (http://education.[employer].Speakap/faq/UKJ563) CHOL/HDL Ratio 2.2 <5.0 (calc) [facility] Cholesterol Non-HDL 95 <130 mg/dL (calc) [facility] Comment: For patients with diabetes plus 1 major ASCVD risk factor, treating to a non-HDL-C goal of <100 mg/dL (LDL-C of <70 mg/dL) is considered a therapeutic option. 02/29/2020 4:40 PM EDT 03/01/2020 12:03 AM EDT Narrative Resulting Agency Comment [id number] us Darlene Rodas MD LABORATORY Final Resu lt Performing Organization Address City/[facility]/ZIP Co de Phone Number [facility] [address] [place] [address] * BASIC METABOLIC PANEL WITH (GFR) (02/29/2020 [...] approximately 13% higher for people identified as -Lao. EGFR 100 > OR = 60 mL/min/1 [...] needs for GFR calculation. Resulting Agency Comment [id number] us Darlene Rodas MD LABORATORY Final Resu lt Performing Organization Address City/[facility]/ZIP Co de Phone Number [facility] [address] [place] [address] * TEST, URINE - STATION (06/30/2019 9:27 AM EST) HCG, Qualitative, Urine neg Neg Urine specimen (specimen) 06/30/2019 9:27 AM EST Stefania Mclaughlin NP [facility] Final Result * TISSUE PATHOLOGY (06/30/2019 8:15 AM EST) COLLECTION DATE 06/30/2019 8:15 AM [facility] SPECIMEN SOURCE . A . Endocervix [facility] DIAGNOSIS . A . Fragments of unremarkable endocervical epithelium. [facility] SPECIMEN SOURCE . B . 1 o'clock [facility] DIAGNOSIS . B . Transformation zone mucosa, negative for dysplasia. [facility] Pathologist Jair Brumfield M.D., Board Certified in Anatomic and Clinical Pathology (electronic signature) Consulting Pathologist [facility] Pathology [phone] [facility] GROSS DESCRIPTION . A . SEE NOTE [facility] Comment: The container is labeled with patient's name and source ECC . Received in formalin is an endocervical brush with adherent mucoid material. The material measures 0.5 x 0.2 x 0.1 cm in aggregate. Specimen is submitted entirely in cassette A1. The specimen may not survive processing. Gross exam(s) performed at: [facility] [address] [address] Esthetic Dermatologist: AILYN AGUILAR MD GROSS DESCRIPTION . B . SEE NOTE [facility] Comment: The container is labeled with patient's [...] Stefania Mclaughlin NP PATHOLOGY-INTERFACED Final R esult [facility] [address] [place] [address] * BREAST IMPLANT SCREEN DIGITAL MAMMOGRAPHY WITH CAD (05/19/2019 8:06 AM EST) Only the most recent of2 resultswithin the time period is included. Pathologist [facility] RADIOLOGY REPORT [facility] Department of Radiology [address] [place] [address], [address] Name: JARRETT GARZON : 65 Date of Service: 05/18/19 180 Acct Number: [id number] Order Number: [id number] Location: [facility] Report Number: [id number] Service: REG REF/ Requesting Physician: Darlene Rodas MD ([facility]) Category: MAMMOGRAPHY Exam: IMPLANT SCREEN DIGITAL W CAD Signs/Symptoms: SCREENING Report Status: ---Signed--- STUDY: Bilateral implant screening mammogram with CAD. TECHNIQUE: Bilateral craniocaudal and mediolateral oblique views obtained. [employer] Version 1.3 computer aided detection system utilized. [...] screening mammogram notification. Date/Time of Dictation: 05/19/19910 Logistics Support (if applicable): Approved By Attending Radiologist: Raven Miller MD 05/19/19 0911 [facility] Department of Radiology [address] [place] [address], [address] [facility] RAD Anatomical Region Laterality Modality Other 05/19/2019 8:06 AM EST Narrative 05/19/2019 9:14 AM EST Reason for Study/History: Department of Radiology TEST(S) PROCESSED BY [facility] XRAY Darlene Rodas MD IMAGING-[facility] Final Resu lt * TSH, 3RD GENERATION (04/11/2019 8:39 AM EST) TSH 3.81 mIU/L [facility] Comment: Reference Range > or = 20 Years 0.40-4.50 Ranges First trimester 0.26-2.66 Second trimester 0.55-2.73 Third trimester 0.43-2.91 04/11/2019 8:39 AM EST 04/11/2019 9:59 PM EST Narrative Resulting Agency Comment [id number] Darlene Rodas MD LABORATORY Final Resu lt Performing Organization Address City/[facility] Co de Phone Number [facility] [address] [place] [address] * HEPATIC FUNCTION PANEL (ALT,AST,ALK PH,BILI'S,TP,ALB) (04/11/2019 8:39 AM EST) Pathologist [facility] Protein Total (Serum) 7.0 6.1 - 8.1 [...] 9:59 PM EST Narrative Resulting Agency Comment [id number] Darlene Rodas MD LABORATORY Final Resu lt Performing Organization Address City/[facility] Co de Phone Number [facility] [address] [place] [address] * (ABNORMAL) HSV 1 AND 2 IGG [...] 10:43 PM EST Narrative Resulting Agency Comment [id number] us Opal Stevens NP LABORATORY Final Result Performing Organization Address [facility] Phone Number [facility] [address] [place] [address] * ASPARTATE AMINOTRANSFERASE (AST), SERUM (03/18/2018 9:22 AM EST) AST (SGOT) 20 10 - 35 U/L [facility] 03/18/2018 9:22 AM EST 03/18/2018 5:02 PM EST Narrative Resulting Agency Comment [id number] us Opal Stevens NP LAB SAME DAY RESULT Final Result Performing Organization Address [facility] Phone Number [facility] [address] [place] [address] * (ABNORMAL) FSH (03/18/2018 9:22 AM EST) FSH 136.1(H) mIU/mL [facility] Comment: Reference Range Follicular Phase 2.5-10.2 Mid-cycle Peak 3.1-17.7 Luteal Phase 1.5- 9.1 Postmenopausal 23.0-116.3 03/18/2018 9:22 AM EST 03/18/2018 5:02 PM EST us Opal Stevens NP LAB SAME DAY RESULT Final Result [facility] [address] [place] [address] * XRAY ANKLE COMPLETE MIN 3 VWS [...] C virus Ab NON-REACTI VE NON-REACT IRENE [facility] Hepatitis C virus Ab Signal/Cutoff 0.02 <1.00 [facility] 11/17/2016 8:05 AM EDT 11/17/2016 8:04 PM EDT Narrative Resulting Agency Comment [id number] us Linette Mcguire NP LABORATORY Final Result [facility] [address] [place] [address] * CARDIOVASCULAR STRESS TEST W/TREADMILL, BICYCLE, AND/OR [...]
--- OUTSIDE RECORDS SUMMARY | 2025-03-13 07:44 | XMS_ITS | Encounter Summary ---
Author Organization [facility] Address [address] [place] [address] Care Team Providers Care Test Engine Evaluator Name Role Phone Darlene Rodas MD Primary Care Provider +1- [phone] Encounter Details Date Type Department Care Team ([facility] Contact Info) Description 06/11/2020 Orders Only [facility] [employer] ENGLISH TE[employer]ER [address] [facility] [address] [place] [address] Brittany Li, RAIN [address] [place] [address] Social History Tobacco Use Types Packs/Day Years [...] documented as of this encounter Functional Status * Alcohol Use Question Answer Date of Assessment Author Q1: How often do you have a drink containing alcohol? 2-4 times a month 06/11/2020 8:27 AM EST Brittany Li NP Q2: How many drinks containing alcohol do you have on a typical day when you are drinking? Not asked 06/11/2020 8:27 AM EST Brittany Li NP Q3: How often do you have six or more drinks on one occasion? Not asked 06/11/2020 8:27 AM EST Brittany Li NP documented as of this encounter Miscellaneous Notes * Result Encounter Note - Brittany Alcocer NP - 06/11/2020 11:05 AM EST Normal pap smear / negative HPV. Repeat in [address] on recall list. [employer] sent to pt. Problem list updated. * Result Encounter Note - Bree Martin - 06/11/2020 11:05 AM EST On recall documented in this encounter Plan of Treatment Not on file documented as of this encounter Procedures * Due to [place] [employer] law, this organization might not be sharing negative HIV tests. Procedure Name Priority Date/Time Associated Diagnosis Comments THINPREP TIS PAP AND HPV RNA, HR E6/E7, TMA Routine 06/11/2020 11:05 AM EST Abnormal cervical Papanicolaou smear, unspecified abnormal pap finding documented in this encounter Results * Due to [place] [employer] law, this organization might not be sharing [...] Smear Negative for intraepithelial lesion or malignancy. [facility] Cytology study comment (Cvx/Vag) This Pap test has been evaluated with computer assisted technology. [facility] Lead Web Developer (Cvx/Vag) SXA, CT(ASCP) CT screening location: [place] [address] [facility] COMMENT SEE NOTE [facility] Comment: EXPLANATORY NOTE: The Pap is [...] HPV MRNA E6/E7 Not Detected Not Detected [email or web address] Comment: Methodology: Salesperson Women[employer]S [employer]-Mediated Amplification This assay detects E6/E7 viral messenger RNA (mRNA) from 14 high-risk HPV types (16,18,31,33,35,39,45,51,52,56,58,59,66,68). The analytical performance characteristics of this assay have been determined by [employer]. The modifications have not been cleared or approved by the FDA. This assay has been validated pursuant to the CLIA regulations and is used for clinical purposes. For additional information, please refer to http://education.[employer].ShipBob/SMW206c0 (This link if provided for information/ educational purposes only.) ENDOCERVICAL STRUCTURE / Unknown 06/11/2020 11:05 AM EST 06/12/2020 7:26 AM EST Narrative Resulting Agency Comment [id number] us Brittany Li ATHLETIC COACH PATHOLOGY-INTERFACED Final Resul t [facility] [address] [place] [address] documented in this encounter Visit Diagnoses Diagnosis Abnormal cervical Papanicolaou smear, unspecified abnormal pap finding documented in this encounter Care Teams Test Engine Evaluator Relationship Specialty Start Date End Date Darlene Rodas MD [address] [place], [place] [address] [address] PCP - General 07/16/16 03/18/21 documented as of this encounter
--- OUTSIDE RECORDS SUMMARY | 2025-03-13 07:44 | XMS_ITS | Encounter Summary ---
Author Organization [facility] Address [address] [place] [address] Care Team Providers Care Production Recovery Operator Name Role Phone Darlene Rodas MD Primary Care Provider +1- [phone] Encounter Details Date Type Department Care Team (Late st Contact Info) Description 10/06/2016 Orders Only [facility] [address] [place] [phone] Darlene Rodas MD [address] [place] [id number] Social History Tobacco Use Types Packs/Day Years [...] on filedocumented in this encounter Care Teams Production Recovery Operator Relationship Specialty Start Date End Date Darlene Rodas MD [address] [place], [place] [id number] PCP - General 07/16/16 03/18/21 documented as of this encounter
--- OUTSIDE RECORDS SUMMARY | 2025-03-13 07:44 | XMS_ITS | Encounter Summary ---
Author Organization [facility] Address [address] [place] [address] Care Team Providers Care Formula Mixer Name Role Phone Darlene Rodas MD Primary Care Provider +1- [phone] Encounter Details Date Type Department Care Team (Late st Contact Info) Description 03/22/[address] [address] [facility] [address] [place] [phone] Opal Stevens NP Social History Tobacco Use [...] of this encounter Procedures * Due to [place] [employer] law, this organization might not be sharing negative HIV tests. Procedure Name Priority Date/Time Associated Diagnosis Comments HSV 1 AND 2 IGG HERPESELECT SPECIFIC ANTIBODY Routine 03/22/2018 5:00 PM EST Screen for STD (sexually transmitted disease) documented in this encounter Results * Due to [place] [employer] law, this organization might not be sharing [...] 10:43 PM EST Narrative Resulting Agency Comment [id number] Opal Stevens NP LABORATORY Final Result [facility] [address] [place] [address] documented in this encounter Visit Diagnoses Diagnosis Screen for STD (sexually transmitted disease) Screening examination for venereal disease documented in this encounter Care Teams Formula Mixer Relationship Specialty Start Date End Date Darlene Rodas MD [address] [place] [address] PCP - General 07/16/16 03/18/21 documented as of this encounter
--- OUTSIDE RECORDS SUMMARY | 2025-03-13 07:44 | XMS_ITS | Encounter Summary ---
Author Organization [facility] Address [address] [place] [address] Care Team Providers Care Bumper Straightener Name Role Phone Darlene Rodas MD Primary Care Provider +1- [phone] Encounter Details Date Type Department Care Team (Late st Contact Info) Description 2018 Orders Only [facility] [address] [place] [address] Opal Stevens NP Social History [...] of this encounter Results * Due to [place] state law, this organization might not be sharing negative HIV tests. * ASPARTATE AMINOTRANSFERASE (AST), SERUM (03/18/2018 9:22 AM EST) AST (SGOT) 20 10 - 35 U/L [facility] 03/18/2018 9:22 AM EST 03/18/2018 5:02 PM EST Narrative Resulting Agency Comment [id number] Opal Stevens NP LAB SAME DAY RESULT Final Result [facility] [address] [place] [address] * ALANINE AMINOTRANSFERASE (ALT), SERUM (03/18/2018 9:22 AM EST) ALT (SGPT) 12 6 - 29 U/L [facility] 03/18/2018 9:22 AM EST 03/18/2018 5:02 PM EST Narrative Resulting Agency Comment [id number] Opal Stevens DISPATCH LEAD LAB SAME DAY RESULT Final Result Performing Organization Address [facility] de Phone Number [facility] [address] [place] [address] * LIPID PANEL WITH REFLEX TO DIRECT [...] LDL-C. Vladimir SS et al. PUJA. 2013;310(19): 5735-7220 (http://education.SpeedDate.CFBank/faq/KDQ317) CHOL/HDL Ratio 2.1 <5.0 (calc) [facility] Cholesterol Non-HDL 98 <130 mg/dL (calc) [facility] Comment: For patients with diabetes plus 1 major ASCVD risk factor, treating to a non-HDL-C goal of <100 mg/dL (LDL-C of <70 mg/dL) is considered a therapeutic option. 03/18/2018 9:22 AM EST 03/18/2018 5:02 PM EST Narrative Resulting Agency Comment [id number] us Opal Stevens DISPATCH LEAD LABORATORY Final Result Performing Organization Address [facility] Co de Phone Number [facility] [address] [place] [address] * BASIC METABOLIC PANEL WITH (GFR) (03/18/2018 9:22 AM EST) Glucose 75 65 - 99 mg/dL [facility] Comment:Fasting reference in terval Urea Nitrogen Blood (BUN) 12 7 - 25 mg/dL [facility] Creatinine 0.63 0.50 - 1.05 mg/dL [facility] Comment: For patients >49 years of age, the reference limit for Creatinine is approximately 13% higher for people identified as -Bahamian. GFR 102 > OR = 60 mL/min/1 [...] needs for GFR calculation. Resulting Agency Comment [id number] Opal Stevens NP LABORATORY Final Result Performing Organization Address City/State/[facility] Co de Phone Number [facility] [address] [place] [address] documented in this encounter Visit Diagnoses Diagnosis Healthy adult on routine physical examination Routine general medical examination at a health care facility Healthy adult on routine physical examination Routine general medical examination at a health care facility documented in this encounter Care Teams Bumper Straightener Relationship Specialty Start Date End Date Darlene Rodas MD [address] [place] [address] PCP - General 07/16/16 03/18/21 documented as of this encounter
--- OUTSIDE RECORDS SUMMARY | 2025-03-13 07:44 | XMS_ITS | Encounter Summary ---
Author Organization [facility] Address [address] [place] [address] Care Team Providers Care Rider Ticket Worker Name Role Phone Darlene Rodas MD Primary Care Provider +1- [phone] Encounter Details Date Type Department Care Team ([facility] st Contact Info) Description 10/29/2020 Orders Only [facility]. Podiatry [address] [place] [phone] Tre Rosario, DPYocasta [address] [place] [address] Social History Tobacco Use Types Packs/Day Years [...] this encounter Procedures * Due to [place] [employer] law, this organization might not be sharing negative HIV tests. Procedure Name Priority Date/Time Associated Diagnosis Comments FUNGAL STAIN, JAMIE Routine 10/29/2020 2:3 9 PM EDT Onychomycosis documented in this encounter Results * Due to [place] [employer] law, this organization might not be sharing negative HIV tests. * FUNGAL STAIN, JAMIE (10/29/2020 2:39 PM EDT) Fungus identified SEE NOTE [facility] Comment: FUNGAL STAIN Micro Number: [id number] Test Status: Final Specimen Source: LEFT 2ND TOENAIL Specimen Quality: Adequate Smear: No fungal elements seen. 10/29/2020 2:39 PM EDT 10/29/2020 9:27 PM EDT Narrative Resulting Agency Comment [id number] us Tre Rosario DPM LABORATORY Final Result Performing Organization Address City/State/[facility] Co de Phone Number [facility] [address] [place] [address] documented in this encounter Visit Diagnoses Diagnosis Onychomycosis Dermatophytosis of nail documented in this encounter Care Teams Rider Ticket Worker Relationship Specialty Start Date End Date Darlene Rodas MD [address] [place] [address] PCP - General 07/16/16 03/18/21 documented as of this encounter
--- OUTSIDE RECORDS SUMMARY | 2025-03-13 07:44 | XMS_ITS | Encounter Summary ---
Author Organization [facility] Address [address] [place] [address] Care Team Providers Care Basting Puller Name Role Phone Darlene Rodas MD Primary Care Provider +1- [phone] Encounter Details Date Type Department Care Team (Late st Contact Info) Description 03/16/[address] [facility] [facility] [address] [place] [phone] Darlene Rodas MD [address] [place] [address] Social History Tobacco Use Types Packs/Day Years [...] this encounter Procedures * Due to [place] state law, this organization might not be sharing negative HIV tests. Procedure Name Priority Date/Time Associated Diagnosis Comments SYPHILIS (FTA) ANTIBODY CASCADING REFLEX TO RPR/TITER (*PREFERRED SCREEN*) Routine 03/16/2020 12:08 PM EST False positive syphilis serology VENIPUNCTURE Routine 03/16/2020 12:08 PM EST Vegan diet documented in this encounter Results * Due to [place] state law, this organization might not be [...] 9:39 PM EST Narrative Resulting Agency Comment [id number] us Rachael Camarena MD LABORATORY Final Result Performing Organization Address [facility] Co de Phone Number [facility] [address] [place] [address] * PROTEIN, TOTAL, SERUM (03/16/2020 12:08 PM EST) Protein Total (Serum) 6.6 6.1 - 8.1 g/dL [facility] 03/16/2020 12:0 8 PM EST 03/16/2020 9:39 PM EST Narrative Resulting Agency Comment [id number] us Darlene Rodas MD LAB SAME DAY RESULT Final Result Performing Organization Address [facility] Co de Phone Number [facility] [address] [place] [address] documented in this encounter Visit Diagnoses Diagnosis Vegan diet False positive syphilis serology False positive serological test for syphilis documented in this encounter Care Teams Basting Puller Relationship Specialty Start Date End Date Darlene Rodas MD [address] [place] [address] [place] [address] PCP - General 07/16/16 03/18/21 documented as of this encounter
--- OUTSIDE RECORDS SUMMARY | 2025-03-13 07:44 | XMS_ITS | Encounter Summary ---
Author Organization [facility] Address [address] [place] [address] Care Team Providers Care Cinder Dump Crane Operator Name Role Phone Darlene Rodas MD Primary Care Provider [phone]- [phone] Encounter Details Date Type Department Care Team (Late st Contact Info) Description 03/18/2018 Orders Only [facility] [address] [place] [phone] Opal Stevens NP Social History [...] this encounter Procedures * Due to [place] state law, this organization might not be [...] this encounter Results * Due to [place] state law, this organization might not be sharing negative HIV tests. * (ABNORMAL) FSH (03/18/2018 9:22 AM EST) FSH 136.1(H) mIU/mL [facility] Comment: Reference Range Follicular Phase 2.5-10.2 Mid-cycle Peak 3.1-17.7 Luteal Phase 1.5- 9.1 Postmenopausal 23.0-116.3 03/18/2018 9:22 AM EST 03/18/2018 5:02 PM EST Opal Stevens JEWEL INSERTER LAB SAME DAY RESULT Final Result Performing Organization Address City/[facility] Co de Phone Number [facility] [address] [place] [address] * ASPARTATE AMINOTRANSFERASE (AST), SERUM (03/18/2018 9:22 AM EST) AST (SGOT) 20 10 - 35 U/L [facility] 03/18/2018 9:22 AM EST 03/18/2018 5:02 PM EST Narrative Resulting Agency Comment [id number] Opal Stevens JEWEL INSERTER LAB SAME DAY RESULT Final Result [facility] [address] [place] [address] * ALANINE AMINOTRANSFERASE (ALT), SERUM (03/18/2018 9:22 AM EST) ALT (SGPT) 12 6 - 29 U/L [facility] 03/18/2018 9:22 AM EST 03/18/2018 5:02 PM EST Narrative Resulting Agency Comment [id number] Opal Stevens JEWEL INSERTER LAB SAME DAY RESULT Final Result Performing Organization Address [facility] de Phone Number [facility] [address] [place] [address] * LIPID PANEL WITH REFLEX TO DIRECT [...] of LDL-C. Vladimir SS et al. PUJA. 2013;310(21): 1897-8037 (http://education.[employer]/faq/IOR635) CHOL/HDL Ratio 2.1 <5.0 (calc) [facility] Cholesterol Non-HDL 98 <130 mg/dL (calc) [facility] Comment: For patients with diabetes plus 1 major ASCVD risk factor, treating to a non-HDL-C goal of <100 mg/dL (LDL-C of <70 mg/dL) is considered a therapeutic option. 03/18/2018 9:22 AM EST 03/18/2018 5:02 PM EST Narrative Resulting Agency Comment [id number] Opal Stevens JEWEL INSERTER LABORATORY Final Result Performing Organization Address [facility] Co de Phone Number [facility] [address] [place] [address] * BASIC METABOLIC PANEL WITH (GFR) (03/18/2018 9:22 AM EST) Glucose 75 65 - 99 mg/dL [facility] Comment:Fasting reference in terval Urea Nitrogen Blood (BUN) 12 7 - 25 mg/dL [facility] Creatinine 0.63 0.50 - 1.05 mg/dL [facility] Comment: For patients >49 years of age, the reference limit for Creatinine is approximately 13% higher for people identified as -[place]. GFR 102 > OR = 60 mL/min/1 [...] needs for GFR calculation. Resulting Agency Comment [id number] Opal Stevens NP LABORATORY Final Result Performing Organization Address City/State/[facility] Co de Phone Number [facility] [address] [place] [address] documented in this encounter Visit Diagnoses Diagnosis Healthy adult on routine physical examination Routine general medical examination at a health care facility documented in this encounter Care Teams Cinder Dump Crane Operator Relationship Specialty Start Date End Date Darlene Rodas MD [address] [place] [id number] PCP - General 07/16/16 03/18/21 documented as of this encounter
--- OUTSIDE RECORDS SUMMARY | 2025-03-13 07:44 | XMS_ITS | Encounter Summary ---
Author Organization [facility] Address [address] [place] [address] Care Team Providers Care Nurse First Assist Name Role Phone Darlene Rodas MD Primary Care Provider [phone]- [phone] Encounter Details Date Type Department Care Team (Late st Contact Info) Description 2018 Orders Only [facility] [address] [place] [id number] Darlene Rodas MD [address] [place] [id number] Social History Tobacco Use Types Packs/Day Years [...] on filedocumented in this encounter Care Teams Nurse First Assist Relationship Specialty Start Date End Date Darlene Rodas MD [address] [place], [place] [phone] PCP - General 07/16/16 03/18/21 documented as of this encounter
--- OUTSIDE RECORDS SUMMARY | 2025-03-13 07:44 | XMS_ITS | Encounter Summary ---
Author Organization [facility] Address [address] [place] [address] Care Team Providers Care Rug Receiving Clerk Name Role Phone Darlene Rodas MD Primary Care Provider +1- [phone] Encounter Details Date Type Department Care Team (Late st Contact Info) Description 11/17/2016 Orders Only [facility] [address] [place] [phone] Linette Mcguire NP Social History Tobacco [...] 8:04 PM EDT Narrative Resulting Agency Comment [id number] Linette Mcguire NP LABORATORY Final Result Performing Organization Address City/State/[facility] Co de Phone Number [facility] [address] [place] [address] * CBC INCLUDES DIFFERENTIAL AND PLATELET COUNT [...] 8:04 PM EDT Narrative Resulting Agency Comment [id number] Linette Mcguire NP LAB SAME DAY RESULT Final Re sult Performing Organization Address [facility] Co de Phone Number [facility] [address] [place] [address] * ALANINE AMINOTRANSFERASE (ALT), SERUM (11/17/2016 8:05 AM EDT) ALT (SGPT) 12 6 - 29 U/L [facility] 11/17/2016 8:05 AM EDT 11/17/2016 8:04 PM EDT Narrative Resulting Agency Comment [id number] Linette Mcguire CLINICAL LAW PROFESSOR LAB SAME DAY RESULT Final Re sult Performing Organization Address [facility] Co de Phone Number [facility] [address] [place] [address] * LIPID PANEL WITH REFLEX TO DIRECT [...] 8:04 PM EDT Narrative Resulting Agency Comment [id number] Linette Mcguire NP LABORATORY Final Result [facility] [address] [place] [address] * BASIC METABOLIC PANEL WITH (GFR) (11/17/2016 8:05 AM EDT) Pathologist [facility] Glucose 81 65 - 99 mg/dL [facility] Comment:Fasting reference in terval Urea Nitrogen Blood (BUN) 14 7 - 25 mg/dL [facility] Creatinine 0.76 0.50 - 1.05 mg/dL [facility] Comment: For patients >49 years of age, the reference limit for Creatinine is approximately 13% higher for people identified as -[place]. GFR 91 > OR = 60 mL/min/1 [...] needs for GFR calculation. Resulting Agency Comment [id number] Linette Eineberg CLINICAL LAW PROFESSOR LABORATORY Final Result [facility] [address] [place] [address] documented in this encounter Visit Diagnoses Diagnosis Encounter to establish care with new doctor Other reasons for seeking consultation Health care maintenance Unspecified general medical examination Need for hepatitis C screening test Special screening examination for other specified viral diseases documented in this encounter Care Teams Rug Receiving Clerk Relationship Specialty Start Date End Date Darlene Rodas MD [address] [place] [id number] PCP - General 07/16/16 03/18/21 documented as of this encounter
== END 2025-03-13 08:34 | disposition home or self-care (01) ==
PROVIDERS: PCP Internal Medicine; Visit Provider Physician Assistant Medical
DX: M54.2 Cervicalgia (principal)

== ENCOUNTER → 2025-03-13 08:41 | Outpatient (BNV) | payer OTHER, SELFPAY | PROVIDERS: PCP Internal Medicine; Visit Provider Radiology Diagnostic Radiology | DX: M47.812 Spondylosis without myelopathy or radiculopathy, cervical region (principal) | CPT/HCPCS: 72040 ==